=== PATIENT | male | born 1975 | race Caucasian/White ===

== ENCOUNTER 2022-10-27 11:36 | Day surgery (SDC) | payer BC ==
[2022-10-27 11:36] LABS: Absolute Lymphocytes (CBC) 1.9 K/uL (0.7-4.9); Lymphocytes % 28.3 % (15.3-44.8); MCV 85.3 fL (80-100); MPV 9.5 fL (7.6-11.3); Platelets 219 thou/uL (152-406); RBC Red Blood Cell Count 5.16 M/uL (4.33-5.43)
--- NOTE | 2022-10-27 11:43 | RAD REPORT ---
EXAM DESCRIPTION: RAD - Chest Pa And Lat (2 Views) - 10/27/2022 11:38 am CLINICAL HISTORY: Pre op pending cholecystectomy, diabetes, hypertension COMPARISON: No comparisons FINDINGS: Lines: None. Lungs: No evidence of edema or pneumonia. Calcified right upper lobe nodule. Pleural: No significant pleural effusions or pneumothorax. Cardiac: The heart size is within normal limits. Mediastinum: Within normal limits. Bones: No acute fractures. Other: None IMPRESSION: No acute cardiopulmonary disease.
[2022-10-27] MEDS ORDERED: CEFOXITIN SODIUM 1 GM/VIAL ONE (11:59)
[2022-10-27] MEDS ORDERED: Ringers Lactate 1,000 ML IV ONE (11:59)
[2022-10-27 12:31] LABS: Albumin 3.9 g/dL (3.4-5.0); Bilirubin Direct 0.2 mg/dL (0-0.2); Bilirubin Indirect, Calculated 0.4 mg/dL (0.2-0.8); Bilirubin Total 0.6 mg/dL (0.2-1.0); Potassium 3.3 mEq/L (3.5-5.1); Protein, Total 7.5 g/dL (6.4-8.2)
[2022-10-27] MEDS ORDERED: ROCURONIUM 50 MG/5 ML VIAL IV ONE (13:16)
[2022-10-27] MEDS ORDERED: MIDAZOLAM HCL 2 MG/2 ML INJ ONE (13:16)
[2022-10-27] MEDS ORDERED: LIDOCAINE 2% MPF 5 ML VIAL ONE (13:16)
[2022-10-27] MEDS ORDERED: propofoL 200 MG/20 ML VIAL IV ONE (13:16)
[2022-10-27] MEDS ORDERED: FENTANYL CITR 100 MCG/2 ML ONE (13:16)
[2022-10-27] MEDS ORDERED: ONDANSETRON 4 MG/2 ML VIAL ONE (13:16)
--- NOTE | 2022-10-27 13:54 | P.BOP ---
Preoperative diagnosis: symptomatic cholelithiasis Postoperative diagnosis: same Primary procedure: Laparoscopic cholecystectomy Estimated blood loss: <10cc Specimen: gb Findings: as above Anesthesia: General Complications: None Transferred to: Recovery Room Condition: Good
[2022-10-27] MEDS ORDERED: GLYCOPYRROLATE 0.2 MG/ML SYR ONE (14:03)
[2022-10-27] MEDS ORDERED: NEOSTIGMINE 1 MG/ML -10 ML VIAL ONE (14:03)
[2022-10-27] MEDS ORDERED: KETOROLAC 30 MG/ML INJ ONE (14:05)
[2022-10-27] MEDS: HYDROMORPHONE HCL 1 MG/ML INJ ONE ×2 (14:30→14:35)
[2022-10-27] MEDS ORDERED: HYDROCODONE/APAP 10/325 TAB ONE (15:14)
[2022-10-27 16:28] VITALS: TEMP 97; O2SAT 97
[2022-10-27 16:33] VITALS: BP 120/65
--- NOTE | 2022-10-28 01:48 | OP ---
Date of Procedure: 10/27/2022 Surgeon: Xander Lloyd MD Preoperative Diagnosis: Symptomatic cholelithiasis. Postoperative Diagnosis: Symptomatic cholelithiasis. Procedure: Laparoscopic cholecystectomy. Estimated Blood Loss: Less than 10 cc. Specimen: Gallbladder. Anesthesia: General plus local. Indication: This is the case of a 47-year-old patient with above diagnosis. Fully explained the vince efits, alternatives, and risks of laparoscopic, possible open cholecystectomy, which include, but not limited to infection, bleeding, damage to adjacent structures, anesthesia complication, choledocholi thiasis, bile leak, pancreatitis, DE, and even . He also understands this may not relieve his s ymptoms. He might need more than one surgical intervention. He understood, signed a consent. Procedure In Detail: Patient brought to the operating room, placed in supine position. Anesthesia w as done without complication. Abdominal area was prepped and draped in usual sterile fashion. Winston ine 0.5% was injected for local anesthetic followed by sharp incision of the skin in the infraumbilic al region. Incision was carried down to fascia, which was opened under direct vision. Peritoneum wa s encountered, opened under direct vision. Vicryl #1 placed inside the fascia. Glen trocar was ca refully introduced. Pneumoperitoneum was obtained. I placed 3 more trocars, 5 mm each one of them, epigastric, right upper quadrant area under direct visualization. This allowed me to put a grasper i n the fundus of the gallbladder, another grasper in the infundibulum, retracting the gallbladder in t he inferolateral fashion exposing the triangle of Calot, obtaining critical view. The cystic duct an d cystic artery were clearly isolated, freed circumferentially, and a connection between those and th e gallbladder was clearly identified. I proceeded to ligate those by using at least 3 clips proximal , 1 clip distal, ligation in middle. Same was done with the cystic artery. No bile leak. No bleedi ng. The gallbladder was removed from liver using Bovie cauterizer and removed from abdominal cavity using EndoCatch through the umbilical incision. The area was inspected once again. No bile leak. N o bleeding. At that moment, I proceeded to remove the trocars under direct vision. Deflated the pne umoperitoneum. Closed the fascia with #1 Vicryl. Irrigated subcutaneous tissue, closed that with 3- 0 chromic, and skin with jamshid. Sponge counts and instrument counts correct. Patient tolerated th e procedure well. Patient sent to recovery in stable condition. Disposition: Home. Activity: As tolerated. No heavy lifting. Plan: Follow up in my office in 1 week. Call for appointment at [phone]. Keep area dry for 48 stalin rs, then may shower. Then may cover the jamshid with triple antibiotics and Band-Aid. NELLIE/SONALI Voice ID: [id number] Report ID: [id number]
--- NOTE | 2022-10-29 15:32 | EKG ---
Test Date: 2022-10-27 Test Time: 11:18:59 Mechanical Engineer: MIKHAIL MEASUREMENT RESULTS: Intervals: Rate: 51 MN: 168 QRSD: 100 QT: 446 QTc: 411 [place]: P: 31 MN: 168 QRS: 47 T: 59 INTERPRETIVE STATEMENTS: Sinus bradycardia Otherwise normal ECG No previous ECG available for comparison Electronically Signed On 10-29-22 15:30:41 CDT by Saturnino Castellanos
== END 2022-10-27 15:40 | disposition home or self-care (01) ==
LOC: OR 11:36
PROVIDERS: ATTEND Surgery
PROC: 0FT44ZZ Resection of Gallbladder, Percutaneous Endoscopic Approach (ICD-10-PCS; principal; 2022-10-27 12:30)
DX: K81.1 Chronic cholecystitis (principal)
CPT/HCPCS: 47562; 93005; 85025; 80048; 36415; 80076; 88304; 83690; 71046; J2704; J2710; J2001; J2250; J3010; J1170; J0694; J2405; J7120

== ENCOUNTER 2022-10-27 22:43 | Inpatient (IN) | payer BC ==
--- OUTSIDE RECORDS SUMMARY | 2022-10-27 22:52 | XMS REPORT | Continuity of Care Document ---
:1975 Author Organization [facility] t Address [address] [facility]. [address] [place] [address] Care Team Providers Name Role Phone Parvez Del Rosario MD Primary Care Physician VIKKI RAMOS Attending Clinician Unavailable VIKKI RAMOS Attending Clinician Unavailable FELICIA BETANCUR Attending Clinician Unavailable Parvez Del Rosario MD Attending Clinician ANTONY GUAMAN Attending Clinician Unavailable Antony Guaman MD Attending Clinician Lab, Derick Velasco Attending Clinician Unavailable Unknown, Attending Attending Clinician Unavailable UNKNOWN, ATTENDING Attending Clinician Unavailable Doctor Unassigned, [place] Attending Clinician Unavailable Lorena Conklin Attending Clinician LORENA TATE Attending Clinician Unavailable William Brunson MD Attending Clinician PARVEZ DEL ROSARIO Attending Clinician Unavailable Felicia Billings Attending Clinician WILLIAM BRUNSON Attending Clinician Unavailable Raymundo Long MD Attending Clinician ANDERS SHAW Attending Clinician Unavailable Anders Shaw MD Attending Clinician [facility] Attending Clinician Unavailable CIELO INMAN Attending Clinician Unavailable Nicole Bell Attending Clinician NICOLE TONY Attending Clinician Unavailable Lu Ortega RN Attending Clinician Unavailable Only, Derick Db Test Attending Clinician Unavailable Madalyn Doshi PA-C Attending Clinician MADALYN DOSHI Attending Clinician Unavailable RAYMUNDO LONG Attending Clinician Unavailable Marlo Mann MD Attending Clinician MABEL REGALADO Attending Clinician Unavailable VINNIE DAWKINS Attending Clinician Unavailable Vinnie Dawkins DO Attending Clinician Lab, Adc Fam Pob I Attending Clinician Unavailable Provider, [facility] Attending Clinician Unavailable Veronica WRINGER AND SETTER, Elda Attending Clinician OMAGKLAUS, OMAYEMI Attending Clinician Unavailable Dylon ZAMORA, Karen Urias Attending Clinician KAREN TINOCO Attending Clinician Unavailable [facility] Attending Clinician Unavailable Cristian RAO, Patrick Urais Attending Clinician Unavailable Navi Davis MD Attending Clinician Beronica Madrigal RN Attending Clinician Unavailable Moy MENDOZA, Lulu Attending Clinician Rajevelyn_Lorrie Attending Clinician Unavailable ANTONY GUAMAN Admitting Clinician Unavailable ANDERS SHAW Admitting Clinician Unavailable Raju_oLrrie Admitting Clinician Unavailable PARVEZ DEL ROSARIO Admitting Clinician Unavailable Payers Payer Name Policy Type Policy Number Effective Date Expiration Date S modesta [facility] [id number] 2016 00:00:00 Problems Condition Condition Condition Status Onset Resolution Last Treating Co mments Source Name Details Category Date Date Treatment Clinician Date Arthritis Arthritis Disease Active Uni vers of both of both 09-21 ity of knees knees 00:00: [place] [facility] Onychomyco Onychomyco Disease Active U nivers sis sis 11-21 ity of 00:: [place] [facility] Type 2 Type 2 Disease Active Univers diabetes diabetes 11-21 ity of mellitus mellitus 00:00: [place] without without 00 Medical complicati complicati Br anch on, on, without without long-term long-term current current use of use of insulin insulin Fatty Fatty Disease Active Univers liver liver 11-21 ity of 00:00: [address] Obesity Obesity Disease Active Univers (BMI (BMI 9-05 ity of 30-39.9) 30-39.9) 00:00: [address] Branch Essential Essential Disease Active 2015-03 Uni vers hypertensi hypertensi 1-30 it y of on on 00:00: [place] [address] Medical [place] Hyperthyro Hyperthyro Disease Active U nivers idism idism 3-29 ity of 00:00: [address] Allergies, Adverse Reactions, Alerts Allergy Allergy Status Severity Reaction(s) Onset Inactive Treating Comm ents Source Name Type Date Date Clinician NO KNOWN Drug Active Univers ALLERGIE Class ity of S [facility] Social History Social Habit Start Date Stop Date Quantity Comments Source Gender identity Universit y of [facility] Sexual orientation Univer sity [facility] Alcohol intake 2022-10-24 2022-10-24 Current University of 00:00:00 00:00:00 non-drinker of [facility] alcohol [place] (finding) Exposure to 2022-09-11 2022-09-21 Not sure [facility] SARS-CoV-2 (event) 00:00:00 11:43:00 [facility] History of Social 2022-06-02 2022-06-02 Univers ity of function 00:00:00 00:00:00 [facility] Tobacco use and 2022-02-20 2022-02-20 Smokeless Universit y of exposure 00:00:00 00:00:00 tobacco non-user [facility] History of tobacco 2002-03-19 Cigarette Smoker University of use 00:00:00 [facility] Sex Ass[birth year] At [birth year] Universit y of 00:00:00 00:00:00 [facility] Smoking Status Start Date Stop Date Source Ex-smoker 2022-02-20 00:00:00 2022-02-20 00:00:00 Universi ty of [facility] Medications Ordered Filled Start Stop Current Ordering Indication Dosage Frequency Signature Comments Components Source Medication Medication Date Date Medication? Clinician (SIG) Name Name ezetimibe Yes [id number] 10mg Take 1 Un nuzhat 10 mg 8-08 tablet by ity of tablet 00:00: mouth in [place] 00 the Medical morning. Branch ezetimibe Yes [id number] 10mg Take 1 Un nuzhat 10 mg 8-08 tablet by ity of tablet 00:00: mouth in [place] [address] the Medical morning. Branch OMEPRAZOLE 3-0 Yes [id number] 40mg TAKE 1 U nivers 40 mg 7-07 CAPSULE BY ity of capsule 00:00: MOUTH IN [place] 00 THE Medical MORNING Branch OMEPRAZOLE 3-0 Yes [id number] 40mg TAKE 1 U nivers 40 mg 7-07 CAPSULE BY ity of capsule 00:00: MOUTH IN [place] 00 THE Medical MORNING Branch OMEPRAZOLE 3-0 Yes [id number] 40mg TAKE 1 U nivers 40 mg 7-07 CAPSULE BY ity of capsule 00:00: MOUTH IN [place] [address] THE Medical MORNING Branch OMEPRAZOLE 3-0 Yes [id number] 40mg TAKE 1 U nivers 40 mg 7-07 CAPSULE BY ity of capsule 00:00: MOUTH IN [place] [address] THE Medical MORNING Branch OMEPRAZOLE 3-0 Yes [id number] 40mg TAKE 1 U nivers 40 mg 7-07 CAPSULE BY ity of capsule 00:00: MOUTH IN [place] [address] THE Medical MORNING Branch OMEPRAZOLE 3-0 Yes [id number] 40mg TAKE 1 U nivers 40 mg 7-07 CAPSULE BY ity of capsule 00:00: MOUTH IN [place] [address] THE Medical MORNING Branch OMEPRAZOLE 3-0 Yes [id number] 40mg TAKE 1 U nivers 40 mg 7-07 CAPSULE BY ity of capsule 00:00: MOUTH IN [place] 00 THE Medical MORNING Branch OMEPRAZOLE 3-0 Yes [id number] 40mg TAKE 1 U nivers 40 mg 7-07 CAPSULE BY ity of capsule 00:00: MOUTH IN [place] 00 THE Medical MORNING Branch OMEPRAZOLE 3-0 Yes [id number] 40mg TAKE 1 U nivers 40 mg 7-07 CAPSULE BY ity of capsule 00:00: MOUTH IN [place] 00 THE Medical MORNING Branch OMEPRAZOLE 3-0 Yes [id number] 40mg TAKE 1 U nivers 40 mg 7-07 CAPSULE BY ity of capsule 00:00: MOUTH IN [place] 00 THE Medical MORNING Branch OMEPRAZOLE 3-0 Yes [id number] 40mg TAKE 1 U nivers 40 mg 7-07 CAPSULE BY ity of capsule 00:00: MOUTH IN [place] 00 THE Medical MORNING Branch OMEPRAZOLE 2023-0 Yes [id number] 40mg TAKE 1 U nivers 40 mg 7-07 CAPSULE BY ity of capsule 00:00: MOUTH IN [place] 00 THE Medical MORNING Branch OMEPRAZOLE 3-0 Yes [id number] 40mg TAKE 1 U nivers 40 mg 7-07 CAPSULE BY ity of capsule 00:00: MOUTH IN [place] 00 THE Medical MORNING Branch OMEPRAZOLE 3-0 Yes [id number] 40mg TAKE 1 U nivers 40 mg 7-07 CAPSULE BY ity of capsule 00:00: MOUTH IN [place] 00 THE Medical MORNING Branch OMEPRAZOLE 2022-0 Yes [id number] 40mg TAKE 1 U nivers 40 mg 7-07 CAPSULE BY ity of capsule 00:00: MOUTH IN [place] 00 THE Medical MORNING Branch OMEPRAZOLE 2022-0 Yes [id number] 40mg TAKE 1 U nivers 40 mg 7-07 CAPSULE BY ity of capsule 00:00: MOUTH IN [place] 00 THE Medical MORNING Branch OMEPRAZOLE 2022-0 Yes [id number] 40mg TAKE 1 U nivers 40 mg 7-07 CAPSULE BY ity of capsule 00:00: MOUTH IN [place] [address] THE Medical MORNING Branch OMEPRAZOLE 2022-0 Yes [id number] 40mg TAKE 1 U nivers 40 mg 7-07 CAPSULE BY ity of capsule 00:00: MOUTH IN [place] 00 THE Medical MORNING Branch OMEPRAZOLE 2022-0 Yes [id number] 40mg TAKE 1 U nivers 40 mg 7-07 CAPSULE BY ity of capsule 00:00: MOUTH IN [place] 00 THE Medical MORNING Branch OMEPRAZOLE 2022-0 Yes [id number] 40mg TAKE 1 U nivers 40 mg 7-07 CAPSULE BY ity of capsule 00:00: MOUTH IN [place] 00 THE Medical MORNING Branch OMEPRAZOLE 3-0 Yes [id number] 40mg TAKE 1 U nivers 40 mg 7-07 CAPSULE BY ity of capsule 00:00: MOUTH IN [place] 00 THE Medical MORNING Branch omeprazole 3-0 Yes [id number] 40mg Take 1 U nivers 40 mg 7-06 capsule by ity of capsule 00:00: mouth in [place] 00 the Medical morning. Branch ondansetron 2022-0 Yes [id number] 4mg Take 1 Univers (ZOFRAN) 4 09-21 tablet by ity of mg tablet 00:00: mouth [place] [address] every 8 Medical (eight) Branch hours as needed for Nausea and Vomiting (N/V). celecoxib 2022-0 Yes [id number] 200mg Take 1 Univers (CELEBREX) [id number] capsule by it y of 200 mg 00:00: mouth in [place] capsule 00 the Medical morning. Branch omeprazole 2023-0 Yes [id number] 40mg Take 1 U nivers 40 mg - capsule by ity of capsule 00:00: mouth in [place] 00 the Medical morning. Branch ondansetron 3-0 Yes [id number] 4mg Take 1 Univers (ZOFRAN) 4 7-06 tablet by ity of mg tablet 00:00: mouth [place] 00 every 8 Medical (eight) Branch hours as needed for Nausea and Vomiting (N/V). celecoxib 2023-0 Yes [id number] 200mg Take 1 Univers (CELEBREX) 09-21 [id number] capsule by it y of 200 mg 00:00: mouth in [place] capsule 00 the Medical morning. Branch ondansetron 3-0 Yes [id number] 4mg Take 1 Univers (ZOFRAN) 4 7-06 tablet by ity of mg tablet 00:00: mouth [place] 00 every 8 Medical (eight) Branch hours as needed for Nausea and Vomiting (N/V). celecoxib 2023-0 Yes [id number] 200mg Take 1 Univers (CELEBREX) 09-21 [id number] capsule by it y of 200 mg 00:00: mouth in [place] capsule 00 the Medical morning. Branch ondansetron 3-0 Yes [id number] 4mg Take 1 Univers (ZOFRAN) 4 7-06 tablet by ity of mg tablet 00:00: mouth [place] 00 every 8 Medical (eight) Branch hours as needed for Nausea and Vomiting (N/V). celecoxib 2023-0 Yes [id number] 200mg Take 1 Univers (CELEBREX) 09-21 [id number] capsule by it y of 200 mg 00:00: mouth in [place] capsule 00 the Medical morning. Branch ondansetron 2023-0 Yes [id number] 4mg Take 1 Univers (ZOFRAN) 4 7-06 tablet by ity of mg tablet 00:00: mouth [place] 00 every 8 Medical (eight) Branch hours as needed for Nausea and Vomiting (N/V). celecoxib 2023-0 Yes [id number] 200mg Take 1 Univers (CELEBREX) 09-21 [id number] capsule by it y of 200 mg 00:00: mouth in [place] capsule 00 the Medical morning. Branch ondansetron 2023-0 Yes [id number] 4mg Take 1 Univers (ZOFRAN) 4 7-06 tablet by ity of mg tablet 00:00: mouth [place] 00 every 8 Medical (eight) Branch hours as needed for Nausea and Vomiting (N/V). celecoxib 2023-0 Yes [id number] 200mg Take 1 Univers (CELEBREX) 7- 92216 capsule by it y of 200 mg 00:00: mouth in [place] capsule 00 the Medical morning. Branch ondansetron 2023-0 Yes [id number] 4mg Take 1 Univers (ZOFRAN) 4 7-06 tablet by ity of mg tablet 00:00: mouth [place] 00 every 8 Medical (eight) Branch hours as needed for Nausea and Vomiting (N/V). celecoxib 3-0 Yes [id number] 200mg Take 1 Univers (CELEBREX) 7- 28691 capsule by it y of 200 mg 00:00: mouth in [place] capsule 00 the Medical morning. Branch ondansetron 3-0 Yes [id number] 4mg Take 1 Univers (ZOFRAN) 4 7-06 tablet by ity of mg tablet 00:00: mouth [place] 00 every 8 Medical (eight) Branch hours as needed for Nausea and Vomiting (N/V). celecoxib 3-0 Yes [id number] 200mg Take 1 Univers (CELEBREX) 09-21 [id number] capsule by it y of 200 mg 00:00: mouth in [place] capsule 00 the Medical morning. Branch ondansetron 3-0 Yes [id number] 4mg Take 1 Univers (ZOFRAN) 4 7-06 tablet by ity of mg tablet 00:00: mouth [place] 00 every 8 Medical (eight) Branch hours as needed for Nausea and Vomiting (N/V). celecoxib 3-0 Yes [id number] 200mg Take 1 Univers (CELEBREX) 7- 30678 capsule by it y of 200 mg 00:00: mouth in [place] capsule 00 the Medical morning. Branch ondansetron 2023-0 Yes [id number] 4mg Take 1 Univers (ZOFRAN) 4 7-06 tablet by ity of mg tablet 00:00: mouth [place] 00 every 8 Medical (eight) Branch hours as needed for Nausea and Vomiting (N/V). celecoxib 2023-0 Yes [id number] 200mg Take 1 Univers (CELEBREX) 7- 48555 capsule by it y of 200 mg 00:00: mouth in [place] capsule 00 the Medical morning. Branch ondansetron 2023-0 Yes [id number] 4mg Take 1 Univers (ZOFRAN) 4 7-06 tablet by ity of mg tablet 00:00: mouth [place] 00 every 8 Medical (eight) Branch hours as needed for Nausea and Vomiting (N/V). celecoxib 2023-0 Yes [id number] 200mg Take 1 Univers (CELEBREX) 7- 88471 capsule by it y of 200 mg 00:00: mouth in [place] capsule 00 the Medical morning. Branch ondansetron 3-0 Yes [id number] 4mg Take 1 Univers (ZOFRAN) 4 7-06 tablet by ity of mg tablet 00:00: mouth [place] 00 every 8 Medical (eight) Branch hours as needed for Nausea and Vomiting (N/V). celecoxib 3-0 Yes [id number] 200mg Take 1 Univers (CELEBREX) 09-21 [id number] capsule by it y of 200 mg 00:00: mouth in [place] capsule 00 the Medical morning. Branch ondansetron 3-0 Yes [id number] 4mg Take 1 Univers (ZOFRAN) 4 7-06 tablet by ity of mg tablet 00:00: mouth [place] 00 every 8 Medical (eight) Branch hours as needed for Nausea and Vomiting (N/V). celecoxib 2023-0 Yes [id number] 200mg Take 1 Univers (CELEBREX) 09-21 [id number] capsule by it y of 200 mg 00:00: mouth in [place] capsule 00 the Medical morning. Branch ondansetron 2023-0 Yes [id number] 4mg Take 1 Univers (ZOFRAN) 4 7-06 tablet by ity of mg tablet 00:00: mouth [place] 00 every 8 Medical (eight) Branch hours as needed for Nausea and Vomiting (N/V). celecoxib 2023-0 Yes [id number] 200mg Take 1 Univers (CELEBREX) 7- 48047 capsule by it y of 200 mg 00:00: mouth in [place] capsule 00 the Medical morning. Branch ondansetron 2023-0 Yes [id number] 4mg Take 1 Univers (ZOFRAN) 4 7-06 tablet by ity of mg tablet 00:00: mouth [place] 00 every 8 Medical (eight) Branch hours as needed for Nausea and Vomiting (N/V). celecoxib 2023-0 Yes [id number] 200mg Take 1 Univers (CELEBREX) 09-21 [id number] capsule by it y of 200 mg 00:00: mouth in [place] capsule 00 the Medical morning. Branch ondansetron 2023-0 Yes [id number] 4mg Take 1 Univers (ZOFRAN) 4 7-06 tablet by ity of mg tablet 00:00: mouth [place] 00 every 8 Medical (eight) Branch hours as needed for Nausea and Vomiting (N/V). celecoxib 2023-0 Yes [id number] 200mg Take 1 Univers (CELEBREX) 09-21 [id number] capsule by it y of 200 mg 00:00: mouth in [place] capsule 00 the Medical morning. Branch ondansetron 2023-0 Yes [id number] 4mg Take 1 Univers (ZOFRAN) 4 7-06 tablet by ity of mg tablet 00:00: mouth [place] 00 every 8 Medical (eight) Branch hours as needed for Nausea and Vomiting (N/V). celecoxib 2023-0 Yes [id number] 200mg Take 1 Univers (CELEBREX) 09-21 [id number] capsule by it y of 200 mg 00:00: mouth in [place] capsule 00 the Medical morning. Branch ondansetron 2023-0 Yes [id number] 4mg Take 1 Univers (ZOFRAN) 4 7-06 tablet by ity of mg tablet 00:00: mouth [place] 00 every 8 Medical (eight) Branch hours as needed for Nausea and Vomiting (N/V). celecoxib 2023-0 Yes [id number] 200mg Take 1 Univers (CELEBREX) 09-21 [id number] capsule by it y of 200 mg 00:00: mouth in [place] capsule 00 the Medical morning. Branch ondansetron 2023-0 Yes [id number] 4mg Take 1 Univers (ZOFRAN) 4 7-06 tablet by ity of mg tablet 00:00: mouth [place] 00 every 8 Medical (eight) Branch hours as needed for Nausea and Vomiting (N/V). celecoxib 2023-0 Yes [id number] 200mg Take 1 Univers (CELEBREX) 09-21 [id number] capsule by it y of 200 mg 00:00: mouth in [place] capsule 00 the Medical morning. Branch ondansetron 2023-0 Yes [id number] 4mg Take 1 Univers (ZOFRAN) 4 7-06 tablet by ity of mg tablet 00:00: mouth [place] 00 every 8 Medical (eight) Branch hours as needed for Nausea and Vomiting (N/V). celecoxib 2022-0 Yes [id number] 200mg Take 1 Univers (CELEBREX) 09-21 [id number] capsule by it y of 200 mg 00:00: mouth in [place] capsule 00 the Medical morning. Branch ondansetron 2022-0 Yes [id number] 4mg Take 1 Univers (ZOFRAN) 4 7-06 tablet by ity of mg tablet 00:00: mouth [place] 00 every 8 Medical (eight) Branch hours as needed for Nausea and Vomiting (N/V). celecoxib 2022-0 Yes [id number] 200mg Take 1 Univers (CELEBREX) 09-21 [id number] capsule by it y of 200 mg 00:00: mouth in [place] capsule 00 the Medical morning. Branch ondansetron 2022-0 Yes [id number] 4mg Take 1 Univers (ZOFRAN) 4 7-06 tablet by ity of mg tablet 00:00: mouth [place] 00 every 8 Medical (eight) Branch hours as needed for Nausea and Vomiting (N/V). ondansetron 2022-0 Yes [id number] 4mg Take 1 Univers (ZOFRAN) 4 7-06 tablet by ity of mg tablet 00:00: mouth [place] 00 every 8 Medical (eight) Branch hours as needed for Nausea and Vomiting (N/V). omeprazole 2022-0 3- No [id number] 40mg Take 1 Univers 40 mg 09-21 capsule by ity of capsule 00:00: 00:00 mouth in [place] 00 :00 the Medical morning. Branch semaglutide 2022-0 Yes [id number] 3mg Take 3 mg Univers (RYBELSUS) 5-12 by mouth ity o f 3 mg Tab 00:00: in the [place] 00 morning. Medical Branch semaglutide 2022-0 Yes [id number] 7mg Take 7 mg Univers (RYBELSUS) 5-12 by mouth ity o f 7 mg Tab 00:00: in the [place] 00 morning. Medical Branch semaglutide 2022-0 Yes [id number] 3mg Take 3 mg Univers (RYBELSUS) 5-12 by mouth ity o f 3 mg Tab 00:00: in the [place] 00 morning. Medical Branch semaglutide 3-0 Yes [id number] 7mg Take 7 mg Univers (RYBELSUS) 5-12 by mouth ity o f 7 mg Tab 00:00: in the [place] 00 morning. Medical Branch semaglutide 2022-0 Yes [id number] 3mg Take 3 mg Univers (RYBELSUS) 5-12 by mouth ity o f 3 mg Tab 00:00: in the [place] 00 morning. Medical Branch semaglutide 2022-0 Yes [id number] 7mg Take 7 mg Univers (RYBELSUS) 5-12 by mouth ity o f 7 mg Tab 00:00: in the [place] 00 morning. Medical Branch semaglutide 2022-0 Yes [id number] 3mg Take 3 mg Univers (RYBELSUS) 5-12 by mouth ity o f 3 mg Tab 00:00: in the [place] 00 morning. Medical Branch semaglutide 2022-0 Yes [id number] 7mg Take 7 mg Univers (RYBELSUS) 5-12 by mouth ity o f 7 mg Tab 00:00: in the [place] 00 morning. Medical Branch semaglutide 2022-0 Yes [id number] 7mg Take 7 mg Univers (RYBELSUS) 5-12 by mouth ity o f 7 mg Tab 00:00: in the [place] 00 morning. Medical Branch semaglutide 2022-0 Yes [id number] 7mg Take 7 mg Univers (RYBELSUS) 5-12 by mouth ity o f 7 mg Tab 00:00: in the [place] 00 morning. Medical Branch semaglutide 2022-0 Yes [id number] 7mg Take 7 mg Univers (RYBELSUS) 5-12 by mouth ity o f 7 mg Tab 00:00: in the [place] 00 morning. Medical Branch semaglutide 2022-0 Yes [id number] 7mg Take 7 mg Univers (RYBELSUS) 5-12 by mouth ity o f 7 mg Tab 00:00: in the [place] 00 morning. Medical Branch semaglutide 3-0 Yes [id number] 7mg Take 7 mg Univers (RYBELSUS) 5-12 by mouth ity o f 7 mg Tab 00:00: in the [place] 00 morning. Medical Branch semaglutide 2023-0 Yes [id number] 7mg Take 7 mg Univers (RYBELSUS) 5-12 by mouth ity o f 7 mg Tab 00:00: in the [place] 00 morning. Medical Branch semaglutide 2022-0 Yes [id number] 7mg Take 7 mg Univers (RYBELSUS) 5-12 by mouth ity o f 7 mg Tab 00:00: in the [place] 00 morning. Medical Branch semaglutide 2022-0 Yes [id number] 7mg Take 7 mg Univers (RYBELSUS) 5-12 by mouth ity o f 7 mg Tab 00:00: in the [place] 00 morning. Medical Branch semaglutide 2022-0 Yes [id number] 7mg Take 7 mg Univers (RYBELSUS) 5-12 by mouth ity o f 7 mg Tab 00:00: in the [place] 00 morning. Medical Branch semaglutide 2022-0 Yes [id number] 7mg Take 7 mg Univers (RYBELSUS) 5-12 by mouth ity o f 7 mg Tab 00:00: in the [place] 00 morning. Medical Branch semaglutide 2022-0 Yes [id number] 7mg Take 7 mg Univers (RYBELSUS) 5-12 by mouth ity o f 7 mg Tab 00:00: in the [place] 00 morning. Medical Branch semaglutide 2022-0 Yes [id number] 7mg Take 7 mg Univers (RYBELSUS) 5-12 by mouth ity o f 7 mg Tab 00:00: in the [place] 00 morning. Medical Branch semaglutide 2022-0 Yes [id number] 7mg Take 7 mg Univers (RYBELSUS) 5-12 by mouth ity o f 7 mg Tab 00:00: in the [place] 00 morning. Medical Branch semaglutide 2022-0 Yes [id number] 7mg Take 7 mg Univers (RYBELSUS) 5-12 by mouth ity o f 7 mg Tab 00:00: in the [place] 00 morning. Medical Branch semaglutide 2022-0 Yes [id number] 7mg Take 7 mg Univers (RYBELSUS) 5-12 by mouth ity o f 7 mg Tab 00:00: in the [place] 00 morning. Medical Branch semaglutide 2022-0 Yes [id number] 7mg Take 7 mg Univers (RYBELSUS) 5-12 by mouth ity o f 7 mg Tab 00:00: in the [place] 00 morning. Medical Branch semaglutide 2022-0 Yes [id number] 7mg Take 7 mg Univers (RYBELSUS) 5-12 by mouth ity o f 7 mg Tab 00:00: in the [place] 00 morning. Medical Branch semaglutide 2022-0 Yes [id number] 7mg Take 7 mg Univers (RYBELSUS) 5-12 by mouth ity o f 7 mg Tab 00:00: in the [place] 00 morning. Medical Branch semaglutide 2022-0 Yes [id number] 7mg Take 7 mg Univers (RYBELSUS) 5-12 by mouth ity o f 7 mg Tab 00:00: in the [place] 00 morning. Medical Branch semaglutide 2022-0 Yes [id number] 7mg Take 7 mg Univers (RYBELSUS) 5-12 by mouth ity o f 7 mg Tab 00:00: in the [place] 00 morning. Medical Branch semaglutide 2022-0 Yes [id number] 7mg Take 7 mg Univers (RYBELSUS) 5-12 by mouth ity o f 7 mg Tab 00:00: in the [place] 00 morning. Medical Branch semaglutide 2022-0 Yes [id number] 7mg Take 7 mg Univers (RYBELSUS) 5-12 by mouth ity o f 7 mg Tab 00:00: in the [place] 00 morning. Medical Branch semaglutide 2022-0 2023- No [id number] 3mg Take 3 mg Univers (RYBELSUS) 5-12 - by mouth ity of 3 mg Tab 00:00: 00:00 in the [place] 00 :00 morning. Medical Branch semaglutide 2022-0 3- No [id number] 3mg Take 3 mg Univers (RYBELSUS) 5-12 -06 by mouth ity of 3 mg Tab 00:00: 00:00 in the [place] 00 :00 morning. Medical Branch semaglutide 2022-0 3- No [id number] 3mg Take 3 mg Univers (RYBELSUS) 5-12 -06 by mouth ity of 3 mg Tab 00:00: 00:00 in the [place] 00 :00 morning. Medical Branch tirzepatide 2022-0 Yes [id number] 2.5mg inject 2.5 Univers 2.5 mg/0.5 5-05 mg under ity o f mL 00:00: the skin [place] [email or web address] weekly. Medic al s injection Branch tirzepatide Yes [id number] 5mg inject 5 Univers 2.5 mg/0.5 5-05 mg under ity o f mL 00:00: [facility] Branch insulin Yes [id number] ADMINISTER Univers aspart 5-05 10 UNITS ity of RAPID 100 00:00: UNDER THE [place] as unit/mL 00 SKIN TWICE Medica l injection DAILY Branch BEFORE BREAKFAST AND DINNER insulin Yes [id number] 18U inject 18 Univers degludec 5-05 Units ity of (TRESIBA 00:00: [place] U-[place] 00 skin at Medical INSULIN) bedtime. Branch 100 unit/mL Soln tirzepatide Yes [id number] 2.5mg inject 2.5 Univers 2.5 mg/0.5 5-05 mg under ity o f mL 00:00: [facility] Medic [facility] injection Branch tirzepatide Yes [id number] 5mg inject 5 Univers 2.5 mg/0.5 5-05 mg under ity o f mL 00:00: [facility] Medic [facility] injection Branch insulin Yes [id number] ADMINISTER Univers aspart 5-05 10 UNITS ity of RAPID 100 00:00: UNDER THE [place] unit/mL 00 SKIN TWICE Medica l injection DAILY Branch BEFORE BREAKFAST AND DINNER insulin Yes [id number] 18U inject 18 Univers degludec 5-05 Units ity of (TRESIBA 00:00: [place] U-[place] skin at Medical INSULIN) bedtime. Branch 100 unit/mL Soln tirzepatide Yes [id number] 2.5mg inject 2.5 Univers 2.5 mg/0.5 5-05 mg under ity o f mL 00:00: the skin [place] [email or web address] 00 weekly. Medic al s injection Branch tirzepatide Yes [id number] 5mg inject 5 Univers 2.5 mg/0.5 5-05 mg under ity o f mL 00:00: the skin [place] [facility] 00 weekly. Medic al s injection Branch insulin Yes [id number] ADMINISTER Univers aspart 5-05 10 UNITS ity of RAPID 100 00:00: UNDER THE [place] unit/mL 00 SKIN TWICE Medica l injection DAILY Branch BEFORE BREAKFAST AND DINNER insulin Yes [id number] 18U inject 18 [facility] degludec 5-05 Units ity of ([place] skin at [facility] INSULIN) bedtime. Branch 100 unit/mL Soln insulin Yes [id number] ADMINISTER [facility] aspart 5-05 10 UNITS ity of RAPID 100 00:00: UNDER THE [place] unit/mL 00 SKIN TWICE Medica l injection DAILY Branch BEFORE BREAKFAST AND DINNER insulin Yes [id number] 18U inject 18 [facility] degludec 5-05 Units ity of ([place] 00:[place] [facility] INSULIN) bedtime. Branch 100 unit/mL Soln insulin Yes [id number] ADMINISTER [facility] aspart 5-05 10 UNITS ity of RAPID 100 00:00: UNDER THE [place] unit/mL 00 SKIN TWICE Medica l injection DAILY Branch BEFORE BREAKFAST AND DINNER insulin Yes [id number] 18U inject 18 [facility] degludec 5-05 Units ity of (TRESIBA 00:[place] at Medical INSULIN) bedtime. Branch 100 unit/mL Soln insulin Yes [id number] ADMINISTER [facility] aspart 5-05 10 UNITS ity of RAPID 100 00:00: UNDER THE [place] unit/mL 00 SKIN TWICE Medica l injection DAILY Branch BEFORE BREAKFAST AND DINNER insulin Yes [id number] 18U inject 18 [facility] degludec 5-05 Units ity of (TRESIBA 00:00[place] at Medical INSULIN) bedtime. Branch 100 unit/mL Soln insulin 0 Yes [id number] ADMINISTER [facility] aspart 5-05 10 UNITS ity of RAPID 100 00:00: UNDER THE [place] as unit/mL 00 SKIN TWICE Medica l injection DAILY Branch BEFORE BREAKFAST AND DINNER insulin 0 Yes [id number] 18U inject 18 [facility] degludec 5-05 Units ity of (TRESIBA 00:00: [place] at Medical INSULIN) bedtime. Branch 100 unit/mL Soln insulin 0 Yes [id number] ADMINISTER [facility] aspart 5-05 10 UNITS ity of RAPID 100 00:00: UNDER THE [place] [facility] unit/mL 00 SKIN TWICE Medica l injection DAILY Branch BEFORE BREAKFAST AND DINNER insulin 2022-0 Yes [id number] 18U inject 18 [facility] de[facility]udec 5-05 Units ity of (TRESIBA 00:00: [place] at [facility] INSULIN) bedtime. Branch 100 unit/mL Soln insulin Yes [id number] ADMINISTER [facility] aspart 5-05 10 UNITS ity of RAPID 100 00:00: UNDER THE [place] [facility] unit/mL 00 SKIN TWICE Medica l injection DAILY Branch BEFORE BREAKFAST AND DINNER insulin 2022- Yes [id number] 18U inject 18 [facility] de[facility]udec 5-05 Units ity of (TRESIBA 00:00[place] at Medical INSULIN) bedtime. Branch 100 unit/mL Soln insulin 2022-0 Yes [id number] ADMINISTER [facility] aspart 5-05 10 UNITS ity of RAPID 100 00:00: UNDER THE [place] [facility] unit/mL 00 SKIN TWICE Medica l injection DAILY Branch BEFORE BREAKFAST AND DINNER insulin 2022-0 Yes [id number] 18U inject 18 [facility] degludec 5-05 Units ity of (TRESIBA 00:00: [place] at [facility] INSULIN) bedtime. Branch 100 unit/mL Soln insulin 2022-0 Yes [id number] ADMINISTER [facility] aspart 5-05 10 UNITS ity of RAPID 100 00:00: UNDER THE [place] [facility] unit/mL 00 SKIN TWICE Medica l injection DAILY Branch BEFORE BREAKFAST AND DINNER insulin 2022-0 Yes [id number] 18U inject 18 [facility] de[facility]udec 5-05 Units ity of (TRESIBA 00:00: [place] at Medical INSULIN) bedtime. Branch 100 unit/mL Soln insulin 2023-0 Yes [id number] ADMINISTER [facility] aspart 5-05 10 UNITS ity of RAPID 100 00:00: UNDER THE [place] [facility] unit/mL 00 SKIN TWICE Medica l injection DAILY Branch BEFORE BREAKFAST AND DINNER insulin 2022-0 Yes [id number] 18U inject 18 [facility] de[facility]udec 5-05 Units ity of (TRESIBA 00:00: [place] at Medical INSULIN) bedtime. Branch 100 unit/mL Soln insulin 2022-0 Yes [id number] ADMINISTER [facility] aspart 5-05 10 UNITS ity of RAPID 100 00:00: UNDER THE [place] [facility] unit/mL 00 SKIN TWICE Medica l injection DAILY Branch BEFORE BREAKFAST AND DINNER insulin 2022-0 Yes [id number] 18U inject 18 [facility] degludec 5-05 Units ity of (TRESIBA 00:00: [place] at Medical INSULIN) bedtime. Branch 100 unit/mL Soln insulin 2022-0 Yes [id number] ADMINISTER [facility] aspart 5-05 10 UNITS ity of RAPID 100 00:00: [facility] THE [place] [facility] unit/mL 00 SKIN TWICE Medica l injection DAILY Branch BEFORE BREAKFAST AND DINNER insulin 2022-0 Yes [id number] 18U inject 18 [facility] degludec 5-05 Units ity of (TRESIBA 00:00: [place] at Medical INSULIN) bedtime. Branch 100 unit/mL Soln insulin 2022-0 Yes [id number] ADMINISTER [facility] aspart 5-05 10 UNITS ity of RAPID 100 00:00: UNDER THE [place] [facility] unit/mL 00 SKIN TWICE Medica l injection DAILY Branch BEFORE BREAKFAST AND DINNER insulin 2022-0 Yes [id number] 18U inject 18 [facility] de[facility]udec 5-05 Units ity of (TRESIBA 00:00: [place] at Medical INSULIN) bedtime. Branch 100 unit/mL Soln insulin 2022-0 Yes [id number] ADMINISTER [facility] aspart 5-05 10 UNITS ity of RAPID 100 00:00: UNDER THE [place] as unit/mL 00 SKIN TWICE Medica l injection DAILY Branch BEFORE BREAKFAST AND DINNER insulin 2022-0 Yes [id number] 18U inject 18 [facility] de[facility]udec 5-05 Units ity of (TRESIBA 00:00: [place] at Medical INSULIN) bedtime. Branch 100 unit/mL Soln insulin 2022-0 Yes [id number] ADMINISTER [facility] aspart 5-05 10 UNITS ity of RAPID 100 00:00: UNDER THE [place] as unit/mL 00 SKIN TWICE Medica l injection DAILY Branch BEFORE BREAKFAST AND DINNER insulin 2022-0 Yes [id number] 18U inject 18 [facility] de[facility]udec 5-05 Units ity of (TRESIBA 00:00: [place] at Medical INSULIN) bedtime. Branch 100 unit/mL Soln insulin 2022-0 Yes [id number] ADMINISTER [facility] aspart 5-05 10 UNITS ity of RAPID 100 00:00: UNDER THE [place] as unit/mL 00 SKIN TWICE Medica l injection DAILY Branch BEFORE BREAKFAST AND DINNER insulin 2022-0 Yes [id number] 18U inject 18 [facility] de[facility]ec 5-05 Units ity of (TRESIBA 00:00: [place] at Medical INSULIN) bedtime. Branch 100 unit/mL Soln insulin 2022-0 Yes [id number] ADMINISTER [facility] aspart 5-05 10 UNITS ity of RAPID 100 00:00: UNDER THE [place] as unit/mL 00 SKIN TWICE Medica l injection DAILY Branch BEFORE BREAKFAST AND DINNER insulin 2022-0 Yes [id number] 18U inject 18 [facility] de[facility]ec 5-05 Units ity of (TRESIBA 00:00: [place] at Medical INSULIN) bedtime. Branch 100 unit/mL Soln insulin 2022-0 Yes [id number] ADMINISTER [facility] aspart 5-05 10 UNITS ity of RAPID 100 00:00: UNDER THE [place] [facility] unit/mL 00 SKIN TWICE Medica l injection DAILY Branch BEFORE BREAKFAST AND DINNER insulin 2022-0 Yes [id number] 18U inject 18 [facility] de[facility]ec 5-05 Units ity of (TRESIBA 00:00: [place] at Medical INSULIN) bedtime. Branch 100 unit/mL Soln insulin 2022-0 Yes [id number] ADMINISTER [facility] aspart 5-05 10 UNITS ity of RAPID 100 00:00: UNDER THE [place] as unit/mL 00 SKIN TWICE Medica l injection DAILY Branch BEFORE BREAKFAST AND DINNER insulin 2023-0 Yes [id number] 18U inject 18 [facility] de[facility]ec 5-05 Units ity of (TRESIBA 00:00: [place] at Medical INSULIN) bedtime. Branch 100 unit/mL Soln insulin 2022-0 Yes [id number] ADMINISTER [facility] aspart 5-05 10 UNITS ity of RAPID 100 00:00: UNDER THE [place] as unit/mL 00 SKIN TWICE Medica l injection DAILY Branch BEFORE BREAKFAST AND DINNER insulin 2022-0 Yes [id number] 18U inject 18 [facility] de[facility] 5-05 Units ity of (TRESIBA 00:00: [place] at Medical INSULIN) bedtime. Branch 100 unit/mL Soln insulin 0 Yes [id number] ADMINISTER [facility] aspart 5-05 10 UNITS ity of RAPID 100 00:00: UNDER THE [place] as unit/mL 00 SKIN TWICE Medica l injection DAILY Branch BEFORE BREAKFAST AND DINNER insulin 2022-0 Yes [id number] 18U inject 18 [facility] de[facility] 5-05 Units ity of (TRESIBA 00:00: [place] at Medical INSULIN) bedtime. Branch 100 unit/mL Soln insulin 2022-0 Yes [id number] ADMINISTER [facility] aspart 5-05 10 UNITS ity of RAPID 100 00:00: UNDER THE [place] as unit/mL 00 SKIN TWICE Medica l injection DAILY Branch BEFORE BREAKFAST AND DINNER insulin 2022-0 Yes [id number] 18U inject 18 [facility] de[facility] 5-05 Units ity of (TRESIBA 00:00: [place] at Medical INSULIN) bedtime. Branch 100 unit/mL Soln insulin 2022-0 Yes [id number] ADMINISTER [facility] aspart 5-05 10 UNITS ity of RAPID 100 00:00: UNDER THE [place] as unit/mL 00 SKIN TWICE Medica l injection DAILY Branch BEFORE BREAKFAST AND DINNER insulin 2022-0 Yes [id number] 18U inject 18 [facility] de[facility]ec 5-05 Units ity of (TRESIBA 00:00: [place] at Medical INSULIN) bedtime. Branch 100 unit/mL Soln insulin 2022-0 Yes [id number] ADMINISTER [facility] aspart 5-05 10 UNITS ity of RAPID 100 00:00: UNDER THE [place] as unit/mL 00 SKIN TWICE Medica l injection DAILY Branch BEFORE BREAKFAST AND DINNER insulin 2022-0 Yes [id number] 18U inject 18 [facility] de[facility]ec 5-05 Units ity of (TRESIBA 00:00: [place] at Medical INSULIN) bedtime. Branch 100 unit/mL Soln insulin 2022-0 Yes [id number] ADMINISTER [facility] aspart 5-05 10 UNITS ity of RAPID 100 00:00: UNDER THE [place] as unit/mL 00 SKIN TWICE Medica l injection DAILY Branch BEFORE BREAKFAST AND DINNER insulin 2022-0 Yes [id number] 18U inject 18 [facility] de[facility]ec 5-05 Units ity of (TRESIBA 00:00: [place] at Medical INSULIN) bedtime. Branch 100 unit/mL Soln insulin 2022-0 Yes [id number] ADMINISTER [facility] aspart 5-05 10 UNITS ity of RAPID 100 00:00: UNDER THE [place] as unit/mL 00 SKIN TWICE Medica l injection DAILY Branch BEFORE BREAKFAST AND DINNER insulin 2022-0 Yes [id number] 18U inject 18 [facility] de[facility]ec 5-05 Units ity of (TRESIBA 00:00: [place] at Medical INSULIN) bedtime. Branch 100 unit/mL Soln insulin 2022-0 Yes [id number] ADMINISTER [facility] aspart 5-05 10 UNITS ity of RAPID 100 00:00: UNDER THE [place] as unit/mL 00 SKIN TWICE Medica l injection DAILY Branch BEFORE BREAKFAST AND DINNER insulin 2022-0 Yes [id number] 18U inject 18 [facility] de[facility]ec 5-05 Units ity of (TRESIBA 00:00: [place] at Medical INSULIN) bedtime. Branch 100 unit/mL Soln insulin 2022-0 Yes [id number] ADMINISTER [facility] aspart 5-05 10 UNITS ity of RAPID 100 00:00: UNDER THE [place] as unit/mL 00 SKIN TWICE Medica l injection DAILY Branch BEFORE BREAKFAST AND DINNER insulin 2022-0 Yes [id number] 18U inject 18 [facility] de[facility]ec 5-05 Units ity of (TRESIBA 00:00: [place] at Medical INSULIN) bedtime. Branch 100 unit/mL Soln insulin Yes [id number] ADMINISTER [facility] aspart 5-05 10 UNITS ity of RAPID 100 00:00: UNDER THE [place] as unit/mL 00 SKIN TWICE Medica l injection DAILY Branch BEFORE BREAKFAST AND DINNER insulin Yes [id number] 18U inject 18 [facility] de[facility]udec 5-05 Units ity of (TRESIBA 00:00: [place] at Medical INSULIN) bedtime. Branch 100 unit/mL Soln tirzepatide 2022- No [id number] 2.5mg inject 2.5 [facility] 2.5 mg/0.5 5-05 05-12 mg under ity of mL 00:00: 00:00 the skin [place] subcutaneou 00 :00 weekly. Medic al s injection Branch tirzepatide 2022- No [id number] 5mg inject 5 [facility] 2.5 mg/0.5 5-05 05-12 mg under ity of mL 00:00: 00:00 the skin [place] subcutaneou 00 :00 weekly. Medic al s injection Branch tirzepatide 2022- No [id number] 2.5mg inject 2.5 [facility] 2.5 mg/0.5 5-05 05-12 mg under ity of mL 00:00: 00:00 the skin [place] subcutaneou 00 :00 weekly. Medic al s injection Branch tirzepatide 2022- No [id number] 5mg inject 5 [facility] 2.5 mg/0.5 5-05 05-12 mg under ity of mL 00:00: 00:00 the skin [place] subcutaneou 00 :00 weekly. Medic al s injection Branch tirzepatide 2022- No [id number] 2.5mg inject 2.5 [facility] 2.5 mg/0.5 5-05 05-12 mg under ity of mL 00:00: 00:00 the skin [place] subcutaneou 00 :00 weekly. Medic al s injection Branch tirzepatide 2022- No [id number] 5mg inject 5 [facility] 2.5 mg/0.5 5-05 05-12 mg under ity of mL 00:00: 00:00 the skin [place] subcutaneou 00 :00 weekly. Medic al s injection Branch insulin 2022-0 Yes [id number] ADMINISTER [facility] aspart 3-29 10 UNITS ity of RAPID 100 00:00: UNDER THE [place] as unit/mL 00 SKIN TWICE Medica l injection DAILY Branch BEFORE BREAKFAST AND DINNER insulin 2022-0 3- No [id number] ADMINISTER [facility] aspart 3-29 05-05 10 UNITS ity of RAPID 100 00:00: 00:00 [place] unit/mL 00 :00 SKIN TWICE Medica l injection DAILY Branch BEFORE BREAKFAST AND DINNER insulin 2022-0 2022- No [id number] ADMINISTER [facility] aspart 3-29 05-05 10 UNITS ity of RAPID 100 00:00: 00:00 UNDER THE [place] unit/mL 00 :00 SKIN TWICE Medica l injection DAILY Branch BEFORE BREAKFAST AND DINNER atenoloL-ch 2022-0 Yes [id number] 1{tbl} Take 1 [facility] lorthalidon 3-17 tablet by ity of e 100-25 mg 00:00: mouth in [place] per tablet 00 the Medical morning. Branch verapamiL 3-0 Yes [id number] 180mg Take 1 U [facility] 180 mg ER 3-17 tablet by ity o f tablet 00:00: mouth in [place] 00 the Medical morning. Branch atenoloL-ch 2022-0 Yes [id number] 1{tbl} Take 1 [facility] lorthalidon 3-17 tablet by ity of e 100-25 mg 00:00: mouth in [place] per tablet 00 the Medical morning. Branch verapamiL 3-0 Yes [id number] 180mg Take 1 U [facility] 180 mg ER 3-17 tablet by ity o f tablet 00:00: mouth in [place] 00 the Medical morning. Branch atenoloL-ch 3-0 Yes [id number] 1{tbl} Take 1 [facility] lorthalidon 3-17 tablet by ity of e 100-25 mg 00:00: mouth in [place] per tablet 00 the Medical morning. Branch verapamiL 2023-0 Yes [id number] 180mg Take 1 U [facility] 180 mg ER 3-17 tablet by ity o f tablet 00:00: mouth in [place] 00 the Medical morning. Branch atenoloL-ch 3-0 Yes [id number] 1{tbl} Take 1 [facility] lorthalidon 3-17 tablet by ity of e 100-25 mg 00:00: mouth in [place] per tablet 00 the Medical morning. Branch verapamiL 2023-0 Yes [id number] 180mg Take 1 U n[facility] 180 mg ER 3-17 tablet by ity o f tablet 00:00: mouth in [place] 00 the Medical morning. Branch atenoloL-ch 2023-0 Yes [id number] 1{tbl} Take 1 [facility] lorthalidon 3-17 tablet by ity of e 100-25 mg 00:00: mouth in [place] per tablet 00 the Medical morning. Branch verapamiL 2023-0 Yes [id number] 180mg Take 1 U [facility] 180 mg ER 3-17 tablet by ity o f tablet 00:00: mouth in [place] 00 the Medical morning. Branch atenoloL-ch 2023-0 Yes [id number] 1{tbl} Take 1 [facility] lorthalidon 3-17 tablet by ity of e 100-25 mg 00:00: mouth in [place] per tablet 00 the Medical morning. Branch verapamiL 2023-0 Yes [id number] 180mg Take 1 U [facility] 180 mg ER 3-17 tablet by ity o f tablet 00:00: mouth in [place] 00 the Medical morning. Branch atenoloL-ch 2023-0 Yes [id number] 1{tbl} Take 1 [facility] lorthalidon 3-17 tablet by ity of e 100-25 mg 00:00: mouth in [place] per tablet 00 the Medical morning. Branch verapamiL 2023-0 Yes [id number] 180mg Take 1 U nivers 180 mg ER 3-17 tablet by ity o f tablet 00:00: mouth in [place] 00 the Medical morning. Branch atenoloL-ch 2023-0 Yes [id number] 1{tbl} Take 1 [facility] lorthalidon 3-17 tablet by ity of e 100-25 mg 00:00: mouth in [place] per tablet 00 the Medical morning. Branch verapamiL 2023-0 Yes [id number] 180mg Take 1 U nivers 180 mg ER 3-17 tablet by ity o f tablet 00:00: mouth in [place] 00 the Medical morning. Branch atenoloL-ch 2023-0 Yes [id number] 1{tbl} Take 1 [facility] lorthalidon 3-17 tablet by ity of e 100-25 mg 00:00: mouth in [place] per tablet 00 the Medical morning. Branch verapamiL 2023-0 Yes [id number] 180mg Take 1 U n[facility] 180 mg ER 3-17 tablet by ity o f tablet 00:00: mouth in [place] 00 the Medical morning. Branch atenoloL-ch 2023-0 Yes [id number] 1{tbl} Take 1 [facility] lorthalidon 3-17 tablet by ity of e 100-25 mg 00:00: mouth in [place] per tablet 00 the Medical morning. Branch verapamiL 2023-0 Yes [id number] 180mg Take 1 U nivers 180 mg ER 3-17 tablet by ity o f tablet 00:00: mouth in [place] 00 the Medical morning. Branch atenoloL-ch 2023-0 Yes [id number] 1{tbl} Take 1 [facility] lorthalidon 3-17 tablet by ity of e 100-25 mg 00:00: mouth in [place] per tablet 00 the Medical morning. Branch verapamiL 2023-0 Yes [id number] 180mg Take 1 U nivers 180 mg ER 3-17 tablet by ity o f tablet 00:00: mouth in [place] 00 the Medical morning. Branch atenoloL-ch 2023-0 Yes [id number] 1{tbl} Take 1 [facility] lorthalidon 3-17 tablet by ity of e 100-25 mg 00:00: mouth in [place] per tablet 00 the Medical morning. Branch verapamiL 2023-0 Yes [id number] 180mg Take 1 U nivers 180 mg ER 3-17 tablet by ity o f tablet 00:00: mouth in [place] 00 the Medical morning. Branch atenoloL-ch 2023-0 Yes [id number] 1{tbl} Take 1 [facility] lorthalidon 3-17 tablet by ity of e 100-25 mg 00:00: mouth in [place] per tablet 00 the Medical morning. Branch verapamiL 2023-0 Yes [id number] 180mg Take 1 U nivers 180 mg ER 3-17 tablet by ity o f tablet 00:00: mouth in [place] 00 the Medical morning. Branch atenoloL-ch 2023-0 Yes [id number] 1{tbl} Take 1 [facility] lorthalidon 3-17 tablet by ity of e 100-25 mg 00:00: mouth in [place] per tablet 00 the Medical morning. Branch verapamiL 2023-0 Yes [id number] 180mg Take 1 U nivers 180 mg ER 3-17 tablet by ity o f tablet 00:00: mouth in [place] 00 the Medical morning. Branch atenoloL-ch 2023-0 Yes [id number] 1{tbl} Take 1 [facility] lorthalidon 3-17 tablet by ity of e 100-25 mg 00:00: mouth in [place] per tablet 00 the Medical morning. Branch verapamiL 2023-0 Yes [id number] 180mg Take 1 U nivers 180 mg ER 3-17 tablet by ity o f tablet 00:00: mouth in [place] 00 the Medical morning. Branch atenoloL-ch 2023-0 Yes [id number] 1{tbl} Take 1 [facility] lorthalidon 3-17 tablet by ity of e 100-25 mg 00:00: mouth in [place] per tablet 00 the Medical morning. Branch verapamiL 2023-0 Yes [id number] 180mg Take 1 U nivers 180 mg ER 3-17 tablet by ity o f tablet 00:00: mouth in [place] 00 the Medical morning. Branch atenoloL-ch 2023-0 Yes [id number] 1{tbl} Take 1 [facility] lorthalidon 3-17 tablet by ity of e 100-25 mg 00:00: mouth in [place] per tablet 00 the Medical morning. Branch verapamiL 2023-0 Yes [id number] 180mg Take 1 U [facility] 180 mg ER 3-17 tablet by ity o f tablet 00:00: mouth in [place] 00 the Medical morning. Branch atenoloL-ch 2023-0 Yes [id number] 1{tbl} Take 1 [facility] lorthalidon 3-17 tablet by ity of e 100-25 mg 00:00: mouth in [place] per tablet 00 the Medical morning. Branch verapamiL 2023-0 Yes [id number] 180mg Take 1 U nivers 180 mg ER 3-17 tablet by ity o f tablet 00:00: mouth in [place] 00 the Medical morning. Branch atenoloL-ch 2023-0 Yes [id number] 1{tbl} Take 1 [facility] lorthalidon 3-17 tablet by ity of e 100-25 mg 00:00: mouth in [place] per tablet 00 the Medical morning. Branch verapamiL 2023-0 Yes [id number] 180mg Take 1 U nivers 180 mg ER 3-17 tablet by ity o f tablet 00:00: mouth in [place] 00 the Medical morning. Branch atenoloL-ch 2023-0 Yes [id number] 1{tbl} Take 1 [facility] lorthalidon 3-17 tablet by ity of e 100-25 mg 00:00: mouth in [place] per tablet 00 the Medical morning. Branch verapamiL 2023-0 Yes [id number] 180mg Take 1 U nivers 180 mg ER 3-17 tablet by ity o f tablet 00:00: mouth in [place] 00 the Medical morning. Branch atenoloL-ch 2023-0 Yes [id number] 1{tbl} Take 1 [facility] lorthalidon 3-17 tablet by ity of e 100-25 mg 00:00: mouth in [place] per tablet 00 the Medical morning. Branch verapamiL 2023-0 Yes [id number] 180mg Take 1 U nivers 180 mg ER 3-17 tablet by ity o f tablet 00:00: mouth in [place] 00 the Medical morning. Branch atenoloL-ch 2023-0 Yes [id number] 1{tbl} Take 1 [facility] lorthalidon 3-17 tablet by ity of e 100-25 mg 00:00: mouth in [place] per tablet 00 the Medical morning. Branch verapamiL 2023-0 Yes [id number] 180mg Take 1 U nivers 180 mg ER 3-17 tablet by ity o f tablet 00:00: mouth in [place] 00 the Medical morning. Branch atenoloL-ch 2023-0 Yes [id number] 1{tbl} Take 1 [facility] lorthalidon 3-17 tablet by ity of e 100-25 mg 00:00: mouth in [place] per tablet 00 the Medical morning. Branch verapamiL 2023-0 Yes [id number] 180mg Take 1 U nivers 180 mg ER 3-17 tablet by ity o f tablet 00:00: mouth in [place] 00 the Medical morning. Branch atenoloL-ch 2023-0 Yes [id number] 1{tbl} Take 1 [facility] lorthalidon 3-17 tablet by ity of e 100-25 mg 00:00: mouth in [place] per tablet 00 the Medical morning. Branch verapamiL 2023-0 Yes [id number] 180mg Take 1 U nivers 180 mg ER 3-17 tablet by ity o f tablet 00:00: mouth in [place] 00 the Medical morning. Branch atenoloL-ch 2023-0 Yes [id number] 1{tbl} Take 1 [facility] lorthalidon 3-17 tablet by ity of e 100-25 mg 00:00: mouth in [place] per tablet 00 the Medical morning. Branch verapamiL 2023-0 Yes [id number] 180mg Take 1 U nivers 180 mg ER 3-17 tablet by ity o f tablet 00:00: mouth in [place] 00 the Medical morning. Branch atenoloL-ch 2023-0 Yes [id number] 1{tbl} Take 1 [facility] lorthalidon 3-17 tablet by ity of e 100-25 mg 00:00: mouth in [place] per tablet 00 the Medical morning. Branch verapamiL 2023-0 Yes [id number] 180mg Take 1 U nivers 180 mg ER 3-17 tablet by ity o f tablet 00:00: mouth in [place] 00 the Medical morning. Branch atenoloL-ch 2023-0 Yes [id number] 1{tbl} Take 1 [facility] lorthalidon 3-17 tablet by ity of e 100-25 mg 00:00: mouth in [place] per tablet 00 the Medical morning. Branch verapamiL 2023-0 Yes [id number] 180mg Take 1 U nivers 180 mg ER 3-17 tablet by ity o f tablet 00:00: mouth in [place] 00 the Medical morning. Branch atenoloL-ch 2023-0 Yes [id number] 1{tbl} Take 1 [facility] lorthalidon 3-17 tablet by ity of e 100-25 mg 00:00: mouth in [place] per tablet 00 the Medical morning. Branch verapamiL 2023-0 Yes [id number] 180mg Take 1 U nivers 180 mg ER 3-17 tablet by ity o f tablet 00:00: mouth in [place] 00 the Medical morning. Branch atenoloL-ch 2023-0 Yes [id number] 1{tbl} Take 1 [facility] lorthalidon 3-17 tablet by ity of e 100-25 mg 00:00: mouth in [place] per tablet 00 the Medical morning. Branch verapamiL 2023-0 Yes [id number] 180mg Take 1 U nivers 180 mg ER 3-17 tablet by ity o f tablet 00:00: mouth in [place] 00 the Medical morning. Branch atenoloL-ch 2023-0 Yes [id number] 1{tbl} Take 1 [facility] lorthalidon 3-17 tablet by ity of e 100-25 mg 00:00: mouth in [place] per tablet 00 the Medical morning. Branch verapamiL 2023-0 Yes [id number] 180mg Take 1 U nivers 180 mg ER 3-17 tablet by ity o f tablet 00:00: mouth in [place] 00 the Medical morning. Branch atenoloL-ch 2023-0 Yes [id number] 1{tbl} Take 1 [facility] lorthalidon 3-17 tablet by ity of e 100-25 mg 00:00: mouth in [place] per tablet 00 the Medical morning. Branch verapamiL 2023-0 Yes [id number] 180mg Take 1 U nivers 180 mg ER 3-17 tablet by ity o f tablet 00:00: mouth in [place] 00 the Medical morning. Branch atenoloL-ch 2023-0 Yes [id number] 1{tbl} Take 1 [facility] lorthalidon 3-17 tablet by ity of e 100-25 mg 00:00: mouth in [place] per tablet 00 the Medical morning. Branch verapamiL 2023-0 Yes [id number] 180mg Take 1 U nivers 180 mg ER 3-17 tablet by ity o f tablet 00:00: mouth in [place] 00 the Medical morning. Branch atenoloL-ch 2023-0 Yes [id number] 1{tbl} Take 1 [facility] lorthalidon 3-17 tablet by ity of e 100-25 mg 00:00: mouth in [place] per tablet 00 the Medical morning. Branch verapamiL 2023-0 Yes [id number] 180mg Take 1 U nivers 180 mg ER 3-17 tablet by ity o f tablet 00:00: mouth in [place] 00 the Medical morning. Branch atenoloL-ch 2023-0 Yes [id number] 1{tbl} Take 1 [facility] lorthalidon 3-17 tablet by ity of e 100-25 mg 00:00: mouth in [place] per tablet 00 the Medical morning. Branch verapamiL 2023-0 Yes [id number] 180mg Take 1 U nivers 180 mg ER 3-17 tablet by ity o f tablet 00:00: mouth in [place] 00 the Medical morning. Branch atenoloL-ch 3-0 Yes [id number] 1{tbl} Take 1 [facility] lorthalidon 3-17 tablet by ity of e 100-25 mg 00:00: mouth in [place] per tablet 00 the Medical morning. Branch verapamiL 3-0 Yes [id number] 180mg Take 1 U nivers 180 mg ER 3-17 tablet by ity o f tablet 00:00: mouth in [place] 00 the Medical morning. Branch atenoloL-ch 2022-0 Yes [id number] 1{tbl} Take 1 [facility] lorthalidon 3-17 tablet by ity of e 100-25 mg 00:00: mouth in [place] per tablet 00 the Medical morning. Branch verapamiL 3-0 Yes [id number] 180mg Take 1 U nivers 180 mg ER 3-17 tablet by ity o f tablet 00:00: mouth in [place] 00 the Medical morning. Branch atenoloL-ch 2022-0 Yes [id number] 1{tbl} Take 1 [facility] lorthalidon 3-17 tablet by ity of e 100-25 mg 00:00: mouth in [place] per tablet 00 the Medical morning. Branch verapamiL 3-0 Yes [id number] 180mg Take 1 U nivers 180 mg ER 3-17 tablet by ity o f tablet 00:00: mouth in [place] the Medical morning. Branch atenoloL-ch 3-0 Yes [id number] 1{tbl} Take 1 [facility] lorthalidon 3-17 tablet by ity of e 100-25 mg 00:00: mouth in [place] per tablet 00 the Medical morning. Branch verapamiL 3-0 Yes [id number] 180mg Take 1 U nivers 180 mg ER 3-17 tablet by ity o f tablet 00:00: mouth in [place] 00 the Medical morning. Branch insulin 2022-0 Yes [id number] ADMINISTER [facility] aspart 1-10 10 UNITS ity of RAPID 100 00:00: UNDER THE [place] unit/mL 00 SKIN TWICE Medica l injection DAILY Branch BEFORE BREAKFAST AND DINNER insulin 2022-0 Yes [id number] ADMINISTER [facility] aspart 1-10 10 UNITS ity of RAPID 100 00:00: UNDER THE [place] unit/mL 00 SKIN TWICE Medica l injection DAILY Branch BEFORE BREAKFAST AND DINNER insulin Yes [id number] ADMINISTER [facility] aspart 1-10 10 UNITS ity of RAPID 100 00:00: UNDER THE [place] unit/mL 00 SKIN TWICE Medica l injection DAILY Branch BEFORE BREAKFAST AND DINNER insulin Yes [id number] ADMINISTER [facility] aspart 1-10 10 UNITS ity of RAPID 100 00:00: UNDER THE [place] unit/mL 00 SKIN TWICE Medica l injection DAILY Branch BEFORE BREAKFAST AND DINNER insulin Yes [id number] ADMINISTER [facility] aspart 1-10 10 UNITS ity of RAPID 100 00:00: UNDER THE [place] unit/mL 00 SKIN TWICE Medica l injection DAILY Branch BEFORE BREAKFAST AND DINNER insulin 2022- No [id number] ADMINISTER [facility] aspart 1-10 03-29 10 UNITS ity of RAPID 100 00:00: 00:00 UNDER [place] unit/mL 00 :00 SKIN TWICE Medica l injection DAILY Branch BEFORE BREAKFAST AND DINNER ATENOLOL-CH 2021-03 Yes [id number] 1{tbl} TAKE 1 Univers LORTHALIDON 2-12 TABLET BY ity of E 100-25 mg 00:00: MOUTH IN [place] per tablet 00 THE [facility] MORNING Branch COLCHICINE 2021-03 Yes [id number] TAKE 1 Univers 0.6 mg Cap 2-12 9102 CAPSULE BY ity of 00:00: MOUTH [place] DAILY [facility] Branch ATENOLOL-CH 2021-03 Yes [id number] 1{tbl} TAKE 1 Univers LORTHALIDON 2-12 TABLET BY ity of E 100-25 mg 00:00: MOUTH IN [place] per tablet 00 THE [facility] Branch COLCHICINE 2021-03 Yes [id number] TAKE 1 Univers 0.6 mg Cap 2-12 9102 CAPSULE BY ity of 00:00: MOUTH [place] DAILY [facility] Branch ATENOLOL-CH 2021-03 Yes [id number] 1{tbl} TAKE 1 Univers LORTHALIDON 2-12 TABLET BY ity of E 100-25 mg 00:00: [place] per tablet THE [facility] Branch COLCHICINE 2021-03 Yes [id number] TAKE 1 Univers 0.6 mg Cap 2-12 9102 CAPSULE BY ity of 00:00: MOUTH [place] DAILY [facility] Branch COLCHICINE 2021-03 Yes [id number] TAKE 1 Univers 0.6 mg Cap 2-12 9102 CAPSULE BY ity of 00:00: [facility] DAILY Medical Branch COLCHICINE 2021-03 Yes [id number] TAKE 1 Univers 0.6 mg Cap 2-12 9102 CAPSULE BY ity of 00:00: [facility] DAILY Medical Branch COLCHICINE 2021- Yes [id number] TAKE 1 Univers 0.6 mg Cap 2-12 9102 CAPSULE BY ity of 00:00: [facility] DAILY Medical Branch COLCHICINE 2021-03 Yes [id number] TAKE 1 Univers 0.6 mg Cap 2-12 9102 CAPSULE BY ity of 00:00: [facility] DAILY Medical Branch COLCHICINE 2021-03 Yes [id number] TAKE 1 Univers 0.6 mg Cap 2-12 9102 CAPSULE BY ity of 00:00: [facility] DAILY Medical Branch COLCHICINE 2021-03 Yes [id number] TAKE 1 Univers 0.6 mg Cap 2-12 9102 CAPSULE BY ity of 00:00: [facility] DAILY Medical Branch COLCHICINE 2021-03 Yes [id number] TAKE 1 Univers 0.6 mg Cap 2-12 9102 CAPSULE BY ity of 00:00: [facility] DAILY Medical Branch COLCHICINE 2021-03 Yes [id number] TAKE 1 Univers 0.6 mg Cap 2-12 9102 CAPSULE BY ity of 00:00: [facility] DAILY Medical Branch COLCHICINE 2021- Yes [id number] TAKE 1 Univers 0.6 mg Cap 2-12 9102 CAPSULE BY ity of 00:00: [facility] DAILY Medical Branch COLCHICINE 2021- Yes [id number] TAKE 1 Univers 0.6 mg Cap 2-12 9102 CAPSULE BY ity of 00:00: [facility] DAILY Medical Branch COLCHICINE 2021- Yes [id number] TAKE 1 Univers 0.6 mg Cap 2-12 9102 CAPSULE BY ity of 00:00: [facility] DAILY Medical Branch COLCHICINE 2021- Yes [id number] TAKE 1 Univers 0.6 mg Cap 2-12 9102 CAPSULE BY ity of 00:00: [facility] DAILY Medical Branch COLCHICINE 2021-03 Yes [id number] TAKE 1 Univers 0.6 mg Cap 2-12 9102 CAPSULE BY ity of 00:00: [facility] DAILY Medical Branch COLCHICINE 2021-03 Yes [id number] TAKE 1 Univers 0.6 mg Cap 2-12 9102 CAPSULE BY ity of 00:00: [facility] DAILY Medical Branch COLCHICINE 2021- Yes [id number] TAKE 1 Univers 0.6 mg Cap 2-12 9102 CAPSULE BY ity of 00:00: [facility] DAILY Medical Branch COLCHICINE 2021- Yes [id number] TAKE 1 Univers 0.6 mg Cap 2-12 9102 CAPSULE BY ity of 00:00: [facility] DAILY Medical Branch COLCHICINE 2021-03 Yes [id number] TAKE 1 Univers 0.6 mg Cap 2-12 9102 CAPSULE BY ity of 00:00: [facility] DAILY Medical Branch COLCHICINE 2021-03 Yes [id number] TAKE 1 Univers 0.6 mg Cap 2-12 9102 CAPSULE BY ity of 00:00: [facility] DAILY Medical Branch COLCHICINE 2021-03 Yes [id number] TAKE 1 Univers 0.6 mg Cap 2-12 9102 CAPSULE BY ity of 00:00: [facility] DAILY Medical Branch COLCHICINE 2021- Yes [id number] TAKE 1 Univers 0.6 mg Cap 2-12 9102 CAPSULE BY ity of 00:00: [facility] DAILY Medical Branch COLCHICINE 2021- Yes [id number] TAKE 1 Univers 0.6 mg Cap 2-12 9102 CAPSULE BY ity of 00:00: [facility] DAILY Medical Branch COLCHICINE 2021- Yes [id number] TAKE 1 Univers 0.6 mg Cap 2-12 9102 CAPSULE BY ity of 00:00: [facility] DAILY Medical Branch COLCHICINE 2021- Yes [id number] TAKE 1 Univers 0.6 mg Cap 2-12 9102 CAPSULE BY ity of 00:00: [facility] DAILY Medical Branch COLCHICINE 2021- Yes [id number] TAKE 1 Univers 0.6 mg Cap 2-12 9102 CAPSULE BY ity of 00:00: [facility] DAILY Medical Branch COLCHICINE 2021- Yes [id number] TAKE 1 Univers 0.6 mg Cap 2-12 9102 CAPSULE BY ity of 00:00: [facility] DAILY Medical Branch COLCHICINE 2021- Yes [id number] TAKE 1 Univers 0.6 mg Cap 2-12 9102 CAPSULE BY ity of 00:00: [facility] DAILY Medical Branch COLCHICINE 2021-03 Yes [id number] TAKE 1 Univers 0.6 mg Cap 2-12 9102 CAPSULE BY ity of 00:00: MOUTH DAILY Medical Branch COLCHICINE 2021-03 Yes [id number] TAKE 1 Univers 0.6 mg Cap 2-12 9102 CAPSULE BY ity of 00:00: MOUTH DAILY Medical Branch COLCHICINE 2021-03 Yes [id number] TAKE 1 Univers 0.6 mg Cap 2-12 9102 CAPSULE BY ity of 00:00: DAILY Medical Branch COLCHICINE 2021-03 Yes [id number] TAKE 1 Univers 0.6 mg Cap 2-12 9102 CAPSULE BY ity of 00:00: MOUTH DAILY Medical Branch COLCHICINE 2021-03 Yes [id number] TAKE 1 Univers 0.6 mg Cap 2-12 9102 CAPSULE BY ity of 00:00: [facility] DAILY Medical Branch COLCHICINE 2021-03 Yes [id number] TAKE 1 Univers 0.6 mg Cap 2-12 9102 CAPSULE BY ity of 00:00: [place] DAILY Medical Branch COLCHICINE 2021-03 Yes [id number] TAKE 1 Univers 0.6 mg Cap 2-12 9102 CAPSULE BY ity of 00:00: DAILY Medical Branch COLCHICINE 2021-03 Yes [id number] TAKE 1 Univers 0.6 mg Cap 2-12 9102 CAPSULE BY ity of 00:00: [facility] DAILY Medical Branch COLCHICINE 2021-03 Yes [id number] TAKE 1 Univers 0.6 mg Cap 2-12 9102 CAPSULE BY ity of 00:00: [facility] DAILY Medical Branch COLCHICINE 2021-03 Yes [id number] TAKE 1 Univers 0.6 mg Cap 2-12 9102 CAPSULE BY ity of 00:00: [facility] DAILY Medical Branch COLCHICINE 2021-03 Yes [id number] TAKE 1 Univers 0.6 mg Cap 2-12 9102 CAPSULE BY ity of 00:00: [facility] DAILY Medical Branch ATENOLOL-CH 2021-03- No [id number] 1{tbl} TAKE 1 Univers LORTHALIDON 2-06-02 TABLET BY it y of E 100-25 mg 00:00: 00:00 MOUTH IN [place] per tablet 00 :00 THE Medical [facility] Branch ATENOLOL-CH 2021-03- No [id number] 1{tbl} TAKE 1 Univers LORTHALIDON 2-06-02 TABLET BY it y of E 100-25 mg 00:00: 00:00 MOUTH IN [place] per tablet 00 :00 THE Medical MORNING Branch ketorolac 2021-03- 30mg 30 mg, Unive rs (TORADOL) 2-02-21 Slow IV ity of injection 06:00: 04:59 [place], [place] 30 mg 00 :00 ONCE, 1 Medical dose, On Branch Sun02/21/22 at 0000, Routine insulin Yes [id number] 10U inject 10 [facility] aspart 9-16 Units ity of RAPID 00:00: under the [place] (NOVOLOG 00 skin 2 Medical U-100 (two) Branch INSULIN times ASPART) 100 daily unit/mL before injection breakfast and dinner. insulin Yes [id number] 10U inject 10 [facility] aspart 9-16 Units ity of RAPID 00:00: under the [place] (NOVOLOG 00 skin 2 Medical U-100 (two) Branch INSULIN times ASPART) 100 daily unit/mL before injection breakfast and dinner. insulin Yes [id number] 10U inject 10 [facility] aspart 9-16 Units ity of RAPID 00:00: under the [place] (NOVOLOG 00 skin 2 Medical U-100 (two) Branch INSULIN times ASPART) 100 daily unit/mL before injection breakfast and dinner. insulin Yes [id number] 10U inject 10 [facility] aspart 9-16 Units ity of RAPID 00:00: under the [place] (NOVOLOG 00 skin 2 Medical U-100 (two) Branch INSULIN times ASPART) 100 daily unit/mL before injection breakfast and dinner. insulin Yes [id number] 10U inject 10 [facility] aspart 9-16 Units ity of RAPID 00:00: under the [place] (NOVOLOG 00 skin 2 Medical U-100 (two) Branch INSULIN times ASPART) 100 daily unit/mL before injection breakfast and dinner. insulin Yes [id number] 10U inject 10 [facility] aspart 9-16 Units ity of RAPID 00:00: under the [place] (NOVOLOG 00 skin 2 Medical U-100 (two) Branch INSULIN times ASPART) 100 daily unit/mL before injection breakfast and dinner. insulin Yes [id number] 10U inject 10 [facility] aspart 9-16 Units ity of RAPID 00:00: under the [place] (NOVOLOG 00 skin 2 Medical U-100 (two) Branch INSULIN times ASPART) 100 daily unit/mL before injection breakfast and dinner. insulin Yes [id number] 10U inject 10 [facility] aspart 9-16 Units ity of RAPID 00:00: under the [place] (NOVOLOG 00 skin 2 Medical U-100 (two) Branch INSULIN times ASPART) 100 daily unit/mL before injection breakfast and dinner. insulin 2023- No [id number] 10U inject 10 [facility] aspart 9-16 01-10 Units ity of RAPID 00:00: 00:00 under the [place] (NOVOLOG 00 :00 skin 2 Medical U-100 (two) Branch INSULIN times ASPART) 100 daily unit/mL before injection breakfast and dinner. atorvastati Yes [id number] 10mg Take 1 Univers n 10 mg 8-02 tablet by ity of tablet 00:00: mouth at [place] [address] bedtime. Medical Branch atenoloL-ch Yes [id number] 1{tbl} Take 1 Univers lorthalidon 8-02 tablet by ity of e 100-25 mg 00:00: mouth in [place] per tablet 00 the Medical morning. Branch blood sugar Yes [id number] Use as [facility] diagnostic 8 directed ity o f (TRUE 00:00: for twice [place] METRIX 00 a day Medical GLUCOSE glucose Branch TEST STRIP) monitoring strip for ICD E11.9 verapamiL Yes [id number] 180mg Take 1 U nivers 180 mg ER 8-02 tablet by ity o f tablet 00:00: mouth in [place] 00 the Medical morning. Branch atorvastati Yes [id number] 10mg Take 1 Univers n 10 mg 8-02 tablet by ity of tablet 00:00: mouth at [place] 00 bedtime. Medical Branch atenoloL-ch Yes [id number] 1{tbl} Take 1 Univers lorthalidon 8-02 tablet by ity of e 100-25 mg 00:00: mouth in [place] per tablet 00 the Medical morning. Branch blood sugar Yes [id number] Use as [facility] diagnostic 8-02 directed ity o f (TRUE 00:00: for twice [place] METRIX 00 a day Medical GLUCOSE glucose Branch TEST STRIP) monitoring strip for ICD E11.9 verapamiL 2021-0 Yes [id number] 180mg Take 1 U nivers 180 mg ER 8-02 tablet by ity o f tablet 00:00: mouth in [place] 00 the Medical morning. Branch atorvastati 2021-0 Yes [id number] 10mg Take 1 [facility] n 10 mg 8-02 tablet by ity of tablet 00:00: mouth at [place] 00 bedtime. Medical Branch atenoloL-ch 2021-0 Yes [id number] 1{tbl} Take 1 Univers lorthalidon 8-02 tablet by ity of e 100-25 mg 00:00: mouth in [place] per tablet 00 the Medical morning. Branch verapamiL 2021-0 Yes [id number] 180mg Take 1 U nivers 180 mg ER 8-02 tablet by ity o f tablet 00:00: mouth in [place] 00 the Medical morning. Branch atorvastati 2021-0 Yes [id number] 10mg Take 1 Univers n 10 mg 8-02 tablet by ity of tablet 00:00: mouth at [place] 00 bedtime. Medical Branch atenoloL-ch 2021-0 Yes [id number] 1{tbl} Take 1 Univers lorthalidon 8-02 tablet by ity of e 100-25 mg 00:00: mouth in [place] per tablet 00 the Medical morning. Branch verapamiL 2021-0 Yes [id number] 180mg Take 1 U nivers 180 mg ER 8-02 tablet by ity o f tablet 00:00: mouth in [place] 00 the Medical morning. Branch atorvastati 2021-0 Yes [id number] 10mg Take 1 Univers n 10 mg 8-02 tablet by ity of tablet 00:00: mouth at [place] 00 bedtime. Medical Branch atenoloL-ch 2021-0 Yes [id number] 1{tbl} Take 1 Univers lorthalidon 8-02 tablet by ity of e 100-25 mg 00:00: mouth in [place] per tablet 00 the Medical morning. Branch verapamiL 2021-0 Yes [id number] 180mg Take 1 U nivers 180 mg ER 8-02 tablet by ity o f tablet 00:00: mouth in [place] 00 the Medical morning. Branch atorvastati 2021-0 Yes [id number] 10mg Take 1 Univers n 10 mg 8-02 tablet by ity of tablet 00:00: mouth at [place] 00 bedtime. Medical Branch atenoloL-ch 2021-0 Yes [id number] 1{tbl} Take 1 Univers lorthalidon 8-02 tablet by ity of e 100-25 mg 00:00: mouth in [place] per tablet 00 the Medical morning. Branch verapamiL 2021-0 Yes [id number] 180mg Take 1 U nivers 180 mg ER 8-02 tablet by ity o f tablet 00:00: mouth in [place] 00 the Medical morning. Branch atorvastati 2021-0 Yes [id number] 10mg Take 1 Univers n 10 mg 8-02 tablet by ity of tablet 00:00: mouth at [place] [address] bedtime. Medical Branch verapamiL 2021-0 Yes [id number] 180mg Take 1 U nivers 180 mg ER 8-02 tablet by ity o f tablet 00:00: mouth in [place] 00 the Medical morning. Branch atorvastati 2021-0 Yes [id number] 10mg Take 1 Univers n 10 mg 8-02 tablet by ity of tablet 00:00: mouth at [place] [address] bedtime. Medical Branch verapamiL 2021-0 Yes [id number] 180mg Take 1 U nivers 180 mg ER 8-02 tablet by ity o f tablet 00:00: mouth in [place] the Medical morning. Branch atorvastati 2021-0 Yes [id number] 10mg Take 1 Univers n 10 mg 8-02 tablet by ity of tablet 00:00: mouth at [place] [address] bedtime. Medical Branch verapamiL 2021-0 Yes [id number] 180mg Take 1 U nivers 180 mg ER 8-02 tablet by ity o f tablet 00:00: mouth in [place] 00 the Medical morning. Branch atorvastati 2021-0 Yes [id number] 10mg Take 1 Univers n 10 mg 8-02 tablet by ity of tablet 00:00: mouth at [place] [address] bedtime. Medical Branch verapamiL 2021-0 Yes [id number] 180mg Take 1 U nivers 180 mg ER 8-02 tablet by ity o f tablet 00:00: mouth in [place] 00 the Medical morning. Branch atorvastati 2021-0 Yes [id number] 10mg Take 1 Univers n 10 mg 8-02 tablet by ity of tablet 00:00: mouth at [place] [address] bedtime. Medical Branch atorvastati 2021-0 Yes [id number] 10mg Take 1 Univers n 10 mg 8-02 tablet by ity of tablet 00:00: mouth at [place] 00 bedtime. Medical Branch atorvasta 0 Yes [id number] 10mg Take 1 Univers n 10 mg 8-02 tablet by ity of tablet 00:00: mouth at [place] 00 bedtime. Medical Branch atorvasta 0 Yes [id number] 10mg Take 1 Univers n 10 mg 8-02 tablet by ity of tablet 00:00: mouth at [place] 00 bedtime. Medical Branch atorvasta 0 Yes [id number] 10mg Take 1 Univers n 10 mg 8-02 tablet by ity of tablet 00:00: mouth at [place] 00 bedtime. Medical Branch atorvasta Yes [id number] 10mg Take 1 Univers n 10 mg 8-02 tablet by ity of tablet 00:00: mouth at [place] 00 bedtime. Medical Branch atorvasta 0 Yes [id number] 10mg Take 1 Univers n 10 mg 8-02 tablet by ity of tablet 00:00: mouth at [place] bedtime. Medical Branch atorvasta Yes [id number] 10mg Take 1 Univers n 10 mg 8-02 tablet by ity of tablet 00:00: mouth at [place] 00 bedtime. Medical Branch atorvasta Yes [id number] 10mg Take 1 Univers n 10 mg 8-02 tablet by ity of tablet 00:00: mouth at [place] bedtime. Medical Branch atorvasta 0 Yes [id number] 10mg Take 1 Univers n 10 mg 8-02 tablet by ity of tablet 00:00: mouth at [place] 00 bedtime. Medical Branch atorvasta 0 Yes [id number] 10mg Take 1 Univers n 10 mg 8-02 tablet by ity of tablet 00:00: mouth at [place] 00 bedtime. Medical Branch atorvasta 0 Yes [id number] 10mg Take 1 Univers n 10 mg 8-02 tablet by ity of tablet 00:00: mouth at [place] 00 bedtime. Medical Branch atorvasta 0 Yes [id number] 10mg Take 1 Univers n 10 mg 8-02 tablet by ity of tablet 00:00: mouth at [place] 00 bedtime. Medical Branch atorvastati Yes [id number] 10mg Take 1 Univers n 10 mg 8-02 tablet by ity of tablet 00:00: mouth at [place] 00 bedtime. Medical [facility] Yes [id number] 10mg Take 1 Univers n 10 mg 8-02 tablet by ity of tablet 00:00: mouth at [place] 00 bedtime. Medical [facility] Yes [id number] 10mg Take 1 Univers n 10 mg 8-02 tablet by ity of tablet 00:00: mouth at [place] 00 bedtime. Medical Branch [facility] Yes [id number] 10mg Take 1 Univers n 10 mg 8-02 tablet by ity of tablet 00:00: mouth at [place] 00 bedtime. Medical Branch [facility] Yes [id number] 10mg Take 1 Univers n 10 mg 8-02 tablet by ity of tablet 00:00: mouth at [place] 00 bedtime. Medical Branch [facility] Yes [id number] 10mg Take 1 Univers n 10 mg 8-02 tablet by ity of tablet 00:00: mouth at [place] bedtime. Medical Branch [facility] Yes [id number] 10mg Take 1 Univers n 10 mg 8-02 tablet by ity of tablet 00:00: mouth at [place] bedtime. Medical Branch [facility] Yes [id number] 10mg Take 1 Univers n 10 mg 8-02 tablet by ity of tablet 00:00: mouth at [place] bedtime. [facility] Branch [facility] Yes [id number] 10mg Take 1 Univers n 10 mg 8-02 tablet by ity of tablet 00:00: mouth at [place] 00 bedtime. Medical Branch atorvasta Yes [id number] 10mg Take 1 Univers n 10 mg 8-02 tablet by ity of tablet 00:00: mouth at [place] 00 bedtime. [facility] Branch atorvasta Yes [id number] 10mg Take 1 Univers n 10 mg 8-02 tablet by ity of tablet 00:00: mouth at [place] 00 bedtime. [facility] Branch [facility] Yes [id number] 10mg Take 1 Univers n 10 mg 8-02 tablet by ity of tablet 00:00: mouth at [place] 00 bedtime. Medical Branch atorvastati Yes [id number] 10mg Take 1 Univers n 10 mg 8-02 tablet by ity of tablet 00:00: mouth at [place] bedtime. Medical Branch atorvastati 0 Yes [id number] 10mg Take 1 Univers n 10 mg 8-02 tablet by ity of tablet 00:00: mouth at [place] bedtime. Medical Branch atorvastati Yes [id number] 10mg Take 1 Univers n 10 mg 8-02 tablet by ity of tablet 00:00: mouth at [place] bedtime. Medical Branch atorvastati 0 Yes [id number] 10mg Take 1 Univers n 10 mg 8-02 tablet by ity of tablet 00:00: mouth at [place] bedtime. Medical Branch atorvastati Yes [id number] 10mg Take 1 Univers n 10 mg 8-02 tablet by ity of tablet 00:00: mouth at [place] bedtime. Medical Branch atorvastati Yes [id number] 10mg Take 1 Univers n 10 mg 8-02 tablet by ity of tablet 00:00: mouth at [place] bedtime. Medical Branch atorvastati 0 Yes [id number] 10mg Take 1 Univers n 10 mg 8-02 tablet by ity of tablet 00:00: mouth at [place] bedtime. Medical Branch atorvastati 0 Yes [id number] 10mg Take 1 Univers n 10 mg 8-02 tablet by ity of tablet 00:00: mouth at [place] bedtime. Medical Branch atorvastati 0 Yes [id number] 10mg Take 1 Univers n 10 mg 8-02 tablet by ity of tablet 00:00: mouth at [place] 00 bedtime. Medical Branch atorvastati 0 Yes [id number] 10mg Take 1 Univers n 10 mg 8-02 tablet by ity of tablet 00:00: mouth at [place] 00 bedtime. Medical Branch atorvastati Yes [id number] 10mg Take 1 Univers n 10 mg 8-02 tablet by ity of tablet 00:00: mouth at [place] 00 bedtime. Medical Branch verapamiL 0 2023- No [id number] 180mg Take 1 Univers 180 mg ER 10-18 tablet by ity of tablet 00:00: 00:00 mouth in [place] 00 :00 the Medical morning. Branch verapamiL 2022- No [id number] 180mg Take 1 Univers 180 mg ER 10-18 tablet by ity of tablet 00:00: 00:00 mouth in [place] 00 :00 the Medical morning. Branch atenoloL-ch 2021- No [id number] 1{tbl} Take 1 Univers lorthalidon 10-18 tablet by it y of e 100-25 mg 00:00: 00:00 mouth in [place] per tablet 00 :00 the Medical morning. Branch blood sugar 2021- No [id number] Use as [facility] diagnostic 10-18 directed ity of (TRUE 00:00: 00:00 for twice [place] METRIX 00 :00 a day Medical GLUCOSE glucose Branch TEST STRIP) monitoring strip for ICD E11.9 blood sugar 2021- No [id number] Use as [facility] diagnostic 10-18 directed ity of (TRUE 00:00: 00:00 for twice [place] METRIX 00 :00 a day Medical GLUCOSE glucose Branch TEST STRIP) monitoring strip for ICD E11.9 insulin Yes [id number] 15U inject 15 [facility] glargine 8-01 Units ity of (LANTUS 00:00: under the [place] U-100 00 skin at Medical INSULIN) bedtime. Branch 100 unit/mL injection insulin Yes [id number] 15U inject 15 [facility] glargine 8-01 Units ity of (LANTUS 00:00: under the [place] U-100 00 skin at Medical INSULIN) bedtime. Branch 100 unit/mL injection insulin Yes [id number] 15U inject 15 [facility] glargine 8-01 Units ity of (LANTUS 00:00: under the [place] U-100 00 skin at Medical INSULIN) bedtime. Branch 100 unit/mL injection insulin Yes [id number] 15U inject 15 [facility] glargine 8-01 Units ity of (LANTUS 00:00: under the [place] U-100 00 skin at Medical INSULIN) bedtime. Branch 100 unit/mL injection insulin Yes [id number] 15U inject 15 Univers glargine 8-01 Units ity of (LANTUS 00:00: under the [place] U-100 00 skin at Medical INSULIN) bedtime. Branch 100 unit/mL injection insulin Yes [id number] 15U inject 15 Univers glargine 8-01 Units ity of (LANTUS 00:00: under the [place] U-100 00 skin at Medical INSULIN) bedtime. Branch 100 unit/mL injection insulin Yes [id number] 15U inject 15 Univers glargine 8-01 Units ity of (LANTUS 00:00: under the [place] U-100 00 skin at Medical INSULIN) bedtime. Branch 100 unit/mL injection insulin Yes [id number] 15U inject 15 Univers glargine 8-01 Units ity of (LANTUS 00:00: under the [place] U-100 00 skin at Medical INSULIN) bedtime. Branch 100 unit/mL injection insulin Yes [id number] 15U inject 15 Univers glargine 8-01 Units ity of (LANTUS 00:00: under the [place] U-100 00 skin at Medical INSULIN) bedtime. Branch 100 unit/mL injection insulin Yes [id number] 15U inject 15 Univers glargine 8-01 Units ity of (LANTUS 00:00: under the [place] U-100 00 skin at Medical INSULIN) bedtime. Branch 100 unit/mL injection insulin Yes [id number] 15U inject 15 Univers glargine 8-01 Units ity of (LANTUS 00:00: under the [place] U-100 00 skin at Medical INSULIN) bedtime. Branch 100 unit/mL injection insulin Yes [id number] 15U inject 15 Univers glargine 8-01 Units ity of (LANTUS 00:00: under the [place] U-100 00 skin at Medical INSULIN) bedtime. Branch 100 unit/mL injection insulin Yes [id number] 15U inject 15 Univers glargine 8-01 Units ity of (LANTUS 00:00: under the [place] U-100 00 skin at Medical INSULIN) bedtime. Branch 100 unit/mL injection insulin Yes [id number] 15U inject 15 [facility] glargine 8-01 Units ity of (LANTUS 00:00: under the [place] U-100 00 skin at Medical INSULIN) bedtime. Branch 100 unit/mL injection insulin Yes [id number] 15U inject 15 Univers glargine 8-01 Units ity of (LANTUS 00:00: under the [place] U-100 00 skin at Medical INSULIN) bedtime. Branch 100 unit/mL injection insulin 2022- No [id number] 15U inject 15 Univers glargine 8-01 05-05 Units ity of (LANTUS 00:00: 00:00 [place] U-100 00 :00 skin at Medical INSULIN) bedtime. Branch 100 unit/mL injection insulin 2022- No [id number] 15U inject 15 Univers glargine 8-01 05-05 Units ity of (LANTUS 00:00: 00:00 [place] U-100 00 :00 skin at Medical INSULIN) bedtime. Branch 100 unit/mL injection semaglutide Yes [id number] .5mg inject 0.5 Univers (OZEMPIC) 7-15 mg under ity of 0.25 mg or 00:00: the skin [place] 0.5 mg(2 00 weekly. Medical mg/1.5 mL) Branch PnIj semaglutide Yes [id number] .5mg inject 0.5 Univers (OZEMPIC) 7-15 mg under ity of 0.25 mg or 00:00: the skin [place] 0.5 mg(2 00 weekly. Medical mg/1.5 mL) Branch PnIj semaglutide Yes [id number] .5mg inject 0.5 Univers (OZEMPIC) 7-15 mg under ity of 0.25 mg or 00:00: the skin [place] 0.5 mg(2 00 weekly. Medical mg/1.5 mL) Branch PnIj semaglutide Yes [id number] .5mg inject 0.5 Univers (OZEMPIC) 7-15 mg under ity of 0.25 mg or 00:00: the skin [place] 0.5 mg(2 00 weekly. Medical mg/1.5 mL) Branch PnIj semaglutide 2021-0 Yes [id number] .5mg inject 0.5 Univers (OZEMPIC) 7-15 mg under ity of 0.25 mg or 00:00: the [place] 0.5 mg(2 00 weekly. Medical mg/1.5 mL) Branch PnIj semaglutide 2021-0 Yes [id number] .5mg inject 0.5 Univers (OZEMPIC) 7-15 mg under ity of 0.25 mg or 00:00: the [place] 0.5 mg(2 00 weekly. Medical mg/1.5 mL) Branch PnIj semaglutide 2021-0 Yes [id number] .5mg inject 0.5 [facility] (OZEMPIC) 7-15 mg under ity of 0.25 mg or 00:00: the [place] 0.5 mg(2 00 weekly. Medical mg/1.5 mL) Branch PnIj semaglutide 2021-0 Yes [id number] .5mg inject 0.5 [facility] (OZEMPIC) 7-15 mg under ity of 0.25 mg or 00:00: the skin [place] 0.5 mg(2 00 weekly. Medical mg/1.5 mL) Branch PnIj semaglutide 2021-0 Yes [id number] .5mg inject 0.5 [facility] (OZEMPIC) 7-15 mg under ity of 0.25 mg or 00:00: the [place] 0.5 mg(2 00 weekly. Medical mg/1.5 mL) Branch PnIj semaglutide 2021-0 Yes [id number] .5mg inject 0.5 [facility] (OZEMPIC) 7-15 mg under ity of 0.25 mg or 00:00: the [place] 0.5 mg(2 00 weekly. Medical mg/1.5 mL) Branch PnIj semaglutide 2021-0 Yes [id number] .5mg inject 0.5 [facility] (OZEMPIC) 7-15 mg under ity of 0.25 mg or 00:00: the skin [place] 0.5 mg(2 00 weekly. Medical mg/1.5 mL) Branch PnIj semaglutide 2021-0 Yes [id number] .5mg inject 0.5 [facility] (OZEMPIC) 7-15 mg under ity of 0.25 mg or 00:00: the [place] 0.5 mg(2 00 weekly. Medical mg/1.5 mL) Branch PnIj semaglutide 0 Yes [id number] .5mg inject 0.5 [facility] (OZEMPIC) 7-15 mg under ity of 0.25 mg or 00:00: the skin [place] 0.5 mg(2 00 weekly. Medical mg/1.5 mL) Branch PnIj semaglutide 2021- Yes [id number] .5mg inject 0.5 [facility] (OZEMPIC) 7-15 mg under ity of 0.25 mg or 00:00: the skin [place] 0.5 mg(2 00 weekly. Medical mg/1.5 mL) Branch PnIj semaglutide 2021- Yes [id number] .5mg inject 0.5 [facility] (OZEMPIC) 7-15 mg under ity of 0.25 mg or 00:00: the skin [place] 0.5 mg(2 00 weekly. Medical mg/1.5 mL) Branch PnIj semaglutide 2021-0 Yes [id number] .5mg inject 0.5 [facility] (OZEMPIC) 7-15 mg under ity of 0.25 mg or 00:00: the skin [place] 0.5 mg(2 00 weekly. Medical mg/1.5 mL) Branch PnIj semaglutide 2021-2022- No [id number] .5mg inject 0.5 [facility] (OZEMPIC) 7-15 05-05 mg under ity o f 0.25 mg or 00:00: 00:00 [place] 0.5 mg(2 00 :00 weekly. Medical mg/1.5 mL) Branch PnIj semaglutide 2021-0 2022- No [id number] .5mg inject 0.5 [facility] (OZEMPIC) 7-15 05-05 mg under ity o f 0.25 mg or 00:00: 00:00 [place] 0.5 mg(2 00 :00 weekly. Medical mg/1.5 mL) Branch PnIj insulin 2021- Yes [id number] 10U inject 10 Univers aspart 7-08 Units ity of RAPID 00:00: under the [place] (NOVOLOG 00 skin 2 Medical U-100 (two) Branch INSULIN times ASPART) 100 daily unit/mL before injection breakfast and dinner. insulin Yes [id number] 10U inject 10 Univers aspart 7-08 Units ity of RAPID 00:00: under the [place] (NOVOLOG 00 skin 2 Medical U-100 (two) Branch INSULIN times ASPART) 100 daily unit/mL before injection breakfast and dinner. insulin 2021- No [id number] 10U inject 10 [facility] aspart 09-23-16 Units ity of RAPID 00:00: 00:00 under the [place] (NOVOLOG 00 :00 skin 2 Medical U-100 (two) Branch INSULIN times ASPART) 100 daily unit/mL before injection breakfast and dinner. insulin 2021- No [id number] 15U inject 15 Univers glargine 09-23- Units ity of (LANTUS 00:00: 00:00 [place] U-100 00 :00 skin at Medical INSULIN) bedtime. Branch 100 unit/mL injection amoxicillin 2021- No [id number] 500mg Take 1 Univers 500 mg 09-23 tablet by ity of tablet 00:00: 04:59 mouth 2 [place] 00 :00 (two) Medical times Branch daily for 7 days. carbamide 2021- No [id number] 5[drp] Place 5 Univers peroxide 09-23 10509 Drops in ity o f 6.5 % otic 00:00: 04:59 left ear 2 [place] solution 00 :00 (two) Medical times Branch daily for 7 days. ATENOLOL-CH 2021- No [id number] 1{tbl} TAKE 1 Univers LORTHALIDON 09-12 TABLET BY it y of E 100-25 mg 00:00: 00:00 MOUTH [place] per tablet 00 :00 DAILY Medical Branch VERAPAMIL 2021- No [id number] 180mg TAKE 1 [facility] 180 mg ER 09-12 TABLET BY ity of tablet 00:00: 00:00 MOUTH [place] 00 :00 DAILY Medical Branch blood sugar 2021- No [id number] Use as Univers diagnostic 09-02 directed ity of (TRUE 00:00: 00:00 for twice [place] METRIX 00 :00 a day Medical GLUCOSE glucose Branch TEST STRIP) monitoring strip for ICD E11.9 dapaglifloz 2021- No [id number] 10mg Take 1 Univers in 2-21 07-15 tablet by ity of (FARXIGA) 00:00: 00:00 mouth [place] 10 mg 00 :00 daily. Medical tablet Branch colchicine 2020-03 Yes [id number] .6mg Take 0.6 Univers (MITIGARE) 2-29 9102 mg by ity of 0.6 mg Cap 00:00: mouth [place] 00 daily. Medical Branch colchicine 2020-03 Yes [id number] .6mg Take 0.6 Univers (MITIGARE) 2-29 9102 mg by ity of 0.6 mg Cap 00:00: mouth [place] 00 daily. Medical Branch colchicine 2020-03 Yes [id number] .6mg Take 0.6 Univers (MITIGARE) 2-29 9102 mg by ity of 0.6 mg Cap 00:00: mouth [place] 00 daily. Medical Branch colchicine 2020-03 Yes [id number] .6mg Take 0.6 Univers (MITIGARE) 2-29 9102 mg by ity of 0.6 mg Cap 00:00: mouth [place] 00 daily. Medical Branch colchicine 2020-03 Yes [id number] .6mg Take 0.6 Univers (MITIGARE) 2-29 9102 mg by ity of 0.6 mg Cap 00:00: mouth [place] 00 daily. Medical Branch colchicine 2020-03 Yes [id number] .6mg Take 0.6 Univers (MITIGARE) 2-29 9102 mg by ity of 0.6 mg Cap 00:00: mouth [place] 00 daily. Medical Branch colchicine 2020-03 Yes [id number] .6mg Take 0.6 Univers (MITIGARE) 2-29 9102 mg by ity of 0.6 mg Cap 00:00: mouth [place] 00 daily. Medical Branch colchicine 2020-03 Yes [id number] .6mg Take 0.6 Univers (MITIGARE) 2-29 9102 mg by ity of 0.6 mg Cap 00:00: mouth [place] 00 daily. Medical Branch colchicine 2020-03- No [id number] .6mg Take 0.6 Univers (MITIGARE) 2-29 12-12 9102 mg by ity of 0.6 mg Cap 00:00: 00:00 mouth [place] 00 :00 daily. Medical Branch atorvastati 2020-03- No [id number] 10mg Take 1 Univers n 10 mg 05-08 tablet by ity of tablet 00:00: 00:00 mouth at [place] 00 :00 bedtime. Medical Branch clotrimazol 2019-03- No [id number] 10mg Take 1 Univers e 10 mg 04-20 tablet by ity of aaron 00:00: 00:00 mouth 5 [place] 00 :00 (five) Medical times Branch daily. DICLOFENAC 2021- No TAKE 1 Univ ers 75 mg EC 08-05 TABLET BY ity o f tablet 00:00: 00:00 MOUTH [place] 00 :00 THREE Medical TIMES Branch DAILY WITH MEALS ALPRAZolam 2021- No [id number] .5mg Take 1 Univers 0.5 mg 08-03 tablet by ity of tablet 00:00: 00:00 mouth 3 [place] 00 :00 (three) Medical times [place] daily as needed for Other (anxiety). Immunizations Ordered Filled Immunization Date Status Comments [facility] e Immunization Name Name SARS-COV-2 COVID-19 2020-06-29 Completed Unive rsity of PFIZER VACCINE 00:00:00 [facility] SARS-COV-2 COVID-19 2020-06-29 Completed Unive rsity of PFIZER VACCINE 00:00:00 [facility] SARS-COV-2 COVID-19 2020-06-29 Completed Unive rsity of PFIZER VACCINE 00:00:00 [facility] SARS-COV-2 COVID-19 2020-06-29 Completed Unive rsity of PFIZER VACCINE 00:00:00 [facility] SARS-COV-2 COVID-19 2020-06-29 Completed Unive rsity of PFIZER VACCINE 00:00:00 [facility] SARS-COV-2 COVID-19 2020-06-29 Completed Unive rsity of PFIZER VACCINE 00:00:00 [facility] SARS-COV-2 COVID-19 2020-06-29 Completed Unive rsity of PFIZER VACCINE 00:00:00 [facility] SARS-COV-2 COVID-19 2020-06-29 Completed Unive rsity of PFIZER VACCINE 00:00:00 [facility] Branch SARS-COV-2 COVID-19 2020-06-29 Completed Unive rsity of PFIZER VACCINE 00:00:00 [facility] Branch SARS-COV-2 COVID-19 2020-06-29 Completed Unive rsity of PFIZER VACCINE 00:00:00 [facility] Branch SARS-COV-2 COVID-19 2020-06-29 Completed Unive rsity of PFIZER VACCINE 00:00:00 [facility] Branch SARS-COV-2 COVID-19 2020-06-29 Completed Unive rsity of PFIZER VACCINE 00:00:00 [facility] Branch SARS-COV-2 COVID-19 2020-06-29 Completed Unive rsity of PFIZER VACCINE 00:00:00 [facility] Branch SARS-COV-2 COVID-19 2020-06-29 Completed Unive rsity of PFIZER VACCINE 00:00:00 [facility] Branch SARS-COV-2 COVID-19 2020-06-29 Completed Unive rsity of PFIZER VACCINE 00:00:00 [facility] Branch SARS-COV-2 COVID-19 2020-06-29 Completed Unive rsity of PFIZER VACCINE 00:00:00 [facility] Branch SARS-COV-2 COVID-19 2020-06-29 Completed Unive rsity of PFIZER VACCINE 00:00:00 [facility] Branch SARS-COV-2 COVID-19 2020-06-29 Completed Unive rsity of PFIZER VACCINE 00:00:00 [facility] Branch SARS-COV-2 COVID-19 2020-06-29 Completed Unive rsity of PFIZER VACCINE 00:00:00 [facility] Branch SARS-COV-2 COVID-19 2020-06-29 Completed Unive rsity of PFIZER VACCINE 00:00:00 [facility] Branch SARS-COV-2 COVID-19 2020-06-29 Completed Unive rsity of PFIZER VACCINE 00:00:00 [facility] Branch SARS-COV-2 COVID-19 2020-06-29 Completed Unive rsity of PFIZER VACCINE 00:00:00 [facility] Branch SARS-COV-2 COVID-19 2020-06-29 Completed Unive rsity of PFIZER VACCINE 00:00:00 [facility] Branch SARS-COV-2 COVID-19 2020-06-29 Completed Unive rsity of PFIZER VACCINE 00:00:00 [facility] Branch SARS-COV-2 COVID-19 2020-06-29 Completed Unive rsity of PFIZER VACCINE 00:00:00 [place] [facility] Branch SARS-COV-2 COVID-19 2020-06-29 Completed Unive rsity of PFIZER VACCINE 00:00:00 [facility] Branch SARS-COV-2 COVID-19 2020-06-29 Completed Unive rsity of PFIZER VACCINE 00:00:00 [facility] Branch SARS-COV-2 COVID-19 2020-06-29 Completed Unive rsity of PFIZER VACCINE 00:00:00 [facility] Branch SARS-COV-2 COVID-19 2020-06-29 Completed Unive rsity of PFIZER VACCINE 00:00:00 [facility] Branch SARS-COV-2 COVID-19 2020-06-29 Completed Unive rsity of PFIZER VACCINE 00:00:00 [facility] Branch SARS-COV-2 COVID-19 2020-06-29 Completed Unive rsity of PFIZER VACCINE 00:00:00 [facility] Branch SARS-COV-2 COVID-19 2020-06-29 Completed Unive rsity of PFIZER VACCINE 00:00:00 [facility] Branch SARS-COV-2 COVID-19 2020-06-29 Completed Unive rsity of PFIZER VACCINE 00:00:00 [facility] Branch SARS-COV-2 COVID-19 2020-06-29 Completed Unive rsity of PFIZER VACCINE 00:00:00 [facility] Branch SARS-COV-2 COVID-19 2020-06-29 Completed Unive rsity of PFIZER VACCINE 00:00:00 [facility] Branch SARS-COV-2 COVID-19 2020-06-29 Completed Unive rsity of PFIZER VACCINE 00:00:00 [facility] Branch SARS-COV-2 COVID-19 2020-06-29 Completed Unive rsity of PFIZER VACCINE 00:00:00 [facility] Branch SARS-COV-2 COVID-19 2020-06-29 Completed Unive rsity of PFIZER VACCINE 00:00:00 [facility] Branch SARS-COV-2 COVID-19 2020-06-29 Completed Unive rsity of PFIZER VACCINE 00:00:00 [facility] Branch SARS-COV-2 COVID-19 2020-06-29 Completed Unive rsity of PFIZER VACCINE 00:00:00 [facility] Branch SARS-COV-2 COVID-19 2020-06-29 Completed Unive rsity of PFIZER VACCINE 00:00:00 [facility] Branch SARS-COV-2 COVID-19 2020-06-29 Completed Unive rsity of PFIZER VACCINE 00:00:00 [facility] Branch SARS-COV-2 COVID-19 2020-06-29 Completed Unive rsity of PFIZER VACCINE 00:00:00 [facility] Branch SARS-COV-2 COVID-19 2020-06-29 Completed Unive rsity of PFIZER VACCINE 00:00:00 [facility] Branch SARS-COV-2 COVID-19 2020-06-29 Completed Unive rsity of PFIZER VACCINE 00:00:00 [facility] Branch SARS-COV-2 COVID-19 2020-06-29 Completed Unive rsity of PFIZER VACCINE 00:00:00 [facility] Branch SARS-COV-2 COVID-19 2020-06-29 Completed Unive rsity of PFIZER VACCINE 00:00:00 [facility] Branch SARS-COV-2 COVID-19 2020-06-29 Completed Unive rsity of PFIZER VACCINE 00:00:00 [facility] Branch SARS-COV-2 COVID-19 2020-06-29 Completed Unive rsity of PFIZER VACCINE 00:00:00 [facility] Branch SARS-COV-2 COVID-19 2020-06-08 Completed Unive rsity of PFIZER VACCINE 00:00:00 [facility] Branch SARS-COV-2 COVID-19 2020-06-08 Completed Unive rsity of PFIZER VACCINE 00:00:00 [facility] Branch SARS-COV-2 COVID-19 2020-06-08 Completed Unive rsity of PFIZER VACCINE 00:00:00 [facility] Branch SARS-COV-2 COVID-19 2020-06-08 Completed Unive rsity of PFIZER VACCINE 00:00:00 [facility] Branch SARS-COV-2 COVID-19 2020-06-08 Completed Unive rsity of PFIZER VACCINE 00:00:00 [facility] Branch SARS-COV-2 COVID-19 2020-06-08 Completed Unive rsity of PFIZER VACCINE 00:00:00 [facility] Branch SARS-COV-2 COVID-19 2020-06-08 Completed Unive rsity of PFIZER VACCINE 00:00:00 [facility] Branch SARS-COV-2 COVID-19 2020-06-08 Completed Unive rsity of PFIZER VACCINE 00:00:00 [facility] Branch SARS-COV-2 COVID-19 2020-06-08 Completed Unive rsity of PFIZER VACCINE 00:00:00 [facility] Branch SARS-COV-2 COVID-19 2020-06-08 Completed Unive rsity of PFIZER VACCINE 00:00:00 [facility] Branch SARS-COV-2 COVID-19 2020-06-08 Completed Unive rsity of PFIZER VACCINE 00:00:00 [facility] Branch SARS-COV-2 COVID-19 2020-06-08 Completed Unive rsity of PFIZER VACCINE 00:00:00 [facility] Branch SARS-COV-2 COVID-19 2020-06-08 Completed Unive rsity of PFIZER VACCINE 00:00:00 [facility] Branch SARS-COV-2 COVID-19 2020-06-08 Completed Unive rsity of PFIZER VACCINE 00:00:00 [facility] Branch SARS-COV-2 COVID-19 2020-06-08 Completed Unive rsity of PFIZER VACCINE 00:00:00 [facility] Branch SARS-COV-2 COVID-19 2020-06-08 Completed Unive rsity of PFIZER VACCINE 00:00:00 [facility] Branch SARS-COV-2 COVID-19 2020-06-08 Completed Unive rsity of PFIZER VACCINE 00:00:00 [facility] Branch SARS-COV-2 COVID-19 2020-06-08 Completed Unive rsity of PFIZER VACCINE 00:00:00 [facility] Branch SARS-COV-2 COVID-19 2020-06-08 Completed Unive rsity of PFIZER VACCINE 00:00:00 [facility] Branch SARS-COV-2 COVID-19 2020-06-08 Completed Unive rsity of PFIZER VACCINE 00:00:00 [facility] Branch SARS-COV-2 COVID-19 2020-06-08 Completed Unive rsity of PFIZER VACCINE 00:00:00 [facility] Branch SARS-COV-2 COVID-19 2020-06-08 Completed Unive rsity of PFIZER VACCINE 00:00:00 [facility] SARS-COV-2 COVID-19 2020-06-08 Completed Unive rsity of PFIZER VACCINE 00:00:00 [facility] SARS-COV-2 COVID-19 2020-06-08 Completed Unive rsity of PFIZER VACCINE 00:00:00 [facility] SARS-COV-2 COVID-19 2020-06-08 Completed Unive rsity of PFIZER VACCINE 00:00:00 [facility] Branch SARS-COV-2 COVID-19 2020-06-08 Completed Unive rsity of PFIZER VACCINE 00:00:00 [facility] SARS-COV-2 COVID-19 2020-06-08 Completed Unive rsity of PFIZER VACCINE 00:00:00 [facility] SARS-COV-2 COVID-19 2020-06-08 Completed Unive rsity of PFIZER VACCINE 00:00:00 [facility] SARS-COV-2 COVID-19 2020-06-08 Completed Unive rsity of PFIZER VACCINE 00:00:00 [facility] SARS-COV-2 COVID-19 2020-06-08 Completed Unive rsity of PFIZER VACCINE 00:00:00 [facility] SARS-COV-2 COVID-19 2020-06-08 Completed Unive rsity of PFIZER VACCINE 00:00:00 [facility] SARS-COV-2 COVID-19 2020-06-08 Completed Unive rsity of PFIZER VACCINE 00:00:00 [facility] SARS-COV-2 COVID-19 2020-06-08 Completed Unive rsity of PFIZER VACCINE 00:00:00 [facility] SARS-COV-2 COVID-19 2020-06-08 Completed Unive rsity of PFIZER VACCINE 00:00:00 [facility] SARS-COV-2 COVID-19 2020-06-08 Completed Unive rsity of PFIZER VACCINE 00:00:00 [facility] SARS-COV-2 COVID-19 2020-06-08 Completed Unive rsity of PFIZER VACCINE 00:00:00 [facility] SARS-COV-2 COVID-19 2020-06-08 Completed Unive rsity of PFIZER VACCINE 00:00:00 [facility] SARS-COV-2 COVID-19 2020-06-08 Completed Unive rsity of PFIZER VACCINE 00:00:00 [facility] SARS-COV-2 COVID-19 2020-06-08 Completed Unive rsity of PFIZER VACCINE 00:00:00 [facility] SARS-COV-2 COVID-19 2020-06-08 Completed Unive rsity of PFIZER VACCINE 00:00:00 [facility] SARS-COV-2 COVID-19 2020-06-08 Completed Unive rsity of PFIZER VACCINE 00:00:00 [facility] SARS-COV-2 COVID-19 2020-06-08 Completed Unive rsity of PFIZER VACCINE 00:00:00 [facility] SARS-COV-2 COVID-19 2020-06-08 Completed Unive rsity of PFIZER VACCINE 00:00:00 [facility] SARS-COV-2 COVID-19 2020-06-08 Completed Unive rsity of PFIZER VACCINE 00:00:00 [facility] SARS-COV-2 COVID-19 2020-06-08 Completed Unive rsity of PFIZER VACCINE 00:00:00 [facility] SARS-COV-2 COVID-19 2020-06-08 Completed Unive rsity of PFIZER VACCINE 00:00:00 [facility] SARS-COV-2 COVID-19 2020-06-08 Completed Unive rsity of PFIZER VACCINE 00:00:00 [facility] SARS-COV-2 COVID-19 2020-06-08 Completed Unive rsity of PFIZER VACCINE 00:00:00 [facility] SARS-COV-2 COVID-19 2020-06-08 Completed Unive rsity of PFIZER VACCINE 00:00:00 [facility] Vital Signs Vital Name Observation Time Observation Value Comments Source Systolic blood 2022-09-27 21:30:00 127 mm[Hg] Univer sity of pressure [facility] Diastolic blood 2022-09-27 21:30:00 76 mm[Hg] Unive rsity of pressure [facility] Heart rate 2022-09-27 21:30:00 61 /[facility] Body temperature 2022-09-27 21:30:00 36.72 [place] [facility] [place] [facility] Body height 2022-09-27 21:30:00 162.6 cm [facility] [place] [facility] Body weight 2022-09-27 21:30:00 99.519 kg [facility] [place] [facility] BMI 2022-09-27 21:30:00 37.66 kg/m2 [facility] [place] [facility] Oxygen saturation in 2022-09-27 21:30:00 98 /min [facility] of Arterial blood by [place] [facility] raphael Pulse oximetry Branch Systolic blood 2022-09-21 16:53:00 148 mm[Hg] Univer sity of pressure [place] [facility] Diastolic blood 2022-09-21 16:53:00 89 mm[Hg] Unive rsity of pressure [place] [facility] Heart rate 2022-09-21 16:52:00 62 /min [facility] [place] [facility] Body temperature 2022-09-21 16:52:00 36.72 [place] [facility] [place] [facility] Body height 2022-09-21 16:52:00 162.6 cm [facility] [place] [facility] Body weight 2022-09-21 16:52:00 100.245 kg [facility] [place] [facility] BMI 2022-09-21 16:52:00 37.93 kg/m2 [facility] [place] [facility] Systolic blood 2022-07-21 20:08:00 136 mm[Hg] Univer sity of pressure [place] [facility] Diastolic blood 2022-07-21 20:08:00 86 mm[Hg] Unive rsity of pressure [place] [facility] Heart rate 2022-07-21 20:08:00 57 /min [facility] [place] [facility] Body height 2022-07-21 20:08:00 162.6 cm [facility] [place] [facility] Body weight 2022-07-21 20:08:00 104.146 kg [facility] [place] [facility] BMI 2022-07-21 20:08:00 39.41 kg/m2 [facility] [place] [facility] Oxygen saturation in 2022-07-21 20:08:00 98 /min [facility] of Arterial blood by [place] [facility] raphael Pulse oximetry Branch Systolic blood 2022-06-02 21:48:00 130 mm[Hg] Univer sity of pressure [place] [facility] Diastolic blood 2022-06-02 21:48:00 84 mm[Hg] Unive rsity of pressure [place] [facility] Heart rate 2022-06-02 21:48:00 62 /min [facility] [place] [facility] Body height 2022-06-02 21:48:00 162.6 cm [facility] [place] [facility] Body weight 2022-06-02 21:48:00 104.645 kg [facility] [place] [facility] BMI 2022-06-02 21:48:00 39.60 kg/m2 [facility] [place] [facility] Oxygen saturation in 2022-06-02 21:48:00 98 /min [facility] of Arterial blood by [facility] Pulse oximetry Branch Systolic blood 2022-02-21 05:01:00 129 mm[Hg] Univer sity of pressure [place] [facility] Diastolic blood 2022-02-21 05:01:00 88 mm[Hg] Unive rsity of pressure [place] [facility] Heart rate 2022-02-21 05:01:00 77 /min [facility] [place] [facility] Respiratory rate 2022-02-21 05:01:00 16 /min [facility] [place] [facility] Oxygen saturation in 2022-02-21 05:01:00 100 /min [facility] Arter[facility] blood by [facility] Pulse oximetry Branch Body temperature 2022-02-20 23:58:00 36.5 [place] [facility] [place] [facility] Body height 2022-02-20 23:58:00 162.6 cm [facility] [place] [facility] Body weight 2022-02-20 23:58:00 103.874 kg [facility] [place] [facility] BMI 2022-02-20 23:58:00 39.31 kg/m2 [facility] [place] [facility] Systolic blood 2022-02-20 23:09:00 181 mm[Hg] Univer [facility]ity of pressure [place] [facility] Diastolic blood 2022-02-20 23:09:00 112 mm[Hg] Unive rsity of pressure [place] [facility] Heart rate 2022-02-20 23:09:00 74 /min [facility] [place] [facility] Body temperature 2022-02-20 23:09:00 36.78 [place] [facility] [place] [facility] Respiratory rate 2022-02-20 23:09:00 17 /min [facility] [place] [facility] Body height 2022-02-20 23:09:00 162.6 cm [facility] [place] [facility] Body weight 2022-02-20 23:09:00 103.987 kg [facility] [place] [facility] BMI 2022-02-20 23:09:00 39.35 kg/m2 [facility] [place] [facility] Oxygen saturation in 2022-02-20 23:09:00 98 /min [facility] Arter[facility] blood by [facility] Pulse oximetry Branch Systolic blood 2022-01-20 20:41:00 142 mm[Hg] Univer [facility]ity of pressure [place] [facility] Diastolic blood 2022-01-20 20:41:00 86 mm[Hg] Unive rsity of pressure [place] [facility] Heart rate 2022-01-20 20:41:00 72 /min [facility] [place] [facility] Body height 2022-01-20 20:41:00 162.6 cm [facility] [place] [facility] Body weight 2022-01-20 20:41:00 104.327 kg [facility] [place] [facility] BMI 2022-01-20 20:41:00 39.48 kg/m2 [facility] [place] [facility] Oxygen saturation in 2022-01-20 20:41:00 97 /min [facility] blood by [facility] Pulse oximetry Branch Systolic blood 2021-09-30 19:09:00 139 mm[Hg] Univer [facility]ity of pressure [place] [facility] Diastolic blood 2021-09-30 19:09:00 87 mm[Hg] [facility] of pressure [place] [facility] [place] Heart rate 2021-09-30 19:09:00 68 /min [facility] Body weight 2021-09-30 19:09:00 103.919 kg [facility] BMI 2021-09-30 19:09:00 39.32 kg/m2 [facility] Oxygen saturation in 2021-09-30 19:09:00 99 /min [facility] Arterial blood by [facility] Pulse oximetry Branch Procedures Procedure Date / Time Performed Performing Clinician Gwen gann HEPATITIS B SURFACE 2022-10-02 16:57:00 [facility] ANTIBODY Medical Branch HEPATITIS B SURFACE 2022-10-02 16:57:00 [facility] ANTIGEN Medical Branch HCV ANTIBODY 2022-10-02 16:57:[address] [facility] HBC ANTIBODY (IGM & 2022-10-02 16:57:00 Antony Guaman [facility] IGG) Medical Branch HEPATITIS A VIRUS 2022-10-02 16:57:00 Antony Guaman [facility] ANTIBODY IGM Medical Branch HEPATITIS B CORE 2022-10-02 16:57:00 Rowena Antony [facility] ANTIBODY IGM Medical Branch PHYSICIAN ORDERS 2022-10-02 05:01:00 Doctor Unassigned, No [facility] Name Medical Branch POCT HEMOGLOBIN A1C 2022-07-21 20:20:00 Felicia Betancur [facility] TEST [facility] Branch DIABETES TESTING 2022-07-21 05:01:00 Doctor Unassigned, No [facility] REPORTS Name Medical [place] ABDOMEN PELVIS WO 2022-02-21 02:44:33 Anders Shaw [facility] CONTRAST Medical Branch URINALYSIS 2022-02-21 00:24:00 Anders Shaw [facility] Branch LIPASE 2022-02-21 00:20:00 Anders Shaw [facility] HEPATIC FUNCTION PANEL 2022-02-21 00:20:00 Anders Shaw [facility] ([id number]) Medical Branch (ALB,T.PRO,BILI T,BU/BC,ALT,AST,ALK PHOS) BASIC METABOLIC PANEL 2022-02-21 00:20:00 Anders Shaw [facility] (NA, K, CL, CO2, Medical Branch GLUCOSE, BUN, CREATININE, CA) CBC WITH DIFF 2022-02-21 00:20:00 Anders Shaw [facility] NOTICE OF PRIVACY 2022-02-20 23:40:55 Doctor Unassigned, No [facility] PRACTICES Name Medical Branch CONSENT/REFUSAL FOR 2022-02-20 23:40:32 Doctor Unassigned, No [facility] AND Name Medical Branch TREATMENT POCT HEMOGLOBIN A1C 2022-01-20 20:44:00 BrunsonWilliam Dunaway [facility] POCT HEMOGLOBIN A1C 2021-09-23 16:29:00 [facility] Encounters Start End Encounter Admission Attending Care Care Encounter Source Date/Time Date/Time Type Type Clinicians Facility Department ID 2021-01-13 Emergency [facility] [id number] Univers 19:43:[address] [facility] 2023-02-02 2023-02-02 Outpatient [facility] [id number] Univers 14:00:00 14:00:00 [facility] 2022-10-27 2022-10-27 Telephone [facility] 1.2.762.206 [id number] Univers 00:00:00 00:00:00 [facility] [employer] [facility] 350.1.13.10 it y of [facility] 4.2.7.2.686 Jake as GUZMAN?BLEA [id number] [address] OFFICE [facility] 2022-10-27 2022-10-27 Telephone Del RosarioRUST 1.2.971.057 [id number] Univers 00:00:00 00:00:00 [facility] 350.1.13.10 it y of [place] 4.2.7.2.686 Jake as GUZMAN?BLEA [id number] [address] OFFICE [facility] 2022-10-24 2022-10-24 Outpatient R CONCHAYamile [facility] [id number] Univers 15:30:00 15:30:[address] [facility] 2022-10-19 2022-10-19 Outpatient R [facility] [id number] Univers 15:14:31 23:59:00 [facility] 2022-10-19 2022-10-19 [facility] 1.2.840.114 [id number] Univers 15:14:31 23:59:00 Encounter Antony ZAPIEN 350.1.13.10 ity of [place].2.[place] [id number] [facility] [address] [place] [address] 2022-10-02 2022-10-02 [facility], Ang - Db [facility] 1.2.840.1 14 [id number] Univers 13:15:00 13:15:00 Visit Unknown, Attending HEALTH 350.1.13.10 ity of [facility] 4.2.7.2.686 Jake as GUZMAN?BLEA [phone] [facility] [address] [facility] OFFICE [facility] 2022-10-02 2022-10-02 Outpatient R UNKNOWN, [facility] [id number] Univers 13:15:00 12:09:51 ATTENDING ity of [facility] 2022-10-02 2022-10-02 Telephone DanielRUST 1.2.495.950 [id number] Univers 00:00:00 00:00:00 [place] HEALTH 350.1.13.10 it y of [facility] 4.2.7.2.686 Jake as GUZMAN?BLEA [phone] [address] 2022-10-02 2022-10-02 Orders Doctor MADALYN 1.2.840.114 [id number] Univers 00:00:00 00:00:00 Only Unassigned, PEPITO 350.1.13.10 ity of [place] [facility] 4.2.7.2.686 Jake as [phone] [address] 2022-09-29 2022-09-29 Telephone DanielRUST 1.2.201.944 [id number] Univers 00:00:00 00:00:00 [place] HEALTH 350.1.13.10 it y of [facility] 4.2.7.2.686 Jake as GUZMAN?BLEA [phone] [facility] [address] [facility] OFFICE [facility] 2022-09-28 2022-09-28 [facility], Ang - Db [facility] 1.2.840.1 14 [id number] Univers 08:00:00 08:03:27 Visit Lorena Tate HEALTH 350.1.13.10 ity of [facility] 4.2.7.2.686 Jake as GUZMAN?BLEA [id number] [facility] [address] [facility] OFFICE [facility] 2022-09-28 2022-09-28 Outpatient R LISANDRA, [facility] [id number] Univers 08:00:00 08:00:00 LORENA souza [facility] 2022-09-27 2022-09-27 Outpatient R LISANDRA [facility] [id number] Univers 16:30:00 17:11:01 LORENA souza [facility] 2022-09-27 2022-09-27 Office LisandraRUST 1.2.840.114 [id number] Univers 16:30:00 17:11:01 Visit Lorena Urias [facility] 350.1.13.10 i ty of [place] 4.2.7.2.686 Jake as GUZMAN?BLEA [phone] Md dicaidan [place] [address] [facility] OFFICE [facility] 2022-09-26 2022-09-26 Telephone RaeRUST 1.2.840.114 [id number] Univers 00:00:00 00:00:00 William [employer] 350.1.13.10 it y of [place] 4.2.7.2.686 Jake as GUZMAN?BLEA [phone] Md dicaidan [place] [address] [place] MEDICAL OFFICE [facility] 2022-09-21 2022-09-21 Office DanielRUST 1.2.840.114 [id number] Univers 12:00:00 12:15:00 Visit [facility] 350.1.13.10 it y of [place] 4.2.7.2.686 Jake as GUZMAN?BLEA [id number] Md brenden [place] [address] [facility] OFFICE [facility] 2022-09-21 2022-09-21 Outpatient R DANIEL [facility] [id number] Univers 12:00:00 12:08:22 PARVEZ souza [facility] 2022-09-21 2022-09-21 [facility], Ang - Db [facility] 1.2.840.1 14 [id number] Univers 08:30:00 08:49:30 Visit Parvez Del Rosario [facility] 350.1.13.10 ity of Felicia Betancur [place] 4.2.7.2.686 [place] GUZMAN?BLEA [phone] Md dicaidan [place] [address] [place] MEDICAL OFFICE [facility] 2022-09-21 2022-09-21 Refill Daniel [facility] 1.2.840.114 [id number] Univers 00:00:00 00:00:00 Parvez HEALTH 350.1.13.10 it y of [place] 4.2.7.2.686 Jake as GUZMAN?BLEA [phone] Me brenden [place] [address] [place] MEDICAL OFFICE [facility] 2022-07-31 2022-07-31 Telephone [facility] 1..210.140 [id number] Univers 00:00:00 00:00:00 Felicia HEALTH 350.1.13.10 it y of [place] 4.2.7.2.686 Jake as GUZMAN?BLEA [phone] Md brenden [place] [address] [facility] OFFICE [facility] 2022-07-21 2022-07-21 Fil[facility], [place] [facility] ..840.1 14 [id number] Univers 16:30:00 16:45:00 Visit William Brunson [facility] 350.1.13.10 ity of [place] 4.2.7.2.686 Jake as GUZMAN?BLEA [phone] Md brenden [place] [address] [facility] OFFICE [facility] 2022-07-21 2022-07-21 Outpatient R [facility] [id number] Univers 15:30:00 16:21:59 WILLIAM souza [facility] 2022-07-21 2022-07-21 Office Felicia Betancur [facility] ..840.114 [id number] Univers 15:30:00 16:21:59 Visit William Brunson [facility] 350.1.13.10 ity of [place] 4.2.7.2.686 Jake as GUZMAN?BLEA [phone] Md brenden [place] [address] [facility] OFFICE [facility] 2022-07-21 2022-07-21 Telephone [facility] ..797.197 [id number] Univers 00:00:00 00:00:00 Felicia HEALTH 350.1.13.10 it y of [place] 4.2.7.2.686 Jake as GUZMAN?BLEA [id number] Md brenden [place] [address] [facility] OFFICE [facility] 2022-07-21 2022-07-21 Orders Doctor MADALYN 1.2.840.114 [id number] Univers 00:00:00 00:00:00 Only Unassigned, PEPITO 350.1.13.10 ity of [place] [facility] 4.2.7.2.686 Jake as [phone] [address] 2022-06-14 2022-06-14 Jyoti BrunsonRUST 1.2.967.032 [id number] Univers 00:00:00 00:00:00 William H HEALTH 350.1.13.10 it y of [place] 4.2.7.2.686 Jake as GUZMAN?BLEA [phone] [facility] [address] [place] MEDICAL OFFICE [facility] 2022-06-05 2022-06-05 [facility], Ang - Db [facility] 1..840.1 14 [id number] Univers 16:00:00 16:43:57 Visit Lisandra, Lorena Urias HEALTH 350.1.13.10 ity of [place] 4.2.7.2.686 Jake as GUZMAN?BLEA [phone] [facility] [address] [place] MEDICAL OFFICE [facility] 2022-06-05 2022-06-05 Outpatient R LISANDRA, [facility] [id number] Univers 16:00:00 16:00:00 [facility] 2022-06-02 2022-06-02 Outpatient R LISANDRA, [facility] [id number] Univers 16:30:00 17:16:38 [facility] 2022-06-02 2022-06-02 [facility] 1..840.114 [id number] Univers 16:30:00 17:16:38 Visit Lorena Urias HEALTH 350.1.13.10 i ty of [place] 4.2.7.2.686 Jake as GUZMAN?BLEA [id number] [facility] [address] [place] MEDICAL OFFICE [facility] 2022-03-28 2022-03-28 Jyoti BrunsonRUST 1.2.763.420 [id number] Univers 00:00:00 00:00:00 William H HEALTH 350.1.13.10 it y of [place] 4.2.7.2.686 Jake as GUZMAN?BLEA [id number] Me dicaidan [place] [address] [facility] OFFICE [facility] 2022-02-27 2022-02-27 Refkushal Del RosarioRUST 1.2.840.114 [id number] Univers 00:00:00 00:00:00 Parvez HEALTH 350.1.13.10 it y of [place] 4.2.7.2.686 Jake as GUZMAN?BLEA [phone] Me dical CORINNA [address] [facility] OFFICE [facility] 2022-02-27 2022-02-27 [facility] RinRUST 1.2.840.114 [id number] Univers 00:00:00 00:00:00 [facility] 350.1.13.10 it y of [place] 4.2.7.2.686 Jake as GUZMAN?BLEA [phone] Md dicaidan [place] [address] [facility] OFFICE [facility] 2022-02-21 2022-02-21 Jose Daniel BrunsonRUST 1.2.840.114 [id number] Univers 00:00:00 00:00:00 [facility] 350.1.13.10 it y of [place] 4.2.7.2.686 Jake as GUZMAN?BLEA [id number] Md brenden [place] [address] [facility] 2022-02-20 2022-02-20 Emergency X PAIGERUST ERT [id number] Univers 18:04:00 23:06:00 ANDERS souza of [facility] 2022-02-20 2022-02-20 [facility] 1.2.873.373 [id number] Univers 18:04:00 23:06:00 Anders Cleary [place] 350.1.13.10 i ty [facility] 4.2.7.2.[place] [phone] [facility] [address] [place] 2022-02-20 2022-02-20 Nurse Nurse, [facility] 1.2.840.114 [id number] Univers 17:00:00 17:20:00 Visit Unknown, Attending HEALTH 350.1.13.10 ity of [place] 4.2.7.2.686 Jake as GUZMAN?BLEA [phone] Me dical CORINNA [address] [place] MEDICAL OFFICE [facility] 2022-02-20 2022-02-20 Outpatient R STORM [facility] [id number] Univers 17:00:00 17:00:00 CIELO souza [facility] 2022-01-20 2022-01-20 Outpatient [facility] [id number] Univers 16:00:00 16:18:05 WILLIAM souza [facility] 2022-01-20 2022-01-20 Office BrunsonRUST 1.2.009.045 [id number] Univers 16:00:00 16:18:05 Visit William [facility] 350.1.13.10 it y of [place] 4.2.7.2.686 Jake as GUZMAN?BLEA [phone] Md brenden [place] [address] [facility] OFFICE [facility] 2021-11-29 2021-11-29 Refill RaeRUST 1.2.479.281 [id number] Univers 00:00:00 00:00:00 William [employer] [facility] 350.1.13.10 it y of [place] 4.2.7.2.686 Jake as GUZMAN?BLEA [phone] Md brenden [place] [address] [facility] OFFICE [facility] 2021-11-25 2021-11-25 Refkushal Del RosarioRUST 1.2.840.114 [id number] Univers 00:00:00 00:00:00 Parvez HEALTH 350.1.13.10 it y of [place] 4.2.7.2.686 Jake as GUZMAN?BLEA [phone] Md brenden [place] [address] [facility] OFFICE [facility] 2021-10-18 2021-10-18 [facility], Ang - Db [facility] 1.2.840.1 14 [id number] Univers 07:45:00 08:00:00 Visit Parvez Del Rosario [facility] 350.1.13.10 ity of [facility] 4.2.7.2.686 Jake as GUZMAN?BLEA [phone] Md brenden [place] [address] [facility] OFFICE [facility] 2021-10-18 2021-10-18 Office DanielRUST 1.2.840.114 [id number] Univers 07:30:00 07:45:00 Visit Parvez HEALTH 350.1.13.10 it y of [place] 4.2.7.2.686 Jake as GUZMAN?BLEA [id number] [address] MEDICAL OFFICE [facility] 2021-10-18 2021-10-18 Outpatient Lacey DEL ROSARIO [facility] [id number] Univers 07:30:00 07:39:06 PARVEZ souza [facility] 2021-10-18 2021-10-18 Outpatient Lacey DEL ROSARIO [facility] [id number] Univers 07:30:00 07:30:00 PARVEZ souza [facility] 2021-10-17 2021-10-17 [facility] TonyRUST 1.2.840.114 [id number] Univers 00:00:00 00:00:00 Nicole HEALTH 350.1.13.10 it y of [place] 4.2.7.2.686 Jake as GUZMAN?BLEA [id number] [address] MEDICAL OFFICE [facility] 2021-10-17 2021-10-17 Jyoti TonyRUST 1.2.840.114 [id number] Univers 00:00:00 00:00:00 Nicole HEALTH 350.1.13.10 it y of [place] 4.2.7.2.686 Jake as GUZMAN?BLEA [id number] [address] OFFICE [facility] 2021-10-07 2021-10-07 Outpatient Lacey TONY [facility] [id number] Univers 15:00:00 15:00:00 NICOLEYODIT souza [facility] 2021-10-07 2021-10-07 Outpatient R CHAVO [facility] [id number] Univers 15:00:00 15:00:00 NICOLEYODIT souza [facility] 2021-09-30 2021-09-30 Outpatient R RAE [facility] [id number] Univers 14:00:00 15:03:24 WILLIAM samiademetri [facility] 2021-09-30 2021-09-30 Office RaeRUST 1.2.125.534 [id number] Univers 14:00:00 15:03:24 Visit William ARRIAGA 350.1.13.10 it y of [place] 4.2.7.2.686 Jake as GUZMAN?BLEA [phone] Md brenden [place] [address] [facility] OFFICE [facility] 2021-09-30 2021-09-30 Outpatient R RAE, [facility] [id number] Univers 14:00:00 14:00:00 WILLIAM souza [facility] 2021-09-30 2021-09-30 [facility] [id number] Univers 14:00:00 14:00:00 WILLIAM souza [facility] 2021-09-30 2021-09-30 Orders Doctor BERGMAN 1.2.840.114 [id number] Univers 00:00:00 00:00:00 Only Unassigned, PEPITO 350.1.13.10 ity of [place] [facility] 4.2.7.2.686 Jake as [phone] [address] 2021-09-23 2021-09-23 Outpatient R [facility] [id number] Univers 11:00:00 11:54:11 NICOLE souza [facility] 2021-09-23 2021-09-23 Office ChavoRUST 1.2.840.114 [id number] Univers 11:00:00 11:54:11 [facility] 350.1.13.10 [facility] 4.2.7.2.686 Jake as GUZMAN?BLEA [phone] Md brenden [address] OFFICE [facility] 2021-09-23 2021-09-23 Outpatient R [facility] [id number] Univers 11:00:00 11:54:11 NICOLE souza [facility] 2021-09-23 2021-09-23 Telephone DanielRUST 1.2.847.117 [id number] Univers 00:00:00 00:00:00 [facility] 350.1.13.10 it y of [facility] 4.2.7.2.686 Jake as GUZMAN?BLEA [phone] Md brenden [address] OFFICE [facility] 2021-09-18 2021-09-18 Telephone MADALYN Ortega 1.2.125.121 [id number] Univers 00:00:00 00:00:00 Lu Olivares [place] 350.1.13.10 i ty of [facility] 4.2.7.2.686 Jake as [phone] [address] 2021-09-17 2021-09-17 Laboratory Only, Ang Db Test [facility] 1.2.8 40.114 [id number] Univers 10:15:00 10:30:00 Only TicoMadalyn [facility] 350.1.13.10 ity of [place] 4.2.7.2.686 Jake as GUZMAN?BLEA [id number] [address] MEDICAL OFFICE [facility] 2021-09-17 2021-09-17 Outpatient R TICO [facility] [id number] Univers 10:15:00 10:18:[address] [facility] 2021-09-12 2021-09-12 Refkushal Del RosarioRUST 1.2.840.114 [id number] Univers 00:00:00 00:00:00 [facility] 350.1.13.10 it y of [place] 4.2.7.2.686 Jake as GUZMAN?BLEA [id number] [address] OFFICE [facility] 2021-09-02 2021-09-02 [facility] Del RosarioRUST 1.2.840.114 [id number] Univers 00:00:00 00:00:00 [facility] 350.1.13.10 it y of [place] 4.2.7.2.686 Jake as GUZMAN?BLEA [phone] [address] OFFICE [facility] 2021-09-02 2021-09-02 Telephone DanielRUST 1.2.537.702 [id number] Univers 00:00:00 00:00:00 [facility] 350.1.13.10 it y of [place] 4.2.7.2.686 Jake as GUZMAN?BLEA [id number] [address] MEDICAL OFFICE [facility] 2021-08-15 2021-08-15 Refkushal Del RosarioRUST 1.2.840.114 [id number] Univers 00:00:00 00:00:00 [facility] 350.1.13.10 it y of [facility] 4.2.7.2.686 Jake as GUZMAN?BLEA [phone] [address] OFFICE [facility] 2021-06-22 2021-06-22 Office Del RosarioRUST 1.2.840.114 [id number] Univers 15:00:00 15:15:00 Visit [facility] 350.1.13.10 it y of [facility] 4.2.7.2.686 Jake as GUZMAN?BLEA [phone] [address] OFFICE [facility] 2021-06-22 2021-06-22 Outpatient R [facility] [id number] Univers 15:00:00 15:00:00 [facility] 2021-06-22 2021-06-22 Outpatient R [facility] [id number] Univers 15:00:00 15:00:00 [facility] 2021-06-15 2021-06-15 [facility] 1.2.476.121 [id number] Univers 00:00:00 00:00:00 [facility] 350.1.13.10 it y of [place] 4.2.7.2.686 Jake as GUZMAN?BLEA [id number] [address] OFFICE [facility] 2021-06-14 2021-06-14 Refill Del RosarioRUST 1.2.840.114 [id number] Univers 00:00:00 00:00:00 [facility] 350.1.13.10 it y of [facility] 4.2.7.2.686 Jake as GUZMAN?BLEA [id number] [address] MEDICAL OFFICE [facility] 2021-06-02 2021-06-02 Orders Doctor MADALYN 1.2.840.114 [id number] Univers 00:00:00 00:00:00 Only Unassigned, [place] 350.1.13.10 ity of [place] [facility] 4.2.7.2.686 Jake as [id number] [address] 2021-05-10 2021-05-10 Orders Doctor MADALYN 1.2.840.114 [id number] Univers 00:00:00 00:00:00 Only Unassigned, [place] 350.1.13.10 ity of [place] [facility] 4.2.7.2.686 Jake as [phone] [address] 2021-05-03 2021-05-03 Tele[facility] 1.2.884.164 [id number] Univers 00:00:00 00:00:00 Parvez HEALTH 350.1.13.10 it y of [place] 4.2.7.2.686 Jake as GUZMAN?BLEA [id number] [address] MEDICAL OFFICE BUILDING 2021-05-02 2021-05-02 Orders Doctor MADALYN 1.2.840.114 [id number] Univers 00:00:00 00:00:00 Only Unassigned, [place] 350.1.13.10 ity of [place] [facility] 4.2.7.2.686 Jake as [id number] [address] 2021-05-02 2021-05-02 [facility]phone [facility] 1.2.879.779 [id number] Univers 00:00:00 00:00:00 Parvez HEALTH 350.1.13.10 it y of [place] 4.2.7.2.686 Jake as GUZMAN?BLEA [phone] [address] MEDICAL OFFICE [facility] 2021-03-16 2021-03-16 [facility], Derick Rod [facility] 1.2.840.1 14 [id number] Univers 14:30:00 14:45:00 Visit Del Rosario, [facility] 350.1.13.10 ity of [place] 4.2.7.2.686 Jake as GUZMAN?BLEA [id number] [address] MEDICAL OFFICE BUILDING 2021-03-16 2021-03-16 Office Rin [facility] 1.2.840.114 [id number] Univers 14:00:00 14:23:25 Visit [facility] 350.1.13.10 it y of [place] [facility] 4.2.7.2.686 Jake as GUZMAN?BLEA [phone] [address] MEDICAL OFFICE BUILDING 2021-03-162021-03-16 Outpatient Lacey LONG [facility] [id number] Univers 14:00:00 14:23:25 RAYMUNDO souza [facility] 2021-03-16 2021-03-16 Outpatient Lacey LONG [facility] [id number] Univers 14:00:00 14:00:00 RAYMUNDO souza [facility] 2021-03-16 2021-03-16 Refill Del RosarioRUST 1.2.840.114 [id number] Univers 00:00:00 00:00:00 [facility] [id number] it y of [place] 4.2.7.2.686 Jake as PROFESSIO [phone] [address] OFFICE [facility] 2021-03-16 2021-03-16 Jyoti LongRUST 1.2.840.114 [id number] Univers 00:00:00 00:00:00 [facility] [id number] it y of [place] [facility] 4.2.7.2.686 Jake as PROFESSIO [phone] [address] 2021-03-07 2021-03-07 Office Del RosarioRUST 1.2.840.114 [id number] Univers 13:15:00 13:30:00 [facility]1.13.10 [facility] [place] 4.2.7.2.686 Jake as GUZMAN?BLEA [phone] [address] OFFICE [facility] 2021-03-07 2021-03-07 Outpatient Lacey [facility] [id number] Univers 13:15:00 13:15:00 PARVEZ souza [facility] 2021-03-07 2021-03-07 Orders Doctor MADALYN 1.2.840.114 [id number] Univers 00:00:00 00:00:00 Only Unassigned, PEPITO 350.1.13.10 ity of [place] [facility] 4.2.7.2.686 Jake as [phone] [address] 2021-03-07 2021-03-07 Telephone Daniel [facility] [id number] Univers 00:00:00 00:00:00 Parvez HEALTH 350.1.13.10 it y of [place] 4.2.7.2.686 Jake as GUZMAN?BLEA [phone] Md [place] [address] [facility] OFFICE BUILDING 2020-12-16 2020-12-16 Refill DanielRUST 1.2.840.114 [id number] Univers 00:00:00 00:00:00 Parvez Health 350.1.13.10 it y of [place] 4.2.7.2.686 Jake as Professio [phone] Md dical nal [address] [place] [facility] 2020-10-28 2020-10-28 Refill Doctor [facility] 1.2.840.114 [id number] Univers 00:00:00 00:00:00 Unassigned, Health 350.1.13.10 ity of [place] 4.2.7.2.686 Jake as Professio [phone] Md dical nal [address] [place] [facility] 2020-09-17 2020-09-17 Refkushal DanielRUST 1.2.840.114 [id number] Univers 00:00:00 00:00:00 [facility] 350.1.13.10 it y of [place] 4.2.7.2.686 Jake as Professio [phone] Md dical nal [address] [facility] 2020-08-15 2020-08-15 Refkushal Del RosarioRUST 1.2.840.114 [id number] Univers 00:00:00 00:00:00 [facility] 350.1.13.10 it y of [place] 4.2.7.2.686 Jake as Professio [phone] Md dical nal [address] [facility] 2020-08-13 2020-08-13 Madelyn Mann [facility] 1.2.840.114 [id number] Univers 00:00:00 00:00:00 (Out) Marlo Carranza [place] 350.1.13.10 [place] [phone] Md dical nal 092 [facility] 2020-08-04 2020-08-04 Outpatient R DEL ROSARIO [facility] [id number] Univers 10:00:00 10:00:00 PARVEZ souza [facility] 2020-08-04 2020-08-04 Office DanielRUST 1.2.840.114 [id number] Univers 09:30:42 09:45:42 Visit [facility] 350.1.13.10 it y of [place] 4.2.7.2.686 Jake as Professio [phone] [address] Office [facility] One 2020-08-01 2020-08-01 Letter [facility] 1.2.840.114 [id number] Univers 00:00:00 00:00:00 (Out) Lorena [facility] 350.1.13.10 i ty [place] 4.2.7.2.686 Jake as Professio [phone] [address] 2020-07-23 2020-07-23 [facility] 1.2.840.114 [id number] Univers 17:15:00 23:59:00 Encounter Lorena Zapien 350.1.13.10 ity of [place] 4.2.7.2.686 [place] [facility] [phone] [address] 2020-07-23 2020-07-23 Office [facility] 1.2.840.114 [id number] Univers 16:07:16 20:37:24 Visit Lorena [facility] 350.1.13.10 i ty of [place] 4.2.7.2.686 Jake as Professio [phone] [address] Office [facility] 2020-07-23 2020-07-23 Outpatient [facility] [id number] Univers 16:30:00 16:30:00 LORENAKEITH souza [facility] 2020-07-23 2020-07-23 Orders Doctor BERGMAN 1.2.840.114 [id number] Univers 00:00:00 00:00:00 Only Unassigned, PEPITO 350.1.13.10 ity of [place] [facility] 4.2.7.2.686 Jake as [phone] [address] 2020-06-29 2020-06-29 Outpatient R SABINE [facility] [id number] Univers 16:20:00 16:20:00 MABEL demetri [facility] 2020-06-08 2020-06-08 Outpatient [facility] [id number] Univers 16:10:00 16:10:[address] [facility] 2020-06-03 2020-06-03 Patient SonuRUST 1.2.840.114 [id number] Univers 00:00:00 00:00:00 Outreach Vinnie PRIMARY 350.1.13.10 i ty of [facility] 4.2.7.2.686 [place] SUS[place] [phone] [facility] [address] 2020-05-14 2020-05-14 Fil[facility], Adc Fam Pob I [facility] 1.2. 840.114 [id number] Univers 07:48:00 08:08:00 Visit Del Rosario, [facility] 350.1.13.10 ity of [place] 4.2.7.2.686 Jake as Professio [phone] [facility] [address] Office [facility] One 2020-05-14 2020-05-14 Outpatient Lacey DANIEL [facility] [id number] Univers 08:00:00 08:00:[address] [facility] 2020-05-11 2020-05-11 Telephone Del RosarioRUST 1.2.096.927 [id number] Univers 00:00:00 00:00:00 [facility] 350.1.13.10 it y of [place] 4.2.7.2.686 Jake as Professio [phone] [facility] [address] Office [facility] One 2020-03-02 2020-03-02 Telephone DanielRUST 1.2.419.542 [id number] Univers 00:00:00 00:00:00 Parvez [employer] 350.1.13.10 it y of [place] 4.2.7.2.686 Jake as Professio [phone] [facility] nal [address] Office [facility] One 2020-02-18 2020-02-18 Outpatient R DANIEL [facility] [id number] Univers 15:15:00 15:15:00 PARVEZ ity of [facility] 2020-02-18 2020-02-18 Office Daniel [facility] 1.2.840.114 [id number] Univers 14:50:27 15:05:27 Visit [facility] 350.1.13.10 it y of [place] 4.2.7.2.686 Jake as Professio [phone] [address] Office Building One 2020-02-05 2020-02-05 Refill DanielRUST 1.2.840.114 [id number] Univers 00:00:00 00:00:00 [facility] 350.1.13.10 it y of [place] 4.2.7.2.686 Jake as Professio [phone] [address] Office [facility] 2020-02-05 2020-02-05 Orders Doctor MADALYN 1.2.840.114 [id number] Univers 00:00:00 00:00:00 Only Unassigned, PEPITO 350.1.13.10 ity of [place] [facility] 4.2.7.2.686 Jake as [phone] [address] 2020-01-27 2020-01-27 Urgent Provider, [facility] 1.2.840.114 [id number] Univers 16:05:14 16:33:31 [facility] 350.1.13.10 ity of [place] 4.2.7.2.686 Jake as Professio [phone] [address] Office Building One 2020-01-27 2020-01-27 Outpatient R MORGANKLAUS [facility] [id number] Univers 16:20:00 16:20:00 [facility] ity of [facility] 2020-01-05 2020-01-05 Telephone DanielRUST 1.2.511.517 [id number] Univers 00:00:00 00:00:00 [facility] 350.1.13.10 it y of [place] 4.2.7.2.686 Jake as Professio [phone] [address] Office Building One 2019-12-22 2019-12-22 Jyoti Del RosarioRUST 1.2.840.114 [id number] Univers 00:00:00 00:00:00 [facility] 350.1.13.10 it y of [place] 4.2.7.2.686 Jake as Professio [phone] Md dical nal [address] [place] [address] Office [facility] 2019-10-31 2019-10-31 Jyoti Del RosarioRUST 1.2.840.114 [id number] Univers 00:00:00 00:00:00 [facility] 350.1.13.10 it y of [place] 4.2.7.2.686 Jake as Professio [phone] [facility] nal [address] [place] [address] 2019-10-15 2019-10-15 Jyoti Del RosarioRUST 1.2.840.114 [id number] Univers 00:00:00 00:00:00 [facility] 350.1.13.10 it y of [place] 4.2.7.2.686 Jake as Professio [phone] [address] 2019-10-10 2019-10-10 Outpatient R [facility] [id number] Univers 17:20:00 17:20:00 ity of [facility] 2019-10-10 2019-10-10 Laboratory Lab, Adc Fam Pob I [facility] 1.2. 840.114 [id number] Univers 15:02:24 15:22:24 Only Anelindsey, [facility] 350.1.13.10 ity of [place] 4.2.7.2.686 Jake as Professio [phone] [address] Office [facility] 2019-09-22 2019-09-22 [facility] 1.2.034.166 [id number] Univers 09:51:00 23:59:00 Encounter Wonanalia Sierraton 350.1.13.10 ity of [place] 4.2.7.2.686 [place] [facility] [phone] [facility] [address] [place] [address] 2019-09-22 2019-09-22 Office [facility] 1.2.840.114 [id number] Univers 08:51:42 09:27:17 Visit Karen Zapien 350.1.13.10 ity of [place] 4[place]2.7.2.[place] Profess[place] [phone] [address] 2019-09-22 2019-09-22 Outpatient Lacey TINOCO [facility] [id number] Univers 09:00:00 09:00:00 WONDIFUL ity o f [facility] 2019-09-22 2019-09-22 Orders Doctor MADALYN 1.2.840.114 [id number] Univers 00:00:00 00:00:00 Only Unassigned, PEPITO 350.1.13.10 ity of [place] [facility] 4.2.7.2.686 Jake as [phone] [address] 2019-08-11 2019-08-11 [facility] 1.2.840.114 [id number] Univers 00:00:00 00:00:00 [facility] 350.1.13.10 it y of [place] 4.2.7.2.686 Jake as Professio [phone] [address] 2019-08-06 2019-08-06 Jyoti Del RosarioRUST 1.2.840.114 [id number] Univers 00:00:00 00:00:00 [facility] 350.1.13.10 it y of [place] 4.2.7.2.686 Jake as Professio [phone] [address] 2019-08-04 2019-08-04 Outpatient Laecy DEL ROSARIO [facility] [id number] Univers 14:15:00 14:15:00 PARVEZ souza [facility] 2019-08-04 2019-08-04 Outpatient Lacey DEL ROSARIO [facility] [id number] Univers 10:15:00 10:15:00 PARVEZ souza [facility] 2019-08-04 2019-08-04 Telemedici DanielRUST 1.2.840.114 [id number] Univers 07:58:44 08:13:44 ne Visit Parvezmaddy Zapien 350.1.13.10 it[place] of [place]2.[place].2.[place] [phone] [address] 2019-07-29 2019-07-29 Telephone Pob1, Acute MADALYN 1.2.840.114 [id number] Univers 00:00:00 00:00:00 Care Clinic PEPITO 350.1.13.10 ity of [facility] 4.2.7.2.686 Jake as [phone] [address] 2019-07-28 2019-07-28 Urgent Pob1, Acute Care Clinic [facility] 1. 2.840.114 [id number] Univers 09:18:41 09:38:41 Care Nicole Tony [facility] 350.1.13.10 ity of [place] 4.2.7.2.686 Jake as Abad [phone] [address] Office Building One 2019-07-28 2019-07-28 Outpatient R [facility] [id number] Univers 09:20:00 09:20:00 ity of [facility] 2019-07-22 2019-07-22 Transition Taye Foster 1.2.840.114 [id number] Univers 00:00:00 00:00:00 of Care Patrick A Zavala 350.1.13.10 ity of [place] 4.2.7.2.686 [place] [phone] [facility] [address] 2019-07-20 2019-07-20 Emergency [facility] 1.2.405.186 [id number] Univers 08:53:10 10:43:00 Navi S [place] 350.1.13.10 ity of [place] 4.2.7.2.686 [place] [phone] [facility] [address] 2019-07-18 2019-07-18 Nurse Beronica Madrigal 1.2.840.114 [id number] Univers 00:00:00 00:00:00 Triage PE[place]O 350.1.13.10 it y of HOSPITAL 4.2.7.2.686 Jake as [phone] [address] 2019-07-10 2019-07-10 Jyoti Del RosarioRUST 1.2.840.114 [id number] Univers 00:00:00 00:00:00 [facility] 350.1.13.10 it y of [place] 4.2.7.2.686 Jake as Professio [phone] [address] Office [facility] 2019-06-13 2019-06-13 Refill Daniel [facility] 1.2.840.114 [id number] Univers 00:00:00 00:00:00 [facility] 350.1.13.10 it y of [place] 4.2.7.2.686 Jake as Professio [phone] [address] Office [facility] 2019-06-13 2019-06-13 Telephone LisandraRUST 1.2.259.899 [id number] Univers 00:00:00 00:00:00 Lorena A [facility] 350.1.13.10 i ty of [place] 4.2.7.2.686 Jake as Professio [phone] [address] Office [facility] 2019-06-12 2019-06-12 Telephone Lulu Winter 1.2.840.114 [id number] Univers 00:00:00 00:00:00 PE[place]ITO 350.1.13.10 it y of HOSPITAL 4.2.7.2.686 Jake as [phone] [address] 2019-06-11 2019-06-11 Office Pob1, Acute Care Clinic [facility] 1. 2.840.114 [id number] Univers 12:39:50 13:55:54 Visit Lorena Tate [facility] 350.1.13.10 ity of [place] 4.2.7.2.686 Jake as Professio [phone] [address] Office [facility] 2019-06-11 2019-06-11 Outpatient R LISANDRA [facility] [id number] Univers 12:40:00 12:40:00 LORENA ity of [facility] 2019-06-11 2019-06-11 Outpatient Raju_P [facility] G [id number] [place] 03:13:00 03:13:00 [facility] 2019-06-11 2019-06-11 Telephone DanielRUST 1.2.490.797 [id number] Univers 00:00:00 00:00:00 [facility] 350.1.13.10 it y of [place] 4.2.7.2.686 Jake as Professio [phone] Md dical nal [address] 2019-04-28 2019-04-28 Office DanielRUST 1.2.840.114 [id number] Univers 12:36:51 12:51:51 Visit Parvez [facility] 350..13.10 it y of [place] 4.2.7.2.686 Jake as Professio [phone] Md dicnc nal [address] [place] [address] Office Building One 2019-04-27 2019-04-27 Refill DanielRUST 1.2.840.114 [id number] Univers 00:00:00 00:00:00 [facility] 350.13.10 it y of [place] 4.2.7.2.686 Jake as Professio [phone] [address] Office Building One 2019-03-17 2019-03-17 Outpatient R [facility] [id number] Univers 15:21:19 23:59:00 PARVEZ souza [facility] 2018-10-24 2018-10-24 Office LisandraRUST 1.2.840.114 [id number] Univers 08:38:22 09:11:31 Visit Lorena Urias [facility] 350.13.10 i ty of [place] 4.2.7.2.686 Jake as Professio [phone] [address] Office Building One Results Test Description Test Time Test Comments Results Result Comments Source HEPATITIS B SURFACE ANTIBODY 2022-10-03 02:06:37 Test Item Value Reference Range Interpretation Comme nts HBsAB (test code = 6807602997) Negative HBsAb Semi-Quantitative (test code = 0.00 mIU/mL 0078301621) NYDIA (test code = NYDIA) Interpretation: ?Hepatitis B Surface Antibody ? Negative - Patient is considered to be not immune to infection with HBV. ? ? Positive - Anti-HBs detected at greater than or equal to 12 mIU/mL. ?Patient is considered to be immune to infection with HBV. ? [facility] [id number] 02:06:37 Test Item Value Reference Range Interpretation Comments HCV Ab (test code = 61842-3) Negative HCV Semi-Quantitative (test code = 0.01 71516-4) [facility]TIB[facility] (IGM & IGG)2022-10-03 02:06:37 Test Item Value Reference Range Interpretation Comments HBC (test code = 7261187986) Negative HBC Semi-Quantitative (test code = 3.35 4285893701) [facility] SURFACE [id number] 02:06:37 Test Item Value Reference Range Interpretation Comments HBsAB (test code = Negative 1042038612) HBsAb 0.00 mIU/mL Semi-Quantitative (test code = 0376026979) NYDIA (test code = Interpretation: NYDIA) ?Hepatitis B Surface Antibody ? Negative - Patient is considered to be not immune to infection with HBV. ? ? Positive - Anti-HBs detected at greater than or equal to 12 mIU/mL. ?Patient is considered to be immune to infection with HBV. ? [facility] [id number] 02:06:37 Test Item Value Reference Range Interpretation Comments HCV Ab (test code = 33713-4) Negative HCV Semi-Quantitative (test code = 0.01 04530-6) [facility] ANTIBODY (IGM & IGG)2022-10-03 02:06:37 Test Item Value Reference Range Interpretation Comments HBC (test code = 9053662119) Negative HBC Semi-Quantitative (test code = 3.35 1409401348) [facility]HE[facility]ALT[facility] B SURFACE [id number] 02:06:37 Test Item Value Reference Range Interpretation Comments HBsAB (test code = Negative 9120467912) HBsAb 0.00 mIU/mL Semi-Quantitative (test code = 7057841358) NYDIA (test code = Interpretation: NYDIA) ?Hepatitis B Surface Antibody ? Negative - Patient is considered to be not immune to infection with HBV. ? ? Positive - Anti-HBs detected at greater than or equal to 12 mIU/mL. ?Patient is considered to be immune to infection with HBV. ? [facility] [id number] 02:06:37 Test Item Value Reference Range Interpretation Comments HCV Ab (test code = 38824-8) Negative HCV Semi-Quantitative (test code = 0.01 30064-9) [facility]2022-10-03 02:06:37 Test Item Value Reference Range Interpretation Comments HBC (test code = 8699618398) Negative HBC Semi-Quantitative (test code = 3.35 1081622202) [facility] CenterHEPAT[facility]IS [facility] SURFACE [id number] 02:06:37 Test Item Value Reference Range Interpretation Comments HBsAB (test code = Negative 2709540519) HBsAb 0.00 mIU/mL Semi-Quantitative (test code = 2925566904) NYDIA (test code = Interpretation: NYDIA) ?Hepatitis B Surface Antibody ? Negative - Patient is considered to be not immune to infection with HBV. ? ? Positive - Anti-HBs detected at greater than or equal to 12 mIU/mL. ?Patient is considered to be immune to infection with HBV. ? [facility] [id number] 02:06:37 Test Item Value Reference Range Interpretation Comments HCV Ab (test code = 36591-2) Negative HCV Semi-Quantitative (test code = 0.01 16957-1) [facility] ANTIBODY (IGM & IGG)2022-10-03 02:06:37 Test Item Value Reference Range Interpretation Comments HBC (test code = 4070158216) Negative HBC Semi-Quantitative (test code = 3.35 7085379398) [facility] CenterHEOUR [facility]ITALTIS B SURFACE [id number] 02:06:37 Test Item Value Reference Range Interpretation Comments HBsAB (test code = Negative 0578754563) HBsAb 0.00 mIU/mL Semi-Quantitative (test code = 7001229889) NYDIA (test code = Interpretation: NYDIA) ?Hepatitis B Surface Antibody ? Negative - Patient is considered to be not immune to infection with HBV. ? ? Positive - Anti-HBs detected at greater than or equal to 12 mIU/mL. ?Patient is considered to be immune to infection with HBV. ? [facility] [id number] 02:06:37 Test Item Value Reference Range Interpretation Comments HCV Ab (test code = 48060-1) Negative HCV Semi-Quantitative (test code = 0.01 23821-3) [facility] ANTIBODY (IGM & IGG)2022-10-03 02:06:37 Test Item Value Reference Range Interpretation Comments HBC (test code = 4493350395) Negative HBC Semi-Quantitative (test code = 3.35 3086858235) [facility] CenterHEPATITIS B SURFACE [id number] 02:06:37 Test Item Value Reference Range Interpretation Comments HBsAB (test code = Negative 5668963765) HBsAb 0.00 mIU/mL Semi-Quantitative (test code = 8056412147) NYDIA (test code = Interpretation: NYDIA) ?Hepatitis B Surface Antibody ? Negative - Patient is considered to be not immune to infection with HBV. ? ? Positive - Anti-HBs detected at greater than or equal to 12 mIU/mL. ?Patient is considered to be immune to infection with HBV. ? [facility] [id number] 02:06:37 Test Item Value Reference Range Interpretation Comments HCV Ab (test code = 32328-7) Negative HCV Semi-Quantitative (test code = 0.01 09697-5) [facility] ANTIBODY (IGM & IGG)2022-10-03 02:06:37 Test Item Value Reference Range Interpretation Comments HBC (test code = 2072099269) Negative HBC Semi-Quantitative (test code = 3.35 7031239546) [facility] CenterHEOUR [facility] B SURFACE [id number] 02:06:37 Test Item Value Reference Range Interpretation Comments HBsAB (test code = Negative 6272578999) HBsAb 0.00 mIU/mL Semi-Quantitative (test code = 9086988274) NYDIA (test code = Interpretation: NYDIA) ?Hepatitis B Surface Antibody ? Negative - Patient is considered to be not immune to infection with HBV. ? ? Positive - Anti-HBs detected at greater than or equal to 12 mIU/mL. ?Patient is considered to be immune to infection with HBV. ? [facility] [id number] 02:06:37 Test Item Value Reference Range Interpretation Comments HCV Ab (test code = 45121-7) Negative HCV Semi-Quantitative (test code = 0.01 69685-8) [facility] ANTIBODY (IGM & IGG)2022-10-03 02:06:37 Test Item Value Reference Range Interpretation Comments HBC (test code = 4940845307) Negative HBC Semi-Quantitative (test code = 3.35 1781966095) [facility] SURFACE [id number] 02:06:37 Test Item Value Reference Range Interpretation Comments HBsAB (test code = Negative 4100805212) HBsAb 0.00 mIU/mL Semi-Quantitative (test code = 6012188442) NYDIA (test code = Interpretation: NYDIA) ?Hepatitis B Surface Antibody ? Negative - Patient is considered to be not immune to infection with HBV. ? ? Positive - Anti-HBs detected at greater than or equal to 12 mIU/mL. ?Patient is considered to be immune to infection with HBV. ? [facility] [id number] 02:06:37 Test Item Value Reference Range Interpretation Comments HCV Ab (test code = 07755-4) Negative HCV Semi-Quantitative (test code = 0.01 54093-5) [facility] ANTIBODY (IGM & IGG)2022-10-03 02:06:37 Test Item Value Reference Range Interpretation Comments HBC (test code = 5349327891) Negative HBC Semi-Quantitative (test code = 3.35 2336925751) [facility] B CORE ANTIBODY [id number] 01:54:52 Test Item Value Reference Range Interpretation Comments HBCM 0.04 Semi-Quantitative (test code = 63449-7) NYDIA (test code = Biotin has been reported NYDIA) to cause a negative bias, interpret results relative to patient's use of biotin. [facility] A VIRUS ANTIBODY [id number] 01:54:52 Test Item Value Reference Range Interpretation Comments HAVM 0.04 Semi-Quantitative (test code = 07335-6) NYDIA (test code = HAVAb IgM Interpretative NYDIA) Information: Reactive greater than or equal to 1.2 Biotin has been reported to cause a negative bias, interpret results relative to patient's use of biotin. [facility] B CORE ANTIBODY [id number] 01:54:52 Test Item Value Reference Range Interpretation Comments HBCM 0.04 Semi-Quantitative (test code = 21086-6) NYDIA (test code = Biotin has been reported NYDIA) to cause a negative bias, interpret results relative to patient's use of biotin. [facility] A VIRUS ANTIBODY [id number] 01:54:52 Test Item Value Reference Range Interpretation Comments HAVM 0.04 Semi-Quantitative (test code = 45267-1) NYDIA (test code = HAVAb IgM Interpretative NYDIA) Information: Reactive greater than or equal to 1.2 Biotin has been reported to cause a negative bias, interpret results relative to patient's use of biotin. [facility] B CORE ANTIBODY [id number] 01:54:52 Test Item Value Reference Range Interpretation Comments HBCM 0.04 Semi-Quantitative (test code = 42990-1) NYDIA (test code = Biotin has been reported NYDIA) to cause a negative bias, interpret results relative to patient's use of biotin. [facility] A VIRUS ANTIBODY [id number] 01:54:52 Test Item Value Reference Range Interpretation Comments HAVM 0.04 Semi-Quantitative (test code = 39442-7) NYDIA (test code = HAVAb IgM Interpretative NYDIA) Information: Reactive greater than or equal to 1.2 Biotin has been reported to cause a negative bias, interpret results relative to patient's use of biotin. [facility] B CORE ANTIBODY [id number] 01:54:52 Test Item Value Reference Range Interpretation Comments HBCM 0.04 Semi-Quantitative (test code = 65257-8) NYDIA (test code = Biotin has been reported NYDIA) to cause a negative bias, interpret results relative to patient's use of biotin. [facility] A VIRUS ANTIBODY [id number] 01:54:52 Test Item Value Reference Range Interpretation Comments HAVM 0.04 Semi-Quantitative (test code = 05513-3) NYDIA (test code = HAVAb IgM Interpretative NYDIA) Information: Reactive greater than or equal to 1.2 Biotin has been reported to cause a negative bias, interpret results relative to patient's use of biotin. [facility] B CORE ANTIBODY [id number] 01:54:52 Test Item Value Reference Range Interpretation Comments HBCM 0.04 Semi-Quantitative (test code = 42349-9) NYDIA (test code = Biotin has been reported NYDIA) to cause a negative bias, interpret results relative to patient's use of biotin. [facility] A VIRUS ANTIBODY [id number] 01:54:52 Test Item Value Reference Range Interpretation Comments HAVM 0.04 Semi-Quantitative (test code = 88839-0) NYDIA (test code = HAVAb IgM Interpretative NYDIA) Information: Reactive greater than or equal to 1.2 Biotin has been reported to cause a negative bias, interpret results relative to patient's use of biotin. [facility] B CORE ANTIBODY [id number] 01:54:52 Test Item Value Reference Range Interpretation Comments HBCM 0.04 Semi-Quantitative (test code = 69607-9) NYDIA (test code = Biotin has been reported NYDIA) to cause a negative bias, interpret results relative to patient's use of biotin. [facility] A VIRUS ANTIBODY [id number] 01:54:52 Test Item Value Reference Range Interpretation Comments HAVM 0.04 Semi-Quantitative (test code = 64746-4) NYDIA (test code = HAVAb IgM Interpretative NYDIA) Information: Reactive greater than or equal to 1.2 Biotin has been reported to cause a negative bias, interpret results relative to patient's use of biotin. [facility] B CORE ANTIBODY [id number] 01:54:52 Test Item Value Reference Range Interpretation Comments HBCM 0.04 Semi-Quantitative (test code = 35583-0) NYDIA (test code = Biotin has been reported NYDIA) to cause a negative bias, interpret results relative to patient's use of biotin. [facility] A VIRUS ANTIBODY [id number] 01:54:52 Test Item Value Reference Range Interpretation Comments HAVM 0.04 Semi-Quantitative (test code = 55749-9) NYDIA (test code = HAVAb IgM Interpretative NYDIA) Information: Reactive greater than or equal to 1.2 Biotin has been reported to cause a negative bias, interpret results relative to patient's use of biotin. [facility] B CORE ANTIBODY [id number] 01:54:52 Test Item Value Reference Range Interpretation Comments HBCM 0.04 Semi-Quantitative (test code = 74477-6) NYDIA (test code = Biotin has been reported NYDIA) to cause a negative bias, interpret results relative to patient's use of biotin. [facility] A VIRUS ANTIBODY [id number] 01:54:52 Test Item Value Reference Range Interpretation Comments HAVM 0.04 Semi-Quantitative (test code = 57646-1) NYDIA (test code = HAVAb IgM Interpretative NYDIA) Information: Reactive greater than or equal to 1.2 Biotin has been reported to cause a negative bias, interpret results relative to patient's use of biotin. [facility] B SURFACE [id number] 01:48:11 Test Item Value Reference Range Interpretation Comments HBsAg Semi-Quantitative (test code = 0.04 Negative 5195-3) [facility] B SURFACE [id number] 01:48:11 Test Item Value Reference Range Interpretation Comments HBsAg Semi-Quantitative (test code = 0.04 Negative 5195-3) [facility] B SURFACE [id number] 01:48:11 Test Item Value Reference Range Interpretation Comments HBsAg Semi-Quantitative (test code = 0.04 Negative 5195-3) [facility] B SURFACE [id number] 01:48:11 Test Item Value Reference Range Interpretation Comments HBsAg Semi-Quantitative (test code = 0.04 Negative 5195-3) [facility] B SURFACE [id number] 01:48:11 Test Item Value Reference Range Interpretation Comments HBsAg Semi-Quantitative (test code = 0.04 Negative 5195-3) [facility] B SURFACE [id number] 01:48:11 Test Item Value Reference Range Interpretation Comments HBsAg Semi-Quantitative (test code = 0.04 Negative 5195-3) [facility] B SURFACE [id number] 01:48:11 Test Item Value Reference Range Interpretation Comments HBsAg Semi-Quantitative (test code = 0.04 Negative 5195-3) [facility] B SURFACE [id number] 01:48:11 Test Item Value Reference Range Interpretation Comments HBsAg Semi-Quantitative (test code = 0.04 Negative 5195-3) [facility] HEMOGLOBIN A1C [id number] 20:25:00 Test Item Value Reference Range Interpretation Comments POCT HBA1C (test code = 4548-4) 7.3 % 4-6 A Lab Interpretation (test code = Abnormal 16342-5) [facility] [id number] 20:25:00 Test Item Value Reference Range Interpretation Comments POCT HBA1C (test code = 4548-4) 7.3 % 4-6 A Lab Interpretation (test code = Abnormal 20037-0) [facility] (57554) (ALB,T.PRO,BILI T,BU/BC,ALT,AST,ALK PHOS)2022-02-21 00:54:30 Test Item Value Reference Range Interpretation Comments TOTAL BILI (test code = 7748220330) 0.7 mg/dL 0.1-1.1 BILI UNCON (test code = 9154480905) 0.4 mg/dL 0.1-1.1 BILI CONJ (test code = 5279979047) 0.0 mg/dL 0.0-0.3 T PROTEIN (test code = 5788143987) 6.7 g/dL 6.3-8.2 ALBUMIN (test code = 4388098492) 4.5 g/dL 3.5-5.0 ALK PHOS (test code = 7409100320) 95 U/L 34-122 ALTv (test code = 1742-6) 97 U/L 5-50 H AST(SGOT) (test code = 8112547063) 57 U/L 13-40 H Lab Interpretation (test code = Abnormal 27499-8) [facility] (NA, K, CL, CO2, GLUCOSE, BUN, CREATININE, CA)2022-02-21 00:54:10 Test Item Value Reference Range Interpretation Comments NA (test code = 139 mmol/L 135-145 3748280094) K (test code = 3.4 mmol/L 3.5-5.0 L 2086537125) CL (test code = 100 mmol/L 98-108 6182539336) CO2 TOTAL (test code = 28 mmol/L 23-31 7360690551) AGAP (test code = 2-16 5235028683) BUN (test code = 19 mg/dL 7-23 9516104901) GLUCOSE (test code = 236 mg/dL 70-110 H 8547923956) CREATININE (test code = 1.05 mg/dL 0.60-1.25 0194781005) CALCIUM (test code = 9.7 mg/dL 8.6-10.6 5394987148) eGFR (test code = mL/min/1.73m2 4318870296) NYDIA (test code = NYDIA) Association of Glomerular Filtration Rate (GFR) and Staging of Kidney Disease* + --+ --+ ------+| GFR (mL/min/1.73 m2) ?| With Kidney Damage ?| ?Without Kidney Damage+ --------+ --------+ +| ?>90 ?| ?Stage one ?| ? Normal ?+ ---+ ---+ -------+| ?60-89 ?| ?Stage two ?| ? Decreased GFR ? + --+ --+ ------+| ?30-59 ?| ?Stage three ?| ? Stage three ? + --+ --+ ------+| ?15-29 ?| ?Stage four ? | ? Stage four ?+ ---+ ---+ -------+| ?<15 (or dialysis) ? ?| ?Stage five ? | ? Stage five ?+ ---+ ---+ -------+ *Each stage assumes the associated GFR level has been in effect for at least three months. ?Stages 1 to 5, with or without kidney disease, indicate chronic kidney disease. Notes: Determination of stages one and two (with eGFR >59mL/min/1.73 m2) requires estimation of kidney damage for at least three months as defined by structural or functional abnormalities of the kidney, manifested by either:Pathological abnormalities or Markers of kidney damage (including abnormalities in the composition of the blood or urine or abnormalities in imaging tests). Lab Interpretation Abnormal (test code = 02352-6) [facility]2022-12-06 00:54:10 Test Item Value Reference Range Interpretation Comments LIPASE (test code = 8849985443) 77 U/L 0-220 Lab Interpretation (test code = Normal 12263-2) [facility] WITH [id number] 00:40:48 Test Item Value Reference Range Interpretation Comments WBC (test code = See_Comment [Automated 5745-2) message] The sy stem which generated this result transmitted reference range : 4.20 - 10.70 10*3/?L. The reference range was not used to interpret this result as normal/abnormal . RBC (test code = See_Comment [Automated 789-8) message] The sy stem which generated this result transmitted reference range : 4.26 - 5.52 10*6/?L. The reference range was not used to interpret this result as normal/abnormal . HGB (test code = 15.8 g/dL 12.2-16.4 718-7) HCT (test code = 45.4 % 38.4-49.3 4544-3) MCV (test code = 85.2 fL 81.7-95.6 787-2) MCH (test code = 29.6 pg 26.1-32.7 785-6) MCHC (test code = 34.8 g/dL 31.2-35.0 786-4) RDW-SD (test code = 40.5 fL 38.5-51.6 33071-3) RDW-CV (test code = 13.2 % 12.1-15.4 788-0) PLT (test code = See_Comment [Automated 777-3) message] The sy stem which generated this result transmitted reference range : 150 - 328 10*3/ ?L. The reference r saud was not used to interpret this result as normal/abnormal . MPV (test code = 11.7 fL 9.8-13.0 57168-0) NRBC/100 WBC (test See_Comment [Automat ed code = 2471437280) message] The system which generated this result transmitted reference range : 0.0 - 10.0 /100 WBCs. The refer ence range was not u sed to interpret th is result as normal/abnormal . NRBC x10^3 (test code See_Comment [Auto mated = 2873519797) message] The s ystem which generated this result transmitted reference range : 10*3/?L. The reference range was not used to interpret this result as normal/abnormal . GRAN MAT (NEUT) % 79.5 % (test code = 770-8) IMM GRAN % (test code 0.50 % = 9434367445) LYMPH % (test code = 13.5 % 736-9) MONO % (test code = 5.6 % 5905-5) EOS % (test code = 0.5 % 713-8) BASO % (test code = 0.4 % 706-2) GRAN MAT x10^3(ANC) 8.31 10*3/uL 1.99-6.95 H (test code = 0766135950) IMM GRAN x10^3 (test 0.05 10*3/uL 0.00-0.06 code = 9350373215) LYMPH x10^3 (test code 1.41 10*3/uL 1.09-3.23 = 731-0) MONO x10^3 (test code 0.58 10*3/uL 0.36-1.02 = 742-7) EOS x10^3 (test code = 0.05 10*3/uL 0.06-0.53 L 711-2) BASO x10^3 (test code 0.04 10*3/uL 0.01-0.09 = 704-7) Lab Interpretation Abnormal (test code = 29331-2) [facility] HEMOGLOBIN A1C [id number] 20:45:00 Test Item Value Reference Range Interpretation Comments POCT HBA1C (test code = 4548-4) 7.1 % 4-6 A Lab Interpretation (test code = Abnormal 19323-6) [facility] HEMOGLOBIN A1C [id number] 20:45:00 Test Item Value Reference Range Interpretation Comments POCT HBA1C (test code = 4548-4) 7.1 % 4-6 A Lab Interpretation (test code = Abnormal 20598-1) [facility] HEMOGLOBIN A1C [id number] 16:29:00 Test Item Value Reference Range Interpretation Comments POCT HBA1C (test code = 4548-4) 8.1 % 4-6 A Lab Interpretation (test code = Abnormal 38453-3) [facility] Notes Date/Time Note Provider Source 2022-10-27 15:54:59-00:00 Formatting of this note migh t be different from the original. María Koo [facility] Received Radiology service r eport from [facility]. Placed in providers basket. Electronically signed by María Koo at 10/17 3:57 PM CDT 2022-10-27 14:56:14-00:00 Formatting of this note migh t be different from the original. María Koo [facility] Received [facility] care summary [facility]. Placed in providers basket. Electronically signed by María Koo at 10/17 2:58 PM CDT 2022-10-02 13:15:00-00:00 Formatting of this note is d ifferent from the original. [facility] Images from the original note were not included. Venipuncture collection perf ormed by clean technique on the left anticubitus. Total of 1 attempts were made. Slight pressure and a bandage/dressing were applied to the site(s). The patient experienced n o complications. The followi ng specimens were processed according to instructions and sent to [facility] laboratories per lab order on today: LT BLUE SST 1 -1 extra RED LAV extra PPT DK GREEN (LiHep) DK GREEN (SodH) CARMONA DK BLUE (K2) DK BLUE (S) ACD Blood Culture NIPT/NTD Electronically signed by Kaitlin Newberry at 0 10/02/2022 12:00 PM T 2022-10-02 13:15:00-00:00 Addended by: NAVDEEP NEWBERRY on: 10/05/2022 04:14 PM [facility] Modules accepted: Orders Electronically signed by Kaitlin Newberry at 0 10/05/2022 4:14 PM CDT 2022-10-02 13:15:00-00:00 Formatting of this note migh t be different from the original. [facility] Per Ronda email corrected HEPATITIS B CORE ANTIBODY IG M ( [id number]) And HEPATITIS ANTIBODY HAAB TOTAl ( [id number]) [id number] Per Cam [employer] Both test was reordered and added to the previous specimen. Inc orrect orders were also cancelled. Kaitlin forte 10/05/2022 4:26 PM Electronically signed by Kaitlin Newberry at 0 10/05/2022 4:30 PM CDT 2022-10-02 13:15:00-00:00 Formatting of this note migh t be different from the original. [facility] October 10 according to Stacy puri there was enough blood to run the test for Hav Antibody and patient did not need to come in,also duplicate test were cancelled.Kaitlin Newberry 10/10/2022 10:56 AM Electronically signed by Kaitlin Newberry at 0 10/10/2022 10:56 AM CDT"
[2022-10-27 23:30] LABS: Absolute Lymphocytes (CBC) 0.8 K/uL (0.7-4.9); Hematocrit 37.6 % (39.6-49.0); Lymphocytes % 3.9 % (15.3-44.8); MCV 86.2 fL (80-100); Platelets 288 thou/uL (152-406); RBC Red Blood Cell Count 4.36 M/uL (4.33-5.43)
[2022-10-27 23:34] LABS: Protime INR 1.15
[2022-10-27] MEDS ORDERED: NA CHLORIDE 0.9% 500 ML ONE (23:47)
[2022-10-27] MEDS ORDERED: NA CHLORIDE 0.9% 1,000 ML ONE (23:47)
[2022-10-27 23:52] LABS: ALT/SGPT 55 U/L (16-61); AST/SGOT 31 U/L (15-37); Albumin 3.5 g/dL (3.4-5.0); Alkaline Phosphatase 50 U/L (45-117); BUN Blood Urea Nitrogen 24 mg/dL (7-18); Bicarbonate 18 mEq/L (21-32); Bilirubin Direct < 0.1 mg/dL (0-0.2); Bilirubin Indirect, Calculated ND mg/dL (0.2-0.8); Bilirubin Total 0.4 mg/dL (0.2-1.0); Glomerular Filtration Rate 45 ml/min (=/>90); Glucose Level 354 mg/dL (74-106); Lipase 18 U/L (13-75); Magnesium 1.8 mg/dL (1.6-2.4); NT PRO-BNP 120 pg/mL (<125); Potassium 3.2 mEq/L (3.5-5.1); Protein, Total 7.1 g/dL (6.4-8.2); Sodium Level 137 mEq/L (136-145); Troponin High Sensitivity 50.5 pg/mL (<58.9)
[2022-10-28] MEDS ORDERED: ONDANSETRON 4 MG/2 ML VIAL ONE ×2 (00:34→04:20)
[2022-10-28] MEDS ORDERED: FENTANYL CITR 100 MCG/2 ML ONE (00:34)
[2022-10-28 01:19] LABS: Specific Gravity 1.018 (1.005-1.030); Urine Bilirubin NEGATIVE (Negative); Urine Blood Negative (Negative); Urine Clarity Clear (Clear); Urine Color Light-Yellow (Yellow); Urine Glucose 4+ (Over) (Negative); Urine Protein NEGATIVE (Negative); Urine Urobilinogen Normal (Normal)
[2022-10-28] MEDS ORDERED: PIPERACIL/TAZO 3.375 GM VIAL IV ONE (01:34)
[2022-10-28] MEDS ORDERED: NA CHLORIDE 0.9% 100 ML ONE (01:35)
--- NOTE | 2022-10-28 01:52 | ER ---
Nurse's Notes [facility] Name: Gareth Figueroa Age: 47 yrs Sex: Male : 1975 Arrival Date: 10/27/2022 Time: 22:43 Bed 18 Private MD: Diagnosis: Abdominal pain, Generalized;Hemoperitoneum-sp lap cholecystectomy;Type 2 diabetes mellitus with hyperglycemia;Elevated white blood cell count;Anemia, unspecified;Retention of urine, unspecified-PVR 800 CC Presentation: 10/27 22:46 Chief complaint: Patient states: epigastric pain right shoulder pain and right flank kl pain began this evening reports gallbladder surgery today discharged at 230 unable to urinate since also emesis x 2 after taking pain medication. Coronavirus screen: Vaccine status: Patient reports receiving the 2nd dose of the covid vaccine. Ebola Screen: Patient negative for fever greater than or equal to 101.5 degrees Fahrenheit, and additional compatible Ebola Virus Disease symptoms. Initial Sepsis Screen: Does the patient meet any 2 criteria? No. Patient's initial sepsis screen is negative. Does the patient have a suspected source of infection? No. Patient's initial sepsis screen is negative. Risk Assessment: Do you want to hurt yourself or someone else? Patient reports no desire to harm self or others. 22:46 Method Of Arrival: EMS: [facility] 22:46 Acuity: CELIO 3 kl Triage Assessment: 22:49 General: Appears distressed, uncomfortable, Behavior is cooperative. Pain: Complains of kl pain in epigastric area and anterior aspect of right lateral abdomen Pain radiates to right clavicle. GI: Reports vomiting, since after each dose of pain medication. : Reports inability to void, since 230 pm. Historical: - Allergies: 22:48 No Known Allergies; kl - PMHx: 22:48 Diabetes mellitus; Hypertensive disorder; kl - PSHx: 22:48 Cholecystectomy; kl - Immunization history:: Adult Immunizations not immunized. - Social history:: Smoking status: Patient/guardian denies using tobacco, the patient reports quitting approximately 13 years ago. - Family history:: not pertinent. Screenin:09 [facility] ED Fall Risk Assessment (Adult) History of falling in the last 3 months, fu including since admission No falls in past 3 months (0 pts). Abuse screen: Denies threats or abuse. Nutritional screening: No deficits noted. Tuberculosis screening: No symptoms or risk factors identified. Assessment: 22:50 General: Appears uncomfortable, Behavior is calm, cooperative, appropriate for age. fu Pain: Complains of pain in right clavicle and abdomen and anterior aspect of right lateral abdomen Pain currently is 4 out of 10 on a pain scale. Neuro: Level of Consciousness is awake, alert, obeys commands, Oriented to person, place, time, situation, Moves all extremities. GI: Reports nausea, vomiting, not passing gas. Derm: dressing to abdomen. patient had surgery today at 1400. 08 00:35 Reassessment: Patient and/or family updated on plan of care and expected duration. Pain fu level reassessed. Patient is alert, oriented x 3, equal unlabored respirations, skin warm/dry/pink. Patient complaining of abdominal and right shoulder pain, MD notified, with verbal order to give Fentanyl 50 mcg IV X1 and Zofran 4 mg IV X1. 00:40 Reassessment: Silva catheter FR 16 inserted aseptically 800ml of urine drained. fu 01:30 Reassessment: Patient and/or family updated on plan of care and expected duration. Pain fu level reassessed. Patient is alert, oriented x 3, equal unlabored respirations, skin warm/dry/pink. 01:40 Reassessment: Patient verbalized feeling of passing stool, wanting to sit on bedside fu commode, bedside commode provided. 02:30 Reassessment: Patient and/or family updated on plan of care and expected duration. Pain fu level reassessed. Patient is alert, oriented x 3, equal unlabored respirations, skin warm/dry/pink. 03:00 Reassessment: Patient asleep on bed, IVF ongoing. fu 04:00 Reassessment: Patient and/or family updated on plan of care and expected duration. Pain fu level reassessed. Patient is alert, oriented x 3, equal unlabored respirations, skin warm/dry/pink. Vital Signs: 10/27 22:46 BP 133 / 74; Pulse 97; Resp 18; Temp 97.1(TE); Pulse Ox 99% on R/A; Weight 100 kg (M); kl Height 5 ft. 4 in. ; Pain 3/10; 23:00 BP 108 / 60; Pulse 91; Pulse Ox 100% ; Pain 4/10; fu 23:30 BP 108 / 74; Pulse 93; Pulse Ox 99% ; fu 0812 00:30 BP 131 / 64; Pulse 91; Resp 18; Pulse Ox 100% ; Pain 8/10; fu 00:30 BP 111 / 62; Pulse 86; Resp 26; Pulse Ox 93% ; fu 01:13 Pain 6/10; fu 01:15 BP 125 / 79; Pulse 86; Resp 21; Pulse Ox 95% ; fu 02:38 BP 117 / 87; Pulse 122; Resp 14; Pulse Ox 98% ; fu 03:00 BP 107 / 70; Pulse 93; Resp 19; Pulse Ox 98% ; fu 03:30 BP 104 / 61; Pulse 92; Resp 19; Temp 97.3; Pulse Ox 100% ; Pain 0/10; fu 10/27 22:46 Body Mass Index 37.84 (100.00 kg, 162.56 cm) 10/27 22:46 Pain Scale: Adult 23:00 Pain Scale: Adult 10/28 00:30 Pain Scale: Adult 01:13 Pain Scale: Adult fu 03:30 Pain Scale: Adult ED Course: 10/27 22:44 Patient arrived in ED. jj6 22:44 Arm band placed on. mb9 22:44 Placed in gown. Bed in low position. Call light in reach. Side rails up X 1. Client mb9 placed on continuous cardiac and pulse oximetry monitoring. NIBP monitoring applied. valve seater operator on. 22:45 Maintain EMS IV. Dressing intact. Good blood return noted. Site clean \T\ dry. Gauge \T\ mb 9 site: 20 g left hand. 22:46 Star Ruiz MD is Attending Physician. [facility] 22:48 Triage completed. kl 22:50 EKG done, by ED staff. fu 23:00 Bladder scan completed. MD tamika notified. fu 23:03 Jeff Green RN is Primary Nurse. fu 23:28 Lipase Sent. mb9 23:28 Basic Metabolic Panel Sent. mb9 23:28 CBC with Diff Sent. mb9 23:28 LFT's Sent. mb9 23:28 Magnesium Sent. mb9 23:28 NT PRO-BNP Sent. mb9 23:28 PT-INR Sent. mb9 23:28 Troponin HS Sent. mb9 23:55 XRAY Chest (1 view) In Process Unspecified. EDMS 08/ 01:10 Chest Abd Pelvis Wo Con In Process Unspecified. EDMS 01:48 Steve Dietrich MD is Hospitalizing Provider. ji 02:30 Type And Screen Sent. fu 02:51 CBC with Diff Sent. fu 03:09 ABG Sent. fu 03:26 No provider procedures requiring assistance completed. Patient admitted, IV remains in fu place. intact. Administered Medications: 10/27 23:38 Drug: NS 0.9% IV 500 ml Route: IV; Rate: bolus; Site: left hand; fu 10/28 00:43 Drug: fentaNYL (PF) IVP 50 mcg Route: IVP; Site: left hand; fu 01:13 Follow up: Pain 6/10 Adult; Response: Pain is decreased fu 00:43 Drug: Ondansetron IVP 4 mg Route: IVP; Site: left hand; fu 01:43 Follow up: Response: No adverse reaction fu 00:44 Drug: NS 0.9% IV 1000 ml Route: IV; Rate: 125 ml/hr; Site: left hand; fu 01:25 Drug: Piperacillin-Tazobactam IVPB 3.375 grams Route: IVPB; Infused Over: 60 mins; fu Site: left hand; 02:25 Follow up: Response: No adverse reaction; IV Intake: 100ml fu 02:32 Drug: NS 0.9% IV 1000 ml Route: IV; Rate: 1 bolus; Site: left hand; fu 02:47 Drug: Insulin Regular Human IVP 10 units {Co-Signature: vc1 (Reina Gant RN).} fu Route: IVP; Site: left hand; 03:08 Drug: NS 0.9% IV 1000 ml Route: IV; Rate: 1 bolus; Site: left hand; fu 04:09 Drug: morphine IVP or IV 4 mg Route: IVP; Infused Over: 4 mins; Site: left hand; fu 04:10 Drug: Ondansetron IVP 4 mg Route: IVP; Site: left hand; fu Medication: 10/27 22:45 VIS not applicable for this client. mb9 Intake: 10/28 02:25 IV: 100ml; Total: 100ml. fu Outcome: 01:52 Decision to Hospitalize by Provider. ji 04:30 Admitted to ICU accompanied by nurse, via stretcher, on monitor, Report called to mehnaz Baugh RN 04:30 Condition: improved 04:30 Instructed on the need for admit, Demonstrated understanding of instructions. 04:43 Patient left the ED. kl Signatures: Dispatcher [employer] Melody Montoya, RN Star Nix MD MD cha Umadhay, Felix RN Rosalind Silver Mary Beth RN RN mb9 Reina Gant RN vc1 Corrections: (The following items were deleted from the chart) 00:55 00:51 Reassessment: Silva catheter FR 16 inserted aseptically 800ml of urine drained mehnaz darby
--- NOTE | 2022-10-28 01:53 | EDPHYS ---
Physician Documentation [facility] Name: Gareth Figueroa Age: 47 yrs Sex: Male : 1975 Arrival Date: 10/27/2022 Time: 22:43 Bed 18 Private MD: UMANG Physician Star Ruiz HPI: 10/28 01:39 This 47 yrs old Male presents to ER via EMS with complaints of High Blood ji Sugar. 01:39 The patient or guardian reports hyperglycemia. ji 01:39 The patient or guardian reports chest pain that is located primarily in the epigastric ji area. Onset: 1 day(s) ago. The patient presents with abdominal pain. Onset: The symptoms/episode began/occurred yesterday. The pain radiates to the right shoulder. The symptoms are described as constant, crampy. Historical: - Allergies: 10/27 22:48 No Known Allergies; kl - PMHx: 22:48 Diabetes mellitus; Hypertensive disorder; kl - PSHx: 22:48 Cholecystectomy; kl - Immunization history:: Adult Immunizations not immunized. - Social history:: Smoking status: Patient/guardian denies using tobacco, the patient reports quitting approximately 13 years ago. - Family history:: not pertinent. ROS: 10/28 01:39 Constitutional: Negative for fever, chills, and weight loss, Eyes: Negative for injury, ji pain, redness, and discharge, ENT: Negative for injury, pain, and discharge, Neck: Negative for injury, pain, and swelling, Cardiovascular: Negative for chest pain, palpitations, and edema, Respiratory: Negative for shortness of breath, cough, wheezing, and pleuritic chest pain, Back: Negative for injury and pain, : Negative for injury, bleeding, discharge, and swelling, MS/Extremity: Negative for injury and deformity, Skin: Negative for injury, rash, and discoloration, Neuro: Negative for headache, weakness, numbness, tingling, and seizure, Psych: Negative for depression, anxiety, suicide ideation, homicidal ideation, and hallucinations, Allergy/Immunology: Negative for hives, rash, and allergies, Endocrine: Negative for neck swelling, polydipsia, polyuria, polyphagia, and marked weight changes, Hematologic/Lymphatic: Negative for swollen nodes, abnormal bleeding, and unusual bruising. Abdomen/GI: Positive for abdominal pain, abdominal distension, of the right upper quadrant, left upper quadrant, right lower quadrant and left lower quadrant. Exam: 01:39 Constitutional: This is a well developed, well nourished patient who is awake, alert, ji and in no acute distress. Head/Face: Normocephalic, atraumatic. Eyes: Pupils equal round and reactive to light, extra-ocular motions intact. Lids and lashes normal. Conjunctiva and sclera are non-icteric and not injected. Cornea within normal limits. Periorbital areas with no swelling, redness, or edema. ENT: Nares patent. No nasal discharge, no septal abnormalities noted. Tympanic membranes are normal and external auditory canals are clear. Oropharynx with no redness, swelling, or masses, exudates, or evidence of obstruction, uvula midline. Mucous membranes moist. Neck: Trachea midline, no thyromegaly or masses palpated, and no cervical lymphadenopathy. Supple, full range of motion without nuchal rigidity, or vertebral point tenderness. No Meningismus. Chest/axilla: Normal chest wall appearance and motion. Nontender with no deformity. No lesions are appreciated. Cardiovascular: Regular rate and rhythm with a normal S1 and S2. No gallops, murmurs, or rubs. Normal PMI, no JVD. No pulse deficits. Respiratory: Lungs have equal breath sounds bilaterally, clear to auscultation and percussion. No rales, rhonchi or wheezes noted. No increased work of breathing, no retractions or nasal flaring. Back: No spinal tenderness. No costovertebral tenderness. Full range of motion. Male : Normal genitalia with no discharge or lesions. Skin: Warm, dry with normal turgor. Normal color with no rashes, no lesions, and no evidence of cellulitis. MS/ Extremity: Pulses equal, no cyanosis. Neurovascular intact. Full, normal range of motion. Neuro: Awake and alert, GCS 15, oriented to person, place, time, and situation. Cranial nerves II-XII grossly intact. Motor strength 5/5 in all extremities. Sensory grossly intact. Cerebellar exam normal. Normal gait. Psych: Awake, alert, with orientation to person, place and time. Behavior, mood, and affect are within normal limits. 01:39 Abdomen/GI: Inspection: distension, that is moderate, Bowel sounds: active, Palpation: moderate abdominal tenderness, in all quadrants, Liver: no appreciated palpable abnormalities, Hernia: not appreciated. Vital Signs: 10/27 22:46 BP 133 / 74; Pulse 97; Resp 18; Temp 97.1(TE); Pulse Ox 99% on R/A; Weight 100 kg (M); kl Height 5 ft. 4 in. ; Pain 3/10; 23:00 BP 108 / 60; Pulse 91; Pulse Ox 100% ; Pain 4/10; fu 23:30 BP 108 / 74; Pulse 93; Pulse Ox 99% ; fu 10/28 00:30 BP 131 / 64; Pulse 91; Resp 18; Pulse Ox 100% ; Pain 8/10; fu 00:30 BP 111 / 62; Pulse 86; Resp 26; Pulse Ox 93% ; fu 01:13 Pain 6/10; fu 01:15 BP 125 / 79; Pulse 86; Resp 21; Pulse Ox 95% ; fu 02:38 BP 117 / 87; Pulse 122; Resp 14; Pulse Ox 98% ; fu 03:00 BP 107 / 70; Pulse 93; Resp 19; Pulse Ox 98% ; fu 03:30 BP 104 / 61; Pulse 92; Resp 19; Temp 97.3; Pulse Ox 100% ; Pain 0/10; fu 10/27 22:46 Body Mass Index 37.84 (100.00 kg, 162.56 cm) 10/27 22:46 Pain Scale: Adult 23:00 Pain Scale: Adult fu 10/28 00:30 Pain Scale: Adult fu 01:13 Pain Scale: Adult fu 03:30 Pain Scale: Adult fu MDM: 10/27 22:46 Patient medically screened. ji 10/28 01:45 Differential diagnosis: hyperglycemia. HEART Score: History: Slightly Suspicious (0), ji ECG: Non specific repolarization disturbance / LBTB / PM (1), Age: > 45 and < 65 years (1), Risk Factors: > or = 3 Risk factors for atherosclerotic disease (2), [Hypertension] [DM] [+ Family HX] [Obesity] Troponin: < or = 1 x Normal Limit (0). The patient was not given aspirin in the Emergency Department. Not indicated due to patient's past medical history. MISSY Risk Score: 1 - Three or more CAD risk factors, TOTAL SCORE = 1. Data reviewed: vital signs, nurses notes, lab test result(s), EKG, radiologic studies, CT scan, plain films. Consideration of Admission/Observation Escalation of care including admission/observation considered. Management of patient was discussed with the following: Flat Surfacer: dr dora johnson. I considered the following discharge prescriptions or medication management in the emergency department Medications were administered in the Emergency Department. See MAR. Independent interpretation of the following test(s) in the Emergency Department EKG: See my EKG interpretation above. Test considered but Not performed: Ultrasound no abd usg. Care significantly affected by the following chronic conditions: Diabetes, Hypertension, Obesity. 10/27 23:12 Order name: Basic Metabolic Panel; Complete Time: 00:55 [facility] 10/27 23:12 Order name: CBC with Diff; Complete Time: 00:55 [facility] 10/27 23:12 Order name: LFT's; Complete Time: 00:55 [facility] 10/27 23:12 Order name: Magnesium; Complete Time: 00:55 [facility] 10/27 23:12 Order name: NT PRO-BNP; Complete Time: 00:55 [facility] 10/27 23:12 Order name: PT-INR; Complete Time: 00:55 [facility] 10/27 23:12 Order name: Troponin HS; Complete Time: 00:55 [facility] 10/27 23:12 Order name: Lipase; Complete Time: 00:55 [facility] 10/27 23:12 Order name: Urinalysis w/ reflexes; Complete Time: 01:30 [facility] 10/28 01:34 Order name: Type And Screen [facility] 10/28 02:31 Order name: CBC with Diff [facility] 10/28 02:32 Order name: ABG [facility] 10/28 02:52 Order name: CBC with Automated Diff; Complete Time: 03:11 [facility] 10/28 03:17 Order name: ABG Arterial Blood Gas; Complete Time: 04:04 [facility] 10/28 03:46 Order name: Glucose, Ancillary Testing; Complete Time: 04:04 [facility] 10/28 04:37 Order name: CBC with Automated Diff [facility] 10/27 23:12 Order name: XRAY Chest (1 view) [facility] 10/28 01:10 Order name: Chest Abd Pelvis Wo Con [facility] 10/27 23:12 Order name: EKG; Complete Time: 23:13 [facility] 10/27 23:12 Order name: Cardiac monitoring; Complete Time: 23:13 [facility] 10/27 23:12 Order name: EKG - Nurse/Tech; Complete Time: 00:44 [facility] 10/27 23:12 Order name: IV Saline Lock; Complete Time: 23:14 [facility] 10/27 23:12 Order name: Labs collected and sent; Complete Time: 23:28 [facility] 10/27 23:12 Order name: O2 Per Protocol; Complete Time: 23:14 [facility] 10/27 23:12 Order name: O2 Sat Monitoring; Complete Time: 23:14 [facility] 10/27 23:12 Order name: Bladder Scanner: PVR , HERNANDEZ IF GREATER THAN 100; Complete Time: 00:44 [facility] Administered Medications: 10/27 23:38 Drug: NS 0.9% IV 500 ml Route: IV; Rate: bolus; Site: left hand; fu 10/28 00:43 Drug: fentaNYL (PF) IVP 50 mcg Route: IVP; Site: left hand; fu 01:13 Follow up: Pain 6/10 Adult; Response: Pain is decreased fu 00:43 Drug: Ondansetron IVP 4 mg Route: IVP; Site: left hand; fu 01:43 Follow up: Response: No adverse reaction fu 00:44 Drug: NS 0.9% IV 1000 ml Route: IV; Rate: 125 ml/hr; Site: left hand; fu 01:25 Drug: Piperacillin-Tazobactam IVPB 3.375 grams Route: IVPB; Infused Over: 60 mins; fu Site: left hand; 02:25 Follow up: Response: No adverse reaction; IV Intake: 100ml fu 02:32 Drug: NS 0.9% IV 1000 ml Route: IV; Rate: 1 bolus; Site: left hand; fu 02:47 Drug: Insulin Regular Human IVP 10 units {Co-Signature: vc1 (Reina Gant RN).} fu Route: IVP; Site: left hand; 03:08 Drug: NS 0.9% IV 1000 ml Route: IV; Rate: 1 bolus; Site: left hand; fu 04:09 Drug: morphine IVP or IV 4 mg Route: IVP; Infused Over: 4 mins; Site: left hand; fu 04:10 Drug: Ondansetron IVP 4 mg Route: IVP; Site: left hand; fu Disposition Summary: 10/28/22 01:52 Hospitalization Ordered Hospitalization Status: Inpatient Admission ji Provider: Karlo, Steve ji Condition: Fair ji Problem: new ji Symptoms: have improved ji Bed/Room Type: Standard ji Location: Intensive Care Unit(10/28/22 03:13) eb1 Room Assignment: 7-(10/28/22 03:13) eb1 Diagnosis - Abdominal pain, Generalized ji - Hemoperitoneum - sp lap cholecystectomy ji - Type 2 diabetes mellitus with hyperglycemia ji - Elevated white blood cell count ji - Anemia, unspecified ji - Retention of urine, unspecified - PVR 800 CC ji Forms: - Medication Reconciliation Form ji - SBAR form ji - Leadership Thank You Letter ji Signatures: Dispatcher [employer] EDMS Melody Sanchez RN Star Nix MD MD cha Umadhay, Felix RN Fawn Gar RN RN eb1 Reina Gant RN vc1 Corrections: (The following items were deleted from the chart) 00:23 08 23:13 Chest For PE Angio+CT.RAD.BRZ ordered. EDPA EDPA 10/28 00:23 0811 23:13 Abdomen Pelvis W Con+CT.RAD.BRZ ordered. EDPA EDPA 10/28 01:10 00:23 Chest Abdomen Pelvis W Cont ordered. [facility] EDPA 03:13 01:52 Telemetry/MedSurg (Inpatient) [facility] eb1 03:13 01:52 ji eb1
--- NOTE | 2022-10-28 02:07 | P.HP ---
Certification for Inpatient Patient admitted to: Inpatient With expected LOS: <2 Midnights Patient will require the following post-hospital care: None Practitioner: I am a practitioner with admitting privileges, knowledge of patient current condition, hospital course, and medical plan of care. Services: Services provided to patient in accordance with Admission requirements found in Title 42 Section 412.3 of the Code of Federal Regulations Patient History Date of Service: 10/28/22 Reason for admission: epigastric pain History of Present Illness: 47-year-old male with a past medical history of hypertensive, diabetes with hyper glycemia presents to the emergency room with epigastric pain. He reports pain radiates to the right shoulder, described as dull and achy, patient is status post lap remi on 10/27/2022 Dr. Lloyd. He reports unable to urinate since surgery, he reports pressure similar to having having a bowel movement unable to have a bowel movement. Plan to admit for hemoperitoneum status post lap remi, anemia, tachycardia, diabetes type 2 with hyperglycemia, leukocytosis, anemia, laboratory evaluation CBC leukocytosis 19.90, early left shift 92.3, anemia 12.1, 37.6, CMP hypokalemia 3.2, acute on chronic kidney injury BUN 24, creatinine 1.84, glucose 354, urine 4+ glucose urea, CT of the abdomen ordered Allergies No Known Allergies Allergy (Verified 10/27/22 11:12) Home Medications: Atenolol/Chlorthalidone [Atenolol-Chlorthalidone 100-25] 1 each PO DAILY AFTER SUPPER 10/27/22 Verapamil HCl [Verapamil ER] 180 mg PO DAILY AFTER SUPPER 10/27/22 - Past Medical/Surgical History -: Hypertension -: Hyperlipidemia -: Diabetes type 2 insulin-dependent -: Lap remi -: Total knee arthroplasty - Social History Smoking Status: Never smoker Alcohol use: No CD- Drugs: No Caffeine use: No Review of Systems 10-point ROS is otherwise unremarkable Physical Examination - Physical Exam General: Alert, In no apparent distress, Mild distress HEENT: Atraumatic, Normocephalic Neck: Supple, 2+ carotid pulse no bruit Respiratory: Clear to auscultation bilaterally, Normal air movement Cardiovascular: No edema, Normal pulses, Other (Sinus tachycardia 135) Capillary refill: <2 Seconds Gastrointestinal: Hypoactive, Other (Epigastric tenderness) Musculoskeletal: No clubbing, No swelling Integumentary: No rashes, No breakdown Neurological: Normal speech, Normal strength at 5/5 x4 extr, Cranial nerves 3-12 intact - Studies Laboratory Data (last 24 hrs) 10/27/22 10/27/22 10/27/22 23:22 23:22 23:22 WBC 19.90 H Hgb 12.1 L D Hct 37.6 L Plt Count 288 D PT 12.7 H INR 1.15 Sodium 137 Potassium 3.2 L BUN 24 H Creatinine 1.84 H Glucose 354 H Magnesium 1.8 Total Bilirubin 0.4 AST 31 ALT 55 Alkaline Phosphatase 50 Lipase 18 Assessment and Plan - Plan Assessment plan Hemoperitoneum status post lap remi yesterday 811 Sinus tachycardia possibly from bleeding, Acute kidney injury Anemia Leukocytosis secondary from pneumoperitoneum History of essential hypertension Hyperlipidemia Diabetes type 2 insulin-dependent DVT SCDs Assessment plan Hemoperitoneum status post lap remi yesterday 8-11 Sinus tachycardia possibly from bleeding, IV fluids, type and cross 2 units, every [address] Lloyd notified of H&H dropping CT of the abdomen pelvis ordered pending, Acute kidney injury IV fluids, trend kidney function acute on chronic kidney injury BUN 24, creatinine 1.84, Anemia anemia 12.1, 37.6, Repeat H&H 10 Serial H&H Leukocytosis secondary from pneumoperitoneum Zosyn, IV fluids CBC leukocytosis 19.90, early left shift 92.3, History of essential hypertension Hyperlipidemia Diabetes type 2 insulin-dependent Resume appropriate home meds Accu-Cheks with sliding scale insulin glucose 354, urine 4+ glucose urea, Diet n.p.o. Full code DVT SCDs Discharge Plan: Home Plan to discharge in: 48 Hours - Advance Directives Does patient have a Living Will: No Does patient have a Durable POA for Healthcare: No - Code Status/Comfort Care Code Status: Full Code Physician Review: Patient Assessed, Agree with Above Assessment and Plan Critical Care: Yes Time Spent Managing Pts Care (In Minutes): 70
[2022-10-28] MEDS ORDERED: ALPRAZOLAM 0.25 MG TABLET PO PRN (02:19)
[2022-10-28] MEDS ORDERED: ONDANSETRON 4 MG/2 ML VIAL IV PRN (02:19)
[2022-10-28] MEDS ORDERED: NA CHLORIDE 0.9% 1,000 ML ONE ×2 (02:20→03:19)
[2022-10-28] MEDS ORDERED: INSULIN -REGULAR HUMAN 50 UNIT/0.5 ML ML ONE (02:20)
[2022-10-28] MEDS ORDERED: LORazepam 2 MG/ML VIAL IV ONE (02:40)
[2022-10-28 02:51] LABS: Absolute Lymphocytes (CBC) 0.8 K/uL (0.7-4.9); Hematocrit 31.8 % (39.6-49.0); Lymphocytes % 5.2 % (15.3-44.8); MCV 85.6 fL (80-100); MPV 9.9 fL (7.6-11.3); Platelets 276 thou/uL (152-406); RBC Red Blood Cell Count 3.72 M/uL (4.33-5.43)
[2022-10-28] MEDS: NA CHLORIDE 0.9% 1,000 ML IV SCH ×3 (03:00→19:45)
[2022-10-28] MEDS ORDERED: LORazepam 2 MG/ML VIAL ONE (03:05)
[2022-10-28 03:14] LABS: Blood Gas Oxyhemoglobin 62.6 % (94-97); Blood O2 Saturation 64.2 % (92-98.5)
[2022-10-28 03:15] LABS: Arterial Blood Carboxyhemoglob 0.9 % (0-1.5)
[2022-10-28] MEDS ORDERED: NA CHLORIDE 0.9% 250 ML IV SCH (04:00)
[2022-10-28] MEDS ORDERED: MORPHINE 4 MG/ML SYR ONE (04:19)
[2022-10-28 04:34] LABS: Absolute Lymphocytes (CBC) 0.7 K/uL (0.7-4.9); Hematocrit 28.2 % (39.6-49.0); Lymphocytes % 6.1 % (15.3-44.8); MCV 85.8 fL (80-100); MPV 9.3 fL (7.6-11.3); Platelets 182 thou/uL (152-406); RBC Red Blood Cell Count 3.29 M/uL (4.33-5.43)
[2022-10-28 04:48] LABS: Magnesium 1.8 mg/dL (1.6-2.4); Potassium 3.9 mEq/L (3.5-5.1)
[2022-10-28] MEDS ORDERED: MAGNESIUM SULFATE 1 gm IVPB 1 GM/100 ML BAG IV ONE (06:00)
[2022-10-28] MEDS ORDERED: MORPHINE 2 MG/ML SYR IV ONE (06:16)
[2022-10-28 08:09] LABS: Hematocrit 26.8 % (39.6-49.0)
[2022-10-28] MEDS: INSULIN -REGULAR HUMAN 50 UNIT/0.5 ML ML SQ SCH ×3 (08:46→16:30)
[2022-10-28] MEDS: PIPER TAZO 3.375 GM in NA CHLORIDE 0.9% 100 ML IV SCH ×2 (08:46→17:07)
[2022-10-28] MEDS: MORPHINE 2 MG/ML SYR IV PRN (08:46)
[2022-10-28] MEDS: ACETAMINOPHEN 500 MG TAB PO PRN (12:00)
[2022-10-28 12:04] LABS: Hematocrit 26.7 % (39.6-49.0)
[2022-10-28] MEDS ORDERED: SIMETHICONE 80 MG TAB PO ONE (14:04)
[2022-10-28] MEDS: TRAMADOL 37.5mg/APAP 325mg PER TAB PO PRN (14:18)
[2022-10-28 20:15] LABS: Hematocrit 23.7 % (39.6-49.0)
[2022-10-28] MEDS ORDERED: NA CHLORIDE 0.9% 250 ML ONE (20:52)
[2022-10-29] MEDS: PIPER TAZO 3.375 GM in NA CHLORIDE 0.9% 100 ML IV SCH ×3 (00:01→16:51)
[2022-10-29] MEDS: ACETAMINOPHEN 500 MG TAB PO PRN ×3 (01:11→14:01)
[2022-10-29] MEDS: MORPHINE 2 MG/ML SYR IV PRN (03:04)
[2022-10-29 04:47] LABS: Absolute Lymphocytes (CBC) 1.9 K/uL (0.7-4.9); Lymphocytes % 13.2 % (15.3-44.8); MCV 84.4 fL (80-100); MPV 8.9 fL (7.6-11.3); Platelets 149 thou/uL (152-406); RBC Red Blood Cell Count 3.31 M/uL (4.33-5.43)
[2022-10-29 04:59] LABS: Magnesium 2.4 mg/dL (1.6-2.4); Potassium 3.3 mEq/L (3.5-5.1)
[2022-10-29 05:10] VITALS: BMI 37.8
[2022-10-29] MEDS: INSULIN -REGULAR HUMAN 50 UNIT/0.5 ML ML SQ SCH ×4 (05:18→17:19)
[2022-10-29] MEDS ORDERED: POTASSIUM CL SA 10 MEQ TAB PO ONE ×2 (06:00→14:06)
[2022-10-29] MEDS ORDERED: KCL 20 MEQ/100 mL IVPB 20 MEQ/100 ML BAG IV SCH (06:00)
[2022-10-29] MEDS ORDERED: CETIRIZINE HCL 5 MG TABLET PO PRN (09:53)
[2022-10-29] MEDS ORDERED: BISACODYL 10 MG RECTAL SUPP PR ONE (09:57)
--- NOTE | 2022-10-29 12:27 | P.PN ---
Subjective Date of Service: 10/29/22 Chief Complaint: epigastric pain Patient reports constipation. he reports mild lower abdominal pain. He denies any nausea or vomiting. Physical Examination - Vital Signs Temperature: 97.5 F Blood Pressure: 106/58 Pulse: 68 Respirations: 18 Pulse Ox (%): 94 Assessment And Plan - Plan Physical Exam General: Alert, In no apparent distress. Respiratory: Clear to auscultation bilaterally, Normal air movement Cardiovascular: No edema, Normal pulses, Other (Sinus tachycardia 135) Gastrointestinal: Normal bowel sounds, mild tenderness-lower abdomen, no RBT or guarding. Musculoskeletal: No clubbing, No swelling Integumentary: No rashes, No breakdown Neurological: Normal speech, Normal strength at 5/5 x4 extr, Cranial nerves 3-12 intact Diagnosis Hemoperitoneum status post lap remi yesterday 811 Acute kidney injury Acute blood loss anemia Leukocytosis. History of essential hypertension Hyperlipidemia Diabetes type 2 insulin-dependent Plan: Hemoperitoneum status post lap remi yesterday 8-11 Sinus tachycardia possibly from bleeding/acute blood loss anemia Hemoglobin dropped. 2 unit PRBC transfusion ordered IV fluid maintain Dr. Lloyd evaluated patient and following. Keep n.p.o. Monitor H&H every 4 hours and transfuse as needed. Serial abdominal examination. Acute kidney injury AYO resolved Continue IV fluid Leukocytosis secondary from pneumoperitoneum Leukocytosis is trending down Empiric IV Zosyn, IV fluids History of essential hypertension Hyperlipidemia Diabetes type 2 insulin-dependent Resume appropriate home meds once feeding resume Accu-Cheks with sliding scale insulin Diet n.p.o. Full code DVT SCDs Discharge Plan: Home
--- NOTE | 2022-10-29 14:30 | PN ---
Date of Progress Note: 10/29/2022 Subjective: The patient is doing well. No complaint. We followed his hemoglobin, last one was 9.0 . No shortness of breath. No chest pain. No fever. Abdomen is feeling better and softer . He is passing gas. He has no nausea, no more vomiting. Objective: Vital Signs: Temperature is 97.5, pulse 68, respiration 18, blood pressure 106/58. Chest: Clear. Abdomen: Soft and depressible. Bowel sounds positive. Intact surgical site. Extremities: Good capillary refill. Plan: We are going to start a full liquid diet . We are going to start thinking about the options of help with ambulation. Incentive spirometry encouraged, SCD. Once his H and H are stable , then we will transfer him to the floor. He is comfortable . He has no distress. NELLIE/MODL Voice ID: [id number] Report ID: [id number]
[2022-10-29] MEDS: NA CHLORIDE 0.9% 1,000 ML IV SCH ×2 (14:40→22:05)
--- NOTE | 2022-10-29 15:30 | EKG ---
Test Date: 2022-10-27 Test Time: 23:55:47 Cylinder Valve Repairer: PETAR MEASUREMENT RESULTS: Intervals: Rate: 87 ME: 140 QRSD: 90 QT: 368 QTc: 442 [place]: P: 17 ME: 140 QRS: 6 T: 8 INTERPRETIVE STATEMENTS: Normal sinus rhythm Nonspecific T wave abnormality Abnormal ECG Compared to ECG 10/27/2022 11:18:59 T-wave abnormality now present Sinus bradycardia no longer present Electronically Signed On 10-29-22 15:28:32 CDT by Saturnino Castellanos
[2022-10-29] MEDS: TRAMADOL 37.5mg/APAP 325mg PER TAB PO PRN ×2 (17:31→22:32)
--- NOTE | 2022-10-29 18:17 | RAD REPORT ---
EXAM DESCRIPTION: RAD - Chest Single View - 10/27/2022 11:53 pm CLINICAL HISTORY: 47-year-old male with abdominal distention. TECHNIQUE: Single view, AP portable chest was obtained. COMPARISON: None. FINDINGS: Unremarkable cardiac and mediastinal silhouette. Heart size is normal. Low lung volumes grossly clear without focal opacity, pneumothorax or pleural effusions. Suspected right upper lobe granuloma. The visualized bones are within normal limits. IMPRESSION: No acute cardiopulmonary abnormalities. Electronically signed by: Liane Magallanes MD 10/28/2022 12:34 AM CDT Due to temporary technical issues with the PACS/Fluency reporting system, reports are being signed by the in house radiologists without review as a courtesy to insure prompt reporting. The interpreting radiologist is fully responsible for the content of the report.
--- NOTE | 2022-10-29 18:37 | RAD REPORT ---
EXAM DESCRIPTION: CT - Chest Abd Pelvis Wo Con - 10/28/2022 6:50 am ADDENDUM #1 THIS REPORT CONTAINS FINDINGS THAT MAY BE CRITICAL TO PATIENT CARE: The findings were verbally discus sed via telephone conference with Dr. Star Ruiz by Dr. Shira Louie on 10/28/2022 1:43 AM CDT .The results were acknowledged and understood. Electronically signed by: Olivia Louie MD 10/28/2022 1:43 AM CDT End of Addendum EXAM DESCRIPTION: CT Chest, Abdomen and Pelvis Without Intravenous Contrast CLINICAL HISTORY: The patient is 47 years old and is Male; Chest pain;Dyspnea TECHNIQUE: Axial computed tomography images of the chest, abdomen and pelvis without intravenous con trast. Sagittal and coronal reformatted images were created and reviewed. This CT exam was perfor med using one or more of the following dose reduction techniques: automated exposure control, adjus tment of the mA and/or kV according to patient size, and/or use of iterative reconstruction technique . COMPARISON: No relevant prior studies available. FINDINGS: CHEST: LUNGS: Calcified granuloma within the right upper lobe is present. Dependent atelectasis within t he lung bases is noted. PLEURAL SPACE: Unremarkable. No significant effusion. No pneumothorax. HEART: No cardiomegaly. No pericardial effusion. ABDOMEN: LIVER: Homogeneous without focal mass. GALLBLADDER AND BILE DUCTS: Surgical clips are present in the right upper quadrant, consistent wi th previous cholecystectomy. PANCREAS: Unremarkable. No ductal dilation. SPLEEN: Unremarkable. ADRENALS: Unremarkable. No mass. KIDNEYS AND URETERS: No obstructing stones. No hydronephrosis. No perinephric fluid. STOMACH AND BOWEL: The stomach is distended with fluid and air. The small bowel is relatively nor mal in caliber. Stool is present throughout colon. There is no mucosal thickening or evidence of obst ruction. PELVIS: APPENDIX: No findings to suggest acute appendicitis. BLADDER: A Silva catheter is present within the bladder which is decompressed. No stones. REPRODUCTIVE: Unremarkable as visualized. CHEST, ABDOMEN and PELVIS: INTRAPERITONEAL SPACE: Intraperitoneal free air scattered throughout the abdomen which is not une xpected given the patient's history of recent surgical intervention. Small amount of free fluid is pr esent throughout the abdomen and pelvis. The fluid is increased intensity noted anteriorly along the lower anterior abdomen and extending into the pelvis. BONES/JOINTS: No acute fracture. SOFT TISSUES: Skin jamshid along the anterior abdominal wall on the right overlying minimal areas of inflammatory stranding consistent with recent laparoscopic surgery are present. VASCULATURE: Minimal atherosclerosis of the vasculature is present. No aortic aneurysm. LYMPH NODES: Unremarkable. No enlarged lymph nodes. IMPRESSION: 1. A small amount of hemoperitoneum throughout the abdomen and pelvis, most prominent layering in the pelvis. 2. Recent cholecystectomy with foci of intraperitoneal free air. Electronically signed by: Olivia Louie MD 10/28/2022 1:25 AM CDT Due to temporary technical issues with the PACS/Fluency reporting system, reports are being signed by the in house radiologists without review as a courtesy to insure prompt reporting. The interpreting radiologist is fully responsible for the content of the report.
[2022-10-29 19:58] LABS: Hematocrit 28.3 % (39.6-49.0)
[2022-10-29] MEDS ORDERED: POTASSIUM 25 MEQ EFFERV TAB PO ONE (21:23)
[2022-10-30] MEDS: PIPER TAZO 3.375 GM in NA CHLORIDE 0.9% 100 ML IV SCH ×3 (00:34→17:16)
[2022-10-30 04:56] LABS: Absolute Lymphocytes (CBC) 2.4 K/uL (0.7-4.9); Hematocrit 25.8 % (39.6-49.0); Lymphocytes % 27.9 % (15.3-44.8); MCV 84.7 fL (80-100); Platelets 145 thou/uL (152-406); RBC Red Blood Cell Count 3.04 M/uL (4.33-5.43)
[2022-10-30 05:15] LABS: Magnesium 2.2 mg/dL (1.6-2.4); Potassium 3.8 mEq/L (3.5-5.1)
[2022-10-30] MEDS: INSULIN -REGULAR HUMAN 50 UNIT/0.5 ML ML SQ SCH ×4 (05:43→18:00)
--- NOTE | 2022-10-30 05:57 | CON ---
Date of Consultation: 10/28/2022 Reason For Service: Epigastric pain. This is the case of a 47-year-old patient with a history of diabetes and hypertension, with epigastri c/right upper quadrant pain, diagnosed with symptomatic cholelithiasis and underwent laparoscopic cho lecystectomy uneventfully. The patient was doing well, went home. Last night, he was trying to take the pain medication prescribed with no allergies documented before, but when he took it, he started to vomit and nausea. Now he remembered in the past that he thought he was getting some pain medicati on in the past and gave him a reaction of nausea and vomiting, and then he remembered now that was th e hydrocodone and he has to take Ultracet instead. When that pain started, he decided to stay home, but then after that when it got worse, he got concerned, so he decided to come to the ER. He is comf ortable. He is awake and alert. He comes with the hemoglobin of 12.1. In the ER, he was started hy dration about 3 L and when they repeated the H and H, it came down to 9, so they were conc erned and then decided just to put him in ICU. The patient has diabetes. He did not take his diabet es medication and he comes with a glucose of over 300. Once again, he has been taking his antibiotic as needed because he gets nauseous from the pain medication. He feels comfortable right now with no vomiting today. No nausea at this moment. No dysuria, hematuria, hematochezia. At the same time, I see the patient has a Silva just before that. He denies any trauma or any fall. The only thing he remembered is just the vomiting once he took his pain medication and the nausea. There is no recent traveling out of the country. There is no family member sick at home. Review of Systems: Once again, vomiting and nausea after taking his pain medication and the epigastric pain. Allergies: NONE. Past Medical History: Hypertension, diabetes. Also, he has history of hyperlipidemia. Medications: Atenolol. Past Surgical History: Includes total knee arthroplasty and then laparoscopic cholecystectomy. Social History: He does not smoke. He does not drink alcohol. Physical Examination: General: The patient is awake, alert, in no distress. HEENT: Pupils are equal and reactive. Anicteric. Neck: Supple. No JVD. Chest: Bilateral breath sounds. Clear to auscultation. Abdomen: Soft and depressible. Incisions are intact. Epigastric tenderness. No bruising. Pelvis: Stable. Rectal: Deferred. Extremities: Full range of motion. Neuro: Cranial nerves 2 through 12 grossly within normal limits. Laboratory Data: WBC count of 19, with hemoglobin of 12.1. Now WBC count few hours later is 11. IN R is 1.15. Potassium 3.9, creatinine is 1.41, and glucose came from 354 to 293. UA negative. CAT s can of the abdomen and pelvis, interpreted by , Radiology, shows a surgical clip presen t consistent with previous cholecystectomy. Pancreas, spleen, adrenal, kidneys unremarkable. Append ix looks normal. There is an intraperitoneal space intraperitoneal free air scattered. O nce again, part of the previous surgery inspected after that. A small amount of free fluid in the ab domen. There could be a small amount of hemoperitoneum to the pelvis. Assessment: This is a 47-year-old patient who comes with epigastric pain. He was doing okay. Took his pain medication and given episodes of severe nausea and vomiting, he stopped taking the medicatio n, developed epigastric pain, trying to get a little better, but he did not, so he decided to come to the ER. We saw him in the ER. Hemoglobin at that moment was 12. Epigastric tenderness present. O bviously, the pneumoperitoneum from the recent surgery. We are going to be watching also for hemoperitoneum. He received 2 L of fluid in the last few hours, so we are waiting for the ____ repeat H and H at this moment. He is awake, talking to me, comfortable. He is not taking his p ain medication nausea and vomiting, so we going to try to stay away from Vicodin, although he does not claim as an allergy, obviously has a severe reaction to it. He understands that I canno t give him all the medications . We are going to keep him in the ICU to make sure that he is nice and stable and work on his glucose since he came here with 300 and something some change. Continue serial abdominal examination. We encouraged incentive spirometry and SCDs. We are going to give him ice chips and his blood pressure medication if needed will be given with a sip of water. NELLIE/MODL Voice ID: [id number] Report ID: [id number]
[2022-10-30] MEDS ORDERED: POTASSIUM 25 MEQ EFFERV TAB PO ONE (08:00)
[2022-10-30] MEDS: NA CHLORIDE 0.9% 1,000 ML IV SCH ×3 (10:48→20:49)
--- NOTE | 2022-10-30 12:20 | P.PN ---
Subjective Date of Service: 10/30/22 Chief Complaint: epigastric pain Patient has no new complaint He denies abdominal pain No melena or hematemesis. Physical Examination - Vital Signs Temperature: 97.6 F Blood Pressure: 116/58 Pulse: 56 Respirations: 11 Pulse Ox (%): 98 Assessment And Plan - Plan Physical Exam General: Alert, In no apparent distress. Respiratory: Clear to auscultation bilaterally, Normal air movement Cardiovascular: No edema, Normal pulses, S1 and S2 are normal, regular rhythm and normal rate. Gastrointestinal: Normal bowel sounds, no tenderness, no RBT or guarding. Musculoskeletal: No clubbing, No swelling Integumentary: No rashes, No breakdown Neurological: No focal motor deficit. Diagnosis Hemoperitoneum status post lap remi yesterday 811 Acute kidney injury Acute blood loss anemia Leukocytosis. History of essential hypertension Hyperlipidemia Diabetes type 2 insulin-dependent Plan: Hemoperitoneum status post lap remi yesterday 8-11 Sinus tachycardia possibly from bleeding/acute blood loss anemia Hemoglobin level is fluctuating but overall dropping slowly. Status 2 unit PRBC transfusion. IV fluid maintain Dr. Lloyd is following and states no indication for surgery. Patient is tolerating diet Monitor H&H every 4 hours and transfuse as needed. Serial abdominal examination. Acute kidney injury AYO resolved Continue IV fluid Leukocytosis secondary from pneumoperitoneum Leukocytosis resolved. Empiric IV Zosyn, IV fluids History of essential hypertension Hyperlipidemia Diabetes type 2 insulin-dependent Continue home meds. Accu-Cheks with sliding scale insulin Full code DVT SCDs Discharge Plan: Home
[2022-10-30 12:56] LABS: Hematocrit 28.9 % (39.6-49.0)
[2022-10-30] MEDS: TRAMADOL 37.5mg/APAP 325mg PER TAB PO PRN (20:48)
[2022-10-31] MEDS: PIPER TAZO 3.375 GM in NA CHLORIDE 0.9% 100 ML IV SCH ×3 (00:20→16:50)
[2022-10-31] MEDS: ACETAMINOPHEN 500 MG TAB PO PRN ×2 (01:35→16:49)
[2022-10-31 05:04] LABS: Absolute Lymphocytes (CBC) 1.5 K/uL (0.7-4.9); Lymphocytes % 23.2 % (15.3-44.8); MCV 84.9 fL (80-100); MPV 8.2 fL (7.6-11.3); Platelets 160 thou/uL (152-406); RBC Red Blood Cell Count 3.29 M/uL (4.33-5.43)
[2022-10-31 05:16] LABS: Magnesium 2.2 mg/dL (1.6-2.4); Potassium 3.4 mEq/L (3.5-5.1)
[2022-10-31] MEDS: INSULIN -REGULAR HUMAN 50 UNIT/0.5 ML ML SQ SCH ×4 (05:57→16:51)
--- NOTE | 2022-10-31 06:57 | P.PN ---
Date of Service: 10/31/22 Subjective: doing okay denies abd pain feels slightly bloated montero remains in place afebrile ROS: 10 point ROS as noted above, otherwise negative Physical Exam: GEN: Alert, oriented, NAD HEENT: Normal conjunctiva, sclera anicteric CV: Regular rate and rhythm, no edema Pulm: Nonlabored respirations on room air ABD: Soft, non tender, mildly distended, Dressing in place Neuro: Normal speech, normal affect vitals reviewed Problem List: Hemoperitoneum s/p lap remi (10/27) Sinus tachycardia suspect from bleeding/acute blood loss anemia AYO, resolved Leukocytosis, likely reactive Hypertension Hyperlipidemia IDDM2 Hemoperitoneum now s/p lap remi (10/27) Sinus tachycardia possibly from bleeding/acute blood loss anemia General Surgery - Dr. Lloyd is following s/p 2 uPRBCs (10/28, 10/29) Monitor H&H. Transfuse if hgb < 7 Serial abdominal exams Cont empiric Zosyn (10/28-) Currently afebrile, +Leukocytosis resolved advance diet dc IVF dc montero placed in ED for urinary retention voiding trials PRN pain medication AYO, prerenal; resolved resolved with IVF Leukocytosis likely reactive, had recent surgerym, possible infection cont Empiric IV Zosyn (10/28-) Currently afebrile, leukocytosis resolved Hypertension Hyperlipidemia IDDM2 Continue home meds Accu-Cheks with SSI VTE: SCD Code: Full Dispo: Home, ~24hrs
[2022-10-31] MEDS ORDERED: POTASSIUM 25 MEQ EFFERV TAB PO ONE (08:00)
--- NOTE | 2022-10-31 08:57 | P.PN ---
Subjective Date of Service: 10/30/22 Chief Complaint: epigastric pain Subjective: Tolerating diet, Ambulating, Improving Review of Systems Eyes: Unremarkable ENT: Unremarkable Respiratory: Unremarkable Cardiovascular: Unremarkable Gastrointestinal: Distention (improving), Unremarkable Neurological: Unremarkable Physical Examination - Vital Signs Temperature: 97.4 F Blood Pressure: 130/64 Pulse: 55 Respirations: 14 Pulse Ox (%): 99 - Physical Exam General: Alert, In no apparent distress, Cachectic HEENT: Normocephalic, PERRLA Neck: Supple Respiratory: Clear to auscultation bilaterally Cardiovascular: No edema, Normal pulses Gastrointestinal: Normal bowel sounds, Soft and benign (intact incisions), No rebound, Distended Musculoskeletal: No erythema, No tenderness, No warmth Integumentary: No rashes, No breakdown, No erythema, No warmth, No cyanosis Neurological: Normal speech Assessment And Plan - Plan transfer to floor advance diet H/H stable ambulate Physician Review: Patient Assessed, Agree with Above Assessment and Plan
[2022-10-31] MEDS: TRAMADOL 37.5mg/APAP 325mg PER TAB PO PRN (21:36)
[2022-10-31 22:16] VITALS: TEMP 98.2
[2022-11-01] MEDS: INSULIN -REGULAR HUMAN 50 UNIT/0.5 ML ML SQ SCH
[2022-11-01] MEDS: PIPER TAZO 3.375 GM in NA CHLORIDE 0.9% 100 ML IV SCH ×2 (00:42→08:15)
[2022-11-01] MEDS: TRAMADOL 37.5mg/APAP 325mg PER TAB PO PRN (04:46)
[2022-11-01 07:23] VITALS: BP 149/80
[2022-11-01] MEDS ORDERED: INSULIN -REGULAR HUMAN 50 UNIT/0.5 ML ML SQ SCH (07:30)
--- NOTE | 2022-11-01 09:12 | P.DS ---
Admission Date: 10/28/22 Discharge Date: 11/01/22 Disposition: ROUTINE DISCHARGE Discharge Condition: GOOD Reason for Admission: epigastric pain Consultations: General Surgery - Dr. Lloyd Brief History of Present Illness: 47yo M, PMH: hypertensive, diabetes with hyper glycemia Patient presents to the emergency room with epigastric pain. He reports pain radiates to the right shoulder, described as dull and achy, patient is status post lap remi on 10/27/2022 Dr. Llody. He reports unable to urinate since surgery, he reports pressure similar to having having a bowel movement unable to have a bowel movement. Plan to admit for hemoperitoneum status post lap remi, anemia, tachycardia, diabetes type 2 with hyperglycemia, leukocytosis, anemia, laboratory evaluation CBC leukocytosis 19.90, early left shift 92.3, anemia 12.1, 37.6, CMP hypokalemia 3.2, acute on chronic kidney injury BUN 24, creatinine 1.84, glucose 354, urine 4+ glucose urea, CT of the abdomen ordered Hospital Course: Problem List: Hemoperitoneum s/p lap remi (10/27) Sinus tachycardia suspect from bleeding/acute blood loss anemia AYO, resolved Leukocytosis, likely reactive Hypertension Hyperlipidemia IDDM2 Patient presented with worsening epigastric pain. He was found to have a Hemoperitoneum s/p lap remi done on 10/27/22. General surgery was consulted. Patient was given 2 units PRBC on 10/28, 10/29 respectively. Hgb levels fluctuated but eventually improved / stabilized over time. No Surgical intervention needed at this time. He was treated with empiric Zosyn, remained afebrile throughout hospitalization and leukocytosis resolved. On day of discharge patient was feeling better, hgb stabilized, voiding without issues and was deemed stable for discharge home. no change in medications. Continue home medications as previously prescribed. Follow up: PCP 3-[address] Lloyd - next Sunday as previously scheduled. Physical Exam: GEN: Alert, oriented, NAD HEENT: Normal conjunctiva, sclera anicteric CV: Regular rate and rhythm, no edema Pulm: Nonlabored respirations on room air ABD: Soft, non tender, nondistended, Dressing in place Neuro: Normal speech, normal affect Vital Signs/Physical Exam: Temp Pulse Resp BP Pulse Ox 98.2 F 80 19 149/80 H 97 11/01/22 04:00 11/01/22 04:00 11/01/22 05:46 11/01/22 04:00 11/01/22 05:46 Laboratory Data at Discharge: WBC 6.60 thou/uL (4.3-10.9) 10/31/22 04:38 Hgb 9.7 g/dL (13.6-17.9) L 10/31/22 04:38 Hct 28.0 % (39.6-49.0) L 10/31/22 04:38 Plt Count 160 thou/uL (152-406) 10/31/22 04:38 PT 12.7 SECONDS (9.5-12.5) H 10/27/22 23:22 INR 1.15 10/27/22 23:22 Sodium 139 mEq/L (136-145) 10/31/22 04:38 Potassium 3.4 mEq/L (3.5-5.1) L 10/31/22 04:38 BUN 8 mg/dL (7-18) 10/31/22 04:38 Creatinine 0.88 mg/dL (0.70-1.30) 10/31/22 04:38 Glucose 109 mg/dL (74-106) H 10/31/22 04:38 Magnesium 2.2 mg/dL (1.6-2.4) 10/31/22 04:38 Total Bilirubin 0.4 mg/dL (0.2-1.0) 10/27/22 23:22 AST 31 U/L (15-37) 10/27/22 23:22 ALT 55 U/L (16-61) 10/27/22 23:22 Alkaline Phosphatase 50 U/L (45-117) 10/27/22 23:22 Lipase 18 U/L (13-75) 10/27/22 23:22 Home Medications: Atenolol/Chlorthalidone [Atenolol-Chlorthalidone 100-25] 1 each PO DAILY AFTER SUPPER 10/27/22 Verapamil HCl [Verapamil ER] 180 mg PO DAILY AFTER SUPPER 10/27/22 Hydrocodone/Acetaminophen [Hydrocodone-Acetamin 5-325 mg] 1 each PO Q4HP PRN 10/28/22 Smz./Tmp. [Bactrim Ds 800 MG/160 MG*] 1 tab PO BID 10/28/22 Physician Discharge Instructions: Patient presented with worsening epigastric pain. He was found to have a Hemoperitoneum s/p lap remi done on 10/27/22. General surgery was consulted. Patient was given 2 units PRBC on 10/28, 10/29 respectively. Hgb levels fluctuated but eventually improved / stabilized over time. No Surgical intervention needed at this time. He was treated with empiric Zosyn, remained afebrile throughout hospitalization and leukocytosis resolved. On day of discharge patient was feeling better, hgb stabilized, voiding without issues and was deemed stable for discharge home. no change in medications. Continue home medications as previously prescribed. Follow up: PCP 3-[address] Lloyd - next Sunday as previously scheduled. Activity: No lifting more than 10 lbs Followup: Xander Lloyd MD [ACTIVE - CAN ADMIT] - 1 Week Time spent managing pt's care (in minutes): 45
--- NOTE | 2022-11-01 09:51 | P.PN ---
Subjective Date of Service: 11/01/22 Chief Complaint: epigastric pain Subjective: Tolerating diet, Ambulating, Improving, Doing well Review of Systems General: Unremarkable Eyes: Unremarkable ENT: Unremarkable Respiratory: Unremarkable Cardiovascular: Unremarkable Genitourinary: Unremarkable Integumentary: Unremarkable Neurological: Unremarkable Physical Examination - Vital Signs Temperature: 98.2 F Blood Pressure: 149/80 Pulse: 80 Respirations: 19 Pulse Ox (%): 97 - Physical Exam General: Alert, In no apparent distress, Oriented x3, Cooperative HEENT: Normocephalic, PERRLA Neck: Supple Respiratory: Normal air movement Cardiovascular: No edema, Normal pulses Gastrointestinal: Soft and benign, No rebound, No guarding Musculoskeletal: No swelling, No erythema, No tenderness, No warmth Integumentary: No rashes, No breakdown, No erythema, No warmth, No cyanosis Neurological: Normal speech - Studies Reviewed with patient Assessment And Plan - Plan ok to discharge home fro surgical stantpoint diet f/u offive on sunday ambulate is Physician Review: Patient Assessed, Agree with Above Assessment and Plan
--- NOTE | 2022-11-01 09:52 | P.PN ---
Subjective Date of Service: 10/31/22 Chief Complaint: epigastric pain Subjective: Tolerating diet, Ambulating, Improving Review of Systems Respiratory: Unremarkable Gastrointestinal: Unremarkable Physical Examination - Vital Signs Temperature: 98.2 F Blood Pressure: 149/80 Pulse: 80 Respirations: 19 Pulse Ox (%): 97 - Physical Exam General: Alert, In no apparent distress, Oriented x3, Cooperative HEENT: PERRLA, EOMI, Sclerae nonicteric Neck: Supple Respiratory: Normal air movement Cardiovascular: No edema, Normal pulses Gastrointestinal: Soft and benign Musculoskeletal: No erythema Integumentary: No rashes, No breakdown Assessment And Plan - Plan advance diet ambulate Incentive spirometry Physician Review: Patient Assessed, Agree with Above Assessment and Plan
[2022-11-01 11:36] VITALS: O2SAT 94
== END 2022-11-01 11:00 | disposition home or self-care (01) | DRG 919 ==
LOC: ER 22:43 → ERHOLD 10-28 02:11 → 3RD-ICU 10-28 04:23 → 4TH 10-31 14:53
PROVIDERS: ADMIT Internal Medicine Sleep Medicine; ATTEND Hospitalist
PROC: 30233N1 Transfusion of Nonautologous Red Blood Cells into Peripheral Vein, Percutaneous Approach (ICD-10-PCS; principal; 2022-10-28)
DX: K91.840 Postprocedural hemorrhage of a digestive system organ or structure following a digestive system procedure (principal); K66.1 Hemoperitoneum; D62 Acute posthemorrhagic anemia; N17.9 Acute kidney failure, unspecified; R64 Cachexia; I10 Essential (primary) hypertension; D64.9 Anemia, unspecified; E78.5 Hyperlipidemia, unspecified; E87.6 Hypokalemia; K59.00 Constipation, unspecified; E11.65 Type 2 diabetes mellitus with hyperglycemia; D72.829 Elevated white blood cell count, unspecified; T50.996A Underdosing of other drugs, medicaments and biological substances, initial encounter; R33.9 Retention of urine, unspecified; Z79.4 Long term (current) use of insulin; Z68.37 Body mass index [BMI] 37.0-37.9, adult; Z90.49 Acquired absence of other specified parts of digestive tract; Z96.659 Presence of unspecified artificial knee joint; Z79.899 Other long term (current) drug therapy; Z91.128 Patient's intentional underdosing of medication regimen for other reason; Z91.148 Patient's other noncompliance with medication regimen for other reason; Z87.891 Personal history of nicotine dependence; Y83.8 Other surgical procedures as the cause of abnormal reaction of the patient, or of later complication, without mention of misadventure at the time of the procedure
CPT/HCPCS: 36415; 71045; 71250; 74176; 80048; 80076; 81003; 82805; 82947; 83690; 83735; 83880; 84132; 84484; 85014; 85018; 85025; 85610; 86850; 86900; 86901; 86920; 93005; 94010; 96374; 96375; 99285; J1815; J2270; J2405; J2543; J3010; J3475; J3480; J7030; J7040; J7050; P9016

== ENCOUNTER 2022-11-03 01:34 | Emergency (ER) | payer BC ==
--- OUTSIDE RECORDS SUMMARY | 2022-11-03 01:42 | XMS REPORT | Continuity of Care Document ---
:1975 Author Organization [facility] t Address [address] [facility]. [address] [place] [address] Care Team Providers Name Role Phone Parvez Del Rosario MD Primary Care Physician VIKKI RAMOS Attending Clinician Unavailable VIKKI RAMOS Attending Clinician Unavailable FELICIA BETANCUR Attending Clinician Unavailable Parvez Del Rosario MD Attending Clinician ANTONY GUAMAN Attending Clinician Unavailable Antony Guaman MD Attending Clinician Lab, Derick Velasco Attending Clinician Unavailable Unknown, Attending Attending Clinician Unavailable UNKNOWN, ATTENDING Attending Clinician Unavailable Doctor Unassigned, [place] Attending Clinician Unavailable Lorena Conklin Attending Clinician LOERNA TATE Attending Clinician Unavailable William Brunson MD [...] [facility] Attending Clinician Unavailable Veronica DRY WALL APPLICATOR, Elda Attending Clinician OMAGKLAUS, OMAYEMI Attending Clinician Unavailable Earnest ZAMORA, Karen Urias Attending Clinician KAREN TINOCO Attending Clinician Unavailable [facility] Attending Clinician Unavailable Cristian RAO, Patrick Urias Attending Clinician Unavailable Navi Davis MD Attending Clinician Beronica Madrigal RN Attending Clinician Unavailable Moy MENDOZA, Lulu Attending Clinician Rajevelyn_Lorrie Attending Clinician Unavailable ANTONY GUAMAN Admitting Clinician Unavailable ANDERS SHAW Admitting Clinician Unavailable Raju_Lorrie Admitting Clinician Unavailable PARVEZ DEL ROSARIO Admitting Clinician Unavailable Payers Payer Name Policy Type Policy Number Effective Date Expiration Date S modesta [facility] [id number] 2016 00:00:00 Problems Condition Condition Condition Status Onset Resolution Last Treating Co mments Source Name Details Category Date Date Treatment Clinician Date Arthritis Arthritis Disease Active Uni vers of both of both 09-21 ity of knees knees 00:00: [place] [facility] Onychomyco Onychomyco Disease Active U nivers sis sis 11-21 ity of 00:: [place] [facility] Type 2 Type 2 Disease Active Univers diabetes diabetes 11-21 ity of mellitus mellitus 00:00: [place] without without 00 Medical complicati complicati Br anch on, on, without without long-term long-term current current use of use of insulin insulin Fatty Fatty Disease Active Univers liver liver 11-21 ity of 00:00: [address] Obesity Obesity Disease Active Univers (BMI (BMI 9-05 ity of 30-39.9) 30-39.9) 00:00: [address] Branch Essential Essential Disease Active 2015-03 Uni vers hypertensi hypertensi 1-30 it y of on on 00:00: [place] [address] Medical [place] Hyperthyro Hyperthyro Disease Active U nivers idism idism 3-29 ity of 00:00: [address] Allergies, Adverse Reactions, Alerts Allergy Allergy Status Severity Reaction(s) Onset Inactive Treating Comm ents Source Name Type Date Date Clinician NO KNOWN Drug Active Univers ALLERGIE Class ity of S [facility] Social History Social Habit Start Date Stop Date Quantity Comments Source Gender identity Universit y of [facility] Sexual orientation Univer sity [facility] Alcohol intake 2022-10-24 2022-10-24 Current University of 00:00:00 00:00:00 non-drinker of [facility] alcohol [place] (finding) Exposure to 2022-09-11 2022-09-21 Not sure [facility] SARS-CoV-2 (event) 00:00:00 11:43:00 [facility] History of Social 2022-06-02 2022-06-02 Univers ity of function 00:00:00 00:00:00 [facility] Tobacco use and 2022-02-20 2022-02-20 Smokeless Universit y of exposure 00:00:00 00:00:00 tobacco non-user [facility] [place] History of tobacco 2002-03-19 Cigarette Smoker University of use 00:00:00 [facility] Sex Ass[birth year] Universit y of 00:00:00 00:00:00 [facility] Smoking Status Start Date Stop Date Source Ex-smoker 2022-02-20 00:00:00 2022-02-20 00:00:00 Universi ty of [facility] Medications Ordered Filled Start Stop Current Ordering Indication Dosage Frequency Signature Comments Components Source Medication Medication Date Date Medication? Clinician (SIG) Name Name ezetimibe Yes [id number] 10mg Take 1 Un n[place] 10 mg 8-08 tablet by ity of tablet 00:00: mouth in [place] 00 the Medical morning. Branch ezetimibe Yes [id number] 10mg Take 1 Un n[place] 10 mg 8-08 tablet by ity of tablet 00:00: mouth in [place] 00 the Medical morning. Branch ezetimibe 3-0 Yes [id number] 10mg Take 1 Un [place] 10 mg 8-08 tablet by ity of tablet 00:00: mouth in [place] 00 the Medical morning. Branch OMEPRAZOLE 3-0 Yes [id number] 40mg TAKE 1 U nivers 40 mg 7-07 CAPSULE BY ity of capsule 00:00: MOUTH IN [place] 00 THE Medical MORNING Branch OMEPRAZOLE 3-0 Yes [id number] 40mg TAKE 1 U nivers 40 mg 7-07 CAPSULE BY ity of capsule 00:00: MOUTH IN [place] 00 THE Medical MORNING Branch OMEPRAZOLE 3-0 Yes [id number] 40mg TAKE 1 U nivers 40 mg 7-07 CAPSULE BY ity of capsule 00:00: MOUTH IN [place] [address] THE Medical MORNING Branch OMEPRAZOLE 3-0 Yes [id number] 40mg TAKE 1 U nivers 40 mg 7-07 CAPSULE BY ity of capsule 00:00: MOUTH IN [place] 00 THE Medical MORNING Branch OMEPRAZOLE 3-0 Yes [id number] 40mg TAKE 1 U nivers 40 mg 7-07 CAPSULE BY ity of capsule 00:00: MOUTH IN [place] 00 THE Medical MORNING Branch OMEPRAZOLE 3-0 Yes [id number] 40mg TAKE 1 U nivers 40 mg 7-07 CAPSULE BY ity of capsule 00:00: MOUTH IN [place] 00 THE Medical MORNING Branch OMEPRAZOLE 3-0 Yes [id number] 40mg TAKE 1 U nivers 40 mg 7-07 CAPSULE BY ity of capsule 00:00: MOUTH IN [place] 00 THE Medical MORNING Branch OMEPRAZOLE 3-0 Yes [id number] 40mg TAKE 1 U nivers 40 mg 7-07 CAPSULE BY ity of capsule 00:00: MOUTH IN [place] 00 THE Medical MORNING Branch OMEPRAZOLE 3-0 Yes [id number] 40mg TAKE 1 U nivers 40 mg 7-07 CAPSULE BY ity of capsule 00:00: MOUTH IN [place] 00 THE Medical MORNING Branch OMEPRAZOLE 2023-0 Yes [id number] 40mg TAKE 1 U nivers 40 mg 7-07 CAPSULE BY ity of capsule 00:00: MOUTH IN [place] 00 THE Medical MORNING Branch OMEPRAZOLE 3-0 Yes [id number] 40mg TAKE 1 U nivers 40 mg 7-07 CAPSULE BY ity of capsule 00:00: MOUTH IN [place] 00 THE Medical MORNING Branch OMEPRAZOLE 2023-0 Yes [id number] 40mg TAKE 1 U nivers 40 mg 7-07 CAPSULE BY ity of capsule 00:00: MOUTH IN [place] 00 THE Medical MORNING Branch OMEPRAZOLE 2023-0 Yes [id number] 40mg TAKE 1 U nivers 40 mg 7-07 CAPSULE BY ity of capsule 00:00: MOUTH IN [place] 00 THE Medical MORNING Branch OMEPRAZOLE 2023-0 Yes [id number] 40mg TAKE 1 U nivers 40 mg 7-07 CAPSULE BY ity of capsule 00:00: MOUTH IN [place] 00 THE Medical MORNING Branch OMEPRAZOLE 2023-0 Yes [id number] 40mg TAKE 1 U nivers 40 mg 7-07 CAPSULE BY ity of capsule 00:00: MOUTH IN [place] 00 THE Medical MORNING Branch OMEPRAZOLE 2023-0 Yes [id number] 40mg TAKE 1 U nivers 40 mg 7-07 CAPSULE BY ity of capsule 00:00: MOUTH IN [place] 00 THE Medical MORNING Branch OMEPRAZOLE 2023-0 Yes [id number] 40mg TAKE 1 U nivers 40 mg 7-07 CAPSULE BY ity of capsule 00:00: MOUTH IN [place] 00 THE Medical MORNING Branch OMEPRAZOLE 2023-0 Yes [id number] 40mg TAKE 1 U nivers 40 mg 7-07 CAPSULE BY ity of capsule 00:00: MOUTH IN [place] 00 THE Medical MORNING Branch OMEPRAZOLE 2023-0 Yes [id number] 40mg TAKE 1 U nivers 40 mg 7-07 CAPSULE BY ity of capsule 00:00: MOUTH IN [place] 00 THE Medical MORNING Branch OMEPRAZOLE 2023-0 Yes [id number] 40mg TAKE 1 U nivers 40 mg 7-07 CAPSULE BY ity of capsule 00:00: MOUTH IN [place] 00 THE Medical MORNING Branch OMEPRAZOLE 2023-0 Yes [id number] 40mg TAKE 1 U nivers 40 mg 7-07 CAPSULE BY ity of capsule 00:00: MOUTH IN [place] 00 THE Medical MORNING Branch OMEPRAZOLE 2023-0 Yes [id number] 40mg TAKE 1 U nivers 40 mg 7-07 CAPSULE BY ity of capsule 00:00: MOUTH IN [place] 00 THE Medical MORNING Branch omeprazole 2023-0 Yes [id number] 40mg Take 1 U nivers 40 mg 7-06 capsule by ity of capsule 00:00: mouth in [place] 00 the Medical morning. Branch ondansetron 3-0 Yes [id number] 4mg Take 1 Univers (ZOFRAN) 4 7-06 tablet by ity of mg tablet 00:00: mouth [place] 00 every 8 Medical (eight) Branch hours as needed for Nausea and Vomiting (N/V). celecoxib 3-0 Yes [id number] 200mg Take 1 Univers (CELEBREX) 09-21 [id number] capsule by it y of 200 mg 00:00: mouth in [place] capsule 00 the Medical morning. Branch omeprazole 3-0 Yes [id number] 40mg Take 1 U nivers 40 mg - capsule by ity of capsule 00:00: mouth in [place] 00 the Medical morning. Branch ondansetron 2022-0 Yes [id number] 4mg Take 1 Univers (ZOFRAN) 4 7-06 tablet by ity of mg tablet 00:00: mouth [place] 00 every 8 Medical (eight) Branch hours as needed for Nausea and Vomiting (N/V). celecoxib 3-0 Yes [id number] 200mg Take 1 Univers (CELEBREX) 09-21 [id number] capsule by it y of 200 mg 00:00: mouth in [place] capsule 00 the Medical morning. Branch ondansetron 3-0 Yes [id number] 4mg Take 1 Univers (ZOFRAN) 4 7-06 tablet by ity of mg tablet 00:00: mouth [place] 00 every 8 Medical (eight) Branch hours as needed for Nausea and Vomiting (N/V). celecoxib 3-0 Yes [id number] 200mg Take 1 Univers (CELEBREX) 09-21 [id number] capsule by it y of 200 mg 00:00: mouth in [place] capsule 00 the Medical morning. Branch ondansetron 3-0 Yes [id number] 4mg Take 1 Univers (ZOFRAN) 4 7-06 tablet by ity of mg tablet 00:00: mouth [place] 00 every 8 Medical (eight) Branch hours as needed for Nausea and Vomiting (N/V). celecoxib 2023-0 Yes [id number] 200mg Take 1 Univers (CELEBREX) 09-21 [id number] capsule by it y of 200 mg 00:00: mouth in [place] capsule 00 the Medical morning. Branch ondansetron 2023-0 Yes [id number] 4mg Take 1 Univers (ZOFRAN) 4 7-06 tablet by ity of mg tablet 00:00: mouth [place] 00 every 8 Medical (eight) Branch hours as needed for Nausea and Vomiting (N/V). celecoxib 2023-0 Yes [id number] 200mg Take 1 Univers (CELEBREX) 7- 60142 capsule by it y of 200 mg 00:00: mouth in [place] capsule 00 the Medical morning. Branch ondansetron 2023-0 Yes [id number] 4mg Take 1 Univers (ZOFRAN) 4 7-06 tablet by ity of mg tablet 00:00: mouth [place] 00 every 8 Medical (eight) Branch hours as needed for Nausea and Vomiting (N/V). celecoxib 2023-0 Yes [id number] 200mg Take 1 Univers (CELEBREX) 7- 16602 capsule by it y of 200 mg 00:00: mouth in [place] capsule 00 the Medical morning. Branch ondansetron 2023-0 Yes [id number] 4mg Take 1 Univers (ZOFRAN) 4 7-06 tablet by ity of mg tablet 00:00: mouth [place] 00 every 8 Medical (eight) Branch hours as needed for Nausea and Vomiting (N/V). celecoxib 2023-0 Yes [id number] 200mg Take 1 Univers (CELEBREX) 09-21 [id number] capsule by it y of 200 mg 00:00: mouth in [place] capsule 00 the Medical morning. Branch ondansetron 2023-0 Yes [id number] 4mg Take 1 Univers (ZOFRAN) 4 7-06 tablet by ity of mg tablet 00:00: mouth [place] 00 every 8 Medical (eight) Branch hours as needed for Nausea and Vomiting (N/V). celecoxib 2023-0 Yes [id number] 200mg Take 1 Univers (CELEBREX) 09-21 [id number] capsule by it y of 200 mg 00:00: mouth in [place] capsule 00 the Medical morning. Branch ondansetron 2023-0 Yes [id number] 4mg Take 1 Univers (ZOFRAN) 4 7-06 tablet by ity of mg tablet 00:00: mouth [place] 00 every 8 Medical (eight) Branch hours as needed for Nausea and Vomiting (N/V). celecoxib 2023-0 Yes [id number] 200mg Take 1 Univers (CELEBREX) 7- 11622 capsule by it y of 200 mg 00:00: mouth in [place] capsule 00 the Medical morning. Branch ondansetron 2023-0 Yes [id number] 4mg Take 1 Univers (ZOFRAN) 4 7-06 tablet by ity of mg tablet 00:00: mouth [place] 00 every 8 Medical (eight) Branch hours as needed for Nausea and Vomiting (N/V). celecoxib 2023-0 Yes [id number] 200mg Take 1 Univers (CELEBREX) 7- 40393 capsule by it y of 200 mg 00:00: mouth in [place] capsule 00 the Medical morning. Branch ondansetron 2023-0 Yes [id number] 4mg Take 1 Univers (ZOFRAN) 4 7-06 tablet by ity of mg tablet 00:00: mouth [place] 00 every 8 Medical (eight) Branch hours as needed for Nausea and Vomiting (N/V). celecoxib 3-0 Yes [id number] 200mg Take 1 Univers (CELEBREX) 7- 72466 capsule by it y of 200 mg 00:00: mouth in [place] capsule 00 the Medical morning. Branch ondansetron 2023-0 Yes [id number] 4mg Take 1 Univers (ZOFRAN) 4 7-06 tablet by ity of mg tablet 00:00: mouth [place] 00 every 8 Medical (eight) Branch hours as needed for Nausea and Vomiting (N/V). celecoxib 3-0 Yes [id number] 200mg Take 1 Univers (CELEBREX) 7- 89710 capsule by it y of 200 mg 00:00: mouth in [place] capsule 00 the Medical morning. Branch ondansetron 2023-0 Yes [id number] 4mg Take 1 Univers (ZOFRAN) 4 7-06 tablet by ity of mg tablet 00:00: mouth [place] 00 every 8 Medical (eight) Branch hours as needed for Nausea and Vomiting (N/V). celecoxib 2023-0 Yes [id number] 200mg Take 1 Univers (CELEBREX) 7- 40518 capsule by it y of 200 mg 00:00: mouth in [place] capsule 00 the Medical morning. Branch ondansetron 2023-0 Yes [id number] 4mg Take 1 Univers (ZOFRAN) 4 7-06 tablet by ity of mg tablet 00:00: mouth [place] 00 every 8 Medical (eight) Branch hours as needed for Nausea and Vomiting (N/V). celecoxib 2023-0 Yes [id number] 200mg Take 1 Univers (CELEBREX) 7- 56213 capsule by it y of 200 mg 00:00: mouth in [place] capsule 00 the Medical morning. Branch ondansetron 2023-0 Yes [id number] 4mg Take 1 Univers (ZOFRAN) 4 7-06 tablet by ity of mg tablet 00:00: mouth [place] 00 every 8 Medical (eight) Branch hours as needed for Nausea and Vomiting (N/V). celecoxib 2023-0 Yes [id number] 200mg Take 1 Univers (CELEBREX) 7- 51921 capsule by it y of 200 mg 00:00: mouth in [place] capsule 00 the Medical morning. Branch ondansetron 3-0 Yes [id number] 4mg Take 1 Univers (ZOFRAN) 4 7-06 tablet by ity of mg tablet 00:00: mouth [place] 00 every 8 Medical (eight) Branch hours as needed for Nausea and Vomiting (N/V). celecoxib 3-0 Yes [id number] 200mg Take 1 Univers (CELEBREX) 09-21 [id number] capsule by it y of 200 mg 00:00: mouth in [place] capsule 00 the Medical morning. Branch ondansetron 3-0 Yes [id number] 4mg Take 1 Univers (ZOFRAN) 4 7-06 tablet by ity of mg tablet 00:00: mouth [place] 00 every 8 Medical (eight) Branch hours as needed for Nausea and Vomiting (N/V). celecoxib 3-0 Yes [id number] 200mg Take 1 Univers (CELEBREX) 09-21 [id number] capsule by it y of 200 mg 00:00: mouth in [place] capsule 00 the Medical morning. Branch ondansetron 3-0 Yes [id number] 4mg Take 1 Univers (ZOFRAN) 4 7-06 tablet by ity of mg tablet 00:00: mouth [place] 00 every 8 Medical (eight) Branch hours as needed for Nausea and Vomiting (N/V). celecoxib 2023-0 Yes [id number] 200mg Take 1 Univers (CELEBREX) 7- 72670 capsule by it y of 200 mg 00:00: mouth in [place] capsule 00 the Medical morning. Branch ondansetron 2023-0 Yes [id number] 4mg Take 1 Univers (ZOFRAN) 4 7-06 tablet by ity of mg tablet 00:00: mouth [place] 00 every 8 Medical (eight) Branch hours as needed for Nausea and Vomiting (N/V). celecoxib 2023-0 Yes [id number] 200mg Take 1 Univers (CELEBREX) 09-21 [id number] capsule by it y of 200 mg 00:00: mouth in [place] capsule 00 the Medical morning. Branch ondansetron 2022-0 Yes [id number] 4mg Take 1 Univers (ZOFRAN) 4 7-06 tablet by ity of mg tablet 00:00: mouth [place] 00 every 8 Medical (eight) Branch hours as needed for Nausea and Vomiting (N/V). celecoxib 3-0 Yes [id number] 200mg Take 1 Univers (CELEBREX) 09-21 [id number] capsule by it y of 200 mg 00:00: mouth in [place] capsule 00 the Medical morning. Branch ondansetron 2022-0 Yes [id number] 4mg Take 1 Univers (ZOFRAN) 4 7-06 tablet by ity of mg tablet 00:00: mouth [place] 00 every 8 Medical (eight) Branch hours as needed for Nausea and Vomiting (N/V). celecoxib 3-0 Yes [id number] 200mg Take 1 Univers (CELEBREX) 09-21 [id number] capsule by it y of 200 mg 00:00: mouth in [place] capsule 00 the Medical morning. Branch ondansetron 2022-0 Yes [id number] 4mg Take 1 Univers (ZOFRAN) 4 7-06 tablet by ity of mg tablet 00:00: mouth [place] 00 every 8 Medical (eight) Branch hours as needed for Nausea and Vomiting (N/V). ondansetron 3-0 Yes [id number] 4mg Take 1 Univers (ZOFRAN) 4 7-06 tablet by ity of mg tablet 00:00: mouth [place] 00 every 8 Medical (eight) Branch hours as needed for Nausea and Vomiting (N/V). ondansetron 2023-0 Yes [id number] 4mg Take 1 Univers (ZOFRAN) 4 7-06 tablet by ity of mg tablet 00:00: mouth [place] 00 every 8 Medical (eight) Branch hours as needed for Nausea and Vomiting (N/V). omeprazole 3-0 2023- No [id number] 40mg Take 1 Univers 40 mg 09-21- capsule by ity of capsule 00:00: 00:00 mouth in [place] 00 :00 the Medical morning. Branch semaglutide 3-0 Yes [id number] 3mg Take 3 mg Univers (RYBELSUS) 5-12 by mouth ity o f 3 mg Tab 00:00: in the [place] 00 morning. Medical Branch semaglutide 2022-0 Yes [id number] 7mg Take 7 mg Univers (RYBELSUS) 5-12 by mouth ity o f 7 mg Tab 00:00: in the [place] 00 morning. Medical Branch semaglutide 2022-0 Yes [id number] 3mg Take 3 mg Univers (RYBELSUS) 5-12 by mouth ity o f 3 mg Tab 00:00: in the [place] 00 morning. Medical Branch semaglutide 2022-0 Yes [id number] 7mg Take 7 mg Univers (RYBELSUS) 5-12 by mouth ity o f 7 mg Tab 00:00: in the [place] 00 morning. Medical Branch semaglutide 3-0 Yes [id number] 3mg Take 3 mg Univers (RYBELSUS) 5-12 by mouth ity o f 3 mg Tab 00:00: in the [place] 00 morning. Medical Branch semaglutide 2022-0 Yes [id number] 7mg Take 7 mg Univers (RYBELSUS) 5-12 by mouth ity o f 7 mg Tab 00:00: in the [place] 00 morning. Medical Branch semaglutide 3-0 Yes [id number] 3mg Take 3 mg Univers (RYBELSUS) 5-12 by mouth ity o f 3 mg Tab 00:00: in the [place] 00 morning. Medical Branch semaglutide 3-0 Yes [id number] 7mg Take 7 mg Univers (RYBELSUS) 5-12 by mouth ity o f 7 mg Tab 00:00: in the [place] 00 morning. Medical Branch semaglutide 3-0 Yes [id number] 7mg Take 7 mg Univers (RYBELSUS) 5-12 by mouth ity o f 7 mg Tab 00:00: in the [place] 00 morning. Medical Branch semaglutide 2023-0 Yes [id number] 7mg Take 7 mg Univers (RYBELSUS) 5-12 by mouth ity o f 7 mg Tab 00:00: in the [place] 00 morning. Medical Branch semaglutide 2023-0 Yes [id number] 7mg Take 7 mg Univers (RYBELSUS) 5-12 by mouth ity o f 7 mg Tab 00:00: in the [place] 00 morning. Medical Branch semaglutide 2022-0 Yes [id number] 7mg Take 7 mg Univers (RYBELSUS) 5-12 by mouth ity o f 7 mg Tab 00:00: in the [place] 00 morning. Medical Branch semaglutide 2022-0 Yes [id number] 7mg Take 7 mg Univers (RYBELSUS) 5-12 by mouth ity o f 7 mg Tab 00:00: in the [place] 00 morning. Medical Branch semaglutide 2022-0 Yes [id number] 7mg Take 7 mg Univers (RYBELSUS) 5-12 by mouth ity o f 7 mg Tab 00:00: in the [place] 00 morning. Medical Branch semaglutide 2022-0 Yes [id number] 7mg Take 7 mg Univers (RYBELSUS) 5-12 by mouth ity o f 7 mg Tab 00:00: in the [place] 00 morning. Medical Branch semaglutide 2022-0 Yes [id number] 7mg Take 7 mg Univers (RYBELSUS) 5-12 by mouth ity o f 7 mg Tab 00:00: in the [place] 00 morning. Medical Branch semaglutide 2022-0 Yes [id number] 7mg Take 7 mg Univers (RYBELSUS) 5-12 by mouth ity o f 7 mg Tab 00:00: in the [place] 00 morning. Medical Branch semaglutide 2022-0 Yes [id number] 7mg Take 7 mg Univers (RYBELSUS) 5-12 by mouth ity o f 7 mg Tab 00:00: in the [place] 00 morning. Medical Branch semaglutide 2022-0 Yes [id number] 7mg Take 7 mg Univers (RYBELSUS) 5-12 by mouth ity o f 7 mg Tab 00:00: in the [place] 00 morning. Medical Branch semaglutide 2022-0 Yes [id number] 7mg Take 7 mg Univers (RYBELSUS) 5-12 by mouth ity o f 7 mg Tab 00:00: in the [place] 00 morning. Medical Branch semaglutide 2022-0 Yes [id number] 7mg Take 7 mg Univers (RYBELSUS) 5-12 by mouth ity o f 7 mg Tab 00:00: in the [place] 00 morning. Medical Branch semaglutide 2022-0 Yes [id number] 7mg Take 7 mg Univers (RYBELSUS) 5-12 by mouth ity o f 7 mg Tab 00:00: in the [place] 00 morning. Medical Branch semaglutide 2022-0 Yes [id number] 7mg Take 7 mg Univers (RYBELSUS) 5-12 by mouth ity o f 7 mg Tab 00:00: in the [place] 00 morning. Medical Branch semaglutide 2022-0 Yes [id number] 7mg Take 7 mg Univers (RYBELSUS) 5-12 by mouth ity o f 7 mg Tab 00:00: in the [place] 00 morning. Medical Branch semaglutide 2022-0 Yes [id number] 7mg Take 7 mg Univers (RYBELSUS) 5-12 by mouth ity o f 7 mg Tab 00:00: in the [place] 00 morning. Medical Branch semaglutide 2022-0 Yes [id number] 7mg Take 7 mg Univers (RYBELSUS) 5-12 by mouth ity o f 7 mg Tab 00:00: in the [place] 00 morning. Medical Branch semaglutide 2022-0 Yes [id number] 7mg Take 7 mg Univers (RYBELSUS) 5-12 by mouth ity o f 7 mg Tab 00:00: in the [place] 00 morning. Medical Branch semaglutide 2022-0 Yes [id number] 7mg Take 7 mg Univers (RYBELSUS) 5-12 by mouth ity o f 7 mg Tab 00:00: in the [place] 00 morning. Medical Branch semaglutide 2022-0 Yes [id number] 7mg Take 7 mg Univers (RYBELSUS) 5-12 by mouth ity o f 7 mg Tab 00:00: in the [place] 00 morning. Medical Branch semaglutide 2022-0 Yes [id number] 7mg Take 7 mg Univers (RYBELSUS) 5-12 by mouth ity o f 7 mg Tab 00:00: in the [place] 00 morning. Medical Branch semaglutide 2022-0 2023- No [id number] 3mg Take 3 mg Univers (RYBELSUS) 5-12 -06 by mouth ity of 3 mg Tab 00:00: 00:00 in the [place] 00 :00 morning. Medical Branch semaglutide 2022- No [id number] 3mg Take 3 mg Univers (RYBELSUS) 07-28 by mouth ity of 3 mg Tab 00:00: 00:00 in the [place] 00 :00 morning. Medical Branch semaglutide 2022- No [id number] 3mg Take 3 mg Univers (RYBELSUS) 07-28 by mouth ity of 3 mg Tab 00:00: 00:00 in the [place] 00 :00 morning. Medical Branch tirzepatide Yes [id number] 2.5mg inject 2.5 Univers 2.5 mg/0.5 5-05 mg under ity o f mL 00:00: [facility] weekly. Medic al s injection Branch tirzepatide Yes [id number] 5mg inject 5 Univers 2.5 mg/0.5 5-05 mg under ity o f mL 00:00: the skin [facility] 00 weekly. Medic al s injection Branch insulin Yes [id number] ADMINISTER Univers aspart 5-05 10 UNITS ity of RAPID 100 00:00: UNDER THE [place] unit/mL 00 SKIN TWICE Medica l injection DAILY Branch BEFORE BREAKFAST AND DINNER insulin Yes [id number] 18U inject 18 Univers degludec 5-05 Units ity of (TRESIB[place] 00:00: [place] U-[place] 00 skin at Medical INSULIN) bedtime. Branch 100 unit/mL Soln tirzepatide Yes [id number] 2.5mg inject 2.5 Univers 2.5 mg/0.5 5-05 mg under ity o f mL 00:00: the skin [place] subcutane 00 weekly. Medic al s injection Branch tirzepatide Yes [id number] 5mg inject 5 Univers 2.5 mg/0.5 5-05 mg under ity o f mL 00:00: the skin [place] subcutane 00 weekly. Medic al s injection Branch insulin Yes [id number] ADMINISTER Univers aspart 5-05 10 UNITS ity of RAPID 100 00:00: UNDER THE [place] unit/mL 00 SKIN TWICE Medica l injection DAILY Branch BEFORE BREAKFAST AND DINNER insulin Yes [id number] 18U inject 18 Univers degludec 5-05 Units ity of (TRESIBA 00:00: [place] U-[place] 00 skin at Medical INSULIN) bedtime. Branch 100 unit/mL Soln tirzepatide Yes [id number] 2.5mg inject 2.5 Univers 2.5 mg/0.5 5-05 mg under ity o f mL 00:00: the skin [place] [facility] weekly. Medic al s injection Branch tirzepatide Yes [id number] 5mg inject 5 Univers 2.5 mg/0.5 5-05 mg under ity o f mL 00:00: the skin [facility] 00 weekly. Medic al s injection Branch insulin Yes [id number] ADMINISTER Univers aspart 5-05 10 UNITS ity of RAPID 100 00:00: UNDER THE [place] unit/mL 00 SKIN TWICE Medica l injection DAILY Branch BEFORE BREAKFAST AND DINNER insulin Yes [id number] 18U inject 18 Univers degludec 5-05 Units ity of (TRESIBA 00:00: [place] U-[place] 00 skin at Medical INSULIN) bedtime. Branch 100 unit/mL Soln insulin Yes [id number] ADMINISTER Univers aspart 5-05 10 UNITS ity of RAPID 100 00:00: UNDER THE [place] unit/mL 00 SKIN TWICE Medica l injection DAILY Branch BEFORE BREAKFAST AND DINNER insulin Yes [id number] 18U inject 18 Univers degludec 5-05 Units ity of (TRESIBA 00:00: [place] U-[place] 00 skin at Medical INSULIN) bedtime. Branch 100 unit/mL Soln insulin Yes [id number] ADMINISTER Univers aspart 5-05 10 UNITS ity of RAPID 100 00:00: UNDER THE [place] unit/mL 00 SKIN TWICE Medica l injection DAILY Branch BEFORE BREAKFAST AND DINNER insulin Yes [id number] 18U inject 18 Univers degludec 5-05 Units ity of (TRESIBA 00:00: [place] U-[place] 00 skin at Medical INSULIN) bedtime. Branch 100 unit/mL Soln insulin 2023-0 Yes [id number] ADMINISTER Univers aspart 5-05 10 UNITS ity of RAPID 100 00:00: UNDER THE [place] unit/mL 00 SKIN TWICE Medica l injection DAILY Branch BEFORE BREAKFAST AND DINNER insulin 2022-0 Yes [id number] 18U inject 18 [facility] de[facility]udec 5-05 Units ity of ([place] 00:[place] skin at [facility] INSULIN) bedtime. Branch 100 unit/mL Soln insulin 2022-0 Yes [id number] ADMINISTER [facility] aspart 5-05 10 UNITS ity of RAPID 100 00:00: UNDER THE [place] unit/mL 00 SKIN TWICE Medica l injection DAILY Branch BEFORE BREAKFAST AND DINNER insulin 2022-0 Yes [id number] 18U inject 18 [facility] degludec 5-05 Units ity of (TRESIB[place] 00:[place] at Medical INSULIN) bedtime. Branch 100 unit/mL Soln insulin 2022-0 Yes [id number] ADMINISTER [facility] aspart 5-05 10 UNITS ity of RAPID 100 00:00: UNDER THE [place] unit/mL 00 SKIN TWICE Medica l injection DAILY Branch BEFORE BREAKFAST AND DINNER insulin 2022-0 Yes [id number] 18U inject 18 [facility] degludec 5-05 Units ity of (TRESIBA 00:[place]: [place] at Medical INSULIN) bedtime. Branch 100 unit/mL Soln insulin 2022-0 Yes [id number] ADMINISTER [facility] aspart 5-05 10 UNITS ity of RAPID 100 00:00: UNDER THE [place] unit/mL 00 SKIN TWICE Medica l injection DAILY Branch BEFORE BREAKFAST AND DINNER insulin 2022-0 Yes [id number] 18U inject 18 [facility] degludec 5-05 Units ity of (TRESIBA 00:00: [place] skin at Medical INSULIN) bedtime. Branch 100 unit/mL Soln insulin 2022-0 Yes [id number] ADMINISTER [facility] aspart 5-05 10 UNITS ity of RAPID 100 00:00: UNDER THE [place] unit/mL 00 SKIN TWICE Medica l injection DAILY Branch BEFORE BREAKFAST AND DINNER insulin 2022-0 Yes [id number] 18U inject 18 [facility] de[facility]udec 5-05 Units ity of (TRESIBA 00:00: [place] at Medical INSULIN) bedtime. Branch 100 unit/mL Soln insulin 2022-0 Yes [id number] ADMINISTER [facility] aspart 5-05 10 UNITS ity of RAPID 100 00:00: UNDER THE [place] unit/mL 00 SKIN TWICE Medica l injection DAILY Branch BEFORE BREAKFAST AND DINNER insulin 2022-0 Yes [id number] 18U inject 18 [facility] de[facility]udec 5-05 Units ity of (TRESIBA 00:00: [place] skin at Medical INSULIN) bedtime. Branch 100 unit/mL Soln insulin 2022-0 Yes [id number] ADMINISTER [facility] aspart 5-05 10 UNITS ity of RAPID 100 00:00: UNDER THE [place] unit/mL 00 SKIN TWICE Medica l injection DAILY Branch BEFORE BREAKFAST AND DINNER insulin 2022-0 Yes [id number] 18U inject 18 [facility] de[facility]udec 5-05 Units ity of (TRESIBA 00:00: [place] skin at Medical INSULIN) bedtime. Branch 100 unit/mL Soln insulin 2022-0 Yes [id number] ADMINISTER [facility] aspart 5-05 10 UNITS ity of RAPID 100 00:00: UNDER THE [place] unit/mL 00 SKIN TWICE Medica l injection DAILY Branch BEFORE BREAKFAST AND DINNER insulin 2022-0 Yes [id number] 18U inject 18 [facility] de[facility]udec 5-05 Units ity of (TRESIBA 00:00: [place] at Medical INSULIN) bedtime. Branch 100 unit/mL Soln insulin 2022-0 Yes [id number] ADMINISTER [facility] aspart 5-05 10 UNITS ity of RAPID 100 00:00: UNDER THE [place] unit/mL 00 SKIN TWICE Medica l injection DAILY Branch BEFORE BREAKFAST AND DINNER insulin 2022-0 Yes [id number] 18U inject 18 [facility] de[facility]ec 5-05 Units ity of (TRESIBA 00:00: [place] at Medical INSULIN) bedtime. Branch 100 unit/mL Soln insulin 2022-0 Yes [id number] ADMINISTER [facility] aspart 5-05 10 UNITS ity of RAPID 100 00:00: UNDER THE [place] unit/mL 00 SKIN TWICE Medica l injection DAILY Branch BEFORE BREAKFAST AND DINNER insulin Yes [id number] 18U inject 18 [facility] de[facility]udec 5-05 Units ity of (TRESIBA 00:00: [place] skin at Medical INSULIN) bedtime. Branch 100 unit/mL Soln insulin Yes [id number] ADMINISTER [facility] aspart 5-05 10 UNITS ity of RAPID 100 00:00: UNDER THE [place] unit/mL 00 SKIN TWICE Medica l injection DAILY Branch BEFORE BREAKFAST AND DINNER insulin Yes [id number] 18U inject 18 [facility] de[facility]udec 5-05 Units ity of (TRESIBA 00:00: [place] skin at Medical INSULIN) bedtime. Branch 100 unit/mL Soln insulin Yes [id number] ADMINISTER [facility] aspart 5-05 10 UNITS ity of RAPID 100 00:00: UNDER THE [place] unit/mL 00 SKIN TWICE Medica l injection DAILY Branch BEFORE BREAKFAST AND DINNER insulin Yes [id number] 18U inject 18 [facility] de[facility]udec 5-05 Units ity of (TRESIBA 00:00: [place] skin at Medical INSULIN) bedtime. Branch 100 unit/mL Soln insulin Yes [id number] ADMINISTER [facility] aspart 5-05 10 UNITS ity of RAPID 100 00:00: UNDER THE [place] unit/mL 00 SKIN TWICE Medica l injection DAILY Branch BEFORE BREAKFAST AND DINNER insulin Yes [id number] 18U inject 18 [facility] de[facility]udec 5-05 Units ity of (TRESIBA 00:00: [place] skin at Medical INSULIN) bedtime. Branch 100 unit/mL Soln insulin Yes [id number] ADMINISTER [facility] aspart 5-05 10 UNITS ity of RAPID 100 00:00: UNDER THE [place] unit/mL 00 SKIN TWICE Medica l injection DAILY Branch BEFORE BREAKFAST AND DINNER insulin Yes [id number] 18U inject 18 [facility] degludec 5-05 Units ity of (TRESIBA 00:00: [place] skin at Medical INSULIN) bedtime. Branch 100 unit/mL Soln insulin Yes [id number] ADMINISTER [facility] aspart 5-05 10 UNITS ity of RAPID 100 00:00: UNDER THE [place] unit/mL 00 SKIN TWICE Medica l injection DAILY Branch BEFORE BREAKFAST AND DINNER insulin 2022-0 Yes [id number] 18U inject 18 [facility] de[facility]udec 5-05 Units ity of (TRESIBA 00:00: [place] skin at Medical INSULIN) bedtime. Branch 100 unit/mL Soln insulin 2022-0 Yes [id number] ADMINISTER [facility] aspart 5-05 10 UNITS ity of RAPID 100 00:00: UNDER THE [place] unit/mL 00 SKIN TWICE Medica l injection DAILY Branch BEFORE BREAKFAST AND DINNER insulin 2022-0 Yes [id number] 18U inject 18 [facility] de[facility]ec 5-05 Units ity of (TRESIBA 00:00: [place] skin at Medical INSULIN) bedtime. Branch 100 unit/mL Soln insulin 2022-0 Yes [id number] ADMINISTER [facility] aspart 5-05 10 UNITS ity of RAPID 100 00:00: UNDER THE [place] unit/mL 00 SKIN TWICE Medica l injection DAILY Branch BEFORE BREAKFAST AND DINNER insulin 2022-0 Yes [id number] 18U inject 18 [facility] de[facility]ec 5-05 Units ity of (TRESIBA 00:00: [place] skin at Medical INSULIN) bedtime. Branch 100 unit/mL Soln insulin 2022-0 Yes [id number] ADMINISTER [facility] aspart 5-05 10 UNITS ity of RAPID 100 00:00: UNDER THE [place] unit/mL 00 SKIN TWICE Medica l injection DAILY Branch BEFORE BREAKFAST AND DINNER insulin 2022-0 Yes [id number] 18U inject 18 [facility] de[facility]ec 5-05 Units ity of (TRESIBA 00:00: [place] skin at Medical INSULIN) bedtime. Branch 100 unit/mL Soln insulin 2022-0 Yes [id number] ADMINISTER [facility] aspart 5-05 10 UNITS ity of RAPID 100 00:00: UNDER THE [place] unit/mL 00 SKIN TWICE Medica l injection DAILY Branch BEFORE BREAKFAST AND DINNER insulin 2022-0 Yes [id number] 18U inject 18 [facility] de[facility]ec 5-05 Units ity of (TRESIBA 00:00: [place] skin at Medical INSULIN) bedtime. Branch 100 unit/mL Soln insulin 2022-0 Yes [id number] ADMINISTER [facility] aspart 5-05 10 UNITS ity of RAPID 100 00:00: UNDER THE [place] unit/mL 00 SKIN TWICE Medica l injection DAILY Branch BEFORE BREAKFAST AND DINNER insulin 2022-0 Yes [id number] 18U inject 18 [facility] de[facility]ec 5-05 Units ity of (TRESIBA 00:00: [place] skin at Medical INSULIN) bedtime. Branch 100 unit/mL Soln insulin 0 Yes [id number] ADMINISTER [facility] aspart 5-05 10 UNITS ity of RAPID 100 00:00: UNDER THE [place] unit/mL 00 SKIN TWICE Medica l injection DAILY Branch BEFORE BREAKFAST AND DINNER insulin Yes [id number] 18U inject 18 [facility] de[facility] 5-05 Units ity of (TRESIBA 00:00: [place] skin at Medical INSULIN) bedtime. Branch 100 unit/mL Soln insulin 0 Yes [id number] ADMINISTER [facility] aspart 5-05 10 UNITS ity of RAPID 100 00:00: UNDER THE [place] unit/mL 00 SKIN TWICE Medica l injection DAILY Branch BEFORE BREAKFAST AND DINNER insulin 2022-0 Yes [id number] 18U inject 18 [facility] de[facility] 5-05 Units ity of (TRESIBA 00:00: [place] skin at Medical INSULIN) bedtime. Branch 100 unit/mL Soln insulin 2022-0 Yes [id number] ADMINISTER [facility] aspart 5-05 10 UNITS ity of RAPID 100 00:00: UNDER THE [place] unit/mL 00 SKIN TWICE Medica l injection DAILY Branch BEFORE BREAKFAST AND DINNER insulin 2022-0 Yes [id number] 18U inject 18 [facility] de[facility]ec 5-05 Units ity of (TRESIBA 00:00: [place] skin at Medical INSULIN) bedtime. Branch 100 unit/mL Soln insulin 2022-0 Yes [id number] ADMINISTER [facility] aspart 5-05 10 UNITS ity of RAPID 100 00:00: UNDER THE [place] unit/mL 00 SKIN TWICE Medica l injection DAILY Branch BEFORE BREAKFAST AND DINNER insulin 2022-0 Yes [id number] 18U inject 18 [facility] de[facility] 5-05 Units ity of (TRESIBA 00:00: [place] skin at Medical INSULIN) bedtime. Branch 100 unit/mL Soln insulin Yes [id number] ADMINISTER [facility] aspart 5-05 10 UNITS ity of RAPID 100 00:00: UNDER THE [place] unit/mL 00 SKIN TWICE Medica l injection DAILY Branch BEFORE BREAKFAST AND DINNER insulin Yes [id number] 18U inject 18 [facility] de[facility]ec 5-05 Units ity of (TRESIBA 00:00: [place] skin at Medical INSULIN) bedtime. Branch 100 unit/mL Soln insulin Yes [id number] ADMINISTER [facility] aspart 5-05 10 UNITS ity of RAPID 100 00:00: UNDER THE [place] unit/mL 00 SKIN TWICE Medica l injection DAILY Branch BEFORE BREAKFAST AND DINNER insulin Yes [id number] 18U inject 18 [facility] de[facility]ec 5-05 Units ity of (TRESIBA 00:00: [place] skin at Medical INSULIN) bedtime. Branch 100 unit/mL Soln tirzepatide 2022- No [id number] 2.5mg inject 2.5 [facility] 2.5 mg/0.5 5-05 05-12 mg under ity of mL 00:00: 00:00 the skin [place] subcutaneou 00 :00 weekly. Medic al s injection Branch tirzepatide 2022- No [id number] 5mg inject 5 [facility] 2.5 mg/0.5 5-05 05-12 mg under ity of mL 00:00: 00:00 the skin [place] subcutaneou 00 :00 weekly. Medic al s injection Branch tirzepatide 2022- No [id number] 2.5mg inject 2.5 [facility] 2.5 mg/0.5 5-05 05-12 mg under ity of mL 00:00: 00:00 the skin [place] subcutaneou 00 :00 weekly. Medic al s injection Branch tirzepatide 2022- No [id number] 5mg inject 5 [facility] 2.5 mg/0.5 5-05 05-12 mg under ity of mL 00:00: 00:00 the skin [place] subcutaneou 00 :00 weekly. Medic al s injection Branch tirzepatide 2022- No [id number] 2.5mg inject 2.5 [facility] 2.5 mg/0.5 5-05 05-12 mg under ity of mL 00:00: 00:00 the skin [place] subcutaneou 00 :00 weekly. Medic al s injection Branch tirzepatide 2022- No [id number] 5mg inject 5 [facility] 2.5 mg/0.5 5-05 05-12 mg under ity of mL 00:00: 00:00 the skin [place] subcutaneou 00 :00 weekly. Medic al s injection Branch insulin Yes [id number] ADMINISTER [facility] aspart 3-29 10 UNITS ity of RAPID 100 00:00: UNDER THE [place] unit/mL 00 SKIN TWICE Medica l injection DAILY Branch BEFORE BREAKFAST AND DINNER insulin 2022- No [id number] ADMINISTER [facility] aspart 3-29 05-05 10 UNITS ity of RAPID 100 00:00: 00:00 UNDER [place] unit/mL 00 :00 SKIN TWICE Medica l injection DAILY Branch BEFORE BREAKFAST AND DINNER insulin 2022- No [id number] ADMINISTER [facility] aspart 3-29 05-05 10 UNITS ity of RAPID 100 00:00: 00:00 UNDER THE [place] unit/mL 00 :00 SKIN TWICE Medica l injection DAILY Branch BEFORE BREAKFAST AND DINNER atenoloL-ch Yes [id number] 1{tbl} Take 1 [facility] lorthalidon 3-17 tablet by ity of e 100-25 mg 00:00: mouth in [place] per tablet 00 the Medical morning. Branch verapamiL 2022-0 Yes [id number] 180mg Take 1 U [facility]ivers 180 mg ER 3-17 tablet by ity o f tablet 00:00: mouth in [place] 00 the Medical morning. Branch atenoloL-ch 2022-0 Yes [id number] 1{tbl} Take 1 [facility] lorthalidon 3-17 tablet by ity of e 100-25 mg 00:00: mouth in [place] per tablet 00 the Medical morning. Branch verapamiL 2022-0 Yes [id number] 180mg Take 1 U nivers 180 mg ER 3-17 tablet by ity o f tablet 00:00: mouth in [place] 00 the Medical morning. Branch atenoloL-ch 2023-0 Yes [id number] 1{tbl} Take 1 [facility] lorthalidon 3-17 tablet by ity of e 100-25 mg 00:00: mouth in [place] per tablet 00 the Medical morning. Branch verapamiL 2023-0 Yes [id number] 180mg Take 1 U nivers 180 mg ER 3-17 tablet by ity o f tablet 00:00: mouth in [place] 00 the Medical morning. Branch atenoloL-ch 2023-0 Yes [id number] 1{tbl} Take 1 [facility] lorthalidon 3-17 tablet by ity of e 100-25 mg 00:00: mouth in [place] per tablet 00 the Medical morning. Branch verapamiL 2023-0 Yes [id number] 180mg Take 1 U nivers 180 mg ER 3-17 tablet by ity o f tablet 00:00: mouth in [place] 00 the Medical morning. Branch atenoloL-ch 2023-0 Yes [id number] 1{tbl} Take 1 [facility] lorthalidon 3-17 tablet by ity of e 100-25 mg 00:00: mouth in [place] per tablet 00 the Medical morning. Branch verapamiL 2023-0 Yes [id number] 180mg Take 1 U nivers 180 mg ER 3-17 tablet by ity o f tablet 00:00: mouth in [place] 00 the Medical morning. Branch atenoloL-ch 2023-0 Yes [id number] 1{tbl} Take 1 [facility] lorthalidon 3-17 tablet by ity of e 100-25 mg 00:00: mouth in [place] per tablet 00 the Medical morning. Branch verapamiL 2023-0 Yes [id number] 180mg Take 1 U nivers 180 mg ER 3-17 tablet by ity o f tablet 00:00: mouth in [place] 00 the Medical morning. Branch atenoloL-ch 2023-0 Yes [id number] 1{tbl} Take 1 [facility] lorthalidon 3-17 tablet by ity of e 100-25 mg 00:00: mouth in [place] per tablet 00 the Medical morning. Branch verapamiL 2023-0 Yes [id number] 180mg Take 1 U nivers 180 mg ER 3-17 tablet by ity o f tablet 00:00: mouth in [place] 00 the Medical morning. Branch atenoloL-ch 2023-0 Yes [id number] 1{tbl} Take 1 [facility] lorthalidon 3-17 tablet by ity of e 100-25 mg 00:00: mouth in [place] per tablet 00 the Medical morning. Branch verapamiL 2023-0 Yes [id number] 180mg Take 1 U nivers 180 mg ER 3-17 tablet by ity o f tablet 00:00: mouth in [place] 00 the Medical morning. Branch atenoloL-ch 2023-0 Yes [id number] 1{tbl} Take 1 [facility] lorthalidon 3-17 tablet by ity of e 100-25 mg 00:00: mouth in [place] per tablet 00 the Medical morning. Branch verapamiL 2023-0 Yes [id number] 180mg Take 1 U [facility] 180 mg ER 3-17 tablet by ity o f tablet 00:00: mouth in [place] 00 the Medical morning. Branch atenoloL-ch 2023-0 Yes [id number] 1{tbl} Take 1 [facility] lorthalidon 3-17 tablet by ity of e 100-25 mg 00:00: mouth in [place] per tablet 00 the Medical morning. Branch verapamiL 2023-0 Yes [id number] 180mg Take 1 U nivers 180 mg ER 3-17 tablet by ity o f tablet 00:00: mouth in [place] 00 the Medical morning. Branch atenoloL-ch 2023-0 Yes [id number] 1{tbl} Take 1 [facility] lorthalidon 3-17 tablet by ity of e 100-25 mg 00:00: mouth in [place] per tablet 00 the Medical morning. Branch verapamiL 2023-0 Yes [id number] 180mg Take 1 U nivers 180 mg ER 3-17 tablet by ity o f tablet 00:00: mouth in [place] 00 the Medical morning. Branch atenoloL-ch 2023-0 Yes [id number] 1{tbl} Take 1 [facility] lorthalidon 3-17 tablet by ity of e 100-25 mg 00:00: mouth in [place] per tablet 00 the Medical morning. Branch verapamiL 2023-0 Yes [id number] 180mg Take 1 U nivers 180 mg ER 3-17 tablet by ity o f tablet 00:00: mouth in [place] 00 the Medical morning. Branch atenoloL-ch 2023-0 Yes [id number] 1{tbl} Take 1 [facility] lorthalidon 3-17 tablet by ity of e 100-25 mg 00:00: mouth in [place] per tablet 00 the Medical morning. Branch verapamiL 2023-0 Yes [id number] 180mg Take 1 U nivers 180 mg ER 3-17 tablet by ity o f tablet 00:00: mouth in [place] 00 the Medical morning. Branch atenoloL-ch 2023-0 Yes [id number] 1{tbl} Take 1 [facility] lorthalidon 3-17 tablet by ity of e 100-25 mg 00:00: mouth in [place] per tablet 00 the Medical morning. Branch verapamiL 2023-0 Yes [id number] 180mg Take 1 U nivers 180 mg ER 3-17 tablet by ity o f tablet 00:00: mouth in [place] 00 the Medical morning. Branch atenoloL-ch 2023-0 Yes [id number] 1{tbl} Take 1 [facility] lorthalidon 3-17 tablet by ity of e 100-25 mg 00:00: mouth in [place] per tablet 00 the Medical morning. Branch verapamiL 2023-0 Yes [id number] 180mg Take 1 U nivers 180 mg ER 3-17 tablet by ity o f tablet 00:00: mouth in [place] 00 the Medical morning. Branch atenoloL-ch 2023-0 Yes [id number] 1{tbl} Take 1 [facility] lorthalidon 3-17 tablet by ity of e 100-25 mg 00:00: mouth in [place] per tablet 00 the Medical morning. Branch verapamiL 2023-0 Yes [id number] 180mg Take 1 U nivers 180 mg ER 3-17 tablet by ity o f tablet 00:00: mouth in [place] 00 the Medical morning. Branch atenoloL-ch 2023-0 Yes [id number] 1{tbl} Take 1 [facility] lorthalidon 3-17 tablet by ity of e 100-25 mg 00:00: mouth in [place] per tablet 00 the Medical morning. Branch verapamiL 2023-0 Yes [id number] 180mg Take 1 U nivers 180 mg ER 3-17 tablet by ity o f tablet 00:00: mouth in [place] 00 the Medical morning. Branch atenoloL-ch 2023-0 Yes [id number] 1{tbl} Take 1 [facility] lorthalidon 3-17 tablet by ity of e 100-25 mg 00:00: mouth in [place] per tablet 00 the Medical morning. Branch verapamiL 2023-0 Yes [id number] 180mg Take 1 U nivers 180 mg ER 3-17 tablet by ity o f tablet 00:00: mouth in [place] 00 the Medical morning. Branch atenoloL-ch 2023-0 Yes [id number] 1{tbl} Take 1 [facility] lorthalidon 3-17 tablet by ity of e 100-25 mg 00:00: mouth in [place] per tablet 00 the Medical morning. Branch verapamiL 2023-0 Yes [id number] 180mg Take 1 U nivers 180 mg ER 3-17 tablet by ity o f tablet 00:00: mouth in [place] 00 the Medical morning. Branch atenoloL-ch 2023-0 Yes [id number] 1{tbl} Take 1 [facility] lorthalidon 3-17 tablet by ity of e 100-25 mg 00:00: mouth in [place] per tablet 00 the Medical morning. Branch verapamiL 2023-0 Yes [id number] 180mg Take 1 U nivers 180 mg ER 3-17 tablet by ity o f tablet 00:00: mouth in [place] 00 the Medical morning. Branch atenoloL-ch 3-0 Yes [id number] 1{tbl} Take 1 [facility] lorthalidon 3-17 tablet by ity of e 100-25 mg 00:00: mouth in [place] per tablet 00 the Medical morning. Branch verapamiL 2023-0 Yes [id number] 180mg Take 1 U nivers 180 mg ER 3-17 tablet by ity o f tablet 00:00: mouth in [place] 00 the Medical morning. Branch atenoloL-ch 2023-0 Yes [id number] 1{tbl} Take 1 [facility] lorthalidon 3-17 tablet by ity of e 100-25 mg 00:00: mouth in [place] per tablet 00 the Medical morning. Branch verapamiL 2023-0 Yes [id number] 180mg Take 1 U nivers 180 mg ER 3-17 tablet by ity o f tablet 00:00: mouth in [place] 00 the Medical morning. Branch atenoloL-ch 2023-0 Yes [id number] 1{tbl} Take 1 [facility] lorthalidon 3-17 tablet by ity of e 100-25 mg 00:00: mouth in [place] per tablet 00 the Medical morning. Branch verapamiL 2023-0 Yes [id number] 180mg Take 1 U nivers 180 mg ER 3-17 tablet by ity o f tablet 00:00: mouth in [place] 00 the Medical morning. Branch atenoloL-ch 2023-0 Yes [id number] 1{tbl} Take 1 [facility] lorthalidon 3-17 tablet by ity of e 100-25 mg 00:00: mouth in [place] per tablet 00 the Medical morning. Branch verapamiL 2023-0 Yes [id number] 180mg Take 1 U nivers 180 mg ER 3-17 tablet by ity o f tablet 00:00: mouth in [place] 00 the Medical morning. Branch atenoloL-ch 2023-0 Yes [id number] 1{tbl} Take 1 [facility] lorthalidon 3-17 tablet by ity of e 100-25 mg 00:00: mouth in [place] per tablet 00 the Medical morning. Branch verapamiL 2023-0 Yes [id number] 180mg Take 1 U nivers 180 mg ER 3-17 tablet by ity o f tablet 00:00: mouth in [place] 00 the Medical morning. Branch atenoloL-ch 2023-0 Yes [id number] 1{tbl} Take 1 [facility] lorthalidon 3-17 tablet by ity of e 100-25 mg 00:00: mouth in [place] per tablet 00 the Medical morning. Branch verapamiL 2023-0 Yes [id number] 180mg Take 1 U nivers 180 mg ER 3-17 tablet by ity o f tablet 00:00: mouth in [place] 00 the Medical morning. Branch atenoloL-ch 2023-0 Yes [id number] 1{tbl} Take 1 [facility] lorthalidon 3-17 tablet by ity of e 100-25 mg 00:00: mouth in [place] per tablet 00 the Medical morning. Branch verapamiL 2023-0 Yes [id number] 180mg Take 1 U nivers 180 mg ER 3-17 tablet by ity o f tablet 00:00: mouth in [place] 00 the Medical morning. Branch atenoloL-ch 2023-0 Yes [id number] 1{tbl} Take 1 [facility] lorthalidon 3-17 tablet by ity of e 100-25 mg 00:00: mouth in [place] per tablet 00 the Medical morning. Branch verapamiL 2023-0 Yes [id number] 180mg Take 1 U nivers 180 mg ER 3-17 tablet by ity o f tablet 00:00: mouth in [place] 00 the Medical morning. Branch atenoloL-ch 2023-0 Yes [id number] 1{tbl} Take 1 [facility] lorthalidon 3-17 tablet by ity of e 100-25 mg 00:00: mouth in [place] per tablet 00 the Medical morning. Branch verapamiL 2023-0 Yes [id number] 180mg Take 1 U nivers 180 mg ER 3-17 tablet by ity o f tablet 00:00: mouth in [place] 00 the Medical morning. Branch atenoloL-ch 2023-0 Yes [id number] 1{tbl} Take 1 [facility] lorthalidon 3-17 tablet by ity of e 100-25 mg 00:00: mouth in [place] per tablet 00 the Medical morning. Branch verapamiL 2023-0 Yes [id number] 180mg Take 1 U nivers 180 mg ER 3-17 tablet by ity o f tablet 00:00: mouth in [place] 00 the Medical morning. Branch atenoloL-ch 2023-0 Yes [id number] 1{tbl} Take 1 [facility] lorthalidon 3-17 tablet by ity of e 100-25 mg 00:00: mouth in [place] per tablet 00 the Medical morning. Branch verapamiL 2023-0 Yes [id number] 180mg Take 1 U nivers 180 mg ER 3-17 tablet by ity o f tablet 00:00: mouth in [place] 00 the Medical morning. Branch atenoloL-ch 2023-0 Yes [id number] 1{tbl} Take 1 [facility] lorthalidon 3-17 tablet by ity of e 100-25 mg 00:00: mouth in [place] per tablet 00 the Medical morning. Branch verapamiL 2023-0 Yes [id number] 180mg Take 1 U nivers 180 mg ER 3-17 tablet by ity o f tablet 00:00: mouth in [place] 00 the Medical morning. Branch atenoloL-ch 2023-0 Yes [id number] 1{tbl} Take 1 [facility] lorthalidon 3-17 tablet by ity of e 100-25 mg 00:00: mouth in [place] per tablet 00 the Medical morning. Branch verapamiL 2023-0 Yes [id number] 180mg Take 1 U nivers 180 mg ER 3-17 tablet by ity o f tablet 00:00: mouth in [place] 00 the Medical morning. Branch atenoloL-ch 2023-0 Yes [id number] 1{tbl} Take 1 [facility] lorthalidon 3-17 tablet by ity of e 100-25 mg 00:00: mouth in [place] per tablet 00 the Medical morning. Branch verapamiL 2023-0 Yes [id number] 180mg Take 1 U nivers 180 mg ER 3-17 tablet by ity o f tablet 00:00: mouth in [place] 00 the Medical morning. Branch atenoloL-ch 2023-0 Yes [id number] 1{tbl} Take 1 [facility] lorthalidon 3-17 tablet by ity of e 100-25 mg 00:00: mouth in [place] per tablet 00 the Medical morning. Branch verapamiL 2023-0 Yes [id number] 180mg Take 1 U nivers 180 mg ER 3-17 tablet by ity o f tablet 00:00: mouth in [place] 00 the Medical morning. Branch atenoloL-ch 2023-0 Yes [id number] 1{tbl} Take 1 [facility] lorthalidon 3-17 tablet by ity of e 100-25 mg 00:00: mouth in [place] per tablet 00 the Medical morning. Branch verapamiL 2023-0 Yes [id number] 180mg Take 1 U nivers 180 mg ER 3-17 tablet by ity o f tablet 00:00: mouth in [place] 00 the Medical morning. Branch atenoloL-ch 2023-0 Yes [id number] 1{tbl} Take 1 [facility] lorthalidon 3-17 tablet by ity of e 100-25 mg 00:00: mouth in [place] per tablet 00 the Medical morning. Branch verapamiL 2023-0 Yes [id number] 180mg Take 1 U nivers 180 mg ER 3-17 tablet by ity o f tablet 00:00: mouth in [place] 00 the Medical morning. Branch atenoloL-ch 2023-0 Yes [id number] 1{tbl} Take 1 [facility] lorthalidon 3-17 tablet by ity of e 100-25 mg 00:00: mouth in [place] per tablet 00 the morning. Branch verapamiL 2022-0 Yes [id number] 180mg Take 1 U nivers 180 mg ER 3-17 tablet by ity o f tablet 00:00: mouth in [place] 00 the morning. Branch atenoloL-ch 0 Yes [id number] 1{tbl} Take 1 [facility] lorthalidon 3-17 tablet by ity of e 100-25 mg 00:00: mouth in [place] per tablet 00 the morning. Branch verapamiL 2022-0 Yes [id number] 180mg Take 1 U nivers 180 mg ER 3-17 tablet by ity o f tablet 00:00: mouth in [place] 00 the morning. Branch insulin Yes [id number] ADMINISTER [facility] aspart 1-10 10 UNITS ity of RAPID 100 00:00: UNDER THE [place] unit/mL 00 SKIN TWICE Medica l injection DAILY Branch BEFORE BREAKFAST AND DINNER insulin 2022-0 Yes [id number] ADMINISTER [facility] aspart 1-10 10 UNITS ity of RAPID 100 00:00: UNDER THE [place] unit/mL 00 SKIN TWICE Medica l injection DAILY Branch BEFORE BREAKFAST AND DINNER insulin 2022-0 Yes [id number] ADMINISTER [facility] aspart 1-10 10 UNITS ity of RAPID 100 00:00: UNDER THE [place] unit/mL 00 SKIN TWICE Medica l injection DAILY Branch BEFORE BREAKFAST AND DINNER insulin 2022-0 Yes [id number] ADMINISTER [facility] aspart 1-10 10 UNITS ity of RAPID 100 00:00: UNDER THE [place] unit/mL 00 SKIN TWICE Medica l injection DAILY Branch BEFORE BREAKFAST AND DINNER insulin 2022-0 Yes [id number] ADMINISTER [facility] aspart 1-10 10 UNITS ity of RAPID 100 00:00: UNDER THE [place] unit/mL 00 SKIN TWICE Medica l injection DAILY Branch BEFORE BREAKFAST AND DINNER insulin 2022-0 2022- No [id number] ADMINISTER [facility] aspart 1-10 03-29 10 UNITS ity of RAPID 100 00:00: 00:00 UNDER [place] unit/mL 00 :00 SKIN TWICE Medica l injection DAILY Branch BEFORE BREAKFAST AND DINNER ATENOLOL-CH 1 Yes [id number] 1{tbl} TAKE 1 [facility] LORTHALIDON 2-12 TABLET BY ity of E 100-25 mg 00:00: MOUTH IN [place] per tablet 00 THE MORNING Branch COLCHICINE 2021-03 Yes [id number] TAKE 1 [facility] 0.6 mg Cap 2-12 9102 CAPSULE BY ity of 00:00: MOUTH [place] DAILY Medical Branch ATENOLOL-CH 2021-03 Yes [id number] 1{tbl} TAKE 1 [facility] LORTHALIDON 2-12 TABLET BY ity of E 100-25 mg 00:00: [place] per tablet 00 THE Medical MORNING Branch COLCHICINE 2021-03 Yes [id number] TAKE 1 [facility] 0.6 mg Cap 2-12 9102 CAPSULE BY ity of 00:00: MOUTH DAILY Medical Branch ATENOLOL-CH 2021-03 Yes [id number] 1{tbl} TAKE 1 [facility] LORTHALIDON 2-12 TABLET BY ity of E 100-25 mg 00:00: [place] per tablet THE Medical MORNING Branch COLCHICINE 2021-03 Yes [id number] TAKE 1 [facility] 0.6 mg Cap 2-12 9102 CAPSULE BY ity of 00:00: MOUTH DAILY Medical Branch COLCHICINE 2021-03 Yes [id number] TAKE 1 [facility] 0.6 mg Cap 2-12 9102 CAPSULE BY ity of 00:00: MOUTH DAILY Medical Branch COLCHICINE 2021-03 Yes [id number] TAKE 1 [facility] 0.6 mg Cap 2-12 9102 CAPSULE BY ity of 00:00: MOUTH DAILY Medical Branch COLCHICINE 2021-03 Yes [id number] TAKE 1 [facility] 0.6 mg Cap 2-12 9102 CAPSULE BY ity of 00:00: MOUTH DAILY Medical Branch COLCHICINE 2021-03 Yes [id number] TAKE 1 [facility] 0.6 mg Cap 2-12 9102 CAPSULE BY ity of 00:00: MOUTH DAILY Medical Branch COLCHICINE 2021-03 Yes [id number] TAKE 1 [facility] 0.6 mg Cap 2-12 9102 CAPSULE BY ity of 00:00: MOUTH [place] DAILY Medical Branch COLCHICINE 2021-03 Yes [id number] TAKE 1 [facility] 0.6 mg Cap 2-12 9102 CAPSULE BY ity of 00:00: MOUTH [place] DAILY Medical Branch COLCHICINE 2021-03 Yes [id number] TAKE 1 [facility] 0.6 mg Cap 2-12 9102 CAPSULE BY ity of 00:00: MOUTH DAILY Medical Branch COLCHICINE 2021-03 Yes [id number] TAKE 1 [facility] 0.6 mg Cap 2-12 9102 CAPSULE BY ity of 00:00: [facility] DAILY Medical Branch COLCHICINE 2021-03 Yes [id number] TAKE 1 Univers 0.6 mg Cap 2-12 9102 CAPSULE BY ity of 00:00: [facility] DAILY Medical Branch COLCHICINE 2021-03 Yes [id number] TAKE 1 Univers 0.6 mg Cap 2-12 9102 CAPSULE BY ity of 00:00: [facility] DAILY Medical Branch COLCHICINE 2021-03 Yes [id number] TAKE 1 Univers 0.6 mg Cap 2-12 9102 CAPSULE BY ity of 00:00: [facility] DAILY Medical Branch COLCHICINE 2021-03 Yes [id number] TAKE 1 Univers 0.6 mg Cap 2-12 9102 CAPSULE BY ity of 00:00: [facility] DAILY Medical Branch COLCHICINE 2021-03 Yes [id number] TAKE 1 Univers 0.6 mg Cap 2-12 9102 CAPSULE BY ity of 00:00: [facility] DAILY Medical Branch COLCHICINE 2021-03 Yes [id number] TAKE 1 Univers 0.6 mg Cap 2-12 9102 CAPSULE BY ity of 00:00: [facility] DAILY Medical Branch COLCHICINE 2021-03 Yes [id number] TAKE 1 Univers 0.6 mg Cap 2-12 9102 CAPSULE BY ity of 00:00: [facility] DAILY Medical Branch COLCHICINE 2021-03 Yes [id number] TAKE 1 Univers 0.6 mg Cap 2-12 9102 CAPSULE BY ity of 00:00: [facility] DAILY Medical Branch COLCHICINE 2021-03 Yes [id number] TAKE 1 Univers 0.6 mg Cap 2-12 9102 CAPSULE BY ity of 00:00: [facility] DAILY Medical Branch COLCHICINE 2021- Yes [id number] TAKE 1 [facility] 0.6 mg Cap 2-12 9102 CAPSULE BY ity of 00:00: [facility] DAILY Medical Branch COLCHICINE 2021-03 Yes [id number] TAKE 1 [facility] 0.6 mg Cap 2-12 9102 CAPSULE BY ity of 00:00: [facility] DAILY Medical Branch COLCHICINE 2021-03 Yes [id number] TAKE 1 [facility] 0.6 mg Cap 2-12 9102 CAPSULE BY ity of 00:00: [facility] DAILY Medical Branch COLCHICINE 2021-03 Yes [id number] TAKE 1 [facility] 0.6 mg Cap 2-12 9102 CAPSULE BY ity of 00:00: [facility] DAILY Medical Branch COLCHICINE 2021-03 Yes [id number] TAKE 1 [facility] 0.6 mg Cap 2-12 9102 CAPSULE BY ity of 00:00: [facility] DAILY Medical Branch COLCHICINE 2021-03 Yes [id number] TAKE 1 [facility] 0.6 mg Cap 2-12 9102 CAPSULE BY ity of 00:00: [facility] DAILY Medical Branch COLCHICINE 2021-03 Yes [id number] TAKE 1 Univers 0.6 mg Cap 2-12 9102 CAPSULE BY ity of 00:00: [facility] DAILY Medical Branch COLCHICINE 2021-03 Yes [id number] TAKE 1 [facility] 0.6 mg Cap 2-12 9102 CAPSULE BY ity of 00:00: [facility] DAILY Medical Branch COLCHICINE 2021-03 Yes [id number] TAKE 1 [facility] 0.6 mg Cap 2-12 9102 CAPSULE BY ity of 00:00: [facility] DAILY Medical Branch COLCHICINE 2021-03 Yes [id number] TAKE 1 [facility] 0.6 mg Cap 2-12 9102 CAPSULE BY ity of 00:00: [facility] DAILY Medical Branch COLCHICINE 2021-03 Yes [id number] TAKE 1 [facility] 0.6 mg Cap 2-12 9102 CAPSULE BY ity of 00:00: [facility] DAILY Medical Branch COLCHICINE 2021-03 Yes [id number] TAKE 1 [facility] 0.6 mg Cap 2-12 9102 CAPSULE BY ity of 00:00: [facility] DAILY Medical Branch COLCHICINE 2021- Yes [id number] TAKE 1 [facility] 0.6 mg Cap 2-12 9102 CAPSULE BY ity of 00:00: [facility] DAILY Medical Branch COLCHICINE 2021- Yes [id number] TAKE 1 [facility] 0.6 mg Cap 2-12 9102 CAPSULE BY ity of 00:00: [facility] DAILY Medical Branch COLCHICINE 2021- Yes [id number] TAKE 1 [facility] 0.6 mg Cap 2-12 9102 CAPSULE BY ity of 00:00: [facility] DAILY Medical Branch COLCHICINE 2021-03 Yes [id number] TAKE 1 [facility] 0.6 mg Cap 2-12 9102 CAPSULE BY ity of 00:00: [facility] DAILY Medical Branch COLCHICINE 2021-03 Yes [id number] TAKE 1 [facility] 0.6 mg Cap 2-12 9102 CAPSULE BY ity of 00:00: MOUTH [place] 00 DAILY Medical Branch COLCHICINE 2021-03 Yes [id number] TAKE 1 [facility] 0.6 mg Cap 2-12 9102 CAPSULE BY ity of 00:00: MOUTH [place] 00 DAILY Medical Branch COLCHICINE 2021-03 Yes [id number] TAKE 1 [facility] 0.6 mg Cap 2-12 9102 CAPSULE BY ity of 00:00: MOUTH DAILY Medical Branch COLCHICINE 2021-03 Yes [id number] TAKE 1 [facility] 0.6 mg Cap 2-12 9102 CAPSULE BY ity of 00:00: MOUTH DAILY Medical Branch COLCHICINE 2021-03 Yes [id number] TAKE 1 [facility] 0.6 mg Cap 2-12 9102 CAPSULE BY ity of 00:00: MOUTH DAILY [facility] Branch ATENOLOL-CH 2021-03- No [id number] 1{tbl} TAKE 1 [facility] LORTHALIDON 2-12 -17 TABLET BY it y of E 100-25 mg 00:00: 00:00 MOUTH IN [place] per tablet 00 :[address] [facility] ATENOLOL-CH 2021-03- No [id number] 1{tbl} TAKE 1 [facility] LORTHALIDON 2-12 -17 TABLET BY it y of E 100-25 mg 00:00: 00:00 M[place]TH [place] per tablet 00 :[address] [facility] ketorolac 2021-03- No 30mg 30 mg, Unive rs (TORADOL) 2- 12-06 Slow IV ity of injection 06:00: 04:59 [place], [place] 30 mg 00 :00 ONCE, 1 Medical dose, On Branch Sun02/21/22 at 0000, Routine insulin Yes [id number] 10U inject 10 [facility] aspart 9-16 Units ity of RAPID 00:00: under the [place] (NOVOLOG 00 skin 2 Medical U-100 (two) Branch INSULIN times ASPART) 100 daily unit/mL before injection breakfast and dinner. insulin Yes [id number] 10U inject 10 [facility] aspart 9-16 Units ity of RAPID 00:00: under the [place] (NOVOLOG 00 skin 2 Medical U-100 (two) Branch INSULIN times ASPART) 100 daily unit/mL before injection breakfast and dinner. insulin Yes [id number] 10U inject 10 [facility] aspart 9-16 Units ity of RAPID 00:00: under the [place] (NOVOLOG 00 skin 2 Medical U-100 (two) Branch INSULIN times ASPART) 100 daily unit/mL before injection breakfast and dinner. insulin Yes [id number] 10U inject 10 [facility] aspart 9-16 Units ity of RAPID 00:00: under the [place] (NOVOLOG 00 skin 2 Medical U-100 (two) Branch INSULIN times ASPART) 100 daily unit/mL before injection breakfast and dinner. insulin Yes [id number] 10U inject 10 [facility] aspart 9-16 Units ity of RAPID 00:00: under the [place] (NOVOLOG 00 skin 2 Medical U-100 (two) Branch INSULIN times ASPART) 100 daily unit/mL before injection breakfast and dinner. insulin Yes [id number] 10U inject 10 [facility] aspart 9-16 Units ity of RAPID 00:00: under the [place] (NOVOLOG 00 skin 2 Medical U-100 (two) Branch INSULIN times ASPART) 100 daily unit/mL before injection breakfast and dinner. insulin Yes [id number] 10U inject 10 [facility] aspart 9-16 Units ity of RAPID 00:00: under the [place] (NOVOLOG 00 skin 2 Medical U-100 (two) Branch INSULIN times ASPART) 100 daily unit/mL before injection breakfast and dinner. insulin Yes [id number] 10U inject 10 [facility] aspart 9-16 Units ity of RAPID 00:00: under the [place] (NOVOLOG 00 skin 2 Medical U-100 (two) Branch INSULIN times ASPART) 100 daily unit/mL before injection breakfast and dinner. insulin 2023- No [id number] 10U inject 10 [facility] aspart 9-16 01-10 Units ity of RAPID 00:00: 00:00 under the [place] (NOVOLOG 00 :00 skin 2 Medical U-100 (two) Branch INSULIN times ASPART) 100 daily unit/mL before injection breakfast and dinner. atorvastati Yes [id number] 10mg Take 1 [facility] n 10 mg 8 tablet by ity of tablet 00:00: mouth at [place] 00 bedtime. Medical Branch atenoloL-ch 0 Yes [id number] 1{tbl} Take 1 [facility] lorthalidon 8-02 tablet by ity of e 100-25 mg 00:00: mouth in [place] per tablet 00 the Medical morning. Branch blood sugar 2021-0 Yes [id number] Use as [facility] diagnostic - directed ity o f (TRUE 00:00: for twice [place] METRIX 00 a day Medical GLUCOSE glucose Branch TEST STRIP) monitoring strip for ICD E11.9 verapamiL 2021-0 Yes [id number] 180mg Take 1 U nivers 180 mg ER 8-02 tablet by ity o f tablet 00:00: mouth in [place] 00 the Medical morning. Branch atorvastati 2021-0 Yes [id number] 10mg Take 1 [facility] n 10 mg 8-02 tablet by ity of tablet 00:00: mouth at [place] 00 bedtime. Medical Branch atenoloL-ch 2021-0 Yes [id number] 1{tbl} Take 1 [facility] lorthalidon 8-02 tablet by ity of e 100-25 mg 00:00: mouth in [place] per tablet 00 the Medical morning. Branch blood sugar 2021-0 Yes [id number] Use as [facility] diagnostic 10-18 directed ity o f (TRUE 00:00: for twice [place] METRIX 00 a day Medical GLUCOSE glucose Branch TEST STRIP) monitoring strip for ICD E11.9 verapamiL 2021-0 Yes [id number] 180mg Take 1 U nivers 180 mg ER 8-02 tablet by ity o f tablet 00:00: mouth in [place] 00 the Medical morning. Branch atorvastati 2021-0 Yes [id number] 10mg Take 1 [facility] n 10 mg 8-02 tablet by ity of tablet 00:00: mouth at [place] 00 bedtime. Medical Branch atenoloL-ch 2021-0 Yes [id number] 1{tbl} Take 1 [facility] lorthalidon 8-02 tablet by ity of e 100-25 mg 00:00: mouth in [place] per tablet 00 the Medical morning. Branch verapamiL 2-0 Yes [id number] 180mg Take 1 U nivers 180 mg ER 8-02 tablet by ity o f tablet 00:00: mouth in [place] 00 the Medical morning. Branch atorvastati 2021-0 Yes [id number] 10mg Take 1 [facility] n 10 mg 8-02 tablet by ity of tablet 00:00: mouth at [place] 00 bedtime. Medical Branch atenoloL-ch 2021-0 Yes [id number] 1{tbl} Take 1 [facility] lorthalidon 8-02 tablet by ity of e 100-25 mg 00:00: mouth in [place] per tablet 00 the Medical morning. Branch verapamiL 2021-0 Yes [id number] 180mg Take 1 U nivers 180 mg ER 8-02 tablet by ity o f tablet 00:00: mouth in [place] 00 the Medical morning. Branch atorvastati 2021-0 Yes [id number] 10mg Take 1 [facility] n 10 mg 8-02 tablet by ity of tablet 00:00: mouth at [place] 00 bedtime. Medical Branch atenoloL-ch 2021-0 Yes [id number] 1{tbl} Take 1 [facility] lorthalidon 8-02 tablet by ity of e 100-25 mg 00:00: mouth in [place] per tablet 00 the Medical morning. Branch verapamiL 2021-0 Yes [id number] 180mg Take 1 U nivers 180 mg ER 8-02 tablet by ity o f tablet 00:00: mouth in [place] 00 the Medical morning. Branch atorvastati 2021-0 Yes [id number] 10mg Take 1 [facility] n 10 mg 8-02 tablet by ity of tablet 00:00: mouth at [place] 00 bedtime. Medical Branch atenoloL-ch 2021-0 Yes [id number] 1{tbl} Take 1 [facility] lorthalidon 8-02 tablet by ity of e 100-25 mg 00:00: mouth [place] per tablet 00 the Medical morning. Branch verapamiL 2021-0 Yes [id number] 180mg Take 1 U nivers 180 mg ER 8-02 tablet by ity o f tablet 00:00: mouth in [place] 00 the Medical morning. Branch atorvastati 2021-0 Yes [id number] 10mg Take 1 [facility] n 10 mg 8-02 tablet by ity of tablet 00:00: mouth at [place] 00 bedtime. Medical Branch verapamiL 2-0 Yes [id number] 180mg Take 1 U nivers 180 mg ER 8-02 tablet by ity o f tablet 00:00: mouth in [place] 00 the Medical morning. Branch atorvastati 2021-0 Yes [id number] 10mg Take 1 [facility] n 10 mg 8-02 tablet by ity of tablet 00:00: mouth at [place] 00 bedtime. Medical Branch verapamiL 2021-0 Yes [id number] 180mg Take 1 U nivers 180 mg ER 8-02 tablet by ity o f tablet 00:00: mouth in [place] the Medical morning. Branch atorvastati 0 Yes [id number] 10mg Take 1 [facility] n 10 mg 8-02 tablet by ity of tablet 00:00: mouth at [place] 00 bedtime. Medical Branch verapamiL 2021-0 Yes [id number] 180mg Take 1 U nivers 180 mg ER 8-02 tablet by ity o f tablet 00:00: mouth in [place] the Medical morning. Branch atorvastati Yes [id number] 10mg Take 1 [facility] n 10 mg 8-02 tablet by ity of tablet 00:00: mouth at [place] 00 bedtime. Medical Branch verapamiL 2021-0 Yes [id number] 180mg Take 1 U nivers 180 mg ER 8-02 tablet by ity o f tablet 00:00: mouth in [place] the Medical morning. Branch atorvastati 0 Yes [id number] 10mg Take 1 [facility] n 10 mg 8-02 tablet by ity of tablet 00:00: mouth at [place] 00 bedtime. Medical Branch atorvastati Yes [id number] 10mg Take 1 [facility] n 10 mg 8-02 tablet by ity of tablet 00:00: mouth at [place] 00 bedtime. Medical Branch atorvastati Yes [id number] 10mg Take 1 [facility] n 10 mg 8-02 tablet by ity of tablet 00:00: mouth at [place] 00 bedtime. Medical Branch atorvastati 0 Yes [id number] 10mg Take 1 [facility] n 10 mg 8-02 tablet by ity of tablet 00:00: mouth at [place] 00 bedtime. Medical Branch atorvastati 0 Yes [id number] 10mg Take 1 [facility] n 10 mg 8-02 tablet by ity of tablet 00:00: mouth at [place] 00 bedtime. Medical Branch atorvastati 0 Yes [id number] 10mg Take 1 [facility] n 10 mg 8-02 tablet by ity of tablet 00:00: mouth at [place] 00 bedtime. Medical Branch atorvastati 0 Yes [id number] 10mg Take 1 [facility] n 10 mg 8-02 tablet by ity of tablet 00:00: mouth at [place] 00 bedtime. Medical [facility] Yes [id number] 10mg Take 1 [facility] n 10 mg 8-02 tablet by ity of tablet 00:00: mouth at [place] 00 bedtime. Medical Branch [facility] Yes [id number] 10mg Take 1 [facility] n 10 mg 8-02 tablet by ity of tablet 00:00: mouth at [place] 00 bedtime. Medical Branch atorvasta Yes [id number] 10mg Take 1 [facility] n 10 mg 8-02 tablet by ity of tablet 00:00: mouth at [place] 00 bedtime. Medical Branch atorvasta Yes [id number] 10mg Take 1 [facility] n 10 mg 8-02 tablet by ity of tablet 00:00: mouth at [place] 00 bedtime. Medical Branch atorvasta Yes [id number] 10mg Take 1 [facility] n 10 mg 8-02 tablet by ity of tablet 00:00: mouth at [place] 00 bedtime. Medical [facility] Yes [id number] 10mg Take 1 [facility] n 10 mg 8-02 tablet by ity of tablet 00:00: mouth at [place] 00 bedtime. [facility] Yes [id number] 10mg Take 1 [facility] n 10 mg 8-02 tablet by ity of tablet 00:00: mouth at [place] 00 bedtime. Medical Branch atorvasta Yes [id number] 10mg Take 1 [facility] n 10 mg 8-02 tablet by ity of tablet 00:00: mouth at [place] 00 bedtime. Medical Branch atorvasta Yes [id number] 10mg Take 1 [facility] n 10 mg 8-02 tablet by ity of tablet 00:00: mouth at [place] 00 bedtime. Medical Branch atorvasta Yes [id number] 10mg Take 1 [facility] n 10 mg 8-02 tablet by ity of tablet 00:00: mouth at [place] 00 bedtime. Medical Branch atorvasta Yes [id number] 10mg Take 1 [facility] n 10 mg 8-02 tablet by ity of tablet 00:00: mouth at [place] 00 bedtime. Medical Branch atorvasta Yes [id number] 10mg Take 1 [facility] n 10 mg 8-02 tablet by ity of tablet 00:00: mouth at [place] [address] bedtime. [facility] Yes [id number] 10mg Take 1 [facility] n 10 mg 8-02 tablet by ity of tablet 00:00: mouth at [place] [address] bedtime. Medical Branch [facility] 0 Yes [id number] 10mg Take 1 [facility] n 10 mg 8-02 tablet by ity of tablet 00:00: mouth at [place] 00 bedtime. Medical [facility] Yes [id number] 10mg Take 1 [facility] n 10 mg 8-02 tablet by ity of tablet 00:00: mouth at [place] [address] bedtime. [facility] Yes [id number] 10mg Take 1 [facility] n 10 mg 8-02 tablet by ity of tablet 00:00: mouth at [place] [address] bedtime. Medical Branch [facility] Yes [id number] 10mg Take 1 [facility] n 10 mg 8-02 tablet by ity of tablet 00:00: mouth at [place] [address] bedtime. Medical [facility] Yes [id number] 10mg Take 1 [facility] n 10 mg 8-02 tablet by ity of tablet 00:00: mouth at [place] [address] bedtime. Medical [facility] Yes [id number] 10mg Take 1 [facility] n 10 mg 8-02 tablet by ity of tablet 00:00: mouth at [place] [address] bedtime. [facility] Branch [facility] 0 Yes [id number] 10mg Take 1 [facility] n 10 mg 8-02 tablet by ity of tablet 00:00: mouth at [place] [address] bedtime. [facility] Branch [facility] Yes [id number] 10mg Take 1 [facility] n 10 mg 8-02 tablet by ity of tablet 00:00: mouth at [place] [address] bedtime. [facility] Branch [facility] Yes [id number] 10mg Take 1 [facility] n 10 mg 8-02 tablet by ity of tablet 00:00: mouth at [place] [address] bedtime. [facility] Branch [facility] Yes [id number] 10mg Take 1 [facility] n 10 mg 8-02 tablet by ity of tablet 00:00: mouth at [place] [address] bedtime. Medical Branch atorvastati Yes [id number] 10mg Take 1 [facility] n 10 mg 8-02 tablet by ity of tablet 00:00: mouth at [place] [address] bedtime. Medical Branch atorvastati Yes [id number] 10mg Take 1 [facility] n 10 mg 8-02 tablet by ity of tablet 00:00: mouth at [place] [address] bedtime. Medical Branch atorvastati Yes [id number] 10mg Take 1 [facility] n 10 mg 8-02 tablet by ity of tablet 00:00: mouth at [place] [address] bedtime. Medical Branch atorvastati Yes [id number] 10mg Take 1 [facility] n 10 mg 8-02 tablet by ity of tablet 00:00: mouth at [place] [address] bedtime. Medical Branch atorvastati Yes [id number] 10mg Take 1 [facility] n 10 mg 8-02 tablet by ity of tablet 00:00: mouth at [place] [address] bedtime. Medical Branch atorvastati Yes [id number] 10mg Take 1 [facility] n 10 mg 8-02 tablet by ity of tablet 00:00: mouth at [place] [address] bedtime. Medical Branch verapamiL 2022- No [id number] 180mg Take 1 [facility] 180 mg ER 10-18 tablet by ity of tablet 00:00: 00:00 mouth in [place] 00 :00 the Medical morning. Branch verapamiL 2022- No [id number] 180mg Take 1 [facility] 180 mg ER 10-18 tablet by ity of tablet 00:00: 00:00 mouth in [place] 00 :00 the Medical morning. Branch atenoloL-ch 2021- No [id number] 1{tbl} Take 1 [facility] lorthalidon 10-18 tablet by it y of e 100-25 mg 00:00: 00:00 mouth in [place] per tablet 00 :00 the Medical morning. Branch blood sugar 2021- No [id number] Use as [facility] diagnostic 10-18 directed ity of (TRUE 00:00: 00:00 for twice [place] METRIX 00 :00 a day Medical GLUCOSE glucose Branch TEST STRIP) monitoring strip for ICD E11.9 blood sugar 2021- No [id number] Use as [facility] diagnostic 10-18 directed ity of (TRUE 00:00: 00:00 for twice [place] METRIX 00 :00 a day Medical GLUCOSE glucose Branch TEST STRIP) monitoring strip for ICD E11.9 insulin 0 Yes [id number] 15U inject 15 [facility] glargine 8-01 Units ity of (LANTUS 00:00: under the [place] U-100 00 skin at Medical INSULIN) bedtime. Branch 100 unit/mL injection insulin 0 Yes [id number] 15U inject 15 [facility] glargine 8-01 Units ity of (LANTUS 00:00: under the [place] U-100 00 skin at Medical INSULIN) bedtime. Branch 100 unit/mL injection insulin Yes [id number] 15U inject 15 [facility] glargine 8-01 Units ity of (LANTUS 00:00: under the [place] U-100 00 skin at Medical INSULIN) bedtime. Branch 100 unit/mL injection insulin Yes [id number] 15U inject 15 [facility] glargine 8-01 Units ity of (LANTUS 00:00: under the [place] U-100 00 skin at Medical INSULIN) bedtime. Branch 100 unit/mL injection insulin Yes [id number] 15U inject 15 [facility] glargine 8-01 Units ity of (LANTUS 00:00: under the [place] U-100 00 skin at Medical INSULIN) bedtime. Branch 100 unit/mL injection insulin Yes [id number] 15U inject 15 [facility] glargine 8-01 Units ity of (LANTUS 00:00: under the [place] U-100 00 skin at Medical INSULIN) bedtime. Branch 100 unit/mL injection insulin Yes [id number] 15U inject 15 [facility] glargine 8-01 Units ity of (LANTUS 00:00: under the [place] U-100 00 skin at Medical INSULIN) bedtime. Branch 100 unit/mL injection insulin Yes [id number] 15U inject 15 [facility] glargine 8-01 Units ity of (LANTUS 00:00: under the [place] U-100 00 skin at Medical INSULIN) bedtime. Branch 100 unit/mL injection insulin 0 Yes [id number] 15U inject 15 [facility] glargine 8-01 Units ity of (LANTUS 00:00: under the [place] U-100 00 skin at Medical INSULIN) bedtime. Branch 100 unit/mL injection insulin 0 Yes [id number] 15U inject 15 [facility] glargine 8-01 Units ity of (LANTUS 00:00: under the [place] U-100 00 skin at Medical INSULIN) bedtime. Branch 100 unit/mL injection insulin 0 Yes [id number] 15U inject 15 [facility] glargine 8-01 Units ity of (LANTUS 00:00: under the [place] U-100 00 skin at Medical INSULIN) bedtime. Branch 100 unit/mL injection insulin Yes [id number] 15U inject 15 [facility] glargine 8-01 Units ity of (LANTUS 00:00: under the [place] U-100 00 skin at Medical INSULIN) bedtime. Branch 100 unit/mL injection insulin Yes [id number] 15U inject 15 [facility] glargine 8-01 Units ity of (LANTUS 00:00: under the [place] U-100 00 skin at Medical INSULIN) bedtime. Branch 100 unit/mL injection insulin Yes [id number] 15U inject 15 [facility] glargine 8-01 Units ity of (LANTUS 00:00: under the [place] U-100 00 skin at Medical INSULIN) bedtime. Branch 100 unit/mL injection insulin Yes [id number] 15U inject 15 [facility] glargine 8-01 Units ity of (LANTUS 00:00: under the [place] U-100 00 skin at Medical INSULIN) bedtime. Branch 100 unit/mL injection insulin 0 3- No [id number] 15U inject 15 [facility] glargine 8-01 05-05 Units ity of (LANTUS 00:00: 00:00 [place] U-100 00 :00 skin at Medical INSULIN) bedtime. Branch 100 unit/mL injection insulin 0 2023- No [id number] 15U inject 15 [facility] glargine 8-01 05-05 Units ity of (LANTUS 00:00: 00:[place] U-100 00 :00 skin at Medical INSULIN) bedtime. Branch 100 unit/mL injection semaglutide 2021-0 Yes [id number] .5mg inject 0.5 Univers (OZEMPIC) 7-15 mg under ity of 0.25 mg or 00:00: the skin [place] 0.5 mg(2 00 weekly. Medical mg/1.5 mL) Branch PnIj semaglutide 2021-0 Yes [id number] .5mg inject 0.5 [facility] (OZEMPIC) 7-15 mg under ity of 0.25 mg or 00:00: the skin [place] 0.5 mg(2 00 weekly. Medical mg/1.5 mL) Branch PnIj semaglutide 2021-0 Yes [id number] .5mg inject 0.5 [facility] (OZEMPIC) 7-15 mg under ity of 0.25 mg or 00:00: the [place] 0.5 mg(2 00 weekly. Medical mg/1.5 mL) Branch PnIj semaglutide 2021-0 Yes [id number] .5mg inject 0.5 [facility] (OZEMPIC) 7-15 mg under ity of 0.25 mg or 00:00: the [place] 0.5 mg(2 00 weekly. Medical mg/1.5 mL) Branch PnIj semaglutide 2021-0 Yes [id number] .5mg inject 0.5 [facility] (OZEMPIC) 7-15 mg under ity of 0.25 mg or 00:00: the [place] 0.5 mg(2 00 weekly. Medical mg/1.5 mL) Branch PnIj semaglutide 2021-0 Yes [id number] .5mg inject 0.5 [facility] (OZEMPIC) 7-15 mg under ity of 0.25 mg or 00:00: the skin [place] 0.5 mg(2 00 weekly. Medical mg/1.5 mL) Branch PnIj semaglutide 2021-0 Yes [id number] .5mg inject 0.5 [facility] (OZEMPIC) 7-15 mg under ity of 0.25 mg or 00:00: the [place] 0.5 mg(2 00 weekly. Medical mg/1.5 mL) Branch PnIj semaglutide 2021-0 Yes [id number] .5mg inject 0.5 [facility] (OZEMPIC) 7-15 mg under ity of 0.25 mg or 00:00: the [place] 0.5 mg(2 00 weekly. Medical mg/1.5 mL) Branch PnIj semaglutide 2021-0 Yes [id number] .5mg inject 0.5 [facility] (OZEMPIC) 7-15 mg under ity of 0.25 mg or 00:00: the skin [place] 0.5 mg(2 00 weekly. Medical mg/1.5 mL) Branch PnIj semaglutide 2021-0 Yes [id number] .5mg inject 0.5 [facility] (OZEMPIC) 7-15 mg under ity of 0.25 mg or 00:00: the [place] 0.5 mg(2 00 weekly. Medical mg/1.5 mL) Branch PnIj semaglutide 2021-0 Yes [id number] .5mg inject 0.5 [facility] (OZEMPIC) 7-15 mg under ity of 0.25 mg or 00:00: the skin [place] 0.5 mg(2 00 weekly. Medical mg/1.5 mL) Branch PnIj semaglutide 2021-0 Yes [id number] .5mg inject 0.5 Univers (OZEMPIC) 7-15 mg under ity of 0.25 mg or 00:00: the skin [place] 0.5 mg(2 00 weekly. Medical mg/1.5 mL) Branch PnIj semaglutide 2021-0 Yes [id number] .5mg inject 0.5 Univers (OZEMPIC) 7-15 mg under ity of 0.25 mg or 00:00: the skin [place] 0.5 mg(2 00 weekly. Medical mg/1.5 mL) Branch PnIj semaglutide 2021-0 Yes [id number] .5mg inject 0.5 Univers (OZEMPIC) 7-15 mg under ity of 0.25 mg or 00:00: the skin [place] 0.5 mg(2 00 weekly. Medical mg/1.5 mL) Branch PnIj semaglutide 2021-0 Yes [id number] .5mg inject 0.5 Univers (OZEMPIC) 7-15 mg under ity of 0.25 mg or 00:00: the skin [place] 0.5 mg(2 00 weekly. Medical mg/1.5 mL) Branch PnIj semaglutide Yes [id number] .5mg inject 0.5 Univers (OZEMPIC) 7-15 mg under ity of 0.25 mg or 00:00: the skin [place] 0.5 mg(2 00 weekly. Medical mg/1.5 mL) Branch PnIj semaglutide 2022- No [id number] .5mg inject 0.5 Univers (OZEMPIC) 7-15 05-05 mg under ity o f 0.25 mg or 00:00: [place] 0.5 mg(2 00 :00 weekly. Medical mg/1.5 mL) Branch PnIj semaglutide 2022- No [id number] .5mg inject 0.5 Univers (OZEMPIC) 7-15 05-05 mg under ity o f 0.25 mg or 00:00: 00:00 [place] 0.5 mg(2 00 :00 weekly. Medical mg/1.5 mL) Branch PnIj insulin Yes [id number] 10U inject 10 Univers aspart 7-08 Units ity of RAPID 00:00: under the [place] (NOVOLOG 00 skin 2 Medical U-100 (two) Branch INSULIN times ASPART) 100 daily unit/mL before injection breakfast and dinner. insulin Yes [id number] 10U inject 10 Univers aspart 7-08 Units ity of RAPID 00:00: under the [place] (NOVOLOG 00 skin 2 Medical U-100 (two) Branch INSULIN times ASPART) 100 daily unit/mL before injection breakfast and dinner. insulin 2021- No [id number] 10U inject 10 Univers aspart 7-08 09-16 Units ity of RAPID 00:00: 00:00 under the [place] (NOVOLOG 00 :00 skin 2 Medical U-100 (two) Branch INSULIN times ASPART) 100 daily unit/mL before injection breakfast and dinner. insulin 2021- No [id number] 15U inject 15 Univers glargine 7-08 08-01 Units ity of (LANTUS 00:00: [facility]00 [facility] :00 skin at Medical INSULIN) bedtime. Branch 100 unit/mL injection amoxicillin 2021- No [id number] 500mg Take 1 Univers 500 mg 09-23 tablet by ity of tablet 00:00: 04:59 mouth 2 [place] 00 :00 (two) Medical times Branch daily for 7 days. carbamide 2021- No [id number] 5[drp] Place 5 Univers peroxide 09-23 96920 Drops in ity o f 6.5 % otic 00:00: 04:59 left ear 2 [place] solution 00 :00 (two) Medical times Branch daily for 7 days. ATENOLOL-CH 2021- No [id number] 1{tbl} TAKE 1 Univers LORTHALIDON 09-12 TABLET BY it y of E 100-25 mg 00:00: 00:00 MOUTH [place] per tablet 00 :00 DAILY Medical Branch VERAPAMIL 2021- No [id number] 180mg TAKE 1 Univers 180 mg ER 09-12 TABLET BY ity of tablet 00:00: 00:00 MOUTH [place] 00 :00 DAILY Medical Branch blood sugar 2021- No [id number] Use as Univers diagnostic 09-02 directed ity of (TRUE 00:00: 00:00 for twice [place] METRIX 00 :00 a day Medical GLUCOSE glucose Branch TEST STRIP) monitoring strip for ICD E11.9 dapaglifloz 2021- No [id number] 10mg Take 1 Univers in -06 10-15 tablet by ity of (FARXIGA) 00:00: 00:00 mouth [place] 10 mg 00 :00 daily. Medical tablet Branch colchicine 2020-03 Yes [id number] .6mg Take 0.6 Univers (MITIGARE) 2-29 9102 mg by ity of 0.6 mg Cap 00:00: mouth [place] 00 daily. Medical Branch colchicine 2020-03 Yes [id number] .6mg Take 0.6 Univers (MITIGARE) 2-29 9102 mg by ity of 0.6 mg Cap 00:00: mouth [place] 00 daily. Medical Branch colchicine 2020-03 Yes [id number] .6mg Take 0.6 Univers (MITIGARE) 2-29 9102 mg by ity of 0.6 mg Cap 00:00: mouth [place] 00 daily. Medical Branch colchicine 2020-03 Yes [id number] .6mg Take 0.6 Univers (MITIGARE) 2-29 9102 mg by ity of 0.6 mg Cap 00:00: mouth [place] 00 daily. Medical Branch colchicine 2020-03 Yes [id number] .6mg Take 0.6 Univers (MITIGARE) 2-29 9102 mg by ity of 0.6 mg Cap 00:00: mouth [place] 00 daily. Medical Branch colchicine 2020-03 Yes [id number] .6mg Take 0.6 Univers (MITIGARE) 2-29 9102 mg by ity of 0.6 mg Cap 00:00: mouth [place] 00 daily. Medical Branch colchicine 2020-03 Yes [id number] .6mg Take 0.6 Univers (MITIGARE) 2-29 9102 mg by ity of 0.6 mg Cap 00:00: mouth [place] 00 daily. Medical Branch colchicine 2020-03 Yes [id number] .6mg Take 0.6 Univers (MITIGARE) 2-29 9102 mg by ity of 0.6 mg Cap 00:00: mouth [place] 00 daily. Medical Branch colchicine 2020-03- No [id number] .6mg Take 0.6 Univers (MITIGARE) 2-29 12-12 9102 mg by ity of 0.6 mg Cap 00:00: 00:00 mouth [place] 00 :00 daily. Medical Branch atorvastati 2020-03- No [id number] 10mg Take 1 Univers n 10 mg 2-05 11- tablet by ity of tablet 00:00: 00:00 mouth at [place] 00 :00 bedtime. Medical Branch clotrimazol 2019-03- No [id number] 10mg Take 1 Univers e 10 mg 2-04 26- tablet by ity of aaron 00:00: 00:00 mouth 5 [place] 00 :00 (five) Medical times Branch daily. DICLOFENAC 2021- No TAKE 1 Univ ers 75 mg EC -05 11- TABLET BY ity o f tablet 00:00: 00:00 MOUTH [place] 00 :00 THREE Medical TIMES Branch DAILY WITH MEALS ALPRAZolam 2021- No [id number] .5mg Take 1 Univers 0.5 mg -03 11- tablet by ity of tablet 00:00: 00:00 mouth 3 [place] 00 :00 (three) Medical times Branch daily as needed for Other (anxiety). Immunizations Ordered Filled Immunization Date Status Comments [facility] e Immunization Name Name SARS-COV-2 COVID-19 2020-06-29 Completed Unive rsity of PFIZER VACCINE 00:00:00 [facility] SARS-COV-2 COVID-19 2020-06-29 Completed Unive rsity of PFIZER VACCINE 00:00:00 [facility] SARS-COV-2 COVID-19 2020-06-29 Completed Unive rsity of PFIZER VACCINE 00:00:00 [facility] SARS-COV-2 COVID-19 2020-06-29 Completed Unive rsity of PFIZER VACCINE 00:00:00 [facility] SARS-COV-2 COVID-19 2020-06-29 Completed Unive rsity of PFIZER VACCINE 00:00:00 [facility] SARS-COV-2 COVID-19 2020-06-29 Completed Unive rsity of PFIZER VACCINE 00:00:00 [facility] SARS-COV-2 COVID-19 2020-06-29 Completed Unive rsity of PFIZER VACCINE 00:00:00 [facility] SARS-COV-2 COVID-19 2020-06-29 Completed Unive rsity of PFIZER VACCINE 00:00:00 [facility] SARS-COV-2 COVID-19 2020-06-29 Completed Unive rsity of PFIZER VACCINE 00:00:00 [facility] SARS-COV-2 COVID-19 2020-06-29 Completed Unive rsity of PFIZER VACCINE 00:00:00 [facility] SARS-COV-2 COVID-19 2020-06-29 Completed Unive rsity of PFIZER VACCINE 00:00:00 [facility] SARS-COV-2 COVID-19 2020-06-29 Completed Unive rsity of PFIZER VACCINE 00:00:00 [facility] SARS-COV-2 COVID-19 2020-06-29 Completed Unive rsity of PFIZER VACCINE 00:00:00 [facility] SARS-COV-2 COVID-19 2020-06-29 Completed Unive rsity of PFIZER VACCINE 00:00:00 [facility] SARS-COV-2 COVID-19 2020-06-29 Completed Unive rsity of PFIZER VACCINE 00:00:00 [facility] Branch SARS-COV-2 COVID-19 2020-06-29 Completed Unive rsity of PFIZER VACCINE 00:00:00 [place] [facility] Branch SARS-COV-2 COVID-19 2020-06-29 Completed Unive rsity of PFIZER VACCINE 00:00:00 [facility] Branch SARS-COV-2 COVID-19 2020-06-29 Completed Unive rsity of PFIZER VACCINE 00:00:00 [facility] Branch SARS-COV-2 COVID-19 2020-06-29 Completed Unive rsity of PFIZER VACCINE 00:00:00 [facility] Branch SARS-COV-2 COVID-19 2020-06-29 Completed Unive rsity of PFIZER VACCINE 00:00:00 [facility] Branch SARS-COV-2 COVID-19 2020-06-29 Completed Unive rsity of PFIZER VACCINE 00:00:00 [facility] Branch SARS-COV-2 COVID-19 2020-06-29 Completed Unive rsity of PFIZER VACCINE 00:00:00 [facility] Branch SARS-COV-2 COVID-19 2020-06-29 Completed Unive rsity of PFIZER VACCINE 00:00:00 [facility] Branch SARS-COV-2 COVID-19 2020-06-29 Completed Unive rsity of PFIZER VACCINE 00:00:00 [facility] Branch SARS-COV-2 COVID-19 2020-06-29 Completed Unive rsity of PFIZER VACCINE 00:00:00 [facility] Branch SARS-COV-2 COVID-19 2020-06-29 Completed Unive rsity of PFIZER VACCINE 00:00:00 [facility] Branch SARS-COV-2 COVID-19 2020-06-29 Completed Unive rsity of PFIZER VACCINE 00:00:00 [facility] Branch SARS-COV-2 COVID-19 2020-06-29 Completed Unive rsity of PFIZER VACCINE 00:00:00 [facility] Branch SARS-COV-2 COVID-19 2020-06-29 Completed Unive rsity of PFIZER VACCINE 00:00:00 [facility] Branch SARS-COV-2 COVID-19 2020-06-29 Completed Unive rsity of PFIZER VACCINE 00:00:00 [facility] Branch SARS-COV-2 COVID-19 2020-06-29 Completed Unive rsity of PFIZER VACCINE 00:00:00 [facility] SARS-COV-2 COVID-19 2020-06-29 Completed Unive rsity of PFIZER VACCINE 00:00:00 [facility] Branch SARS-COV-2 COVID-19 2020-06-29 Completed Unive rsity of PFIZER VACCINE 00:00:00 [facility] Branch SARS-COV-2 COVID-19 2020-06-29 Completed Unive rsity of PFIZER VACCINE 00:00:00 [facility] Branch SARS-COV-2 COVID-19 2020-06-29 Completed Unive rsity of PFIZER VACCINE 00:00:00 [facility] Branch SARS-COV-2 COVID-19 2020-06-29 Completed Unive rsity of PFIZER VACCINE 00:00:00 [facility] Branch SARS-COV-2 COVID-19 2020-06-29 Completed Unive rsity of PFIZER VACCINE 00:00:00 [facility] Branch SARS-COV-2 COVID-19 2020-06-29 Completed Unive rsity of PFIZER VACCINE 00:00:00 [facility] Branch SARS-COV-2 COVID-19 2020-06-29 Completed Unive rsity of PFIZER VACCINE 00:00:00 [facility] Branch SARS-COV-2 COVID-19 2020-06-29 Completed Unive rsity of PFIZER VACCINE 00:00:00 [facility] SARS-COV-2 COVID-19 2020-06-29 Completed Unive rsity of PFIZER VACCINE 00:00:00 [facility] SARS-COV-2 COVID-19 2020-06-29 Completed Unive rsity of PFIZER VACCINE 00:00:00 [facility] Branch SARS-COV-2 COVID-19 2020-06-29 Completed Unive rsity of PFIZER VACCINE 00:00:00 [facility] Branch SARS-COV-2 COVID-19 2020-06-29 Completed Unive rsity of PFIZER VACCINE 00:00:00 [facility] SARS-COV-2 COVID-19 2020-06-29 Completed Unive rsity of PFIZER VACCINE 00:00:00 [facility] SARS-COV-2 COVID-19 2020-06-29 Completed Unive rsity of PFIZER VACCINE 00:00:00 [place] [facility] SARS-COV-2 COVID-19 2020-06-29 Completed Unive rsity of PFIZER VACCINE 00:00:00 [facility] Branch SARS-COV-2 COVID-19 2020-06-29 Completed Unive rsity of PFIZER VACCINE 00:00:00 [facility] Branch SARS-COV-2 COVID-19 2020-06-29 Completed Unive rsity of PFIZER VACCINE 00:00:00 [facility] Branch SARS-COV-2 COVID-19 2020-06-29 Completed Unive rsity of PFIZER VACCINE 00:00:00 [facility] Branch SARS-COV-2 COVID-19 2020-06-08 Completed Unive rsity of PFIZER VACCINE 00:00:00 [facility] Branch SARS-COV-2 COVID-19 2020-06-08 Completed Unive rsity of PFIZER VACCINE 00:00:00 [facility] Branch SARS-COV-2 COVID-19 2020-06-08 Completed Unive rsity of PFIZER VACCINE 00:00:00 [facility] Branch SARS-COV-2 COVID-19 2020-06-08 Completed Unive rsity of PFIZER VACCINE 00:00:00 [facility] Branch SARS-COV-2 COVID-19 2020-06-08 Completed Unive rsity of PFIZER VACCINE 00:00:00 [facility] Branch SARS-COV-2 COVID-19 2020-06-08 Completed Unive rsity of PFIZER VACCINE 00:00:00 [facility] Branch SARS-COV-2 COVID-19 2020-06-08 Completed Unive rsity of PFIZER VACCINE 00:00:00 [facility] Branch SARS-COV-2 COVID-19 2020-06-08 Completed Unive rsity of PFIZER VACCINE 00:00:00 [facility] Branch SARS-COV-2 COVID-19 2020-06-08 Completed Unive rsity of PFIZER VACCINE 00:00:00 [facility] Branch SARS-COV-2 COVID-19 2020-06-08 Completed Unive rsity of PFIZER VACCINE 00:00:00 [facility] SARS-COV-2 COVID-19 2020-06-08 Completed Unive rsity of PFIZER VACCINE 00:00:00 [facility] Branch SARS-COV-2 COVID-19 2020-06-08 Completed Unive rsity of PFIZER VACCINE 00:00:00 [facility] Branch SARS-COV-2 COVID-19 2020-06-08 Completed Unive rsity of PFIZER VACCINE 00:00:00 [facility] Branch SARS-COV-2 COVID-19 2020-06-08 Completed Unive rsity of PFIZER VACCINE 00:00:00 [facility] Branch SARS-COV-2 COVID-19 2020-06-08 Completed Unive rsity of PFIZER VACCINE 00:00:00 [facility] Branch SARS-COV-2 COVID-19 2020-06-08 Completed Unive rsity of PFIZER VACCINE 00:00:00 [facility] Branch SARS-COV-2 COVID-19 2020-06-08 Completed Unive rsity of PFIZER VACCINE 00:00:00 [facility] Branch SARS-COV-2 COVID-19 2020-06-08 Completed Unive rsity of PFIZER VACCINE 00:00:00 [facility] Branch SARS-COV-2 COVID-19 2020-06-08 Completed Unive rsity of PFIZER VACCINE 00:00:00 [facility] Branch SARS-COV-2 COVID-19 2020-06-08 Completed Unive rsity of PFIZER VACCINE 00:00:00 [facility] Branch SARS-COV-2 COVID-19 2020-06-08 Completed Unive rsity of PFIZER VACCINE 00:00:00 [facility] Branch SARS-COV-2 COVID-19 2020-06-08 Completed Unive rsity of PFIZER VACCINE 00:00:00 [facility] Branch SARS-COV-2 COVID-19 2020-06-08 Completed Unive rsity of PFIZER VACCINE 00:00:00 [facility] Branch SARS-COV-2 COVID-19 2020-06-08 Completed Unive rsity of PFIZER VACCINE 00:00:00 [facility] Branch SARS-COV-2 COVID-19 2020-06-08 Completed Unive rsity of PFIZER VACCINE 00:00:00 [facility] Branch SARS-COV-2 COVID-19 2020-06-08 Completed Unive rsity of PFIZER VACCINE 00:00:00 [facility] Branch SARS-COV-2 COVID-19 2020-06-08 Completed Unive rsity of PFIZER VACCINE 00:00:00 [facility] Branch SARS-COV-2 COVID-19 2020-06-08 Completed Unive rsity of PFIZER VACCINE 00:00:00 [facility] Branch SARS-COV-2 COVID-19 2020-06-08 Completed Unive rsity of PFIZER VACCINE 00:00:00 [facility] Branch SARS-COV-2 COVID-19 2020-06-08 Completed Unive rsity of PFIZER VACCINE 00:00:00 [facility] Branch SARS-COV-2 COVID-19 2020-06-08 Completed Unive rsity of PFIZER VACCINE 00:00:00 [facility] Branch SARS-COV-2 COVID-19 2020-06-08 Completed Unive rsity of PFIZER VACCINE 00:00:00 [facility] Branch SARS-COV-2 COVID-19 2020-06-08 Completed Unive rsity of PFIZER VACCINE 00:00:00 [facility] Branch SARS-COV-2 COVID-19 2020-06-08 Completed Unive rsity of PFIZER VACCINE 00:00:00 [facility] Branch SARS-COV-2 COVID-19 2020-06-08 Completed Unive rsity of PFIZER VACCINE 00:00:00 [facility] Branch SARS-COV-2 COVID-19 2020-06-08 Completed Unive rsity of PFIZER VACCINE 00:00:00 [facility] Branch SARS-COV-2 COVID-19 2020-06-08 Completed Unive rsity of PFIZER VACCINE 00:00:00 [facility] Branch SARS-COV-2 COVID-19 2020-06-08 Completed Unive rsity of PFIZER VACCINE 00:00:00 [facility] Branch SARS-COV-2 COVID-19 2020-06-08 Completed Unive rsity of PFIZER VACCINE 00:00:00 [facility] Branch SARS-COV-2 COVID-19 2020-06-08 Completed Unive rsity of PFIZER VACCINE 00:00:00 [facility] Branch SARS-COV-2 COVID-19 2020-06-08 Completed Unive rsity of PFIZER VACCINE 00:00:00 [facility] Branch SARS-COV-2 COVID-19 2020-06-08 Completed Unive rsity of PFIZER VACCINE 00:00:00 [facility] Branch SARS-COV-2 COVID-19 2020-06-08 Completed Unive rsity of PFIZER VACCINE 00:00:00 [facility] SARS-COV-2 COVID-19 2020-06-08 Completed Unive rsity of PFIZER VACCINE 00:00:00 [facility] SARS-COV-2 COVID-19 2020-06-08 Completed Unive rsity of PFIZER VACCINE 00:00:00 [facility] SARS-COV-2 COVID-19 2020-06-08 Completed Unive rsity of PFIZER VACCINE 00:00:00 [facility] SARS-COV-2 COVID-19 2020-06-08 Completed Unive rsity of PFIZER VACCINE 00:00:00 [facility] SARS-COV-2 COVID-19 2020-06-08 Completed Unive rsity of PFIZER VACCINE 00:00:00 [facility] SARS-COV-2 COVID-19 2020-06-08 Completed Unive rsity of PFIZER VACCINE 00:00:00 [facility] SARS-COV-2 COVID-19 2020-06-08 Completed Unive rsity of PFIZER VACCINE 00:00:00 [facility] Vital Signs Vital Name Observation Time Observation Value Comments Source Systolic blood 2022-09-27 21:30:00 127 mm[Hg] Univer sity of pressure [facility] Diastolic blood 2022-09-27 21:30:00 76 mm[Hg] Unive rsity of pressure [facility] Heart rate 2022-09-27 21:30:00 61 /min [facility] Body temperature 2022-09-27 21:30:00 [facility]72 [facility] 2022-09-27 21:30:00 162.6 cm [facility] Body weight 2022-09-27 21:30:00 99.519 kg [facility] BMI 2022-09-27 21:30:00 37.66 kg/m2 [facility] Oxygen saturation in 2022-09-27 21:30:00 98 /min [facility] Arterial blood by [facility] Pulse oximetry Branch Systolic blood 2022-09-21 16:53:00 148 mm[Hg] Univer sity of pressure [facility] Diastolic blood 2022-09-21 16:53:00 89 mm[Hg] Unive rsity of pressure [place] [facility] Heart rate 2022-09-21 16:52:00 62 /min [facility] [place] [facility] Body temperature 2022-09-21 16:52:00 36.72 [place] Univ ersity of [facility] Branch Body height 2022-09-21 16:52:00 162.6 cm [facility] [place] [facility] Body weight 2022-09-21 16:52:00 100.245 kg [facility] [place] [facility] BMI 2022-09-21 16:52:00 37.93 kg/m2 [facility] [place] [facility] Systolic blood 2022-07-21 20:08:00 136 mm[Hg] Univer sity of pressure [place] [facility] Diastolic blood 2022-07-21 20:08:00 86 mm[Hg] Unive rsity of [facility] Heart rate 2022-07-21 20:08:00 57 /min [facility] [place] [facility] Body height 2022-07-21 20:08:00 162.6 cm [facility] [place] [facility] Body weight 2022-07-21 20:08:00 104.146 kg [facility] [place] [facility] BMI 2022-07-21 20:08:00 39.41 kg/m2 [facility] [place] [facility] Oxygen saturation in 2022-07-21 20:08:00 98 /min University of Arterial blood by [facility] Pulse oximetry Branch Systolic blood 2022-06-02 21:48:00 130 mm[Hg] Univer [facility]ity of pressure [place] [facility] Diastolic blood 2022-06-02 21:48:00 84 mm[Hg] Unive rsity of pressure [facility] Heart rate 2022-06-02 21:48:00 62 /min [facility] [place] [facility] Body height 2022-06-02 21:48:00 162.6 cm [facility] [place] [facility] Body weight 2022-06-02 21:48:00 104.645 kg [facility] [place] [facility] BMI 2022-06-02 21:48:00 39.60 kg/m2 [facility] [place] [facility] Oxygen saturation in 2022-06-02 21:48:00 98 /min University of Arterial blood by [facility] Pulse oximetry Branch Systolic blood 2022-02-21 05:01:00 129 mm[Hg] Univer sity of pressure [place] [facility] Diastolic blood 2022-02-21 05:01:00 88 mm[Hg] Unive rsity of pressure [place] [facility] Heart rate 2022-02-21 05:01:00 77 /min [facility] [place] [facility] Respiratory rate 2022-02-21 05:01:00 16 /min [facility] [place] [facility] Oxygen saturation in 2022-02-21 05:01:00 100 /min University of Arterial blood by [facility] Pulse oximetry Branch Body temperature 2022-02-20 23:58:00 36.5 [place] [facility] [place] [facility] Body height 2022-02-20 23:58:00 162.6 cm [facility] [place] [facility] Body weight 2022-02-20 23:58:00 103.874 kg [facility] [place] [facility] BMI 2022-02-20 23:58:00 39.31 kg/m2 [facility] [place] [facility] Systolic blood 2022-02-20 23:09:00 181 mm[Hg] Univer sity of pressure [place] [facility] Diastolic blood 2022-02-20 23:09:00 112 mm[Hg] Unive rsity of pressure [place] [facility] Heart rate 2022-02-20 23:09:00 74 /min [facility] [place] [facility] Body temperature 2022-02-20 23:09:00 36.78 [place] [facility] [place] [facility] Respiratory rate 2022-02-20 23:09:00 17 /min [facility] [place] [facility] Body height 2022-02-20 23:09:00 162.6 cm [facility] [place] [facility] Body weight 2022-02-20 23:09:00 103.987 kg [facility] [place] [facility] BMI 2022-02-20 23:09:00 39.35 kg/m2 [facility] [place] [facility] Oxygen saturation in 2022-02-20 23:09:00 98 /min University of Arterial blood by [facility] Pulse oximetry Branch Systolic blood 2022-01-20 20:41:00 142 mm[Hg] Univer [facility]ity of [facility] [place] [facility] Diastolic blood 2022-01-20 20:41:00 86 mm[Hg] Unive rsity of pressure [place] [facility] Heart rate 2022-01-20 20:41:00 72 /min Universi ty [facility] [place] [facility] Body height 2022-01-20 20:41:00 162.6 cm [facility] [place] [facility] Body weight 2022-01-20 20:41:00 104.327 kg Universi ty [facility] BMI 2022-01-20 20:41:00 39.48 kg/m2 Universi ty [facility] Oxygen saturation in 2022-01-20 20:41:00 97 /min [facility] of Arterial blood by [facility] Pulse oximetry Branch Systolic blood 2021-09-30 19:09:00 139 mm[Hg] Univer sity of [facility] Diastolic blood 2021-09-30 19:09:00 87 mm[Hg] [facility] Heart rate 2021-09-30 19:09:00 68 /min Universi ty [facility] Body weight 2021-09-30 19:09:00 103.919 kg Universi [facility] [place] [facility] BMI 2021-09-30 19:09:00 39.32 kg/m2 Universi ty [facility] Oxygen saturation in 2021-09-30 19:09:00 99 /min [facility] Arterial blood by [facility] Pulse oximetry Branch Procedures Procedure Date / Time Performed Performing Clinician Sour e HEPATITIS B SURFACE 2022-10-02 16:57:00 Antony Guaman [facility] ANTIBODY Medical Branch HEPATITIS B SURFACE 2022-10-02 16:57:00 Antony Guaman [facility] ANTIGEN [facility] Branch HCV ANTIBODY 2022-10-02 16:57:00 Antony Guaman [facility] HBC ANTIBODY (IGM & 2022-10-02 16:57:00 Antony Guaman [facility] IGG) Medical Branch HEPATITIS A VIRUS 2022-10-02 16:57:00 Antony Guaman [facility] ANTIBODY IGM Medical Branch HEPATITIS B CORE 2022-10-02 16:57:00 Antony Guaman [facility] ANTIBODY IGM Medical Branch PHYSICIAN ORDERS 2022-10-02 05:01:00 Doctor Unassigned, No [facility] [place] [facility] POCT HEMOGLOBIN A1C 2022-07-21 20:20:00 Felicia Betancur [facility] Branch DIABETES TESTING 2022-07-21 05:01:00 Doctor Unassigned, No [facility] REPORTS Name Medical Branch CT ABDOMEN PELVIS WO 2022-02-21 02:44:33 Anders Shaw [facility] CONTRAST Medical Branch URINALYSIS 2022-02-21 00:24:00 Anders Shaw [facility] Medical Branch LIPASE 2022-02-21 00:20:00 Anders Shaw [facility] HEPATIC FUNCTION PANEL 2022-02-21 00:20:00 Anders Shaw [facility] ([id number]) Medical Branch (ALB,T.PRO,BILI T,BU/BC,ALT,AST,ALK PHOS) BASIC METABOLIC PANEL 2022-02-21 00:20:00 Anders Shaw [facility] (NA, K, CL, CO2, Medical Branch GLUCOSE, BUN, CREATININE, CA) CBC WITH DIFF 2022-02-21 00:20:00 Anders Shaw [facility] NOTICE OF PRIVACY 2022-02-20 23:40:55 Doctor Unassigned, No [facility] PRACTICES Name Medical Branch CONSENT/REFUSAL FOR 2022-02-20 23:40:32 Doctor Unassigned, [facility] AND Name Medical Branch TREATMENT POCT HEMOGLOBIN A1C 2022-01-20 20:44:00 William Brunson [facility] POCT HEMOGLOBIN A1C 2021-09-23 16:29:00 William Brunson [facility] Encounters Start End Encounter Admission Attending Care Care Encounter Source Date/Time Date/Time Type Type Clinicians Facility Department ID 2021-01-13 Emergency [facility] [id number] Univers 19:43:40 [facility] 2023-02-02 2023-02-02 Outpatient R VIOLETA [facility] [id number] Univers 14:00:00 14:00:00 FELICIA demetri [facility] 2022-10-30 2022-10-30 Telephone Daniel [facility] [id number] Univers 00:00:00 00:00:00 Parvez HEALTH 350.1.13.10 it y of [place] 4.2.7.2.686 Jake as GUZMAN?BLEA [phone] [address] 2022-10-27 2022-10-27 [facility]phone [facility] 1.2.282.903 [id number] Univers 00:00:00 00:00:00 Parvez HEALTH 350.1.13.10 it y of [place] 4.2.7.2.686 Jake as GUZMAN?BLEA [phone] [address] 2022-10-27 2022-10-27 Telephone [facility] [id number] [facility] 00:00:00 00:00:00 [facility] 350.1.13.10 it [facility] 4.2.7.2.686 Jake as GUZMAN?BLEA [phone] [address] 2022-10-24 2022-10-24 Outpatient [facility] [id number] Univers 15:30:00 15:30:00 FELICIA [facility] 2022-10-19 2022-10-19 [facility] [id number] Univers 15:14:31 23:59:00 [facility] 2022-10-19 2022-10-19 [facility] 1.2.840.114 [id number] Univers 15:14:31 23:59:00 Encounter Antony [facility] 350.1.13.10 ity of [place] 4.2.7.2.686 [place] [phone] [facility] [address] [place] [address] 2022-10-02 2022-10-02 [employer], Ang - Db [facility] 1.2.840.1 14 [id number] Univers 13:15:00 13:15:00 Visit Unknown, Attending HEALTH 350.1.13.10 ity of [place] 4.2.7.2.686 Jake as GUZMAN?BLEA [phone] Ma brenden [place] [address] MEDICAL OFFICE [facility] 2022-10-02 2022-10-02 Outpatient R NICOL, [facility] [id number] Univers 13:15:00 12:09:51 ATTENDING ity [facility] 2022-10-02 2022-10-02 Telephone [facility] 1.2.713.469 [id number] Univers 00:00:00 00:00:00 Parvez HEALTH 350.1.13.10 it y [facility] 4.2.7.2.686 Jake as GUZMAN?BLEA [phone] [facility] [address] MEDICAL OFFICE [facility] 2022-10-02 2022-10-02 Orders Doctor MADALYN 1.2.840.114 [id number] Univers 00:00:00 00:00:00 Only Unassigned, PEPITO 350.1.13.10 ity of [place] [facility] 4.2.7.2.686 Jake as [phone] [address] 2022-09-29 2022-09-29 Telephone [facility] 1.2.404.808 [id number] Univers 00:00:00 00:00:00 Parvez HEALTH 350.1.13.10 it y of [place] 4.2.7.2.686 Jake as GUZMAN?BLEA [id number] Ma brenden [place] 044 [facility] OFFICE [facility] 2022-09-28 2022-09-28 [employer], Ang - [facility] 1.2.840.1 14 [id number] Univers 08:00:00 08:03:27 Visit Lorena Tate HEALTH 350.1.13.10 ity [facility] 4.2.7.2.686 Jake as GUZMAN?BLEA [phone] Ma brenden WRIGHT [address] MEDICAL OFFICE [facility] 2022-09-28 2022-09-28 Outpatient R LISANDRA [facility] [id number] Univers 08:00:00 08:00:00 LORENA souza [facility] 2022-09-27 2022-09-27 Outpatient R LISANDRA [facility] [id number] Univers 16:30:00 17:11:01 LORENA souza [facility] 2022-09-27 2022-09-27 Office [facility] 1.2.840.114 [id number] Univers 16:30:00 17:11:01 Visit Lorena Urias HEALTH 350.1.13.10 i ty of [place] 4.2.7.2.686 Jake as GUZMAN?BLEA [phone] Ma dical CORINNA [address] MEDICAL OFFICE [facility] 2022-09-26 2022-09-26 Telephone BrunsonNEW [facility] 1.2.840.114 [id number] Univers 00:00:00 00:00:00 William Duarte HEALTH 350.1.13.10 it y of [place] 4.2.7.2.686 Jake as GUZMAN?BLEA [phone] Ma dical CORINNA 220 [facility] OFFICE [facility] 2022-09-21 2022-09-21 Office [facility] 1.2.840.114 [id number] Univers 12:00:00 12:15:00 Visit [facility] 350.1.13.10 it y of [place] 4.2.7.2.686 Jake as GUZMAN?BLEA [phone] Ma dicaidan [place] 044 [facility] OFFICE [facility] 2022-09-21 2022-09-21 Outpatient R DANIEL [facility] [id number] Univers 12:00:00 12:08:22 PARVEZ souza of [facility] 2022-09-21 2022-09-21 [employer], Ang - [facility] 1.2.840.1 14 [id number] Univers 08:30:00 08:49:30 Visit Parvez Del Rosario [facility] 350.1.13.10 ity of [place] Betancur [facility] 4.2.7.2.686 [place] GUZMAN?BLEA [phone] Ma dical CORINNA 353 [facility] OFFICE [facility] 2022-09-21 2022-09-21 Refill DanielNEW [facility] 1.2.840.114 [id number] Univers 00:00:00 00:00:00 [facility] 350.1.13.10 it y of [place] 4.2.7.2.686 Jake as GUZMAN?BLEA [phone] Ma dical CORINNA [address] MEDICAL OFFICE [facility] 2022-07-31 2022-07-31 Telephone Mattthomasyamile [facility] 1.2.485.372 [id number] Univers 00:00:00 00:00:00 Felicia HEALTH 350.1.13.10 it y of [place] 4.2.7.2.686 Jake as GUZMAN?BLEA [phone] Ma brenden [place] 220 [facility] OFFICE [facility] 2022-07-21 2022-07-21 [employer], Ang - [facility] 1.2.840.1 14 [id number] Univers 16:30:00 16:45:00 Visit William Brunson Gerald [employer] 350.1.13.10 ity of [place] 4.2.7.2.686 Jake as GUZMAN?BLEA [phone] Ma brenden [place] 353 [facility] OFFICE [facility] 2022-07-21 2022-07-21 Outpatient R RAE [facility] [id number] Univers 15:30:00 16:21:59 WILLIAM ity [facility] 2022-07-21 2022-07-21 Office MattwillieJose ManuelUniversity of [facility] 1..840.114 9 [id number] Univers 15:30:00 16:21:59 Visit Darek Brunsonchen Duarte [employer] 350.1.13.10 ity of [place] 4.2.7.2.686 Jake as GUZMAN?BLEA [phone] Ma brenden [place] 220 [facility] OFFICE [facility] 2022-07-21 2022-07-21 Telephone Violeta [facility] 1.2.162.141 [id number] Univers 00:00:00 00:00:00 Felicia HEALTH 350.1.13.10 it y of [place] 4.2.7.2.686 Jake as GUZMAN?BLEA [phone] Ma brenden [place] 220 [facility] OFFICE [facility] 2022-07-21 2022-07-21 Orders Doctor BERGMAN 1.2.840.114 [id number] Univers 00:00:00 00:00:00 Only Unassigned, PEPITO 350.1.13.10 ity of [place] [facility] 4.2.7.2.686 Jake as [phone] [address] 2022-06-14 2022-06-14 Jyoti BrunsonNEW [facility]EXICO [facility] 1.2.275.635 [id number] Univers 00:00:00 00:00:00 William H HEALTH 350.1.13.10 it y of [place] 4.2.7.2.686 Jake as GUZMAN?BLEA [phone] [facility] 220 [facility] OFFICE [facility] 2022-06-05 2022-06-05 [employer], Ang - Db [facility] 1.2.840.1 14 [id number] Univers 16:00:00 16:43:57 Visit Lisandra Lorena Urias HEALTH 350.1.13.10 ity of [place] 4.2.7.2.686 Jake as GUZMAN?BLEA [phone] [facility] 353 [facility] OFFICE [facility] 2022-06-05 2022-06-05 Outpatient R [facility] [id number] Univers 16:00:00 16:00:00 [facility] 2022-06-02 2022-06-02 Outpatient R [facility] [id number] Univers 16:30:00 17:16:38 [facility] 2022-06-02 2022-06-02 Office LisandraNEW [facility]EX[facility] 1.2.840.114 [id number] Univers 16:30:00 17:16:38 Visit Lorena Urias HEALTH 350.1.13.10 i ty of [place] 4.2.7.2.686 Jake as GUZMAN?BLEA [phone] [facility] 044 [facility] OFFICE [facility] 2022-03-28 2022-03-28 Jyoti BrunsonNEW [facility]EXICO [facility] 1.2.212.133 [id number] Univers 00:00:00 00:00:00 William Gerald HEALTH 350.1.13.10 it y of [place] 4.2.7.2.686 Jake as GUZMAN?BLEA [phone] [facility] 220 [facility] OFFICE [facility] 2022-02-27 2022-02-27 Jyoti Del RosarioNEW MEXICO [facility] 1.2.840.114 [id number] Univers 00:00:00 00:00:00 Parvez HEALTH 350.1.13.10 it y of [place] 4.2.7.2.686 Jake as GUZMAN?BLEA [phone] Ma brenden [place] [address] MEDICAL OFFICE [facility] 2022-02-27 2022-02-27 Judekushal LongNEW MEXICO REHABILITATION C[facility] 1.2.840.114 [id number] Univers 00:00:00 00:00:00 Raymundo HEALTH 350.1.13.10 it y of [place] 4.2.7.2.686 Jake as GUZMAN?BLEA [phone] Ma brenden [place] 044 [facility] OFFICE [facility] 2022-02-21 2022-02-21 Telephone RaeNEW MEXICO [facility] 1.2.840.114 [id number] Univers 00:00:00 00:00:00 William HEALTH 350.1.13.10 it y of [place] 4.2.7.2.686 Jake as GUZMAN?BLEA [phone] Ma brenden [place] 220 [facility] OFFICE [facility] 2022-02-20 2022-02-20 Emergency X COLIN [facility] ERT [id number] Univers 18:04:00 23:06:00 [facility] 2022-02-20 2022-02-20 Emergency ColinNEW [facility]EXICO [facility] 1.2.245.351 [id number] Univers 18:04:00 23:06:00 Anders SIERRAJANAK 350.1.13.10 i ty of [place] 4.2.7.2.686 [place] [phone] [facility] [address] 2022-02-20 2022-02-20 Nurse Nurse, [facility] 1.2.840.114 [id number] Univers 17:00:00 17:20:00 Visit Unknown, Attending HEALTH 350.1.13.10 ity of [place] 4.2.7.2.686 Jake as GUZMAN?BLEA [phone] Ma brenden [place] 370 [facility] OFFICE [facility] 2022-02-20 2022-02-20 Outpatient Lacey INMAN [facility] [id number] Univers 17:00:00 17:00:00 CIELO souza [facility] 2022-01-20 2022-01-20 Outpatient R RAE [facility] [id number] Univers 16:00:00 16:18:05 WILLIAM souza of [facility] 2022-01-20 2022-01-20 Office [facility] 1.2.530.157 [id number] [facility] 16:00:00 16:18:05 Visit William Duarte [facility] 350.1.13.10 it y of [place] 4.2.7.2.686 Jake as GUZMAN?BLEA [phone] [facility] [place] 220 [facility] OFFICE [facility] 2021-11-29 2021-11-29 Refill RaeNEW [facility]EX[facility] 1.2.155.166 [id number] Univers 00:00:00 00:00:00 William Duarte [facility] 350.1.13.10 it y of [place] 4.2.7.2.686 Jake as GUZMAN?BLEA [phone] [facility] 220 [facility] OFFICE [facility] 2021-11-25 2021-11-25 Refill DanielNEW [facility]EXICO [facility] 1.2.840.114 [id number] Univers 00:00:00 00:00:00 [facility] 350.1.13.10 it y of [place] 4.2.7.2.686 Jake as GUZMAN?BLEA [phone] Ma brenden [place] 044 [facility] OFFICE [facility] 2021-10-18 2021-10-18 [employer], Ang [facility] 1.2.840.1 14 [id number] Univers 07:45:00 08:00:00 Visit Daniel Parvez [facility] 350.1.13.10 ity of [place] 4.2.7.2.686 Jake as GUZMAN?BLEA [phone] Ma brenden [place] 353 [facility] OFFICE [facility] 2021-10-18 2021-10-18 Office DanielNEW [facility] 1.2.840.114 [id number] Univers 07:30:00 07:45:00 Visit [facility] 350.1.13.10 it y of [place] 4.2.7.2.686 Jake as GUZMAN?BLEA [phone] Ma dicaidan [place] 044 [facility] OFFICE [facility] 2021-10-18 2021-10-18 Outpatient R DANIEL [facility] [id number] Univers 07:30:00 07:39:06 PARVEZ souza [facility] 2021-10-18 2021-10-18 Outpatient Lacey DANIEL [facility] [id number] Univers 07:30:00 07:30:00 PARVEZ souza [facility] 2021-10-17 2021-10-17 [facility]NEW [facility] 1.2.840.114 [id number] Univers 00:00:00 00:00:00 Nicole HEALTH 350.1.13.10 it y of [place] 4.2.7.2.686 Jake as GUZMAN?BLEA [phone] [address] MEDICAL OFFICE [facility] 2021-10-17 2021-10-17 [facility]al TonyNEW [facility] 1.2.840.114 [id number] [facility] 00:00:00 00:00:00 Nicole HEALTH 350.1.13.10 it y of [place] 4.2.7.2.686 Jake as GUZMAN?BLEA [phone] [address] OFFICE [facility] 2021-10-07 2021-10-07 [facility] [id number] Univers 15:00:00 15:00:00 NICOLE souza [facility] 2021-10-07 2021-10-07 Outpatient R CHAVO [facility] [id number] Univers 15:00:00 15:00:00 NICOLEYODIT souza [facility] 2021-09-30 2021-09-30 [facility] [id number] Univers 14:00:00 15:03:24 WILLIAM souza [facility] 2021-09-30 2021-09-30 Office [facility] 1.2.918.561 [id number] Univers 14:00:00 15:03:24 Visit William Duarte HEALTH 350.1.13.10 it y of [place] 4.2.7.2.686 Jake as GUZMAN?BLEA [phone] [facility] 220 [facility] OFFICE [facility] 2021-09-30 2021-09-30 Out[facility] [id number] Univers 14:00:00 14:00:00 WILLIAM souza [facility] 2021-09-30 2021-09-30 Outpatient R BRUNSON, [facility] [id number] Univers 14:00:00 14:00:00 WILLIAM souza [facility] 2021-09-30 2021-09-30 Orders Doctor MADALYN 1.2.840.114 [id number] Univers 00:00:00 00:00:00 Only Unassigned, PEPITO 350.1.13.10 ity of [place] [facility] 4.2.7.2.686 Jake as [phone] [address] 2021-09-23 2021-09-23 Outpatient [facility] [id number] Univers 11:00:00 11:54:11 NICOLE souza [facility] 2021-09-23 2021-09-23 Office [facility]NEW [facility]EX[facility] 1.2.840.114 [id number] Univers 11:00:00 11:54:11 Visit [facility] 350.1.13.10 it y of [place] 4.2.7.2.686 Jake as GUZMAN?BLEA [phone] [address] MEDICAL OFFICE [facility] 2021-09-23 2021-09-23 Outpatient R CHAVO [facility] [id number] Univers 11:00:00 11:54:11 NICOLE souza [facility] 2021-09-23 2021-09-23 Telephone Daniel [facility] 1.2.049.809 [id number] Univers 00:00:00 00:00:00 Parvez HEALTH 350.1.13.10 it y of [place] 4.2.7.2.686 Jake as GUZMAN?BLEA [phone] [address] MEDICAL OFFICE [facility] 2021-09-18 2021-09-18 Telephone MADALYN Ortega 1.2.744.425 [id number] Univers 00:00:00 00:00:00 Lu BEYER 350.1.13.10 i ty of [facility] 4.2.7.2.686 Jake as [phone] [facility] [address] 2021-09-17 2021-09-17 Laboratory Only, Ang Db Test [facility] 1.2.8 40.114 [id number] Univers 10:15:00 10:30:00 Only Tico Madalyn [facility] 350.1.13.10 ity of [place] 4.2.7.2.686 Jake as GUZMAN?BLEA [phone] Ma brenden [place] [address] MEDICAL OFFICE [facility] 2021-09-17 2021-09-17 Outpatient R TICO [facility] [id number] Univers 10:15:00 10:18:13 MADALYN ity [facility] 2021-09-12 2021-09-12 Refkushal Del [facility]arioNEW [facility]EXICO [facility] 1.2.840.114 [id number] Univers 00:00:00 00:00:00 [facility] 350.1.13.10 it y of [place] 4.2.7.2.686 Jake as GUZMAN?BLEA [phone] [facility] [address] OFFICE [facility] 2021-09-02 2021-09-02 Refkushal Del [facility]arioNEW [facility]EXICO [facility] 1.2.840.114 [id number] Univers 00:00:00 00:00:00 [facility] 350.1.13.10 it y of [place] 4.2.7.2.686 Jake as GUZMAN?BLEA [phone] [facility] [place] [address] [place] [address] [address] [facility] 2021-09-02 2021-09-02 Telephone DanielNEW [facility]EXICO [facility] 1.2.497.470 [id number] Univers 00:00:00 00:00:00 [facility] HEALTH 350.1.13.10 it y of [place] 4.2.7.2.686 Jake as GUZMAN?BLEA [phone] Ma dicaidan [place] [address] [place] [address] MEDICAL OFFICE [facility] 2021-08-15 2021-08-15 Refkushal Del [facility]arioNEW [facility]EXICO [facility] 1.2.840.114 [id number] Univers 00:00:00 00:00:00 [facility] HEALTH 350.1.13.10 it y of [place] 4.2.7.2.686 Jake as GUZMAN?BLEA [phone] [facility] [address] MEDICAL OFFICE [facility] 2021-06-22 2021-06-22 Office DanielNEW [facility]EX[facility] 1.2.840.114 [id number] Univers 15:00:00 15:15:00 Visit Parvez HEALTH 350.1.13.10 it y of [place] 4.2.7.2.686 Jake as GUZMAN?BLEA [phone] [address] 2021-06-22 2021-06-22 Outpatient R DANIEL [facility] [id number] Univers 15:00:00 15:00:00 PARVEZ souza [facility] 2021-06-22 2021-06-22 Outpatient R DEL ROSARIO, [facility] [id number] Univers 15:00:00 15:00:00 PARVEZ [facility] 2021-06-15 2021-06-15 Telephone [facility]NEW [facility] 1.2.989.603 [id number] Univers 00:00:00 00:00:00 Parvez HEALTH 350.1.13.10 [facility] 4.2.7.2.686 Jake as GUZMAN?BLEA [phone] [address] 2021-06-14 2021-06-14 Refill DanielNEW [facility]EXICO [facility] 1.2.840.114 [id number] Univers 00:00:00 00:00:00 Parvez HEALTH 350.1.13.10 it y of [place] 4.2.7.2.686 Jake as GUZMAN?BLEA [phone] [address] 2021-06-02 2021-06-02 Orders Doctor MADALYN 1.2.840.114 [id number] Univers 00:00:00 00:00:00 Only Unassigned, PEPITO 350.1.13.10 ity of [place] [facility] 4.2.7.2.686 Jake as [phone] [address] 2021-05-10 2021-05-10 Orders Doctor MADALYN 1.2.840.114 [id number] Univers 00:00:00 00:00:00 Only Unassigned, PE[place]IT[place] 350.1.13.10 ity of [place] [facility] 4.2.7.2.686 Jake as [phone] [address] 2021-05-03 2021-05-03 Telephone Daniel [facility] 1.2.553.729 [id number] Univers 00:00:00 00:00:00 [facility] 350.1.13.10 it y of [place] 4.2.7.2.686 Jake as GUZMAN?BLEA [phone] [facility] [address] MEDICAL OFFICE [facility] 2021-05-02 2021-05-02 Telephone Daniel [facility] 1.2.415.594 [id number] Univers 00:00:00 00:00:00 Parvez HEALTH 350.1.13.10 it y of [place] 4.2.7.2.686 Jake as GUZMAN?BLEA [phone] [address] MEDICAL OFFICE [facility] 2021-05-02 2021-05-02 Orders Doctor MADALYN 1.2.840.114 [id number] Univers 00:00:00 00:00:00 Only Unassigned, PEPITO 350.1.13.10 ity of [place] [facility] 4.2.7.2.686 Jake as [phone] [address] 2021-03-16 2021-03-16 [employer], Ang - [facility] 1.2.840.1 14 [id number] Univers 14:30:00 14:45:00 Visit aPrvez Del Rosario 350.1.13.10 ity of [place] 4.2.7.2.686 Jake as GUZMAN?BLEA [phone] [facility] [address] MEDICAL OFFICE [facility] 2021-03-16 2021-03-16 Office [facility] 1.2.840.114 [id number] Univers 14:00:00 14:23:25 Visit [facility] [id number] it y of [place] [id number] Jake as GUZMAN?BLEA [phone] [address] OFFICE [facility] 2021-03-16 2021-03-16 Outpatient Lacey [facility] [id number] Univers 14:00:00 14:23:25 RAYMUNDO ity [facility] 2021-03-16 2021-03-16 [facility] [id number] Univers 14:00:00 14:00:00 RAYMUNDO demetri [facility] 2021-03-16 2021-03-16 [facility] [id number] Univers 00:00:00 00:00:00 [facility] [id number] it y of [place] [id number] Jake as PROFESSIO [phone] [address] OFFICE [facility] ONE 2021-03-16 2021-03-16 [facility] [id number] Univers 00:00:00 00:00:00 [facility] [id number] it y of [place] [id number] Jake as PROFESSIO [phone] [address] ONE 2021-03-07 2021-03-07 [facility] 1.2.840.114 [id number] Univers 13:15:00 13:30:00 Visit [facility] [id number] it y of [place] [id number] Jake as GUZMAN?BLEA [phone] [address] OFFICE [facility] 2021-03-07 2021-03-07 Outpatient R [facility] [id number] Univers 13:15:00 13:15:00 [facility] 2021-03-07 2021-03-07 Orders Doctor MADALYN 1.2.840.114 [id number] Univers 00:00:00 00:00:00 Only Unassigned, PEPITO 350.1.13.10 ity of [place] [facility] 4.2.7.2.686 Jake as [phone] [address] 2021-03-07 2021-03-07 Telephone Daniel [facility] 1.2.082.283 [id number] Univers 00:00:00 00:00:00 [facility] 350.1.13.10 it y of [facility] 4.2.7.2.686 Jake as GUZMAN?BLEA [phone] [address] MEDICAL OFFICE [facility] 2020-12-16 2020-12-16 Refkushal Del Rosario [facility] 1.2.840.114 [id number] Univers 00:00:00 00:00:00 [facility] 350.1.13.10 it y of [place] 4.2.7.2.686 Jake as Professio [phone] Ma dicoh nal [address] [place] Office [facility] One 2020-10-28 2020-10-28 Refill Doctor [facility] 1.2.840.114 [id number] Univers 00:00:00 00:00:00 Unassigned, Health 350.1.13.10 ity of [place] 4.2.7.2.686 Jake as Professio [phone] Ma dical nal 044 [facility] One 2020-09-17 2020-09-17 Refill Daniel [facility] 1.2.840.114 [id number] Univers 00:00:00 00:00:00 [facility] 350.1.13.10 it y of [place] 4.2.7.2.686 Jake as Professio [phone] Ma dical nal 044 [facility] One 2020-08-15 2020-08-15 Refill Daniel [facility] 1.2.840.114 [id number] Univers 00:00:00 00:00:00 [facility] 350.1.13.10 it y of [place] 4.2.7.2.686 Jake as Professio [phone] [facility] nal [address] [place] [address] One 2020-08-13 2020-08-13 Madelyn Mann [facility] 1.2.840.114 [id number] Univers 00:00:00 00:00:00 (Out) Marlo Carranza [place] 350.1.13.10 [place] [phone] [facility] 092 [facility] 2020-08-04 2020-08-04 Outpatient R DANIEL [facility] [id number] Univers 10:00:00 10:00:00 PARVEZ itdemetri of [facility] 2020-08-04 2020-08-04 Office Daniel [facility] 1.2.840.114 [id number] Univers 09:30:42 09:45:42 Visit Parvez Velazquez 350.1.13.10 it y of [place] 4.2.7.2.686 Jake as Professio [phone] [address] Office [facility] 2020-08-01 2020-08-01 Letter [facility] 1.2.840.114 [id number] Univers 00:00:00 00:00:00 (Out) Lorena Urias [facility] 350.1.13.10 i ty of [place] 4.2.7.2.686 Jake as Professio [phone] [address] Office [facility] 2020-07-23 2020-07-23 [facility] 1.2.840.114 [id number] Univers 17:15:00 23:59:00 Encounter Lorena Taylor 350.1.13.10 [place]y of [place].2.[place] [phone] [facility] [address] [place] 2020-07-23 2020-07-23 [facility] 1.2.840.114 [id number] Univers 16:07:16 20:37:24 Visit Lorena Urias Health 350.1.13.10 i ty of [place] 4.2.7.2.686 Jake as Professio [phone] [address] [facility] 2020-07-23 2020-07-23 Outpatient [facility] [id number] Univers 16:30:00 16:30:00 LORENA souza [facility] 2020-07-23 2020-07-23 Orders Doctor MADALYN 1.2.840.114 [id number] Univers 00:00:00 00:00:00 Only Unassigned, [place] 350.1.13.10 ity of [place] [facility] 4.2.7.2.686 Jake as [phone] [facility] [address] [place] 2020-06-29 2020-06-29 Outpatient Lacey REGALADO [facility] [id number] Univers 16:20:00 16:20:00 MABEL libby [facility] 2020-06-08 2020-06-08 Outpatient [facility] [id number] Univers 16:10:00 16:10:00 VINNIE demetri [facility] 2020-06-03 2020-06-03 Patient Sonu [facility] 1.2.840.114 [id number] Univers 00:00:00 00:00:[address] [facility] 350.1.13.10 i ty of [facility] 4.2.7.2.[place] [phone] [address] 2020-05-14 2020-05-14 [employer], Adc Fam Pob I [facility] 1.2. 840.114 [id number] Univers 07:48:00 08:08:00 Visit Del [facility] 350.1.13.10 ity of [place] 4.2.7.2.686 Jake as Professio [phone] [address] 2020-05-14 2020-05-14 Outpatient Lacey [facility] [id number] Univers 08:00:00 08:00:00 [facility] 2020-05-11 2020-05-11 [facility]phone [facility] 1.2.093.815 [id number] Univers 00:00:00 00:00:00 [facility] 350.1.13.10 it y of [place] 4.2.7.2.686 Jake as Professio [phone] [address] 2020-03-02 2020-03-02 Telephone [facility] 1.2.477.996 [id number] Univers 00:00:00 00:00:00 [facility] 350.1.13.10 it y of [place] 4.2.7.2.686 Jake as Professio [phone] [address] [facility] 2020-02-18 2020-02-18 Outpatient Lacey [facility] [id number] Univers 15:15:00 15:15:00 [facility] 2020-02-18 2020-02-18 Office [facility] 1.2.840.114 [id number] Univers 14:50:27 15:05:27 Visit [facility] 350.1.13.10 it y of [place] 4.2.7.2.686 Jake as Professio [phone] Ma bianca[address] Office Building One 2020-02-05 2020-02-05 [facility] 1.2.840.114 [id number] Univers 00:00:00 00:00:00 [facility] 350.1.13.10 it y of [place] 4.2.7.2.686 Jake as Professio [phone] [address] Office Building One 2020-02-05 2020-02-05 Orders Doctor MADALYN 1.2.840.114 [id number] Univers 00:00:00 00:00:00 Only Unassigned, PE[place] 350.1.13.10 ity of [place] [facility] 4.2.7.2.686 Jake as [phone] [address] 2020-01-27 2020-01-27 Urgent Provider, [facility] 1.2.840.114 [id number] Univers 16:05:14 16:33:31 Care [facility] 350.1.13.10 ity of [place] 4.2.7.2.686 Jake as Professio [phone] [address] Office [facility] 2020-01-27 2020-01-27 Outpatient R [facility] [id number] Univers 16:20:00 16:20:00 [facility] ity of [facility] 2020-01-05 2020-01-05 Telephone [facility] 1.2.813.532 [id number] Univers 00:00:00 00:00:00 [facility] 350.1.13.10 it y of [place] 4.2.7.2.686 Jake as Professio [phone] [address] Office Building One 2019-12-22 2019-12-22 Refill [facility] 1.2.840.114 [id number] Univers 00:00:00 00:00:00 [facility] 350.1.13.10 it y of [place] 4.2.7.2.686 Jake as Professio [phone] [address] Office [facility] 2019-10-31 2019-10-31 Jyoti [facility] 1.2.840.114 [id number] Univers 00:00:00 00:00:00 [facility] 350.1.13.10 it y of [place] 4.2.7.2.686 Jake as Professio [phone] [address] Office [facility] 2019-10-15 2019-10-15 Jyoti [facility] 1.2.840.114 [id number] Univers 00:00:00 00:00:00 [facility] 350.1.13.10 it y of [place] 4.2.7.2.686 Jake as Professio [phone] [address] Office [facility] 2019-10-10 2019-10-10 Outpatient R [facility] [id number] Univers 17:20:00 17:20:00 ity of [facility] 2019-10-10 2019-10-10 Laboratory Lab, Adc Fam Pob I [facility] 1.2. 840.114 [id number] Univers 15:02:24 15:22:24 Only Anelindsey, Nicole [facility] 350.1.13.10 ity of [place] 4.2.7.2.686 Jake as Professio [phone] [address] Office [facility] 2019-09-22 2019-09-22 Hospital [facility] 1.2.063.016 [id number] Univers 09:51:00 23:59:00 Encounter Wondiful A [place] 350.1.13.10 [place] of [place] [phone] [facility] [address] [place] [place] [address] 2019-09-22 2019-09-22 Office [facility] 1.2.840.114 [id number] Univers 08:51:42 09:27:17 Visit Wondiful A [place] 350.1.13.10 [place] of [place]2.[place].2.[place] [phone] [address] 2019-09-22 2019-09-22 Outpatient R [facility] [id number] Univers 09:00:00 09:00:00 WONDIFUL ity o f [facility] 2019-09-22 2019-09-22 Orders Doctor MADALYN 1.2.840.114 [id number] Univers 00:00:00 00:00:00 Only Unassigned, [place] 350.1.13.10 ity of [place] [facility] 4.2.7.2.686 Jake as [phone] [address] 2019-08-11 2019-08-11 Refkushal [facility] 1.2.840.114 [id number] Univers 00:00:00 00:00:00 [facility] 350.1.13.10 it y of [place] 4.2.7.2.686 Jake as Professio [phone] [address] 2019-08-06 2019-08-06 Refkushal [facility] 1.2.840.114 [id number] Univers 00:00:00 00:00:00 [facility] 350.1.13.10 it y of [place] 4.2.7.2.686 Jake as Professio [phone] [address] 2019-08-04 2019-08-04 Outpatient Lacey CHAMBERSDEL ROSARIO [facility] [id number] Univers 14:15:00 14:15:00 PARVEZ libby [facility] 2019-08-04 2019-08-04 Outpatient Lacey CHAMBERSDEL ROSARIO [facility] [id number] Univers 10:15:00 10:15:00 PARVEZ ity [facility] 2019-08-04 2019-08-04 Telemedici [facility] 1.2.840.114 [id number] Univers 07:58:44 08:13:44 ne Visit Parvez Sierraton 350.1.13.10 [place] of [place].2.[place] [phone] [address] 2019-07-29 2019-07-29 Telephone Pob1, Acute MADALYN 1.2.840.114 [id number] Univers 00:00:00 00:00:00 Care Clinic [place] 350.1.13.10 ity of [facility] 4.2.7.2.686 Jake as [phone] [facility] [address] [place] 2019-07-28 2019-07-28 Urgent Pob1, Acute Care Clinic [facility] 1. 2.840.114 [id number] Univers 09:18:41 09:38:41 Care JoelleNicole portillo Health 350.1.13.10 ity of [place] 4.2.7.2.686 Jake as Professio [phone] [address] Office Building [facility] 2019-07-28 2019-07-28 Outpatient R [facility] [id number] Univers 09:20:00 09:20:00 ity of [facility] 2019-07-22 2019-07-22 Transition Cristian, Eveliaira 1.2.840.114 [id number] Univers 00:00:00 00:00:00 of Care Patrick Zavala 350.1.13.10 ity of [place] 4[place]2.7.2.[place] [phone] [facility] [address] [place] 2019-07-20 2019-07-20 Emergency [facility] 1.2.416.230 [id number] Univers 08:53:10 10:43:00 Navi S [place] 350.1.13.10 [place] of [place].2.[place] [phone] [facility] [address] [place] 2019-07-18 2019-07-18 Nurse Beronica Madrigal 1.2.840.114 [id number] Univers 00:00:00 00:00:00 Triage [place] 350.1.13.10 it y of [facility]OSPITAL 4.2.7.2.686 Jake as [phone] [address] 2019-07-10 2019-07-10 Jyoti [facility] 1.2.840.114 [id number] Univers 00:00:00 00:00:00 [facility] 350.1.13.10 it y of [place] 4.2.7.2.686 Jake as Professio [phone] [facility] nal [address] [place] Office Building [facility] 2019-06-13 2019-06-13 Jyoti Del Rosario [facility] 1.2.840.114 [id number] Univers 00:00:00 00:00:00 [facility] 350.1.13.10 it y of [place] 4.2.7.2.686 Jake as Professio [phone] [address] 2019-06-13 2019-06-13 Telephone Lisandra [facility] 1.2.337.158 [id number] Univers 00:00:00 00:00:00 Lorena A Health 350.1.13.10 i ty of [place] 4.2.7.2.686 Jake as Professio [phone] [address] 2019-06-12 2019-06-12 Telephone Lulu Winter 1.2.840.114 [id number] Univers 00:00:00 00:00:00 [place] 350.1.13.10 it y of [facility] 4.2.7.2.686 Jake as [phone] [address] 2019-06-11 2019-06-11 Office Pob1, Acute Care Clinic [facility] 1. 2.840.114 [id number] Univers 12:39:50 13:55:54 Visit Lorena Tate Schedule Savvy 350.1.13.10 ity of [place] 4.2.7.2.686 Jake as Professio [phone] [address] 2019-06-11 2019-06-11 Outpatient R LISANDRA [facility] [id number] Univers 12:40:00 12:40:00 LORENA itdemetri [facility] 2019-06-11 2019-06-11 Outpatient Raju_P [facility] [id number] [place] 03:13:00 03:13:00 [facility] 2019-06-11 2019-06-11 Telephone [facility] 1.2.550.740 [id number] Univers 00:00:00 00:00:00 [facility] 350.1.13.10 it y of [place] 4.2.7.2.686 Jake as Professio [phone] [address] 2019-04-28 2019-04-28 Office [facility] 1.2.840.114 [id number] Univers 12:36:51 12:51:51 Visit Parvez Schedule Savvy [facility]..13.10 it y of [place] 4.2.7.2.686 Jake as Professio [phone] [address] Building One 2019-04-27 2019-04-27 Refill [facility] 1.2.840.114 [id number] Univers 00:00:00 00:00:00 Parvez [facility] 350..13.10 it y of [place] 4.2.7.2.686 Jake as Professio [phone] [address] Office Building One 2019-03-17 2019-03-17 Outpatient [facility] [id number] Univers 15:21:19 23:59:00 PARVEZ souza [facility] 2018-10-24 2018-10-24 Office [facility] 1.2.840.114 [id number] Univers 08:38:22 09:11:31 Visit Lorena Urias Schedule Savvy [facility]..13.10 i ty of [place] 4.2.7.2.686 Jake as Professio [phone] [address] Office Building One Results Test Description Test Time Test Comments Results Result Comments Source HEPATITIS B SURFACE ANTIBODY 2022-10-03 02:06:37 Test Item Value Reference Range Interpretation Comme nts HBsAB (test code = 0481146864) Negative HBsAb Semi-Quantitative (test code = 0.00 mIU/mL 2307919986) NYDIA (test code = NYDIA) Interpretation: ?Hepatitis B Surface Antibody ? Negative - Patient is considered to be not immune to infection with HBV. ? ? Positive - Anti-HBs detected at greater than or equal to 12 mIU/mL. ?Patient is considered to be immune to infection with HBV. ? [facility] [id number] 02:06:37 Test Item Value Reference Range Interpretation Comments HCV Ab (test code = 13186-1) Negative HCV Semi-Quantitative (test code = 0.01 75922-8) [facility] (IGM & IGG)2022-10-03 02:06:37 Test Item Value Reference Range Interpretation Comments HBC (test code = 6558003775) Negative HBC Semi-Quantitative (test code = 3.35 1282877261) [facility] SURFACE [id number] 02:06:37 Test Item Value Reference Range Interpretation Comments HBsAB (test code = Negative 7846974823) HBsAb 0.00 mIU/mL Semi-Quantitative (test code = 3231367565) NYDIA (test code = Interpretation: NYDIA) ?Hepatitis B Surface Antibody ? Negative - Patient is considered to be not immune to infection with HBV. ? ? Positive - Anti-HBs detected at greater than or equal to 12 mIU/mL. ?Patient is considered to be immune to infection with HBV. ? [facility] [id number] 02:06:37 Test Item Value Reference Range Interpretation Comments HCV Ab (test code = 79203-9) Negative HCV Semi-Quantitative (test code = 0.01 35020-7) [facility] (IGM & IGG)2022-10-03 02:06:37 Test Item Value Reference Range Interpretation Comments HBC (test code = 2914426567) Negative HBC Semi-Quantitative (test code = 3.35 8071245690) [facility] B SURFACE [id number] 02:06:37 Test Item Value Reference Range Interpretation Comments HBsAB (test code = Negative 7029386169) HBsAb 0.00 mIU/mL Semi-Quantitative (test code = 7301219458) NYDIA (test code = Interpretation: NYDIA) ?Hepatitis B Surface Antibody ? Negative - Patient is considered to be not immune to infection with HBV. ? ? Positive - Anti-HBs detected at greater than or equal to 12 mIU/mL. ?Patient is considered to be immune to infection with HBV. ? [facility] [id number] 02:06:37 Test Item Value Reference Range Interpretation Comments HCV Ab (test code = 83771-5) Negative HCV Semi-Quantitative (test code = 0.01 56022-9) [facility] (IGM & IGG)2022-10-03 02:06:37 Test Item Value Reference Range Interpretation Comments HBC (test code = 8950361483) Negative HBC Semi-Quantitative (test code = 3.35 1079059436) [facility] B SURFACE [id number] 02:06:37 Test Item Value Reference Range Interpretation Comments HBsAB (test code = Negative 4058026446) HBsAb 0.00 mIU/mL Semi-Quantitative (test code = 8434669406) NYDIA (test code = Interpretation: NYDIA) ?Hepatitis B Surface Antibody ? Negative - Patient is considered to be not immune to infection with HBV. ? ? Positive - Anti-HBs detected at greater than or equal to 12 mIU/mL. ?Patient is considered to be immune to infection with HBV. ? [facility] [id number] 02:06:37 Test Item Value Reference Range Interpretation Comments HCV Ab (test code = 99527-8) Negative HCV Semi-Quantitative (test code = 0.01 92996-6) [facility] (IGM & IGG)2022-10-03 02:06:37 Test Item Value Reference Range Interpretation Comments HBC (test code = 3707442360) Negative HBC Semi-Quantitative (test code = 3.35 1820836242) [facility] [id number] 02:06:37 Test Item Value Reference Range Interpretation Comments HBsAB (test code = Negative 4603422172) HBsAb 0.00 mIU/mL Semi-Quantitative (test code = 8202186898) NYDIA (test code = Interpretation: NYDIA) ?Hepatitis B Surface Antibody ? Negative - Patient is considered to be not immune to infection with HBV. ? ? Positive - Anti-HBs detected at greater than or equal to 12 mIU/mL. ?Patient is considered to be immune to infection with HBV. ? [facility] [id number] 02:06:37 Test Item Value Reference Range Interpretation Comments HCV Ab (test code = 04505-4) Negative HCV Semi-Quantitative (test code = 0.01 85421-0) [facility] ([facility]M & IGG)2022-10-03 02:06:37 Test Item Value Reference Range Interpretation Comments HBC (test code = 2753558789) Negative HBC Semi-Quantitative (test code = 3.35 8589273967) [facility] [id number] 02:06:37 Test Item Value Reference Range Interpretation Comments HBsAB (test code = Negative 4243213249) HBsAb 0.00 mIU/mL Semi-Quantitative (test code = 8191424967) NYDIA (test code = Interpretation: NYDIA) ?Hepatitis B Surface Antibody ? Negative - Patient is considered to be not immune to infection with HBV. ? ? Positive - Anti-HBs detected at greater than or equal to 12 mIU/mL. ?Patient is considered to be immune to infection with HBV. ? [facility] [id number] 02:06:37 Test Item Value Reference Range Interpretation Comments HCV Ab (test code = 40618-3) Negative HCV Semi-Quantitative (test code = 0.01 00272-2) [facility] (IGM & IGG)2022-10-03 02:06:37 Test Item Value Reference Range Interpretation Comments HBC (test code = 1578960682) Negative HBC Semi-Quantitative (test code = 3.35 3962478450) [facility] [id number] 02:06:37 Test Item Value Reference Range Interpretation Comments HBsAB (test code = Negative 8079207063) HBsAb 0.00 mIU/mL Semi-Quantitative (test code = 3454661064) NYDIA (test code = Interpretation: NYDIA) ?Hepatitis B Surface Antibody ? Negative - Patient is considered to be not immune to infection with HBV. ? ? Positive - Anti-HBs detected at greater than or equal to 12 mIU/mL. ?Patient is considered to be immune to infection with HBV. ? [facility] [id number] 02:06:37 Test Item Value Reference Range Interpretation Comments HCV Ab (test code = 29581-9) Negative HCV Semi-Quantitative (test code = 0.01 89938-2) [facility] (IGM & IGG)2022-10-03 02:06:37 Test Item Value Reference Range Interpretation Comments HBC (test code = 5022474855) Negative HBC Semi-Quantitative (test code = 3.35 2237742376) [facility] SURFACE [id number] 02:06:37 Test Item Value Reference Range Interpretation Comments HBsAB (test code = Negative 6574385680) HBsAb 0.00 mIU/mL Semi-Quantitative (test code = 5467204159) NYDIA (test code = Interpretation: NYDIA) ?Hepatitis B Surface Antibody ? Negative - Patient is considered to be not immune to infection with HBV. ? ? Positive - Anti-HBs detected at greater than or equal to 12 mIU/mL. ?Patient is considered to be immune to infection with HBV. ? [facility] [id number] 02:06:37 Test Item Value Reference Range Interpretation Comments HCV Ab (test code = 70792-1) Negative HCV Semi-Quantitative (test code = 0.01 20258-4) [facility] (IGM & IGG)2022-10-03 02:06:37 Test Item Value Reference Range Interpretation Comments HBC (test code = 7971222419) Negative HBC Semi-Quantitative (test code = 3.35 7832864222) [facility] B CORE ANTIBODY [id number] 01:54:52 Test Item Value Reference Range Interpretation Comments HBCM 0.04 Semi-Quantitative (test code = 86054-7) NYDIA (test code = Biotin has been reported NYDIA) to cause a negative bias, interpret results relative to patient's use of biotin. [facility] A VIRUS ANTIBODY [id number] 01:54:52 Test Item Value Reference Range Interpretation Comments HAVM 0.04 Semi-Quantitative (test code = 79535-3) NYDIA (test code = HAVAb IgM Interpretative NYDIA) Information: Reactive greater than or equal to 1.2 Biotin has been reported to cause a negative bias, interpret results relative to patient's use of biotin. [facility] B CORE ANTIBODY [id number] 01:54:52 Test Item Value Reference Range Interpretation Comments HBCM 0.04 Semi-Quantitative (test code = 94793-0) NYDIA (test code = Biotin has been reported NYDIA) to cause a negative bias, interpret results relative to patient's use of biotin. [facility] A VIRUS ANTIBODY [id number] 01:54:52 Test Item Value Reference Range Interpretation Comments HAVM 0.04 Semi-Quantitative (test code = 01636-4) NYDIA (test code = HAVAb IgM Interpretative NYDIA) Information: Reactive greater than or equal to 1.2 Biotin has been reported to cause a negative bias, interpret results relative to patient's use of biotin. [facility] B CORE ANTIBODY [id number] 01:54:52 Test Item Value Reference Range Interpretation Comments HBCM 0.04 Semi-Quantitative (test code = 86225-3) NYDIA (test code = Biotin has been reported NYDIA) to cause a negative bias, interpret results relative to patient's use of biotin. [facility] A VIRUS ANTIBODY [id number] 01:54:52 Test Item Value Reference Range Interpretation Comments HAVM 0.04 Semi-Quantitative (test code = 04174-7) NYDIA (test code = HAVAb IgM Interpretative NYDIA) Information: Reactive greater than or equal to 1.2 Biotin has been reported to cause a negative bias, interpret results relative to patient's use of biotin. [facility] B CORE ANTIBODY [id number] 01:54:52 Test Item Value Reference Range Interpretation Comments HBCM 0.04 Semi-Quantitative (test code = 92419-1) NYDIA (test code = Biotin has been reported NYDIA) to cause a negative bias, interpret results relative to patient's use of biotin. [facility] A VIRUS ANTIBODY [id number] 01:54:52 Test Item Value Reference Range Interpretation Comments HAVM 0.04 Semi-Quantitative (test code = 14293-0) NYDIA (test code = HAVAb IgM Interpretative NYDIA) Information: Reactive greater than or equal to 1.2 Biotin has been reported to cause a negative bias, interpret results relative to patient's use of biotin. Formerly [facility] B CORE ANTIBODY [id number] 01:54:52 Test Item Value Reference Range Interpretation Comments HBCM 0.04 Semi-Quantitative (test code = 37656-0) NYDIA (test code = Biotin has been reported NYDIA) to cause a negative bias, interpret results relative to patient's use of biotin. Formerly [facility] A VIRUS ANTIBODY [id number] 01:54:52 Test Item Value Reference Range Interpretation Comments HAVM 0.04 Semi-Quantitative (test code = 60817-3) NYDIA (test code = HAVAb IgM Interpretative NYDIA) Information: Reactive greater than or equal to 1.2 Biotin has been reported to cause a negative bias, interpret results relative to patient's use of biotin. Formerly [facility] B CORE ANTIBODY [id number] 01:54:52 Test Item Value Reference Range Interpretation Comments HBCM 0.04 Semi-Quantitative (test code = 58018-2) NYDIA (test code = Biotin has been reported NYDIA) to cause a negative bias, interpret results relative to patient's use of biotin. Former[facility] A VIRUS ANTIBODY [id number] 01:54:52 Test Item Value Reference Range Interpretation Comments HAVM 0.04 Semi-Quantitative (test code = 75200-6) NYDIA (test code = HAVAb IgM Interpretative NYDIA) Information: Reactive greater than or equal to 1.2 Biotin has been reported to cause a negative bias, interpret results relative to patient's use of biotin. Former[facility] B CORE ANTIBODY [id number] 01:54:52 Test Item Value Reference Range Interpretation Comments HBCM 0.04 Semi-Quantitative (test code = 25368-2) NYDIA (test code = Biotin has been reported NYDIA) to cause a negative bias, interpret results relative to patient's use of biotin. [facility] A VIRUS ANTIBODY [id number] 01:54:52 Test Item Value Reference Range Interpretation Comments HAVM 0.04 Semi-Quantitative (test code = 97440-1) NYDIA (test code = HAVAb IgM Interpretative NYDIA) Information: Reactive greater than or equal to 1.2 Biotin has been reported to cause a negative bias, interpret results relative to patient's use of biotin. Former[facility] B CORE ANTIBODY [id number] 01:54:52 Test Item Value Reference Range Interpretation Comments HBCM 0.04 Semi-Quantitative (test code = 93139-7) NYDIA (test code = Biotin has been reported NYDIA) to cause a negative bias, interpret results relative to patient's use of biotin. [facility] A VIRUS ANTIBODY [id number] 01:54:52 Test Item Value Reference Range Interpretation Comments HAVM 0.04 Semi-Quantitative (test code = 37815-1) NYDIA (test code = HAVAb IgM Interpretative NYDIA) Information: Reactive greater than or equal to 1.2 Biotin has been reported to cause a negative bias, interpret results relative to patient's use of biotin. [facility] B SURFACE [id number] 01:48:11 Test Item Value Reference Range Interpretation Comments HBsAg Semi-Quantitative (test code = 0.04 Negative 5195-3) [facility] B SURFACE [id number] 01:48:11 Test Item Value Reference Range Interpretation Comments HBsAg Semi-Quantitative (test code = 0.04 Negative 5195-3) [facility] B SURFACE [id number] 01:48:11 Test Item Value Reference Range Interpretation Comments HBsAg Semi-Quantitative (test code = 0.04 Negative 5195-3) [facility] B SURFACE [id number] 01:48:11 Test Item Value Reference Range Interpretation Comments HBsAg Semi-Quantitative (test code = 0.04 Negative 5195-3) [facility] B SURFACE [id number] 01:48:11 Test Item Value Reference Range Interpretation Comments HBsAg Semi-Quantitative (test code = 0.04 Negative 5195-3) [facility] B SURFACE [id number] 01:48:11 Test Item Value Reference Range Interpretation Comments HBsAg Semi-Quantitative (test code = 0.04 Negative 5195-3) [facility] B SURFACE [id number] 01:48:11 Test Item Value Reference Range Interpretation Comments HBsAg Semi-Quantitative (test code = 0.04 Negative 5195-3) [facility] B SURFACE [id number] 01:48:11 Test Item Value Reference Range Interpretation Comments HBsAg Semi-Quantitative (test code = 0.04 Negative 5195-3) [facility] HEMOGLOBIN A1C [id number] 20:25:00 Test Item Value Reference Range Interpretation Comments POCT HBA1C (test code = 4548-4) 7.3 % 4-6 A Lab Interpretation (test code = Abnormal 30371-5) [facility] HEMOGLOBIN A1C [id number] 20:25:00 Test Item Value Reference Range Interpretation Comments POCT HBA1C (test code = 4548-4) 7.3 % 4-6 A Lab Interpretation (test code = Abnormal 57215-2) [facility] (ALB,T.PRO,BILI T,BU/BC,ALT,AST,ALK PHOS)2022-02-21 00:54:30 Test Item Value Reference Range Interpretation Comments TOTAL BILI (test code = 7084198438) 0.7 mg/dL 0.1-1.1 BILI UNCON (test code = 8972199216) 0.4 mg/dL 0.1-1.1 BILI CONJ (test code = 8626901964) 0.0 mg/dL 0.0-0.3 T PROTEIN (test code = 8733148765) 6.7 g/dL 6.3-8.2 ALBUMIN (test code = 5304053328) 4.5 g/dL 3.5-5.0 ALK PHOS (test code = 6168610971) 95 U/L 34-122 ALTv (test code = 1742-6) 97 U/L 5-50 H AST(SGOT) (test code = 5330813977) 57 U/L 13-40 H Lab Interpretation (test code = Abnormal 10338-8) [facility] (NA, K, CL, CO2, GLUCOSE, BUN, CREATININE, CA)2022-02-21 00:54:10 Test Item Value Reference Range Interpretation Comments NA (test code = 139 mmol/L 135-145 2423689466) K (test code = 3.4 mmol/L 3.5-5.0 L 5065453522) CL (test code = 100 mmol/L 98-108 1171378418) CO2 TOTAL (test code = 28 mmol/L 23-31 1775845324) AGAP (test code = 2-16 1241851952) BUN (test code = 19 mg/dL 7-23 2353383375) GLUCOSE (test code = 236 mg/dL 70-110 H 7081749051) CREATININE (test code = 1.05 mg/dL 0.60-1.25 8683128363) CALCIUM (test code = 9.7 mg/dL 8.6-10.6 2898389396) eGFR (test code = mL/min/1.73m2 6543731491) NYDIA (test code = NYDIA) Association of [...] tests). Lab Interpretation Abnormal (test code = 37352-1) [facility] 00:54:10 Test Item Value Reference Range Interpretation Comments LIPASE (test code = 3841784762) 77 U/L 0-220 Lab Interpretation (test code = Normal 80257-8) [facility] WITH [id number] 00:40:48 Test Item Value Reference Range Interpretation Comments WBC (test code = See_Comment [Automated 4175-2) message] The sy stem which generated this result transmitted reference range : 4.20 - 10.70 10*3/?L. The reference range was not used to interpret this result as normal/abnormal . RBC (test code = See_Comment [Automated 050-8) message] The sy stem which generated this [...] RDW-SD (test code = 40.5 fL 38.5-51.6 44005-3) RDW-CV (test code = 13.2 % 12.1-15.4 788-0) PLT (test code = See_Comment [Automated 777-3) message] The sy stem which generated this result transmitted reference range : 150 - 328 10*3/ ?L. The reference r saud was not used to interpret this result as normal/abnormal . MPV (test code = 11.7 fL 9.8-13.0 48951-7) NRBC/100 WBC (test See_Comment [Automat ed code = 3649778935) message] The system which generated this result transmitted reference range : 0.0 - 10.0 /100 WBCs. The refer ence range was not u sed to interpret th is result as normal/abnormal . NRBC x10^3 (test code See_Comment [Auto mated = 7119740222) message] The s ystem which generated this result transmitted reference range : 10*3/?L. The reference range was not used to interpret this result as normal/abnormal . GRAN MAT (NEUT) % 79.5 % (test code = 770-8) IMM GRAN % (test code 0.50 % = 6212240624) LYMPH % (test code = 13.5 % 736-9) MONO % (test code = 5.6 % 5905-5) EOS % (test code = 0.5 % 713-8) BASO % (test code = 0.4 % 706-2) GRAN MAT x10^3(ANC) 8.31 10*3/uL 1.99-6.95 H (test code = 0985244335) IMM GRAN x10^3 (test 0.05 10*3/uL 0.00-0.06 code = 3167787837) LYMPH x10^3 (test code 1.41 10*3/uL 1.09-3.23 = 731-0) MONO x10^3 (test code 0.58 10*3/uL 0.36-1.02 = 742-7) EOS x10^3 (test code = 0.05 10*3/uL 0.06-0.53 L 711-2) BASO x10^3 (test code 0.04 10*3/uL 0.01-0.09 = 704-7) Lab Interpretation Abnormal (test code = 80519-9) [facility] HEMOGLOBIN A1C [id number] 20:45:00 Test Item Value Reference Range Interpretation Comments POCT HBA1C (test code = 4548-4) 7.1 % 4-6 A Lab Interpretation (test code = Abnormal 81071-6) [facility] HEMOGLOBIN A1C [id number] 20:45:00 Test Item Value Reference Range Interpretation Comments POCT HBA1C (test code = 4548-4) 7.1 % 4-6 A Lab Interpretation (test code = Abnormal 24749-9) [facility] HEMOGLOBIN A1C [id number] 16:29:00 Test Item Value Reference Range Interpretation Comments POCT HBA1C (test code = 4548-4) 8.1 % 4-6 A Lab Interpretation (test code = Abnormal 04954-6) [facility] Notes Date/Time Note Provider Source 2022-10-30 13:11:50-00:00 Formatting of this note migh t be different from the original. Marisas Bautista [facility] Received Laboratory Report f rom [facility]. Placed in the providers box to review Electronically signed by Marissa Bautista at 1:13 PM CDT 2022-10-27 15:54:59-00:00 Formatting of this note migh t be different from the original. María Koo [facility] Received Radiology service r eport from [facility]. Placed in providers basket. Electronically signed by María Koo at 10/17 3:57 PM CDT 2022-10-27 14:56:14-00:00 Formatting of this note migh t be different from the original. María Koo [facility] Received [facility] care summary [facility]. Placed in providers basket. Electronically signed by María Koo at 10/17 2:58 PM CDT 2022-10-02 13:15:00-00:00 Formatting of this note is d ifferent from the original. [facility] Images from the original note were not [...] by: NAVDEEP NEWBERRY on: 10/05/2022 04:14 PM [facility] Modules accepted: Orders Electronically signed by Kaitlin Newberry at 0 10/05/2022 4:14 PM T 2022-10-02 13:15:00-00:00 Formatting of this note migh t be different from the original. [facility] Per Ronda email corrected HEPATITIS B CORE ANTIBODY IG M ( [id number]) And HEPATITIS ANTIBODY HAAB TOTAl ( [id number]) [id number] Per [place] [facility] Both test was reordered and added to the previous specimen. Inc orrect orders were also cancelled. Kaitlin forte 10/05/2022 4:26 PM Electronically signed by Kaitlin Newberry at 0 10/05/2022 4:30 PM CDT 2022-10-02 13:15:00-00:00 Formatting of this note migh t be different from the original. [facility] October 10 according to Stacy puri there was enough blood to run the test for Hav Antibody and patient did not need to come in,also duplicate test were cancelled.Kaitlin Newberry 10/10/2022 10:56 AM Electronically signed by Kaitlin Newberry at 0 10/10/2022 10:56 AM CDT"
[2022-11-03] MEDS ORDERED: MORPHINE 4 MG/ML SYR ONE (02:29)
[2022-11-03] MEDS ORDERED: MORPHINE 2 MG/ML SYR ONE (02:29)
[2022-11-03] MEDS ORDERED: dexAMETHasone 10 MG/ML VIAL ONE (02:29)
[2022-11-03] MEDS ORDERED: KETOROLAC 30 MG/ML INJ ONE (02:29)
--- NOTE | 2022-11-03 02:54 | EDPHYS ---
Physician Documentation [facility] Name: Gareth Figueroa Age: 47 yrs Sex: Male : 1975 Arrival Date: 11/03/2022 Time: 01:34 Bed 17 Private MD: ED Physician William Kennedy HPI: 11/03 01:50 This 47 yrs old Male presents to ER via Unassigned with complaints of Ankle Swelling, cp Foot Pain. 01:50 The patient presents with pain, that is acute, swelling, tenderness. The complaints cp affect the right ankle. Onset: The symptoms/episode began/occurred 5 day(s) ago. Context: resulted from a gout flare up, The patient can partially bear weight on the affected extremity. Associated signs and symptoms: Pertinent positives: calf tenderness, Pertinent negatives: fever. Severity of symptoms: in the emergency department the symptoms are unchanged, despite use of prescribed gout medication Colchicine. Patient with history of recent cholecystectomy. Historical: - Allergies: 02:00 hydrocodone; pf1 - PMHx: 02:00 diabetes mellitus; Hypertensive disorder; Gout; fatty liver; pf1 - PSHx: 02:00 Cholecystectomy; left knee surgery; pf1 - Immunization history:: Adult Immunizations up to date, Client reports receiving the 2nd dose of the Covid vaccine, Last tetanus immunization: > 10 years ago Flu vaccine is not up to date. - Social history:: Smoking status: Patient denies any tobacco usage or history of. Patient/guardian denies using alcohol, street drugs. ROS: 01:52 Constitutional: Negative for body aches, chills, fever, poor PO intake. cp 01:52 Cardiovascular: Negative for chest pain, edema, palpitations. 01:52 Respiratory: Negative for cough, shortness of breath, wheezing. 01:52 Abdomen/GI: Negative for abdominal pain, nausea, vomiting, diarrhea, constipation. 01:52 Back: Negative for pain at rest, pain with movement. 01:52 MS/extremity: Positive for pain, swelling, tenderness, of the right ankle and right foot. Exam: 01:55 Constitutional: The patient appears in no acute distress, alert, awake, cp non-diaphoretic, non-toxic, well developed, well nourished, uncomfortable. 01:55 Head/Face: Normocephalic, atraumatic. cp 01:55 Eyes: Periorbital structures: appear normal, Conjunctiva: normal, no exudate, no injection, Sclera: no appreciated abnormality, Lids and lashes: appear normal, bilaterally. 01:55 ENT: External ear(s): are unremarkable, Nose: is normal, Mouth: Lips: moist, Oral mucosa: pink and intact, moist, Posterior pharynx: is normal, airway is patent, no erythema, no exudate. 01:55 Chest/axilla: Inspection: normal. 01:55 Cardiovascular: Rate: normal, Rhythm: regular. 01:55 Respiratory: the patient does not display signs of respiratory distress, Respirations: normal, no use of accessory muscles, no retractions, labored breathing, is not present, Breath sounds: are clear throughout. 01:55 Musculoskeletal/extremity: Extremities: grossly normal except: noted in the right ankle and right foot: pain, swelling, tenderness, mild erythema noted lateral malleolus, ROM: limited passive range of motion due to pain, in the right ankle, Pulses: noted to be 2+ in the right dorsalis pedis artery, the right ankle and right foot Sensation intact. 01:55 Skin: cellulitis, is not appreciated. Vital Signs: 01:54 BP 167 / 81; Pulse 81; Resp 18; Temp 98; Pulse Ox 99% on R/A; Weight 99.79 kg; Height 5 pf1 ft. 4 in. ; Pain 7/10; 01:54 Body Mass Index 37.76 (99.79 kg, 162.56 cm) pf1 01:54 Pain Scale: Adult pf1 MDM: 01:44 Patient medically screened. cp 02:00 Differential diagnosis: fracture, sprain, arthritis, gout, cellulitis. cp 02:36 ED course: US tech reports negative DVT study for RLE. cp 02:53 Data reviewed: vital signs, nurses notes, radiologic studies, plain films, ultrasound. cp 02:53 I considered the following discharge prescriptions or medication management in the emergency department Medications were administered in the Emergency Department. See MAR. Counseling: I had a detailed discussion with the patient and/or guardian regarding the historical points, exam findings, and any diagnostic results supporting the discharge/admit diagnosis, radiology results, the need for outpatient follow up, a family practitioner, to return to the emergency department if symptoms worsen or persist or if there are any questions or concerns that arise at home. Response to treatment: the patient's symptoms have markedly improved after treatment, and as a result, I will discharge patient. 11/03 01:48 Order name: XRAY Ankle RIGHT 3 view cp 11/03 01:48 Order name: US Extremity Venous Unilateral Ltd cp 11/03 01:54 Order name: XRAY Foot RIGHT 3 View cp Administered Medications: 02:30 Drug: Ketorolac IM 30 mg Route: IM; Site: right deltoid; ll3 03:22 Follow up: Response: No adverse reaction; Pain is decreased ll3 02:30 Drug: Dexamethasone IM 10 mg Route: IM; Site: right deltoid; ll3 03:22 Follow up: Response: No adverse reaction; Pain is decreased ll3 02:30 Drug: morphine IM 6 mg Route: IM; Site: left deltoid; ll3 03:22 Follow up: Response: No adverse reaction; Pain is decreased ll3 Disposition: 03:49 Co-signature as Attending Physician, William Kennedy MD I agree with the assessment and kdr plan of care. Disposition Summary: 11/03/22 02:54 Discharge Ordered Location: Home cp Problem: an acute exacerbation cp Symptoms: have improved cp Condition: Stable cp Diagnosis - Pain in right ankle and joints of right foot cp - Gout, unspecified cp Followup: cp - With: Private Physician - When: 2 - 3 days - Reason: Recheck today's complaints Discharge Instructions: - Discharge Summary Sheet cp - Gout cp - Ankle Pain cp - Foot Pain cp Forms: - Medication Reconciliation Form cp - Thank You Letter cp - Antibiotic Education cp - Prescription Opioid Use cp - Patient Portal Instructions cp - Leadership Thank You Letter cp Prescriptions: - Medrol (Vik) 4 mg Oral Tablets, Dose Pack - take 1 tablet by ORAL route as directed - follow package instructions; 1 cp packet; Refills: 0, Product Selection Permitted Signatures: Dispatcher [employer] EDWilliam Burgos MD MD [facility] Star Moran PA PA cp Jennie Nathan RN RN ll3 Andreia Pacheco RN RN pf1 Corrections: (The following items were deleted from the chart) 02:33 01:50 Onset: The symptoms/episode began/occurred 4 day(s) ago, cp cp
--- NOTE | 2022-11-03 02:54 | ER ---
Nurse's Notes [facility] Name: Gareth Figueroa Age: 47 yrs Sex: Male : 1975 Arrival Date: 11/03/2022 Time: 01:34 Bed 17 Private MD: Diagnosis: Pain in right ankle and joints of right foot;Gout, unspecified Presentation: 11/03 01:54 Chief complaint: Patient states: right ankle pain of 7 with redness and swelling,onset pf1 5 days ago. Patient denies any injury. Patient stated took Colchicine 0.6mg at 2200 and Tylenol 1000mg at 2100. Coronavirus screen: Vaccine status: Patient reports receiving the 2nd dose of the covid vaccine. [place] Client denies travel out of the [place] in the last 14 days. At this time, the client does not indicate any symptoms associated with coronavirus-19. Ebola Screen: Patient negative for fever greater than or equal to 101.5 degrees Fahrenheit, and additional compatible Ebola Virus Disease symptoms. Initial Sepsis Screen: Does the patient meet any 2 criteria? No. Patient's initial sepsis screen is negative. Does the patient have a suspected source of infection? No. Patient's initial sepsis screen is negative. Risk Assessment: Do you want to hurt yourself or someone else? Patient reports no desire to harm self or others. 01:54 Method Of Arrival: Wheelchair pf1 01:54 Acuity: CELIO 3 pf1 Historical: - Allergies: 02:00 hydrocodone; pf1 - PMHx: 02:00 diabetes mellitus; Hypertensive disorder; Gout; fatty liver; pf1 - PSHx: 02:00 Cholecystectomy; left knee surgery; pf1 - Immunization history:: Adult Immunizations up to date, Client reports receiving the 2nd dose of the Covid vaccine, Last tetanus immunization: > 10 years ago Flu vaccine is not up to date. - Social history:: Smoking status: Patient denies any tobacco usage or history of. Patient/guardian denies using alcohol, street drugs. Screenin:09 [facility] ED Fall Risk Assessment (Adult) History of falling in the last 3 months, ll3 including since admission No falls in past 3 months (0 pts) Confusion or Disorientation No (0 pts) Intoxicated or Sedated No (0 pts) Impaired Gait Yes (1 pt) Mobility Assist Device Used No (0 pt) Altered Elimination No (0 pt) Score/Fall Risk Level 0 - 2 = Low Risk Oriented to surroundings, Maintained a safe environment, Educated pt \T\ family on fall prevention, incl call for assistance when getting out of bed. Abuse screen: Denies threats or abuse. Denies injuries from another. Nutritional screening: No deficits noted. Tuberculosis screening: No symptoms or risk factors identified. Assessment: 02:32 General: Appears uncomfortable, Behavior is calm, cooperative. Pain: Complains of pain ll3 in right lateral malleolus Pain does not radiate. Pain currently is 8 out of 10 on a pain scale. Is continuous. Derm: Skin is red, Skin temperature is warm Reports pain that is 8 out of 10 on a pain scale. Vital Signs: 01:54 BP 167 / 81; Pulse 81; Resp 18; Temp 98; Pulse Ox 99% on R/A; Weight 99.79 kg; Height 5 pf1 ft. 4 in. ; Pain 7/10; 01:54 Body Mass Index 37.76 (99.79 kg, 162.56 cm) pf1 01:54 Pain Scale: Adult pf1 ED Course: 01:38 Patient arrived in ED. jj6 01:42 Star Moran PA is PHCP. cp 01:42 William Kennedy MD is Attending Physician. cp 02:00 Triage completed. pf1 02:07 XRAY Ankle RIGHT 3 view In Process Unspecified. EDMS 02:07 XRAY Foot RIGHT 3 View In Process Unspecified. EDMS 02:09 Arm band placed on Patient placed in an exam room, on a stretcher, on pulse oximetry. ll3 02:09 Patient has correct armband on for positive identification. Bed in low position. Call ll3 light in reach. Side rails up X 1. Adult w/ patient. 02:10 No provider procedures requiring assistance completed. ll3 02:27 US Extremity Venous Unilateral Ltd In Process Unspecified. EDMS 03:22 Patient did not have IV access during this emergency room visit. ll3 Administered Medications: 02:30 Drug: Ketorolac IM 30 mg Route: IM; Site: right deltoid; ll3 03:22 Follow up: Response: No adverse reaction; Pain is decreased ll3 02:30 Drug: Dexamethasone IM 10 mg Route: IM; Site: right deltoid; ll3 03:22 Follow up: Response: No adverse reaction; Pain is decreased ll3 02:30 Drug: morphine IM 6 mg Route: IM; Site: left deltoid; ll3 03:22 Follow up: Response: No adverse reaction; Pain is decreased ll3 Medication: 02:10 VIS not applicable for this client. ll3 Outcome: 02:54 Discharge ordered by . cp 03:22 Discharged to home via wheelchair. ll3 03:22 Condition: stable 03:22 Discharge instructions given to patient, Instructed on discharge instructions, follow up and referral plans. medication usage, Demonstrated understanding of instructions, follow-up care, medications, Prescriptions given X 1. 03:23 Patient left the ED. ll3 Signatures: Dispatcher [employer] EDMS Star Moran PA PA cp Jeffries, Jennifer jj6 Loubet, Lynsea, RN RN ll3 Andreia Pacheco RN RN pf1
[2022-11-03 03:28] VITALS: BP 167/81; TEMP 98; O2SAT 99
--- NOTE | 2022-11-03 07:43 | RAD REPORT ---
EXAM DESCRIPTION: US - Extremity Venous Uni Ltd - 11/03/2022 2:25 am CLINICAL HISTORY: Pain COMPARISON: None. TECHNIQUE: Real-time sonographic evaluation of the right lower extremity deep venous system was perf ormed. FINDINGS: Normal compressibility, flow augmentation, phasic flow and spontaneous flow is identified in the right lower extremity deep venous system. No intraluminal filling defects seen. IMPRESSION: No DVT in the right lower extremity.
--- NOTE | 2022-11-03 14:26 | RAD REPORT ---
EXAM DESCRIPTION: RAD - Foot Right 3 View - 11/03/2022 2:06 am CLINICAL HISTORY: 47 years, Male, Pain;Swelling COMPARISON: None FINDINGS: 3 X-ray views of the right foot (Frontal, lateral and oblique views) were performed. No acute bony injuries were demonstrated. There are minimal degenerative changes within the first met atarsophalangeal joint and DIP joints. Spurring posterior aspect of the calcaneus. There are no naren ss intraosseous lesions. No periosteal reaction were seen. IMPRESSION: Minimal degenerative changes. No evidence for acute bony injuries. Electronically signed by: Sundar Brown MD 11/03/2022 2:50 AM CDT Due to temporary technical issues with the PACS/Fluency reporting system, reports are being signed by the in house radiologists without review as a courtesy to insure prompt reporting. The interpreting radiologist is fully responsible for the content of the report.
--- NOTE | 2022-11-03 14:32 | RAD REPORT ---
EXAM DESCRIPTION: RAD - Ankle Right 3 View - 11/03/2022 2:05 am CLINICAL HISTORY: 47 years, Male, Pain;Swelling COMPARISON: None FINDINGS: 3 X-ray views of the right ankle (frontal, lateral and oblique views) were performed. There is no evidence for fracture or dislocation. Minimal spurring/degenerative changes medial latera l malleolus as well as posterior aspect of the calcaneus. The ankle mortise is intact. There is no significant joint effusion. There are no gross intraosseous lesions. No gross soft tissue abnorma lity is demonstrated. IMPRESSION: Minimal degenerative changes. No evidence for acute bony injuries. Electronically signed by: Sundar Brown MD 11/03/2022 2:46 AM CDT Due to temporary technical issues with the PACS/Fluency reporting system, reports are being signed by the in house radiologists without review as a courtesy to insure prompt reporting. The interpreting radiologist is fully responsible for the content of the report.
== END 2022-11-03 03:23 | disposition home or self-care (01) ==
LOC: ER 01:34
DX: M10.9 Gout, unspecified (principal); E11.9 Type 2 diabetes mellitus without complications; I10 Essential (primary) hypertension; Z88.5 Allergy status to narcotic agent
CPT/HCPCS: 73630; 73610; 93971; 96372; 99284; J1100; J2270

== ENCOUNTER 2022-12-25 07:58 | Day surgery (SDC) | payer BC ==
[2022-12-22 13:52] LABS: Hematocrit 43.9 % (39.6-49.0); MCV 86.3 fL (80-100); MPV 9.4 fL (7.6-11.3); Platelets 205 thou/uL (152-406); RBC Red Blood Cell Count 5.09 M/uL (4.33-5.43)
[2022-12-22 14:03] LABS: Potassium 3.3 mEq/L (3.5-5.1)
[2022-12-25] MEDS ORDERED: CEFAZOLIN SODIUM 1 GM/VIAL ONE (08:37)
[2022-12-25] MEDS ORDERED: NA CHLORIDE 0.9% 1,000 ML ONE (08:37)
[2022-12-25] MEDS ORDERED: dexAMETHasone 10 MG/ML VIAL ONE (09:05)
[2022-12-25] MEDS ORDERED: KETOROLAC 30 MG/ML INJ ONE ×2 (09:05→12:53)
[2022-12-25] MEDS ORDERED: propofoL 200 MG/20 ML VIAL IV ONE (09:05)
[2022-12-25] MEDS ORDERED: FENTANYL CITR 100 MCG/2 ML ONE (09:05)
[2022-12-25] MEDS ORDERED: MIDAZOLAM HCL 2 MG/2 ML INJ ONE (09:05)
[2022-12-25] MEDS ORDERED: ROCURONIUM 50 MG/5 ML VIAL IV ONE (09:05)
[2022-12-25] MEDS ORDERED: LIDOCAINE 2% MPF 5 ML VIAL ONE (09:13)
[2022-12-25] MEDS ORDERED: ONDANSETRON 4 MG/2 ML VIAL ONE (09:13)
--- NOTE | 2022-12-25 11:17 | P.BOP ---
Preoperative diagnosis: incisional tender ventral periumbilical hernia Postoperative diagnosis: same Primary procedure: Laparoscopic repair incisional tender ventral periumbilical herniawith mesh Secondary procedure: 3x3cm Estimated blood loss: <10cc Specimen: none Findings: as above Anesthesia: General Complications: None Drain(s): Other (ventralex) Transferred to: Recovery Room Condition: Good
[2022-12-25] MEDS ORDERED: NEOSTIGMINE 1 MG/ML -10 ML VIAL ONE (11:20)
[2022-12-25] MEDS ORDERED: GLYCOPYRROLATE 0.2 MG/ML SYR ONE (11:20)
[2022-12-25 13:49] VITALS: BP 115/62; TEMP 96; O2SAT 98
--- NOTE | 2022-12-27 11:51 | OP ---
Date of Procedure: 12/25/2022 Surgeon: Xander Lloyd MD Preoperative Diagnosis: Tender incisional ventral periumbilical hernia. Postoperative Diagnosis: Tender incisional ventral periumbilical hernia. Procedure: Laparoscopic repair of tender ventral periumbilical incisional hernia with mesh. Anesthesia: General plus local. Complications: None. Implant: Ventralex mesh. Estimated Blood Loss: Less than 10 cc. Indication: This is a case of a 47-year-old patient, who comes to us with the periumbilical incision al ventral hernia. Patient was doing some heavy lifting and felt a pop in the periumbilical region a nd then was diagnosed with the help of imaging with the umbilical hernia. It is tender. He wants th at repaired. The benefits, alternatives, and risks of laparoscopic versus open repair with mesh full y explained, which include, but not limited to, infection, bleeding, damage to adjacent structures, a nesthesia complications, recurrence, DE, and even . He also understands this may not relieve an y symptoms. He might need more than one surgical intervention. He understood, signed a consent. Description Of Procedure: Patient was brought to the operating room, placed in supine position. Ane sthesia was done without complication. Abdomen was prepped and draped in a sterile fashion. Local a nesthesia was applied followed by a curvilinear incision on the periumbilical region. Incision was c arried down to fascia. We noticed the hernia sac and the incarcerated omentum coming through it. We removed that, cleaned the fascial edges. We noticed the fascial edges to be weak enough to be reinf orced and I believe the mesh will be the best situation for this case. So through that incision, we proceeded to place the Glen trocar. Pneumoperitoneum was obtained. We placed 5 mm trocars, 2 of t hem in the left and the right side. This allowed me to visualize the center of the abdomen a little bit better. We noticed that a medium Ventralex mesh will fit that periumbilical ventral region. So at that moment, I proceeded then to place a Ventralex mesh to that region in the periumbilical area, removing the Glen trocar, pulled the straps, secured in place with the SorbaFix, then removed the s traps and closed the fascia with a [id number] fashion #1 Vicryl multiple times and then reinforc ed circumferentially with the mesh underneath to be nice and flat against the peritoneum with no liana l in between. At that moment, I proceeded to close the subcutaneous tissue with 3-0 chromic. We not iced some air still remaining on the periumbilical region. We deflated the pneumoperitoneum, removed the trocars under direct visualization and then closed the subcutaneous tissue with 3-0 chromic and the skin in a subcuticular fashion with jamshid on top. Sponge counts and instrument counts were cor rect. Patient tolerated the procedure well. Patient sent to Recovery in stable condition. NELLIE/SONALI Voice ID: [id number] Report ID: [id number]
--- NOTE | 2022-12-27 11:54 | DS ---
Date of Discharge: 12/25/2022 Diagnosis: Tender incisional periumbilical ventral hernia. Procedure: Laparoscopic repair of periumbilical hernia incisional with mesh. Disposition: Home. Activity: As tolerated. No heavy lifting. Plan: Follow up in my office in 1 week. Call for appointment at [phone]. Keep area dry for 48 hour s, then may shower or even better keep the area intact until next doctor visit. NELLIE/SONALI Voice ID: [id number] Report ID: [id number]
== END 2022-12-25 13:20 | disposition home or self-care (01) ==
LOC: OR 07:58
PROVIDERS: ATTEND Surgery
PROC: 0WUF4JZ Supplement Abdominal Wall with Synthetic Substitute, Percutaneous Endoscopic Approach (ICD-10-PCS; principal; 2022-12-25 09:15)
DX: K43.2 Incisional hernia without obstruction or gangrene (principal); I10 Essential (primary) hypertension; E78.00 Pure hypercholesterolemia, unspecified; E11.9 Type 2 diabetes mellitus without complications; K21.9 Gastro-esophageal reflux disease without esophagitis
CPT/HCPCS: 85025; 80048; 36415; 82947 ×2; 49591; J2704; J2710; J2001; J2250; J3010; J1100; J2405; J7030; J0690